=== PATIENT | female | born 1950 | race Caucasian/White ===

== ENCOUNTER 2019-03-23 11:11 | Outpatient (RCR) | payer MEDICARE, SELFPAY ==
--- NOTE | 2019-02-24 18:05 | PTOPEVAL ---
Thank you for referring this patient to [facility]. Please review, sign, date and return this plan of care JAYDEN. I agree with and certify that the following plan of care is medically necessary. Referring Physician Date Admitting Provider: Attending Provider: Raf Fritz MD Referring Provider: *PT Outpatient Evaluation Start: 02/24/19 17:03 Freq: Status: Active Protocol: Document 02/24/19 17:08 ROBERTO (Rec: 02/24/19 17:39 ROBERTO [id number]) Therapy Assessment Status Assessment Status Assessment Status Evaluation Outpatient Past Medical History Neurological History Hx Cerebrovascular Accident (CVA) Yes Hx Transient Ischemic Attacks (TIA) Yes Cardiovascular History Hx Hypertension Yes Evaluation Information Problem Diagnosis lumbosacral pain Onset 02/15/19 Subjective Information Pt. reports started noting low Query Text:As Reported By Patient/ back and buttock pain on 20. She recalls just waking with the pain. She states that she cannot recall an incident that increased her pain. She reports pain in the right buttock and down the lateral right l.e. and into the inside of the right foot. She reports having numbness and tingling in the lower right leg. She reports she is currently sleeping in a recliner due to pain. She states that pain is increased most with attempting to lay flat in bed or standing long periods of time. She reports that her goal is to decrease her low back pain. Prior Level of Function Comments Additional Prior Level of Function Pt. recalls that she has had Comments back pain in the past that has went away on its own. She reports that she is still completes ADL's and IADL's without assist, just slower due to pain. Pain Assessment Pain Scale Pain Scale Used Numeric (1 - 10) Self Report Pain Assessment Right Buttock(s) Reported Pain Level 5 Current Pain Intensity 5 Lowest Pain Intensity 5 Greatest Pain Intensity 10 Pain Aggravating Factors Prolonged Position,Weight
--- NOTE | 2019-04-07 13:02 | PCPTNOTE ---
04/07/19 - patient has not been to therapy in several weeks. she has been called with no return calls to continue or finish poc. as of this date, she will be dc'd from skilled PT services and all progress towards goals will be taken from her most recent evaluation/note. NIKKI
== END 2019-03-23 11:12 | disposition home or self-care (01) ==
LOC: CHSPT 11:11
PROVIDERS: PCP Internal Medicine; Visit Provider Internal Medicine
DX: M54.9 Dorsalgia, unspecified (principal); M54.17 Radiculopathy, lumbosacral region
CPT/HCPCS: 97014; 97110; 97161; G0283

== ENCOUNTER 2019-03-23 11:17 | Outpatient (CLI) | payer MEDICARE, SELFPAY ==
--- NOTE | ~2019-03-23 | CT_ITS ---
EXAMINATION: CT abdomen pelvis wo con DATE: 03/23/2019 11:40 INDICATION: Hematuria TECHNIQUE: Computed tomography (CT) of the abdomen and pelvis was performed without intravenous contr ast. The dose-length product (DLP) was 420.31 mGy-cm. Automated exposure control and iterative recons truction technique were employed. COMPARISON: None FINDINGS: Minimal dependent atelectasis is present in the lung bases. The heart size is normal. The l iver is diffusely low in attenuation when compared with the spleen, consistent with hepatic steatosis . Punctate calcifications in an otherwise normal spleen likely represent healed granulomatous disease . The gallbladder is surgically absent. The pancreas and adrenal glands are normal. The kidneys are u nremarkable. No stones are identified in the kidneys, ureters, or bladder. There is no hydronephrosis or hydroureter. Colonic diverticulosis is present without evidence of diverticulitis. There is mild lumbar spondylosis. A small fat-containing umbilical hernia is noted. IMPRESSION: 1. No CT correlate for the patient's symptoms. Reviewed, dictated and finalized at location A. [employer]
[2019-03-23 11:51] LABS: INR 2.8; Prothrombin Time 28.1 Seconds (9.64-11.0)
== END 2019-03-23 11:18 | disposition home or self-care (01) ==
PROVIDERS: PCP Internal Medicine; Visit Provider Internal Medicine
DX: R31.9 Hematuria, unspecified (principal); E11.9 Type 2 diabetes mellitus without complications; Z79.01 Long term (current) use of anticoagulants
CPT/HCPCS: 36415; 74176; 85610

== ENCOUNTER 2019-04-13 00:33 | Day surgery (SDC) | payer MEDICARE, SELFPAY ==
[2019-04-08 14:05] VITALS: BMI 32.0
--- NOTE | 2019-04-13 13:13 | P.PNAN_ITS ---
Anes - Initial Pre Proc Eval Procedure: Operation Date: 04/13/19 13:30 Proposed Procedures p Screening Colonoscopy - Ronnie Enriquez MD Date/Time: 04/13/19 13:13 Surgeon: Ronnie Enriquez MD Pre Op Diagnosis: Neoplasm Screening Patient Data Age: 68 Gender: F Height: 5 ft 6 in Weight: 90 kg Allergies Allergy/AdvReac Type Severity Reaction Status Date / Time No Known Allergies Allergy Unverified 04/13/19 12:55 Home Medications Medication Instructions Recorded Confirmed Type glimepiride 4 mg tablet 4 mg PO BID tablet 12/15/18 04/08/19 History indomethacin 50 mg capsule 50 mg PO TID cap 12/15/18 04/08/19 History warfarin 5 mg tablet See Rx Instructions .ROUTE .COMPLEX 12/15/18 04/08/19 History hydrochlorothiazide 12.5 mg tablet 12.5 mg PO DAILY #90 tablet 02/11/19 04/08/19 Rx lisinopril 40 mg tablet 40 mg PO DAILY #90 tablet 02/11/19 04/08/19 Rx prednisone 5 mg tablet 5 mg PO DAILY #30 tablet 02/16/19 04/08/19 Rx magnesium oxide 400 mg PO DAILY 04/08/19 04/08/19 History ropinirole 0.5 mg PO BID 04/08/19 04/08/19 History rosuvastatin 5 mg PO DAILY 04/08/19 04/08/19 History tramadol 50 mg PO Q6H PRN 04/08/19 04/08/19 History Patient hx anesthesia problems: none Family hx anesthesia problems: none PMFSH Past Medical History Medical History (Updated 04/13/19 @ 13:13 by Darrin Roldan MD) Cerebrovascular disease, unspecified Hypertension Mixed hyperlipidemia Neuropathy Otalgia TIA (transient ischemic attack) Type 2 diabetes mellitus without complications Surgical History Surgical History History of Hx of cholecystectomy Family History Family History (Updated 02/07/19 @ 21:45 by Lance Adam MD) Father Family history of cardiovascular disease Family history of congestive heart failure Grandparent Cerebrovascular accident Sibling Cirrhosis of liver Social History Social History Smoking status: Never smoker Alcohol intake: never Anes - Eval Final PreProcedure Day of Procedure 04/13/19 13:13 Patient weight: overweight Heart: regular rate and rhythm Lungs: clear to auscultation Airway: Mallampati scale class II Neurological: alert and oriented Last oral intake: >/= 8 hours ASA classification: III Emergent: no Anesthetic plan: proceed Anesthesia type and monitoring: general GIVS and standard monitoring Informed Consent: The patient's anesthetic plan and its attendant risks and benefits were discussed with the patient/family/POA. Questions were solicited and answers provided to the satisfaction of the patient/family/POA.
[2019-04-13 13:38] LABS: INR 1.3
[2019-04-13 13:39] LABS: Partial Thromboplastin Time 30.3 SECONDS (22.3-36.8)
[2019-04-13 13:46] VITALS: BP 134/63; PULSE 78; RESP 16; TEMP 36.6; O2SAT 99; BMI 31.6
[2019-04-13 13:46] LABS: Glucose Point of Care 110 (65-105)
[2019-04-13] MEDS: LACTATED RINGERS 1,000 ML 150 ML IV CONT (13:52)
[2019-04-13] MEDS: LIDOCAINE HCL 2% LOCAL INJ 20 ML VIAL INTRADERM (13:54)
--- NOTE | 2019-04-13 14:29 | PM.HPGS ---
History of Present Illness History of Present Illness Consent: Risks, benefits, and alternatives have been discussed and questions answered. Patient agrees to proceed with procedure. Chief complaint: Neoplasm Screening Narrative: Milagro Godoy is a 68 year old female here for screening colonoscopy, never had one. She also has diarrhea Review of Systems Constitutional: Constitutional: Denies headache(s) and Denies weakness Eyes: Eyes: Denies blurry vision ENT: Reports Normal hearing present, Denies headache(s) and Denies neck pain Cardiovascular: Cardiovascular: Denies chest pain and Denies dyspnea Respiratory: Respiratory: Denies dyspnea Gastrointestinal: Gastrointestinal: Reports no additional gastrointestinal complaints Genitourinary: Genitourinary: Denies dysuria Musculoskeletal: Musculoskeletal: Denies neck pain Integumentary/Breasts: Skin/Breast: Denies dry skin Neurologic: Reports Normal hearing present, Denies headache(s) and Denies weakness Psychiatric: Psychiatric: Denies anxiety Endocrine: Endocrine: Denies change in body appearance Hematologic/Lymphatic: Hematologic/Lymphatic: Denies easy bleeding Allergic/Immunologic: Allergic/Immunologic: Denies urticaria PMFSH Past Medical History Medical History (Updated 04/13/19 @ 14:30 by Ronnie Enriquez MD) Cerebrovascular disease, unspecified Chronic diarrhea Hypertension Mixed hyperlipidemia Neuropathy Otalgia TIA (transient ischemic attack) Type 2 diabetes mellitus without complications Surgical History Surgical History History of Hx of cholecystectomy Family History Family History (Updated 02/07/19 @ 21:45 by Lance Adam MD) Father Family history of cardiovascular disease Family history of congestive heart failure Grandparent Cerebrovascular accident Sibling Cirrhosis of liver Social History Social History Smoking status: Never smoker Alcohol intake: never Meds Home Medications and Allergies Home Medications Medication Instructions Recorded Confirmed Type glimepiride 4 mg tablet 4 mg PO BID tablet 12/15/18 04/08/19 History warfarin 5 mg tablet See Rx Instructions .ROUTE .COMPLEX 12/15/18 04/13/19 History hydrochlorothiazide 12.5 mg tablet 12.5 mg PO DAILY #90 tablet 02/11/19 04/08/19 Rx lisinopril 40 mg tablet 40 mg PO DAILY #90 tablet 02/11/19 04/08/19 Rx prednisone 5 mg tablet 5 mg PO DAILY #30 tablet 02/16/19 04/08/19 Rx magnesium oxide 400 mg PO DAILY 04/08/19 04/08/19 History ropinirole 0.5 - 1 mg PO HS 04/08/19 04/13/19 History rosuvastatin 5 mg PO DAILY 04/08/19 04/13/19 History tramadol 50 mg PO Q6H PRN 04/08/19 04/08/19 History Allergies Allergy/AdvReac Type Severity Reaction Status Date / Time No Known Allergies Allergy Unverified 04/13/19 12:55 Vital Signs Vital Signs - 24 hr 04/13/19 13:46 Temperature 97.8 F Pulse Rate 78 Respiratory Rate 16 Blood Pressure 134/63 Pulse Oximetry 99 Exam Const: General: comfortable and no acute distress HENMT: General nose exam: Normal nares present Eyes: General: appearance normal, both eyes and all related structures Neck: Neck: no JVD Resp: Auscultation: clear to auscultation bilaterally Cardio: Rate: regular rate Rhythm: regular rhythm GI: Inspection: non-distended GI Palp: Yes Soft to palpation Skin: General skin exam: normal color Neuro: General: gait normal Speech: normal speech Extrem: General: normal to inspection Psych: Mental Status: mental status grossly normal Assessment and Plan Assessment and plan (1) Chronic diarrhea: Code(s): K52.9 - Noninfective gastroenteritis and colitis, unspecified Status: Acute Assessment and Plan: will poceed with colonoscopy and consider random bx (2) Chronic atrial fibrillation: Code(s): I48.20 - Chronic atrial fibril
[2019-04-13 14:54] VITALS: BP 120/90; PULSE 75; RESP 20; O2SAT 97
[2019-04-13 15:04] VITALS: BP 127/71; PULSE 75; RESP 18; O2SAT 98
[2019-04-13 15:14] VITALS: BP 110/58; PULSE 69; RESP 20; O2SAT 99
== END 2019-04-13 15:23 | disposition home or self-care (01) ==
PROVIDERS: PCP Internal Medicine; Visit Provider Internal Medicine Gastroenterology
PROC: 0DJD8ZZ Inspection of Lower Intestinal Tract, Via Natural or Artificial Opening Endoscopic (ICD-10-PCS; CPT 45378; principal; 2019-04-13 13:30)
DX: Z12.11 Encounter for screening for malignant neoplasm of colon (principal); D12.3 Benign neoplasm of transverse colon; K63.89 Other specified diseases of intestine; K57.30 Diverticulosis of large intestine without perforation or abscess without bleeding; K64.8 Other hemorrhoids; I10 Essential (primary) hypertension; I67.9 Cerebrovascular disease, unspecified; E78.2 Mixed hyperlipidemia; E11.40 Type 2 diabetes mellitus with diabetic neuropathy, unspecified; Z86.73 Personal history of transient ischemic attack (TIA), and cerebral infarction without residual deficits; Z79.01 Long term (current) use of anticoagulants; Z79.84 Long term (current) use of oral hypoglycemic drugs
CPT/HCPCS: 45380; 45385; 36415; 85610; 85730; 88305; J2704; J7120

== ENCOUNTER 2019-09-22 20:02 | Emergency (ER) | payer MEDICARE, SELFPAY ==
--- NOTE | ~2019-09-22 | XR_ITS ---
EXAMINATION: XR ankle RT min 3V EXAM DATE: 09/22/2019 20:49 INDICATION: Initial encounter following injury, with pain of the right ankle. TECHNIQUE: Right ankle frontal, lateral and oblique projections obtained and reviewed. There is no p rior study for comparison. FINDINGS: The right ankle mortise appears intact. There are no acute fractures or dislocations iden tified. There is no subcutaneous gas. There is soft tissue swelling over the ankle. There are no r adiopaque foreign bodies. There is posterior and inferior calcaneal enthesopathy. IMPRESSION: 1. XR ankle RT min 3V exam without acute osseous findings. 2. Soft tissue swelling. 3. Calcaneal enthesopathy. Reviewed, dictated and finalized at location A.
[2019-09-22 20:10] VITALS: BP 171/94; PULSE 89; RESP 14; TEMP 36.9; O2SAT 98
--- NOTE | 2019-09-22 20:18 | ED.LOWEXIN ---
HPI - Extremity Injury (Lower) General Chief Complaint: Extremity Injury, Lower Stated Complaint: R leg pain Time Seen by Provider: 09/22/19 20:18 Source: patient Mode of arrival: ambulatory Limitations: no limitations History of Present Illness HPI Narrative: 69-year-old woman comes in today complaining of pain in her right lower leg for 2 days. Patient states that she has peripheral neuropathy and diabetes. She recently took in a blind rescue [place] who collided with her medial right leg causing some bruising and who scratched up her leg over the last few days. She denies fever, nausea, vomiting, calf pain. she states that she had some chills yesterday. complaint: ankle injury Onset (ago): day(s) (2) Injury: Right: ankle Type of Injury: blunt ( And abrasion) and puncture wound Place: home Severity: moderate Relieving factors: rest Exacerbating factors: movement and palpation Context: other Associated symptoms: swelling and ambulatory Related Data Home Medications Medication Instructions Recorded Confirmed glimepiride 4 mg tablet 4 mg PO BID tablet 12/15/18 09/22/19 warfarin 5 mg tablet See Rx Instructions .ROUTE .COMPLEX 12/15/18 09/22/19 magnesium oxide 400 mg PO DAILY 04/08/19 09/22/19 ropinirole 0.5 - 1 mg PO HS 04/08/19 09/22/19 rosuvastatin 5 mg PO DAILY 04/08/19 09/22/19 tramadol 50 mg PO Q6H PRN 04/08/19 09/22/19 Allergies Allergy/AdvReac Type Severity Reaction Status Date / Time No Known Allergies Allergy Unverified 04/13/19 12:55 Review of Systems Constitutional: Constitutional: Reports chills, Denies fever(s) and Denies weakness Eyes: Eyes: Denies change in vision and Denies photophobia ENT: Denies dysphagia, Denies nasal congestion and Denies sore throat Cardiovascular: Cardiovascular: Denies chest pain and Denies radiating jaw, neck or arm pain Respiratory: Respiratory: Denies cough and Denies dyspnea Gastrointestinal: Gastrointestinal: Denies abdominal pain, Denies nausea and Denies vomiting Genitourinary: Genitourinary: Denies nocturia and Denies dysuria Musculoskeletal: Musculoskeletal: Reports as per HPI, Reports arthralgias and Reports joint swelling Integumentary/Breasts: Skin/Breast: Denies pruritus, Reports rash and Denies skin ulcer Neurologic: Denies vertigo, Denies dizziness and Denies syncope Hematologic/Lymphatic: Hematologic/Lymphatic: Denies easy bleeding and Denies easy bruising Allergic/Immunologic: Allergic/Immunologic: Denies lip swelling, Denies throat swelling and Denies tongue swelling PMFSH Past Medical History Medical History Cerebrovascular disease, unspecified Chronic diarrhea Hypertension Mixed hyperlipidemia Neuropathy Otalgia TIA (transient ischemic attack) Type 2 diabetes mellitus without complications Surgical History Surgical History History of Hx of cholecystectomy Family History Family History (Updated 02/07/19 @ 21:45 by Lance Adam MD) Father Family history of cardiovascular disease Family history of congestive heart failure Grandparent Cerebrovascular accident Sibling Cirrhosis of liver Social History Social History Smoking status: Never smoker Alcohol intake: never Exam Const: General: alert Nutritional Appearance: well nourished Orientation/consciousness: patient oriented x3 Limitations: no limitations Other: mild acute distress HENMT: Head: normal to inspection Ears: external ears normal, TM's normal bilaterally and EAC's normal Mouth: Yes moist mucous membranes Throat: posterior oropharynx normal Eyes: Conjunctivae: conjunctivae normal Pupils: Equal, round and reactive pupils present EOM: EOMs intact bilaterally Resp: Effort & Inspection: normal respiratory effort and not labored Auscultation: clear to auscultation
[2019-09-22 21:01] LABS: Basophils Absolute Auto 0.03 K/mm3 (0.00-0.10); Basophils Percent Auto 0.3 % (0.0-1.0); Eosinophils Absolute Auto 0.17 K/mm3 (0.02-0.50); Eosinophils Percent Auto 1.6 % (1.0-6.0); Hematocrit 35.5 % (35.0-42.0); Immature Granulocyte Absolute 0.05 K/mm3 (0.00-0.00); Immature Granulocyte Percent A 0.5 % (0.0-0.0); Lymphocytes Absolute Auto 2.59 K/mm3 (1.10-4.50); Lymphocytes Percent Auto 24.2 % (18.0-42.0); Mean Corpuscular Hemoglobin 30.6 pg (27.0-31.0); Mean Corpuscular Volume 98.9 fL (78.0-102.0); Mean Platelet Volume 10.8 fl (9.2-11.8); Monocytes Absolute Auto 1.06 K/mm3 (0.10-0.90); Monocytes Percent Auto 9.9 % (2.0-11.0); Neutrophils Absolute Auto 6.8 K/mm3 (1.7-7.2); Neutrophils Percent Auto 63.5 % (50.0-70.0); Platelet Count Result 273 K/mm3 (150-420); Red Blood Count 3.59 M/mm3 (4.20-5.40); Red Cell Distribution Width 13.3 % (11.6-14.4); White Blood Count 10.7 K/mm3 (4.8-10.8)
[2019-09-22 21:13] LABS: INR 1.9; Partial Thromboplastin Time 35.2 SEC (22.3-31.6); Prothrombin Time 18.8 Seconds (9.64-11.0)
[2019-09-22 21:16] LABS: Alanine Aminotransferase 25 U/L (14-59); Albumin Level 3.4 g/dL (3.4-5.0); Alkaline Phosphatase 69 U/L (46-116); Anion Gap 9 mmol/L (8-16); Aspartate Amino Transferase 19 U/L (15-37); Bilirubin,Total 0.5 mg/dL (0.00-1.00); Blood Urea Nitrogen 22 mg/dL (7-18); CRP 2.3 mg/dL (0.0-0.9); Calcium 8.6 mg/dL (8.5-10.1); Carbon Dioxide 25 mmol/L (21-32); Chloride 106 mmol/L (98-108); Estimated CRCL calculation 48 ml/min; Estimated Glomerular Filt Rate 46; Glucose 121 mg/dL (70-99); Osmolality Calculated 294 mOsm/kg (285-295); Sodium 140 mmol/L (136-145); Total Protein 7.6 g/dL (6.4-8.2)
[2019-09-22 21:28] LABS: Add Urine Microscopic? YES; Appearance Urine Clear (Clear); Bilirubin Urine Negative (Negative); Blood Urine 2+ (Negative); Color Urine Yellow (Yellow); Glucose Urine UA Negative (Negative); Ketones Urine Negative (Negative); Leukocyte Esterase Ur Negative LEU/UL (Negative); Nitrate Urine Negative (Negative); Protein Urine Negative (Negative); Specific Grav Ur 1.025 (1.010-1.020); Urobilinogen Urine 0.2 mg/dL (0.2-1.0); pH Urine 5.5 (5.0-8.0)
[2019-09-22 21:34] LABS: Lactic Acid Reflex 1.3 mmol/L (0.4-2.0)
[2019-09-22 21:36] LABS: Squamous Epithelial Cell Urine Moderate /hpf (Few); WBC Urine 0-3 /hpf (0-3)
[2019-09-22 21:37] LABS: Bacteria Urine 1+ /hpf
[2019-09-22 22:29] VITALS: RESP 14; O2SAT 100
[2019-09-22] MEDS: AMOXICILLIN/CLAVULANATE K 875-125 MG TAB 1 TABLET PO (22:40)
[2019-09-22 22:43] LABS: Erythrocyte Sedimentation Rate 30 mm/hr (0-20)
== END 2019-09-22 22:45 | disposition home or self-care (01) ==
PROVIDERS: Emergency Provider Emergency Medicine; PCP Internal Medicine
DX: L08.9 Local infection of the skin and subcutaneous tissue, unspecified (principal); S90.01XA Contusion of right ankle, initial encounter; W54.1XXA Struck by dog, initial encounter
CPT/HCPCS: 36415; 73610; 80053; 81001; 83605; 85025; 85610; 85652; 85730; 86140; 87040; 99283; 99284; A9270

== ENCOUNTER 2019-10-09 09:47 | Outpatient (CLI) | payer MEDICARE, SELFPAY ==
[2019-10-11 13:06] LABS: SARS-CoV-2 RNA PCR Negative
== END 2019-10-09 09:48 | disposition home or self-care (01) ==
LOC: CHSLAB 09:48
PROVIDERS: PCP Internal Medicine; Visit Provider Internal Medicine
DX: Z20.828 Contact with and (suspected) exposure to other viral communicable diseases (principal)
CPT/HCPCS: 87635; C9803; U0003

== ENCOUNTER 2019-11-18 11:48 | Outpatient (CLI) | payer MEDICARE, SELFPAY ==
[2019-11-19 13:59] LABS: SARS-CoV-2 RNA PCR Positive
== END 2019-11-18 11:49 | disposition home or self-care (01) ==
LOC: CHSLAB 11:50
PROVIDERS: PCP Internal Medicine; Visit Provider Internal Medicine
DX: U07.1 COVID-19 (principal)
CPT/HCPCS: 87635; C9803; U0003

== ENCOUNTER 2021-05-02 07:56 | Outpatient (RCR) | payer MEDICARE, SELFPAY ==
--- NOTE | 2021-05-02 08:04 | PTOPEVAL ---
Thank you for referring Milagro Godoy to [facility].? The patient is scheduled to be seen for therapy? ____x/week for ___ weeks. Please review, sign, date and return this plan of care JAYDEN. I agree with and certify that the following plan of care is medically necessary. Referring Physician Date Admitting Provider: Attending Provider: Raf Fritz MD Referring Provider: *PT Outpatient Evaluation Start: 05/02/21 07:16 Freq: Status: Active Protocol: Document 05/02/21 07:20 [facility] (Rec: 05/02/21 08:00 [facility] [id number]) Therapy Assessment Status Assessment Status Assessment Status Evaluation Outpatient Past Medical History Neurological History Hx Cerebrovascular Accident (CVA) Yes: X3 Hx Transient Ischemic Attacks (TIA) Yes: X11 Hx Other Neurological Disorders Yes: NEUOPATHY Cardiovascular History Hx Hypercholesterolemia Yes Hx Hypertension Yes Respiratory History Hx Respiratory Disorders No Significant History Gastrointestinal History Hx Cholecystectomy Yes Hx Gastroesophageal Reflux Disease Yes Genitourinary History Hx Genitourinary Disorders No Significant History Musculoskeletal History Hx Gout Yes Hematological History Hx Blood Transfusions Yes Endocrine History Hx Diabetes Yes HEENT History Hx HEENT Disorders No Significant History Integumentary History Hx Shingles Yes Reproductive History Hx Section Yes Psychosocial History Hx Psychiatric Disorders No Significant History Pain History Has Past Pain Affected Your Daily Life Yes: CANT SLEEP Anesthesia History Hx Anesthesia Reactions No Significant History Evaluation Information Problem Diagnosis back pain, DJD Onset 04/27/21 Additional Evaluation Detail LEFS = 53% functionally declined oswestry = 48% functionally declined Subjective Information patient reports she is having Query Text:As Reported By Patient/ pain in the back and L hip. Family she reports she has been having pain in the back for about 10 years or more. she reports the back pain has lately been getting progressively worse. she reports the L hip will hurt to where she can hardly drive. she reports she constantly feels like she has to move it. she reports she has neuropathy in her bilater
--- NOTE | 2021-05-22 11:04 | PTOPEVAL ---
Thank you for referring Milagro Godoy to [facility].? The patient is scheduled to be seen for therapy? ____x/week for ___ weeks. Please review, sign, date and return this plan of care JAYDEN. I agree with and certify that the following plan of care is medically necessary. Referring Physician Date Admitting Provider: Attending Provider: Raf Fritz MD Referring Provider: *PT Outpatient Evaluation Start: 05/02/21 07:16 Freq: Status: Active Protocol: Document 05/22/21 10:00 [facility] (Rec: 05/22/21 11:04 [facility] [id number]) Therapy Assessment Status Assessment Status Assessment Status Progress Outpatient Past Medical History Neurological History Hx Cerebrovascular Accident (CVA) Yes: X3 Hx Transient Ischemic Attacks (TIA) Yes: X11 Hx Other Neurological Disorders Yes: NEUOPATHY Cardiovascular History Hx Hypercholesterolemia Yes Hx Hypertension Yes Respiratory History Hx Respiratory Disorders No Significant History Gastrointestinal History Hx Cholecystectomy Yes Hx Gastroesophageal Reflux Disease Yes Genitourinary History Hx Genitourinary Disorders No Significant History Musculoskeletal History Hx Gout Yes Hematological History Hx Blood Transfusions Yes Endocrine History Hx Diabetes Yes HEENT History Hx HEENT Disorders No Significant History Integumentary History Hx Shingles Yes Reproductive History Hx Section Yes Psychosocial History Hx Psychiatric Disorders No Significant History Pain History Has Past Pain Affected Your Daily Life Yes: CANT SLEEP Anesthesia History Hx Anesthesia Reactions No Significant History Evaluation Information Problem Diagnosis back pain, DJD Onset 04/27/21 Subjective Information patient reports she is sore Query Text:As Reported By Patient/ today. she reports she has Family been cleaning the barn and helping a friend pack and move and reports her pain is bad because of this. Pain Assessment Timing of Pain Assessment Timing of Pain Assessment Assessment Pain Scale Pain Scale Used Numeric (1 - 10) Self Report Pain Assessment Lower Back Reported Pain Level 8 Pain Score Pain Score 8: Self Report Interventions Used Interventions Used By Clinicians Activity or ADL's,Education, Electrical Stimulation, Exercise,Heat Cervical and Lumbar Muscle Testing Lumbar Strength Lower Abdominal Strength 3 Fair Lower Extremity Muscle Strength Testing General Lower Extremity Strength Gross Lower Extremity Strength 4-/5 bilatera
--- NOTE | 2021-06-07 18:02 | PTOPEVAL ---
Thank you for referring Milagro Godoy to [facility].? The patient is scheduled to be seen for therapy? ____x/week for ___ weeks. Please review, sign, date and return this plan of care JAYDEN. I agree with and certify that the following plan of care is medically necessary. Referring Physician Date Admitting Provider: Attending Provider: Raf Fritz MD Referring Provider: *PT Outpatient Evaluation Start: 05/02/21 07:16 Freq: Status: Active Protocol: Document 06/07/21 17:20 ROBERTO (Rec: 06/07/21 18:02 ROBERTO [id number]) Outpatient Past Medical History Neurological History Hx Cerebrovascular Accident (CVA) Yes: X3 Hx Transient Ischemic Attacks (TIA) Yes: X11 Hx Other Neurological Disorders Yes: NEUOPATHY Cardiovascular History Hx Hypercholesterolemia Yes Hx Hypertension Yes Respiratory History Hx Respiratory Disorders No Significant History Gastrointestinal History Hx Cholecystectomy Yes Hx Gastroesophageal Reflux Disease Yes Genitourinary History Hx Genitourinary Disorders No Significant History Musculoskeletal History Hx Gout Yes Hematological History Hx Blood Transfusions Yes Endocrine History Hx Diabetes Yes HEENT History Hx HEENT Disorders No Significant History Integumentary History Hx Shingles Yes Reproductive History Hx Section Yes Psychosocial History Hx Psychiatric Disorders No Significant History Pain History Has Past Pain Affected Your Daily Life Yes: CANT SLEEP Anesthesia History Hx Anesthesia Reactions No Significant History Evaluation Information Problem Diagnosis back pain, DJD Subjective Information Pt. enters the clinic today Query Text:As Reported By Patient/ with a new onset of mid back Family pain. She describes the pain on the right side and radiating through her ribs. She reports that her pain is very sevre. she has a hx of shingles 30+ years ago. She reports that her low back is no longer in pain, but her current bout of pain began several days ago. She states that she cannot sleep or lay flat. She report she will return to her doctor tomorrow and refused to go to the ER. Pain Assessment Timing of Pain Assessment Timing of Pain Assessment Pre-Treatment Pain Scale Pain Scale Used Numeric (1 - 10) Self Report Pain Assessment Right Ribs
== END 2021-06-07 14:07 | disposition home or self-care (01) ==
LOC: CHSPT 07:56
PROVIDERS: PCP Internal Medicine; Visit Provider Internal Medicine
DX: M54.9 Dorsalgia, unspecified (principal); M19.90 Unspecified osteoarthritis, unspecified site
CPT/HCPCS: 97012; 97014; 97110; 97140; 97161; 97164; G0283

== ENCOUNTER 2021-05-03 13:00 | Outpatient (CLI) | payer MEDICARE, SELFPAY ==
--- NOTE | 2021-05-03 13:13 | ECHO_ITS ---
Patient Info Name: Milagro Godoy Age: 71 years : 1950 Gender: Female Ht: 67 in Wt: 189 lbs BSA: 2.04 m2 HR: 70 bpm BP: 115 / 60 mmHg Technical Quality: Good Exam Date: 05/03/2021 12:53 PM Exam Location: [facility] Patient Status: Outpatient Admit Date: 05/03/2021 Staff Ordering Physician: Raf Fritz MD Esthetic Dermatologist: Darling Lynne Attending Provider: Raf Fritz MD Exam Type: CA echo doppler color flow Study Info Indications I48.0 - Paroxysmal atrial fibrillation Complete two-dimensional, color flow and Doppler transthoracic echocardiogram is performed. Summary 1. Complete two-dimensional, color flow and Doppler transthoracic echocardiogram is performed. 2. Left ventricular chamber dimension is normal. 3. Left ventricular systolic function is normal, estimated at 60-65%. 4. The left ventricular diastolic function is grade I diastolic dysfunction. 5. E/e' 8 is minimally elevated. 6. Left atrial chamber dimension is mildly enlarged. 7. There is moderate aortic valve sclerosis. 8. There is mild aortic valve stenosis with a peak velocity of 275 cm/s, mean gradient of 22 mmHg, and aortic valve area of 1.6 cm2. 9. No pulmonary hypertension, estimated pulmonary arterial systolic pressure is 16 mmHg. 10. There is trace pulmonic regurgitation. 11. There is small circumferential pericardial effusion. No cardiac tamponade. Left Ventricle E/e' 8 is minimally elevated. Left ventricular chamber dimension is normal. Left ventricular systolic function is normal, estimated at 60-65%. The left ventricular diastolic function is grade I diastolic dysfunction. Right Ventricle Right ventricular systolic function is normal and with normal TAPSE 2.0 cm. Right ventricular chamber dimension is normal. Left Atria Left atrial chamber dimension is mildly enlarged. Right Atria Right atrial chamber dimension is normal. Aortic Valve The aortic valve is trileaflet. There is moderate aortic valve sclerosis. There is mild aortic valve stenosis with a peak velocity of 275 cm/s, mean gradient of 22 mmHg, and aortic valve area of 1.6 cm2. There is no aortic valve regurgitation. Pulmonic Valve There is trace pulmonic regurgitation. Mitral Valve There is no mitral valve stenosis. There is no mitral valve regurgitation. Tricuspid Valve There is no tricuspid valve regurgitation. No pulmonary hypertension, estimated pulmonary arterial systolic pressure is 16 mmHg. Pericardium/Pleural There is small circumferential pericardial effusion. No cardiac tamponade. Inferior Vena Cava Normal inferior vena cava with >50% collapse upon inspiration consistent with normal right atrial pressure, 5 mmHg. Aorta The aortic root size at the sinus of Valsalva is normal. Left Ventricular Outflow Tract Name Value Normal LVOT 2D LVOT Diameter 1.8 cm LVOT Doppler LVOT Peak Velocity 164 cm/s LVOT Peak Gradient 11 mmHg LVOT Mean Gradient 7 mmHg LVOT VTI 40 cm LVOT VTI/AV VTI Ratio 0.7
--- NOTE | 2021-05-03 13:15 | ECG_ITS ---
Measurements Intervals [place] Rate: 68 P: 57 CO: 168 QRS: 54 QRSD: 81 T: 52 QT: 415 QTc: 443 Interpretive Statements SINUS RHYTHM NORMAL ECG NO PREVIOUS ECG AVAILABLE FOR COMPARISON Electronically Signed On 05-03-2021 15:36:25 CDT by Jefferson Kirk M.D.
== END 2021-05-03 13:01 | disposition home or self-care (01) ==
LOC: CHSIMG 13:01
PROVIDERS: PCP Internal Medicine; Visit Provider Internal Medicine
DX: I48.0 Paroxysmal atrial fibrillation (principal)
CPT/HCPCS: 93005; 93306

== ENCOUNTER 2021-06-10 19:01 | Emergency (ER) | payer MEDICARE, SELFPAY ==
--- NOTE | ~2021-06-10 | CT_ITS ---
EXAMINATION: CT cervical spine wo con DATE: 06/10/2021 20:37 INDICATION: neck pain TECHNIQUE: Computed tomography (CT) of the cervical spine was performed without intravenous contrast. Automated exposure control and iterative reconstruction technique were employed. The dose-length pro duct was 404.22 mGy-cm. COMPARISON: 08/21/2014. FINDINGS: Counting reference: Craniocervical junction. There are seven cervical type vertebral bodies. Anatomic Variants: None.. Vertebral Body Alignment: Intact. Craniocervical junction: Moderate degenerative change. Alignment intact. Osseous structures/fracture: No evidence of a lytic or blastic process in the visualized spine. N o evidence of acute fracture. Cervical soft tissues: The paraspinal soft tissues planes are maintained. Degenerative changes: Degenerative changes, without severe neural foraminal or central canal narrowin g. IMPRESSION: No acute fracture or traumatic malalignment in the cervical spine. Reviewed, dictated and finalized at location K.
--- NOTE | ~2021-06-10 | XR_ITS ---
EXAM: XR shoulder RT min 2V, XR shoulder LT min 2V HISTORY: pain COMPARISON: None available FINDINGS: Decreased mineralization. No fracture or dislocation. No lytic or blastic lesion. Moderate AC joint hypertrophy on the left. No erosion or periosteal change. Bilateral chondral calcifications . IMPRESSION: No acute osseous finding in the left or right shoulder. Reviewed, dictated and finalized at location K. IMPRESSION: No acute osseous finding in the left or right shoulder.
[2021-06-10 19:38] VITALS: BP 159/88; PULSE 85; RESP 20; TEMP 36.4; O2SAT 97
--- NOTE | 2021-06-10 19:56 | PC.NURSE ---
MD Valdes requested that this staff member document that [facility] is changing the Toradol order to Toradol 30mg IM.
[2021-06-10] MEDS: KETOROLAC 30 MG/ML VIAL (*BKC) IM (20:06)
--- NOTE | 2021-06-10 21:43 | ED.EXTPRO ---
HPI - Extremity Problem General Chief complaint: Extremity Problem,Nontraumatic Stated complaint: Pain back/hip/ribs 3 weeks Time Seen by Provider: 06/10/21 19:03 Source: patient and RN notes reviewed Mode of arrival: ambulatory Limitations: no limitations History of Present Illness Complaint: extremity pain and other (neck pain and stiffness) Onset (ago): day(s) (2) Pain Consistency: constant Location: left, right, upper extremity and other (and neck) Severity scale (1-10): 7 Quality: aching and dull Radiation: distal Relieving factors: nothing Exacerbating factors: range of motion Associated symptoms: arthralgias Related Data Home Medications Medication Instructions Recorded Confirmed glimepiride 4 mg tablet 4 mg PO BID tablet 12/15/18 06/10/21 warfarin 5 mg tablet See Rx Instructions .ROUTE .COMPLEX 12/15/18 06/10/21 ropinirole 0.5 - 1 mg PO HS 04/08/19 06/10/21 rosuvastatin 5 mg PO DAILY 04/08/19 06/10/21 allopurinol 300 mg PO DAILY 06/10/21 06/10/21 amitriptyline 25 mg PO HS 06/10/21 06/10/21 duloxetine 20 mg PO DAILY 06/10/21 06/10/21 Allergies Allergy/AdvReac Type Severity Reaction Status Date / Time acetaminophen [From Vicodin] Allergy Numbness Verified 06/10/21 19:34 hydrocodone [From Vicodin] Allergy Numbness Verified 06/10/21 19:34 Review of Systems Review of Systems: All systems reviewed & are unremarkable except as noted in HPI and below PMFSH Past Medical History Medical History Cerebrovascular disease, unspecified Chronic diarrhea Hypertension Mixed hyperlipidemia Neuropathy Otalgia TIA (transient ischemic attack) Type 2 diabetes mellitus without complications Surgical History Surgical History History of Hx of cholecystectomy Family History Family History Father Family history of cardiovascular disease Family history of congestive heart failure Grandparent Cerebrovascular accident Sibling Cirrhosis of liver Social History Social History Smoking status: Never smoker Alcohol intake: never Exam Const: General: no acute distress and alert Nutritional Appearance: well nourished Orientation/consciousness: patient oriented x3 HENMT: Head: normal to inspection Ears: external ears normal, TM's normal bilaterally and EAC's normal General nose exam: Normal external nose present and Normal nares present Face and sinus: normal facial exam and sinuses nontender Mouth: Yes moist mucous membranes Eyes: Conjunctivae: conjunctivae normal Pupils: Equal, round and reactive pupils present EOM: EOMs intact bilaterally Neck: Neck: normal visual inspection Other: minimal posterior paraspinal neck tenderness, no acute redness, swelling or deformity. Chest: Chest palpation & inspection: normal inspection of the chest Resp: Effort & Inspection: normal respiratory effort Auscultation: clear to auscultation bilaterally Cardio: Rate: regular rate Rhythm: regular rhythm GI: GI Palp: Yes Soft to palpation and No Tenderness to palpation present (GI) Auscultation: normal bowel sounds : General: Yes bladder normal to palpation and Yes no CVA tenderness Back/Spine/Pelvis: Back: no CVA tenderness Other: minimally tender bilateral upper shoulders with no acute redness, swelling or deformity. Skin: General skin exam: normal color Rashes: no rashes Neuro: General: patient oriented x3, moves all extremities, no meningeal signs, no focal motor deficits and CN's II-XI intact bilaterally Extrem: General: normal to inspection and no pedal edema Psych: Appearance: well kempt Mental Status: mental status grossly normal Affect: normal affect Attitude: cooperative Thought content: Yes Normal thought content present Course Course Emergency Course: Pt was s
[2021-06-10 22:32] VITALS: BP 171/80; PULSE 81; RESP 17; TEMP 36.2; O2SAT 98
== END 2021-06-10 22:34 | disposition home or self-care (01) ==
PROVIDERS: Emergency Provider Emergency Medicine; PCP Internal Medicine
DX: M79.0 Rheumatism, unspecified (principal); M54.2 Cervicalgia; M25.512 Pain in left shoulder; M25.511 Pain in right shoulder; I10 Essential (primary) hypertension; E78.2 Mixed hyperlipidemia; E11.9 Type 2 diabetes mellitus without complications
CPT/HCPCS: 72125; 73030; 96372; 99284; J1885

== ENCOUNTER 2021-06-19 08:52 | Outpatient (CLI) | payer MEDICARE, SELFPAY ==
--- NOTE | ~2021-06-19 | MR_ITS ---
EXAMINATION: MR lumbar spine wo con DATE: 06/19/2021 09:45 INDICATION: Worsening chronic back pain radiating to the left hip and leg. TECHNIQUE: Magnetic resonance imaging (MRI) of the lumbar spine was performed without intravenous con trast. Sequences included sagittal T2-weighted FSE, sagittal T2-weighted FS FSE, sagittal T1-weighted FSE, and axial T2-weighted FSE. COMPARISON: Lumbar spine MRI 07/30/2009 FINDINGS: Bone alignment is normal. Vertebral body heights are normal. Intervertebral disc heights ar e normal. The distal spinal cord signal intensity is normal. The conus medullaris is at L1. The follo wing disc levels are specifically discussed: L1-L2: The disc does not extend beyond the endplate margin. There is mild bilateral facet joint osteo arthritis. There is no neural foraminal stenosis. There is no central canal stenosis. L2-L3: The disc is bulging. There is mild bilateral facet joint osteoarthritis. There is mild bilater al neural foraminal stenosis. There is no central canal stenosis. L3-L4: The disc is bulging and has an annular fissure. There is moderate bilateral facet joint osteoa rthritis. There is mild bilateral neural foraminal stenosis. There is no central canal stenosis. L4-L5: The disc is bulging and has an annular fissure. There is moderate bilateral facet joint osteoa rthritis. There is mild bilateral neural foraminal stenosis. There is mild central canal stenosis. L5-S1: There is a left subarticular and foraminal zone protrusion with annular fissure. There is tuan re bilateral facet joint osteoarthritis. There is mild bilateral neural foraminal stenosis. There is no central canal stenosis. IMPRESSION: 1. Mild lumbar spondylosis, stable from 07/30/2009. Reviewed, dictated and finalized at location E.
== END 2021-06-19 08:53 | disposition home or self-care (01) ==
LOC: CHSIMG 08:54
PROVIDERS: PCP Internal Medicine; Visit Provider Internal Medicine
DX: M54.9 Dorsalgia, unspecified (principal)
CPT/HCPCS: 72148

== ENCOUNTER 2021-08-09 10:56 | Outpatient (CLI) | payer MEDICARE, SELFPAY ==
--- NOTE | ~2021-08-09 | XR_ITS ---
XR hip LT min 2V DATE: 08/09/2021 11:15 INDICATION: Posterior left hip pain for 6 days. No known injury. TECHNIQUE: AP and lateral views COMPARISON: March 23, 2019 CT abdomen pelvis FINDINGS: There is left hip joint space narrowing and degenerative spurring consistent with moderatel y severe left hip osteoarthritis. Degenerative change at the pubic symphysis. There is osteopenia. No fracture, dislocation, avascular necrosis or bone destruction of the left hip is detected. IMPRESSION: Moderately severe left hip osteoid arthritis Osteopenia Reviewed, dictated and finalized at location B.
== END 2021-08-09 10:57 | disposition home or self-care (01) ==
LOC: CHSIMG 10:57
PROVIDERS: PCP Internal Medicine; Visit Provider Internal Medicine
DX: M25.552 Pain in left hip (principal)
CPT/HCPCS: 73502

== ENCOUNTER 2021-08-20 16:07 | Outpatient (RCR) | payer MEDICARE, SELFPAY ==
--- NOTE | 2021-08-20 16:51 | PTOPEVAL ---
Thank you for referring Milagro Godoy to [facility].? The patient is scheduled to be seen for therapy? ____x/week for ___ weeks. Please review, sign, date and return this plan of care JAYDEN. I agree with and certify that the following plan of care is medically necessary. Referring Physician Date Admitting Provider: Attending Provider: Raf Fritz MD Referring Provider: *PT Outpatient Evaluation Start: 08/20/21 16:09 Freq: Status: Active Protocol: Document 08/20/21 16:10 Virgie (Rec: 08/20/21 16:51 [facility] [id number]) Therapy Assessment Status Assessment Status Assessment Status Evaluation Outpatient Past Medical History Neurological History Hx Cerebrovascular Accident (CVA) Yes: X3 Hx Transient Ischemic Attacks (TIA) Yes: X11 Hx Other Neurological Disorders Yes: NEUOPATHY Cardiovascular History Hx Hypercholesterolemia Yes Hx Hypertension Yes Respiratory History Hx Respiratory Disorders No Significant History Gastrointestinal History Hx Cholecystectomy Yes Hx Gastroesophageal Reflux Disease Yes Genitourinary History Hx Genitourinary Disorders No Significant History Musculoskeletal History Hx Gout Yes Hematological History Hx Blood Transfusions Yes Endocrine History Hx Diabetes Yes HEENT History Hx HEENT Disorders No Significant History Integumentary History Hx Shingles Yes Reproductive History Hx Section Yes Hx Post Menopausal Yes Psychosocial History Hx Psychiatric Disorders No Significant History Pain History Has Past Pain Affected Your Daily Life Yes: CANT SLEEP Anesthesia History Hx Anesthesia Reactions No Significant History Evaluation Information Problem Diagnosis L hip pain Onset 08/10/21 Additional Evaluation Detail LEFS = Subjective Information patient reports she was having Query Text:As Reported By Patient/ pain all over a few months Family ago. she reports everything was checked out and she was found to have arthritis in the lumbar spine and L hip. she reports she has increased pain in the L hip with standing, walking. she reports she has been tolerating activities better since her Md put her on pain meds. she reports the recliner was the only thing that was claming down her pain . Prior Level of Function Comments Additional Prior Level of Func
--- NOTE | 2021-11-27 07:21 | PCPTNOTE ---
mrs. jimenez has not been to therapy in over 2 months. she will be dc'd from skilled pt as of this date. all progress towards goals will be taken from her most recent evaluation/note. NIKKI
== END 2021-09-18 23:59 | disposition home or self-care (01) ==
LOC: CHSPT 16:07
PROVIDERS: PCP Internal Medicine; Visit Provider Internal Medicine
DX: M25.552 Pain in left hip (principal)
CPT/HCPCS: 97014; 97110; 97112; 97140; 97161; G0283

== ENCOUNTER 2021-10-21 10:27 | Emergency (ER) | payer MEDICARE, SELFPAY ==
--- NOTE | ~2021-10-21 | XR_ITS ---
XR forearm LT 2V DATE: 10/21/2021 12:43 INDICATION: Fall. Left forearm injury, pain TECHNIQUE: AP and lateral views COMPARISON: None FINDINGS: There is a small dorsal olecranon process spur. No fracture or dislocation, periosteal reaction or bone destruction. Osteoarthritis at first carpometacarpal joint IMPRESSION: Small dorsal olecranon process spur No fracture or dislocation Reviewed, dictated and finalized at location A.
--- NOTE | ~2021-10-21 | XR_ITS ---
XR hand RT min 3V DATE: 10/21/2021 12:44 INDICATION: Fall. First and second digit pain TECHNIQUE: 3 views COMPARISON: None FINDINGS: There is chondrocalcinosis of the triangular cartilage and wrist joint in addition to secon d and fifth metacarpophalangeal joints and. Moderate osteoarthritis at the first carpometacarpal joint. There is osteoarthritic change at the dis lexie interphalangeal joints. 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
--- NOTE | ~2021-10-21 | XR_ITS ---
XR hand LT min 3V DATE: 10/21/2021 12:44 INDICATION: Fall. Left hand pain TECHNIQUE: 3 views COMPARISON: None FINDINGS: There is chondrocalcinosis at the triangular cartilage and wrist joint. There is moderate osteoarthritis at the first carpometacarpal joint. No fracture or dislocation, periosteal reaction or bone destruction is detected. 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
[2021-10-21 10:30] VITALS: BP 131/78; PULSE 99; RESP 20; TEMP 36.3; O2SAT 100
[2021-10-21] MEDS: ACETAMINOPHEN 325 MG TABLET 650 MG PO (12:10)
--- NOTE | 2021-10-21 13:02 | ED.UPPEXIN ---
HPI - Extremity Injury (Upper) General Chief Complaint: Extremity Injury, Upper Stated Complaint: pain in both hands after fall Time Seen by Provider: 10/21/21 10:28 Source: patient Mode of arrival: ambulatory Limitations: no limitations History of Present Illness HPI narrative: Both wrists Pain full after a fall. MD complaint: injury to: left, right and wrist Onset (ago): hour(s) (1) Other injuries: none Place: outdoors Severity: mild Severity scale (1-10): 3 Relieving factors: none Exacerbating factors: none Context: fall Associated symptoms: denies other symptoms Treatments prior to arrival: other (none) Related Data Home Medications Medication Instructions Recorded Confirmed glimepiride 4 mg tablet 4 mg PO BID 12/15/18 10/21/21 warfarin 5 mg tablet (Coumadin) See Rx Instructions .Route .COMPLEX 12/15/18 10/21/21 ropinirole 0.5 mg tablet 0.5 - 1 mg PO HS 04/08/19 10/21/21 rosuvastatin 5 mg tablet 5 mg PO DAILY 04/08/19 10/21/21 allopurinol 300 mg tablet 300 mg PO DAILY 06/10/21 10/21/21 amitriptyline 25 mg tablet 25 mg PO HS 06/10/21 10/21/21 duloxetine 20 mg capsule,delayed 20 mg PO DAILY 06/10/21 10/21/21 release Allergies Allergy/AdvReac Type Severity Reaction Status Date / Time hydrocodone [From Vicodin] Allergy Numbness Verified 06/10/21 19:34 Review of Systems Review of Systems: All systems reviewed & are unremarkable except as noted in HPI and below Constitutional: Constitutional: Reports no additional constitutional complaints Eyes: Eyes: Reports no additional eye complaints ENT: Reports system reviewed and no additional complaints, except as documented Cardiovascular: Cardiovascular: Reports no additional cardiovascular complaints Respiratory: Respiratory: Reports no additional respiratory complaints Gastrointestinal: Gastrointestinal: Reports no additional gastrointestinal complaints Genitourinary: Genitourinary: Reports no additional female genitourinary complaints Musculoskeletal: Musculoskeletal: Reports no additional musculoskeletal complaints and Reports arthralgias Integumentary/Breasts: Skin/Breast: Reports system reviewed and no additional complaints, except as docu Neurologic: Reports system reviewed and no additional complaints, except as documented Psychiatric: Psychiatric: Reports no additional psychiatric complaints Endocrine: Endocrine: Reports no additional endocrine complaints Hematologic/Lymphatic: Hematologic/Lymphatic: Reports no additional hematologic/lymphatic complaints Allergic/Immunologic: Allergic/Immunologic: Reports no additional allergic/immunologic complaints [facility] Past Medical History Medical History Cerebrovascular disease, unspecified Chronic diarrhea Hypertension Mixed hyperlipidemia Neuropathy Otalgia TIA (transient ischemic attack) Type 2 diabetes mellitus without complications Surgical History Surgical History History of Hx of cholecystectomy Family History Family History Father Family history of cardiovascular disease Family history of congestive heart failure Grandparent Cerebrovascular accident Sibling Cirrhosis of liver Social History Social History Smoking status: Never smoker Alcohol intake: never Exam Const: General: healthy appearing and no acute distress Nutritional Appearance: well nourished Orientation/consciousness: patient oriented x3 Limitations: no limitations HENMT: Head: normal to inspection Ears: external ears normal, TM's normal bilaterally and EAC's normal General nose exam: Normal external nose present and Normal nares present Face and sinus: normal facial exam and sinuses nontender Mouth: Yes Normal oral and palatal mucosa present and Yes moist mucous membra
[2021-10-21 13:12] VITALS: BP 131/87; PULSE 87; RESP 20; TEMP 36.3; O2SAT 97
[2021-10-21] MEDS: MORPHINE SULFATE (*CRX) 4 MG/ML INJ IM (13:35)
== END 2021-10-21 13:45 | disposition home or self-care (01) ==
PROVIDERS: Emergency Provider Emergency Medicine; PCP Internal Medicine
DX: S63.502A Unspecified sprain of left wrist, initial encounter (principal); S63.619A Unspecified sprain of unspecified finger, initial encounter; W19.XXXA Unspecified fall, initial encounter
CPT/HCPCS: 73090; 73130; 96372; 99284; A4565; A9270; J2270

== ENCOUNTER 2021-12-05 16:05 | Emergency (ER) | payer MEDICARE, SELFPAY ==
--- NOTE | ~2021-12-05 | XR_ITS ---
EXAMINATION: XR hand RT min 3V DATE: 12/05/2021 17:10 INDICATION: Right hand pain. Fall. TECHNIQUE: 3 views of right hand were obtained. COMPARISON: Right hand radiographs 10/21/2021 FINDINGS: Bone alignment is normal. No fracture. There is mild osteoarthritis of first carpometacarpa l joint and some of the interphalangeal joints. There are periarticular calcifications in the wrist a nd at second and fifth metacarpophalangeal joints. IMPRESSION: 1. Polyarticular osteoarthritis. Reviewed, dictated and finalized at location A.
--- NOTE | ~2021-12-05 | XR_ITS ---
EXAMINATION: XR_RIBSBI_CR DATE: 12/05/2021 17:10 INDICATION: Bilateral chest pain. Fall. TECHNIQUE: 2 views of the right ribs on 3 radiographs and 2 views of the left ribs on 3 radiographs w ere obtained. COMPARISON: Chest single view 12/27/2015 FINDINGS: The chest demonstrates clear lungs without pneumonia, pleural effusion, or pneumothorax. Th e heart size is normal. Surgical clips overlie the abdomen. IMPRESSION: 1. No rib fracture. Reviewed, dictated and finalized at location A. IMPRESSION: 1. No rib fracture.
--- NOTE | ~2021-12-05 | XR_ITS ---
EXAMINATION: XR hand LT min 3V DATE: 12/05/2021 17:10 INDICATION: Left hand pain. Fall. TECHNIQUE: 3 views of left hand were obtained. COMPARISON: None. FINDINGS: Bone alignment is normal. No fracture. There is severe osteoarthritis of first carpometacar pal joint and mild osteoarthritis of first metacarpophalangeal joint and many of the interphalangeal joints. IMPRESSION: 1. Polyarticular osteoarthritis. Reviewed, dictated and finalized at location A.
--- NOTE | ~2021-12-05 | XR_ITS ---
EXAMINATION: XR elbow RT min 3V DATE: 12/05/2021 17:09 INDICATION: Right elbow pain. Fall. TECHNIQUE: 4 views of right elbow were obtained. COMPARISON: Right elbow radiographs 04/03/2018 FINDINGS: Bone alignment is normal. There is an old fracture deformity of radial head with 1 mm step- off at the articular surface. No acute fracture. There is mild elbow joint osteoarthritis. There are enthesophytes at medial and lateral humeral epicondyles. No elbow joint effusion. IMPRESSION: 1. Mild elbow joint osteoarthritis. Reviewed, dictated and finalized at location A.
[2021-12-05 16:14] VITALS: BP 122/82; PULSE 97; RESP 18; TEMP 36.2; O2SAT 100
[2021-12-05] MEDS: ACETAMINOPHEN 500 MG TABLET 1000 MG PO (16:30)
--- NOTE | 2021-12-05 16:42 | ED.GENADULT ---
HPI - General Adult General Chief complaint: Fall Stated complaint: right arm injury, rib injury Time Seen by Provider: 12/05/21 16:20 History of Present Illness HPI narrative: Terese is a 71F with a PMH of DMII, chronic diarrhea, afib, HTN, gout, OA and rheumatism that presented to the ER after a fall. She tripped on the sidewalk and fell forward 5 hours before coming to the ED. After the fall she went shopping. She fell forward onto her chest and wrists then scraped her face. She did not lose consciousness and has no pain in her head or neck. The worst of her pain is in her ribs bilaterally, as well as some pain in her right elbow and both hands. She did not take any pain meds before coming in. Related Data Home Medications Medication Instructions Recorded Confirmed glimepiride 4 mg tablet 4 mg PO BID 12/15/18 12/05/21 warfarin 5 mg tablet (Coumadin) See Rx Instructions .Route .COMPLEX 12/15/18 12/05/21 ropinirole 0.5 mg tablet 0.5 - 1 mg PO HS 04/08/19 12/05/21 rosuvastatin 5 mg tablet 5 mg PO DAILY 04/08/19 12/05/21 allopurinol 300 mg tablet 300 mg PO DAILY 06/10/21 12/05/21 amitriptyline 25 mg tablet 25 mg PO HS 06/10/21 12/05/21 duloxetine 20 mg capsule,delayed 20 mg PO DAILY 06/10/21 12/05/21 release diclofenac sodium 1 % topical gel 1 ea topical DAILY 12/05/21 12/05/21 ergocalciferol (vitamin D2) 1,250 1,250 mcg PO WEEKLY 12/05/21 12/05/21 mcg (50,000 unit) capsule prednisone 5 mg tablet 5 mg PO DAILY 12/05/21 12/05/21 Allergies Allergy/AdvReac Type Severity Reaction Status Date / Time hydrocodone [From Vicodin] Allergy Numbness Verified 12/05/21 16:15 Review of Systems Review of Systems: All systems reviewed & are unremarkable except as noted in HPI and below PMFSH Past Medical History Medical History Cerebrovascular disease, unspecified Chronic diarrhea Hypertension Mixed hyperlipidemia Neuropathy Otalgia TIA (transient ischemic attack) Type 2 diabetes mellitus without complications Surgical History Surgical History History of Hx of cholecystectomy Family History Family History Father Family history of cardiovascular disease Family history of congestive heart failure Grandparent Cerebrovascular accident Sibling Cirrhosis of liver Social History Social History Smoking status: Never smoker Alcohol intake: never Exam Const: General: healthy appearing and no acute distress Nutritional Appearance: well nourished Orientation/consciousness: patient oriented x3 HENMT: Head: normal to inspection Ears: external ears normal Face/Nose/Sinus: Normal external nose present Face and sinus: normal facial exam Other: multiple small abrasions to the nose and face Neck had no midline tenderness and she had no pain with a full active ROM Eyes: Conjunctivae: conjunctivae normal Pupils: Equal, round and reactive pupils present Neck: Neck: normal visual inspection Chest: Chest palpation & inspection: normal inspection of the chest Other: TTP throughout the rib cage bilaterally Resp: Effort & Inspection: normal respiratory effort Auscultation: clear to auscultation bilaterally Cardio: Rate: regular rate Rhythm: regular rhythm GI: GI Palp: Yes Soft to palpation, No Tenderness to palpation present (GI) and No Guarding due to palpation present (GI) Back/Spine/Pelvis: Back: no CVA tenderness Skin: General skin exam: normal color Rashes: no rashes Neuro: General: patient oriented x3 and moves all extremities Cranial nerves: Yes Nystagmus not present Extrem: General: normal to inspection Psych: Mental Status: mental status grossly normal Affect: normal affect Course Course Emergency Course: Given Tylenol for the pain and ordered radiographs Ra
[2021-12-05 17:32] VITALS: BP 132/86; PULSE 91; RESP 16; O2SAT 98
--- NOTE | 2021-12-05 17:45 | PC.NURSE ---
pt sitting on stretcher with sister at bedside. nad noted. pt is awaiting erp to return for dc. emergency on the floor. will continue to monitor.
== END 2021-12-05 17:50 | disposition home or self-care (01) ==
PROVIDERS: Emergency Provider Family Medicine; PCP Internal Medicine
DX: S29.9XXA Unspecified injury of thorax, initial encounter (principal); W19.XXXA Unspecified fall, initial encounter; I10 Essential (primary) hypertension; E78.2 Mixed hyperlipidemia; E11.9 Type 2 diabetes mellitus without complications; Z86.73 Personal history of transient ischemic attack (TIA), and cerebral infarction without residual deficits
CPT/HCPCS: 71110; 73080; 73130; 99284

== ENCOUNTER 2021-12-09 11:44 | Emergency (ER) | payer MEDICARE, SELFPAY ==
--- NOTE | ~2021-12-09 | CT_ITS ---
EXAMINATION: CT lumbar spine wo con DATE: 12/09/2021 13:08 INDICATION: Low back pain after fall TECHNIQUE: Computed tomography (CT) of the lumbar spine was performed without intravenous contrast. T he dose-length product was 1046.06 mGy-cm. Automated exposure control and iterative reconstruction te julyque were employed. COMPARISON: None FINDINGS: Vertebral body and disc heights are preserved. No fracture or traumatic malalignment. No ev idence for spondylolisthesis. There is facet hypertrophy at L3-4 through L5-S1. No significant parasp inal soft tissue abnormality. IMPRESSION: 1. No acute abnormality of the cervical spine. 2: Mild lumbar spondylosis. Reviewed, dictated and finalized at location A.
--- NOTE | ~2021-12-09 | XR_ITS ---
[[id number] ] INDICATION: Status post fall. Rib pain. TECHNIQUE: Frontal projection of the upper left ribs, frontal projection of the lower left ribs, obli que projection of all the left ribs, frontal inspiratory chest x-ray for interpretation. FINDINGS: There are no acute displaced rib fractures identified. There are no soft tissue abnormali ty seen. There is bibasilar atelectasis. IMPRESSION: 1:No acute displaced rib fractures. 2: Bibasilar atelectasis. Reviewed, dictated and finalized at location A.
--- NOTE | ~2021-12-09 | XR_ITS ---
XR shoulder LT min 2V 12/09/2021 13:41 Indication: Status post fall. Left shoulder pain. Procedure: 4 views left shoulder Comparison: No prior studies for comparison. Findings: No fracture, subluxation or dislocation. There are degenerative change at the acromioclavic ular joint with hypertrophic changes. Surrounding osseous structures and soft tissues are unremarkabl e. There is demineralization. Impression: 1: No acute bone or joint abnormality. Reviewed, dictated and finalized at location A. Impression: 1: No acute bone or joint abnormality.
--- NOTE | ~2021-12-09 | XR_ITS ---
XR knee RT 3V 12/09/2021 13:40 Indication: Right knee pain Procedure: 3 views right knee Comparison: No prior studies for comparison. Findings: There is moderate osteoarthritis of the knee. There is chondrocalcinosis. No significant asher int effusion. There is atherosclerosis. No acute fracture, subluxation or dislocation. Impression: 1: No acute fracture. Reviewed, dictated and finalized at location A. Impression: 1: No acute fracture.
--- NOTE | ~2021-12-09 | CT_ITS ---
EXAMINATION: CT pelvis wo con DATE: 12/09/2021 13:08 INDICATION: Sciatic pain. TECHNIQUE: Computed tomography (CT) of the pelvis was performed without intravenous contrast. The dos e-length product was 577.49 mGy-cm. Automated exposure control and iterative reconstruction technique were employed. COMPARISON: CT dated 03/23/2019 FINDINGS: There is osteoarthritis of the hips. No acute fracture or traumatic malalignment. No sacral or coccygeal fractures. The pelvic structures are intact. The bladder is moderately distended. No fr ee air or free fluid. IMPRESSION: 1. No acute fracture. Reviewed, dictated and finalized at location A. IMPRESSION: 1. No acute fracture.
--- NOTE | ~2021-12-09 | XR_ITS ---
XR wrist RT w scaphoid 12/09/2021 13:41 Indication: Right wrist pain after fall Procedure: 5 views of the right wrist including scaphoid views Comparison: Comparison to multiple prior studies sequentially, with oldest reviewed study dated 04/07. Findings: There is polyarticular osteoarthritis of the wrist including the triscaphe and first carpal metacarpal joints. There is chondrocalcinosis. There is demineralization. No focal soft tissue abnor mality. No acute fracture or traumatic malalignment. Impression: 1: No acute fracture. 2: Polyarticular osteoarthritis. 3: Chondrocalcinosis. Reviewed, dictated and finalized at location A. Impression: 1: No acute fracture. 2: Polyarticular osteoarthritis. 3: Chondrocalcinosis.
--- NOTE | ~2021-12-09 | CT_ITS ---
EXAMINATION: CT brain wo con DATE: 12/09/2021 13:06 INDICATION: Status post fall. Headache. TECHNIQUE: Computed tomography (CT) of the head was performed without intravenous contrast. The dose- length product was 605.33 mGy-cm. Automated exposure control and iterative reconstruction technique w ere employed. COMPARISON: CT dated 12/27/2015 FINDINGS: Mild generalized atrophy. There are scattered mild periventricular and subcortical white ma tter changes, most likely related to small vessel ischemic disease (microangiopathy). No ventriculome minh or midline shift. Basilar cisterns are patent. No acute intracranial hemorrhage, infarction, mas s or mass effect. Paranasal sinuses and mastoids are pneumatized. No depressed skull fractures. IMPRESSION: 1. No acute intracranial abnormality. Reviewed, dictated and finalized at location A.
--- NOTE | ~2021-12-09 | CT_ITS ---
EXAMINATION: CT facial & cervical spine wo DATE: 12/09/2021 13:06 INDICATION: Status post fall. Facial and neck pain. TECHNIQUE: Computed tomography (CT) of the maxillofacial region and cervical spine was performed with out intravenous contrast. The dose-length product was 405.70 mGy-cm. Automated exposure control and i terative reconstruction technique were employed. COMPARISON: CT cervical spine dated 06/10/2020 FINDINGS: MAXILLOFACIAL CT: No acute maxillofacial fracture. There is degenerative change of the right temporomandibular joint. M andible intact. Paranasal sinuses are pneumatized. There is intracranial atherosclerosis. No evidence for orbital fracture. Zygomatic arches and pterygoid plates are intact. CERVICAL SPINE CT: There is normal cervical lordosis. Vertebral body heights are maintained. Craniovertebral junction is normal. No significant spinal stenosis. Odontoid process is normal. Lateral masses are normally alig morales. There is mild mid and lower cervical facet hypertrophy. There is apical pleural thickening/scarr ing. IMPRESSION: 1. No acute abnormality of the facial bones or cervical spine. Reviewed, dictated and finalized at location A.
[2021-12-09 11:51] VITALS: BP 134/87; PULSE 96; RESP 17; TEMP 36.3; O2SAT 98
--- NOTE | 2021-12-09 13:12 | ED.FALL ---
HPI - Fall General Chief Complaint: Extremity Injury, Lower Stated Complaint: FALL Source: patient Mode of arrival: ambulatory Limitations: no limitations History of Present Illness HPI Narrative: Patient is a 71-year-old white female with a PMH of DMII, chronic diarrhea, afib, HTN, gout, OA and rheumatism that presented to the ER after a fall on December 05 to the emergency room. Then she complained of bilateral wrist pain and left rib pain. Today she complains of loose further swelling on her right wrist and more pain pain in her right knee left shoulder pain in her neck face and has also had a headache. She has been taking Tylenol No. 3 for pain twice a day. Hurts to move around. She had no loss of consciousness with the fall. She is also complaining of right hip pain and sciatic pain with pain radiating down her right thigh. Denies any numbness or dizziness. Related Data Home Medications Medication Instructions Recorded Confirmed glimepiride 4 mg tablet 4 mg PO BID 12/15/18 12/09/21 warfarin 5 mg tablet (Coumadin) See Rx Instructions .Route .COMPLEX 12/15/18 12/09/21 ropinirole 0.5 mg tablet 0.5 - 1 mg PO HS 04/08/19 12/09/21 rosuvastatin 5 mg tablet 5 mg PO DAILY 04/08/19 12/09/21 allopurinol 300 mg tablet 300 mg PO DAILY 06/10/21 12/09/21 amitriptyline 25 mg tablet 25 mg PO HS 06/10/21 12/09/21 duloxetine 20 mg capsule,delayed 20 mg PO DAILY 06/10/21 12/09/21 release diclofenac sodium 1 % topical gel 1 ea topical DAILY 12/05/21 12/09/21 ergocalciferol (vitamin D2) 1,250 1,250 mcg PO WEEKLY 12/05/21 12/09/21 mcg (50,000 unit) capsule prednisone 5 mg tablet 5 mg PO DAILY 12/05/21 12/09/21 Allergies Allergy/AdvReac Type Severity Reaction Status Date / Time hydrocodone [From Vicodin] Allergy Numbness Verified 12/09/21 11:55 Review of Systems Review of Systems: All systems reviewed & are unremarkable except as noted in HPI and below Constitutional: Constitutional: Reports no additional constitutional complaints Eyes: Eyes: Reports no additional eye complaints ENT: Reports system reviewed and no additional complaints, except as documented Comments: Patient said she fell flat on her face as some abrasions and contusion to her face her nose is tender. But denies any epistaxis dizziness vertigo. Cardiovascular: Cardiovascular: Reports as per HPI and Reports no additional cardiovascular complaints Respiratory: Respiratory: Reports as per HPI and Reports no additional respiratory complaints Comments: Hurts to cough on her left side of her chest and move around. Gastrointestinal: Gastrointestinal: Reports no additional gastrointestinal complaints Genitourinary: Genitourinary: Reports no additional female genitourinary complaints Musculoskeletal: Musculoskeletal: Reports no additional musculoskeletal complaints and Reports as per HPI Comments: He has a few abrasions and bruises over her right knee complains of mild pain there. her left shoulder sore. She said she had a recent diagnosis of polymyalgia rheumatica. Integumentary/Breasts: Skin/Breast: Reports system reviewed and no additional complaints, except as docu Neurologic: Reports system reviewed and no additional complaints, except as documented, Denies confusion, Denies vertigo, Denies dizziness, Denies syncope, Reports headache(s), Denies focal weakness, Denies numbness and Denies weakness Psychiatric: Psychiatric: Reports no additional psychiatric complaints Endocrine: Endocrine: Reports no additional endocrine complaints Hematologic/Lymphatic: Hematologic/Lymphatic: Reports no additional hematologic/lymphatic complaints Allergic/Immunologic: Allergic/Immunologic: Reports no additional allergic/immunologic complaints [facility] Past Medical History Medical History Cerebrovascular disease, unspecified Chronic diarrhea Hypertension Mixed hyperlipidemia Neuropathy Otalgia TIA (transient is
[2021-12-09] MEDS: ACETAMINOPHEN/CODEINE (*CRX) 300/30 MG TABLET 1 TAB PO (13:40)
--- NOTE | 2021-12-09 14:38 | PC.NURSE ---
Right wrist velcro brace placed on pt.
[2021-12-09 14:39] VITALS: BP 129/59; PULSE 83; RESP 16; TEMP 36.7; O2SAT 94
[2021-12-09 14:54] VITALS: BP 129/59; PULSE 79; RESP 16; TEMP 36.3; O2SAT 94
== END 2021-12-09 14:55 | disposition home or self-care (01) ==
PROVIDERS: Emergency Provider Emergency Medicine; PCP Internal Medicine
DX: S16.1XXA Strain of muscle, fascia and tendon at neck level, initial encounter (principal); S46.912A Strain of unspecified muscle, fascia and tendon at shoulder and upper arm level, left arm, initial encounter; S80.01XA Contusion of right knee, initial encounter; S20.219A Contusion of unspecified front wall of thorax, initial encounter; S00.83XA Contusion of other part of head, initial encounter; S63.501A Unspecified sprain of right wrist, initial encounter; W19.XXXA Unspecified fall, initial encounter; I10 Essential (primary) hypertension; E78.2 Mixed hyperlipidemia; E11.9 Type 2 diabetes mellitus without complications
CPT/HCPCS: 29125; 70450; 70486; 71101; 72125; 72131; 72192; 73030; 73110; 73562; 99284; A9270

== ENCOUNTER 2022-03-10 14:17 | Emergency (ER) | payer MEDICARE, SELFPAY ==
--- NOTE | ~2022-03-10 | CT_ITS ---
EXAMINATION: CT brain wo con DATE: 03/10/2022 14:56 INDICATION: Headache. Blurred vision. TECHNIQUE: Computed tomography (CT) of the head was performed without intravenous contrast. The mA wa s adjusted according to patient size. Iterative reconstruction technique was employed. The dose-lengt h product was 681.00 mGy-cm. COMPARISON: Head CT 12/09/2021 FINDINGS: There are scattered areas of low attenuation in the cerebral white matter, which is within normal limits for the patient's age. There is no intracranial hemorrhage, acute infarction, or abnorm al intracranial mass lesion. The ventricles are normal in size. Vertebral body heights are normal. Th ere is mild mucosal thickening in the paranasal sinuses. There is a trace left mastoid effusion. IMPRESSION: 1. Normal aging brain. Reviewed, dictated and finalized at location A. 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 Normal aging brain.
[2022-03-10 14:20] VITALS: BP 138/67; PULSE 93; RESP 16; TEMP 36.4; O2SAT 97
--- NOTE | 2022-03-10 14:38 | ED.GENADULT ---
HPI - General Adult General Chief complaint: Unspecified Stated complaint: vision blurry /unstable/headache Time Seen by Provider: 03/10/22 14:32 History of Present Illness HPI narrative: Milagro is a 71F with a PMH of gout, HTN, afib, neuropathy, DMII, and rheumatism as well as chronic headaches that presented to the ED with a headache. She woke up with a pounding headache bilaterally behind her eyes, occipital region and to down to the neck. It is accompanied by blurred vision and nausea but no vomiting. No chest pain, dyspnea fevers or chills. Related Data Home Medications Medication Instructions Recorded Confirmed glimepiride 4 mg tablet 4 mg PO BID 12/15/18 12/09/21 warfarin 5 mg tablet (Coumadin) See Rx Instructions .Route .COMPLEX 12/15/18 12/09/21 ropinirole 0.5 mg tablet 0.5 - 1 mg PO HS 04/08/19 12/09/21 rosuvastatin 5 mg tablet 5 mg PO DAILY 04/08/19 12/09/21 allopurinol 300 mg tablet 300 mg PO DAILY 06/10/21 12/09/21 amitriptyline 25 mg tablet 25 mg PO HS 06/10/21 12/09/21 duloxetine 20 mg capsule,delayed 20 mg PO DAILY 06/10/21 12/09/21 release diclofenac sodium 1 % topical gel 1 ea topical DAILY 12/05/21 12/09/21 ergocalciferol (vitamin D2) 1,250 1,250 mcg PO WEEKLY 12/05/21 12/09/21 mcg (50,000 unit) capsule prednisone 5 mg tablet 5 mg PO DAILY 12/05/21 12/09/21 Allergies Allergy/AdvReac Type Severity Reaction Status Date / Time hydrocodone [From Vicodin] Allergy Numbness Verified 03/10/22 14:30 Review of Systems Review of Systems: All systems reviewed & are unremarkable except as noted in HPI and below PMFSH Past Medical History Medical History Cerebrovascular disease, unspecified Chronic diarrhea Hypertension Mixed hyperlipidemia Neuropathy Otalgia TIA (transient ischemic attack) Type 2 diabetes mellitus without complications Surgical History Surgical History History of Hx of cholecystectomy Family History Family History Father Family history of cardiovascular disease Family history of congestive heart failure Grandparent Cerebrovascular accident Sibling Cirrhosis of liver Social History Social History Smoking status: Never smoker Alcohol intake: never Exam Const: General: cooperative, healthy appearing, comfortable and no acute distress Nutritional Appearance: average body habitus and well nourished HENMT: Head: normal to inspection, normocephalic and atraumatic Ears: hearing grossly normal bilaterally Eyes: General: appearance normal, both eyes and all related structures Alignment and Position: alignment normal and position normal Periorbital: periorbital findings normal Conjunctivae: conjunctivae normal Neck: Neck: normal visual inspection Chest: Chest palpation & inspection: normal inspection of the chest Resp: Effort & Inspection: normal respiratory effort and able to speak in complete sentences Cardio: Jugular venous distension: no JVD Palpation: normal PMI Rate: regular rate Rhythm: regular rhythm GI: Inspection: normal to inspection GI Palp: No abdominal tenderness Back/Spine/Pelvis: Back: no CVA tenderness Skin: General skin exam: normal color and no rashes or lesions noted Neuro: General: oriented to person, oriented to place and oriented to time Cranial nerves: Yes CN's II-XII intact bilaterally Cognition (Neuro): normal cognition Speech: normal speech Motor exam (neuro): 5/5 motor strength present throughout and No tremor noted Other: appeared to struggle to see Course Course Emergency Course: Ordered labs, CT as it has new features, fluids, benadryl and compazine EXAMINATION: CT brain wo con DATE: 03/10/2022 14:56 INDICATION: Headache. Blurred vision. TECHNIQUE: Computed tomography (CT) of the head
[2022-03-10 14:44] LABS: Glucose Point of Care 239 mg/dl (65-105)
[2022-03-10] MEDS: SODIUM CHLORIDE 0.9% IV 1,000 ML 999 ML IV CONT (15:03)
[2022-03-10] MEDS: diphenhydrAMINE HCl INJ 50 MG/ML VIAL IV PUSH (15:03)
[2022-03-10] MEDS: PROCHLORPERAZINE EDISYLATE 10 MG/2 ML VIAL IV PUSH (15:03)
[2022-03-10 15:23] LABS: Basophils Absolute Auto 0.03 K/mm3 (0.00-0.10); Basophils Percent Auto 0.3 % (0.0-1.0); Eosinophils Absolute Auto 0.07 K/mm3 (0.02-0.50); Eosinophils Percent Auto 0.8 % (1.0-6.0); Hematocrit 41.1 % (35.0-42.0); Immature Granulocyte Absolute 0.04 K/mm3 (0.00-0.00); Immature Granulocyte Percent A 0.5 % (0.0-0.0); Lymphocytes Absolute Auto 1.53 K/mm3 (1.10-4.50); Lymphocytes Percent Auto 17.3 % (18.0-42.0); Mean Corpuscular HGB Conc 31.6 g/dL (32.0-36.0); Mean Corpuscular Hemoglobin 30.1 pg (27.0-31.0); Mean Corpuscular Volume 95.1 fL (78.0-102.0); Mean Platelet Volume 11.2 fl (9.2-11.8); Monocytes Percent Auto 4.5 % (2.0-11.0); Neutrophils Absolute Auto 6.8 K/mm3 (1.7-7.2); Neutrophils Percent Auto 76.6 % (50.0-70.0); Platelet Count Result 242 K/mm3 (150-420); Red Blood Count 4.32 M/mm3 (4.20-5.40); Red Cell Distribution Width 13.8 % (11.6-14.4); White Blood Count 8.8 K/mm3 (4.8-10.8)
[2022-03-10 15:38] LABS: INR 1.7; Prothrombin Time 17.5 Seconds (9.50-12.10)
[2022-03-10 15:40] LABS: Alanine Aminotransferase 23 U/L (14-59); Albumin Level 3.2 g/dL (3.4-5.0); Alkaline Phosphatase 78 U/L (46-116); Anion Gap 10 mmol/L (8-16); Aspartate Amino Transferase 25 U/L (15-37); Bilirubin,Total 0.6 mg/dL (0.00-1.00); Blood Urea Nitrogen 17 mg/dL (7-18); Calcium 8.2 mg/dL (8.5-10.1); Carbon Dioxide 25 mmol/L (21-32); Chloride 104 mmol/L (98-108); Estimated CRCL calculation 55 ml/min; Estimated Glomerular Filt Rate > 60; Glucose 224 mg/dL (70-99); Magnesium 1.7 mg/dL (1.8-2.4); Osmolality Calculated 296 mOsm/kg (285-295); Potassium 4.3 mmol/L (3.5-5.1); Sodium 139 mmol/L (136-145); Total Protein 6.7 g/dL (6.4-8.2)
[2022-03-10 15:51] VITALS: BP 127/64; PULSE 64; RESP 16; O2SAT 99
== END 2022-03-10 16:33 | disposition home or self-care (01) ==
PROVIDERS: Emergency Provider Family Medicine; PCP Internal Medicine
DX: R51.9 Headache, unspecified (principal); I48.91 Unspecified atrial fibrillation; E11.9 Type 2 diabetes mellitus without complications; I10 Essential (primary) hypertension; E78.2 Mixed hyperlipidemia; Z86.73 Personal history of transient ischemic attack (TIA), and cerebral infarction without residual deficits
CPT/HCPCS: 36415; 70450; 80053; 82948; 83735; 85025; 85610; 96361; 96374; 96375; 99284; J0780; J1200; J7030

== ENCOUNTER 2022-03-18 17:38 | Emergency (ER) | payer MEDICARE, SELFPAY ==
--- NOTE | ~2022-03-18 | XR_ITS ---
EXAMINATION: XR wrist RT min 3V DATE: 03/18/2022 18:26 INDICATION: Diffuse right wrist pain and swelling post fall TECHNIQUE: Posteroanterior, ulnar deviation, oblique, and lateral views of the right wrist were obtai morales. COMPARISON: 12/09/2021 FINDINGS: Nondisplaced impacted fracture at the distal right radius with new linear sclerosis along the physeal scar at the radial side of the distal radius. There is subtle discontinuity along the dorsal cortex on the lateral and oblique projections. On the oblique projection a subtle linear fracture line can b e seen extending from the volar side of the metaphysis to the distal articular surface. No other frac tures identified. Chondrocalcinosis and mild osteoarthritis at the wrist joint. There is mild cystlik e change at the ulnar side of the proximal lunate. Additional moderate osteoarthritis at the first ca rpometacarpal joint and mild osteoarthritis at the triscaphe joint. Additional subtle dystrophic calc ification at the radial sides of the second and fifth metacarpophalangeal joints. IMPRESSION: 1. Nondisplaced mildly comminuted intra-articular fracture of the distal right radius. Reviewed, dictated and finalized at location A. 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
[2022-03-18 17:38] VITALS: BP 159/88; PULSE 102; RESP 18; O2SAT 95
[2022-03-18 17:40] VITALS: BP 159/88; PULSE 104; RESP 18; TEMP 36.3; O2SAT 94
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
[2022-03-18] MEDS: IBUPROFEN 400 MG TABLET 800 MG PO (18:49)
[2022-03-18] MEDS: ACETAMINOPHEN 500 MG TABLET 1000 MG PO (18:49)
--- NOTE | 2022-03-18 19:25 | PC.NURSE ---
Short arm OCL applied to right wrist and arm sling to right wrist.
[2022-03-18 19:46] VITALS: BP 138/87; PULSE 87; RESP 20; TEMP 36.9; O2SAT 99
== END 2022-03-18 19:48 | disposition home or self-care (01) ==
PROVIDERS: Emergency Provider Emergency Medicine; PCP Internal Medicine
DX: S52.571A Other intraarticular fracture of lower end of right radius, initial encounter for closed fracture (principal); I10 Essential (primary) hypertension; E78.2 Mixed hyperlipidemia; E11.9 Type 2 diabetes mellitus without complications; Z86.73 Personal history of transient ischemic attack (TIA), and cerebral infarction without residual deficits; Z79.01 Long term (current) use of anticoagulants; W18.39XA Other fall on same level, initial encounter
CPT/HCPCS: 29125; 73110; 99284; A4565; A9270

== ENCOUNTER 2022-03-22 16:27 | Outpatient (CLI) | payer MEDICARE, SELFPAY ==
--- NOTE | ~2022-03-22 | XR_ITS ---
EXAMINATION: XR hand RT 2V DATE: 03/22/2022 16:53 INDICATION: Right hand pain post fall 5 days prior TECHNIQUE: Posteroanterior, oblique and lateral views of the right hand were obtained. COMPARISON: 03/18/2022 FINDINGS: No significant interval change in a nondisplaced comminuted intra-articular fracture of the distal ri ght radius. Alignment remains essentially anatomic. No other acute fractures identified. Chondrocalci nosis at the right wrist joint and at the second and fifth metacarpophalangeal joints. Severe osteoar thritis at the first carpometacarpal joint and mild osteoarthritis at the triscaphe and multiple inte rphalangeal joints. Cystic change at the ulnar side of the proximal lunate. IMPRESSION: 1. No significant interval change in a nondisplaced comminuted intra-articular fracture of the distal right radius. No new fractures identified. Reviewed, dictated and finalized at location A. ER
== END 2022-03-22 16:28 | disposition home or self-care (01) ==
LOC: CHSIMG 16:28
PROVIDERS: PCP Internal Medicine; Visit Provider Nurse Practitioner Family
DX: M79.641 Pain in right hand (principal); S52.571A Other intraarticular fracture of lower end of right radius, initial encounter for closed fracture
CPT/HCPCS: 73120

== ENCOUNTER 2022-03-30 13:38 | Emergency (ER) | payer MEDICARE, SELFPAY ==
--- NOTE | ~2022-03-30 | XR_ITS ---
XR chest 1V portable 03/30/2022 14:01 Indication: Cough and congestion Procedure: AP portable chest Comparison: 12/27/2015 Findings: Subtle left basilar airspace disease. Heart size normal. Right lung clear. No pleural effus ion, edema or pneumothorax. Impression: 1: Left basilar airspace disease, suspicious for pneumonia. Reviewed, dictated and finalized at location A. RN Impression: 1: Left basilar airspace disease, suspicious for pneumonia.
[2022-03-30 13:41] VITALS: BP 111/65; PULSE 88; RESP 18; TEMP 36.7; O2SAT 92
[2022-03-30 13:54] VITALS: BP 111/65; PULSE 125; RESP 18; TEMP 36.7; O2SAT 92
[2022-03-30] MEDS: IPRATROPIUM 0.5 MG/ALBUTEROL SULFATE 2.5 MG AMPUL.NEB 3 ML INHALATION (14:00)
[2022-03-30 14:01] VITALS: PULSE 115; RESP 24; O2SAT 91
[2022-03-30 14:07] VITALS: PULSE 106; RESP 22
--- NOTE | 2022-03-30 14:24 | ED.URI ---
HPI - URI/Sore Throat General Chief Complaint: Upper Respiratory Infection Stated Complaint: RSV Time Seen by Provider: 03/30/22 13:47 Source: patient Mode of arrival: ambulatory Limitations: no limitations History of Present Illness HPI Narrative: This is 71-year-old female history of cough and congestion for the last 3 days with some mild shortness of breath no audible wheezing with no fever chills has been exposed to RSV. Currently no chest pain no abdominal pain no diarrhea constipation no nausea vomiting. MD elicited complaint: cough Onset (ago): day(s) Consistency: constant Severity: mild Related Data Home Medications Medication Instructions Recorded Confirmed glimepiride 4 mg tablet 4 mg PO BID 12/15/18 03/30/22 warfarin 5 mg tablet (Coumadin) See Rx Instructions .Route .COMPLEX 12/15/18 03/30/22 ropinirole 0.5 mg tablet 0.5 - 1 mg PO HS 04/08/19 03/30/22 rosuvastatin 5 mg tablet 5 mg PO DAILY 04/08/19 03/30/22 allopurinol 300 mg tablet 300 mg PO DAILY 06/10/21 03/30/22 amitriptyline 25 mg tablet 25 mg PO HS 06/10/21 03/30/22 duloxetine 20 mg capsule,delayed 20 mg PO DAILY 06/10/21 03/30/22 release diclofenac sodium 1 % topical gel 1 ea topical DAILY 12/05/21 03/30/22 ergocalciferol (vitamin D2) 1,250 1,250 mcg PO WEEKLY 12/05/21 03/30/22 mcg (50,000 unit) capsule prednisone 5 mg tablet 5 mg PO DAILY 12/05/21 03/30/22 Allergies Allergy/AdvReac Type Severity Reaction Status Date / Time hydrocodone [From Vicodin] Allergy Numbness Verified 03/30/22 13:56 Review of Systems Review of Systems: All systems reviewed & are unremarkable except as noted in HPI and below PMFSH Past Medical History Medical History Cerebrovascular disease, unspecified Chronic diarrhea Hypertension Mixed hyperlipidemia Neuropathy Otalgia TIA (transient ischemic attack) Type 2 diabetes mellitus without complications Surgical History Surgical History History of Hx of cholecystectomy Family History Family History Father Family history of cardiovascular disease Family history of congestive heart failure Grandparent Cerebrovascular accident Sibling Cirrhosis of liver Social History Social History Smoking status: Never smoker Alcohol intake: never Exam Const: General: healthy appearing and no acute distress Nutritional Appearance: well nourished Orientation/consciousness: patient oriented x3 Limitations: no limitations HENMT: Head: normal to inspection Ears: external ears normal Face/Nose/Sinus: Normal external nose present Face and sinus: normal facial exam Mouth: Yes Normal oral and palatal mucosa present Eyes: Conjunctivae: conjunctivae normal Pupils: Equal, round and reactive pupils present EOM: EOMs intact bilaterally Neck: Neck: normal visual inspection Chest: Chest palpation & inspection: normal inspection of the chest Resp: Effort & Inspection: normal respiratory effort Auscultation: clear to auscultation bilaterally Cardio: Rate: regular rate Rhythm: regular rhythm GI: GI Palp: Yes Soft to palpation Auscultation: normal bowel sounds : General: Yes bladder normal to palpation Urinary Catheter: Urinary Catheter: patent and draining Skin: General skin exam: normal color Rashes: no rashes Wounds: no wounds Neuro: General: patient oriented x3 Cranial nerves: Yes Nystagmus not present Speech: normal speech Extrem: General: normal to inspection Psych: Mental Status: mental status grossly normal Affect: normal affect Course Course Emergency Course: Chest x-ray reviewed reviewed with patient which shows possible pneumonia O2 sats 92% did receive a breathing treatment and IM injection of ceftriaxone. Vital Signs Vital signs: Vital Signs T
[2022-03-30] MEDS: cefTRIAXone 1 GM, LIDOCAINE HCL 1% LOCAL INJ 2.1 ML IM (14:27)
[2022-03-30 14:49] VITALS: BP 100/59; PULSE 111; RESP 18; TEMP 36.8; O2SAT 93
--- NOTE | 2022-03-30 15:44 | PC.NURSE ---
verbal prescriptions called into [facility], [facility] was closed. Voicemail left at [facility] to cancel original scrips.
== END 2022-03-30 14:50 | disposition home or self-care (01) ==
PROVIDERS: Emergency Provider Emergency Medicine; PCP Internal Medicine
DX: J06.9 Acute upper respiratory infection, unspecified (principal); I10 Essential (primary) hypertension; E11.9 Type 2 diabetes mellitus without complications; E78.2 Mixed hyperlipidemia; Z79.01 Long term (current) use of anticoagulants; Z86.73 Personal history of transient ischemic attack (TIA), and cerebral infarction without residual deficits
CPT/HCPCS: 71045; 94640; 96372; 99283; J0696

== ENCOUNTER 2022-04-15 18:21 | Emergency (ER) | payer MEDICARE, SELFPAY ==
[2022-04-15 18:21] VITALS: BP 139/83; PULSE 94; RESP 20; TEMP 36.3; O2SAT 96
[2022-04-15 18:25] VITALS: BP 139/83; PULSE 94; RESP 20; TEMP 36.3; O2SAT 95
--- NOTE | 2022-04-15 18:32 | ED.GENADULT ---
HPI - General Adult General Chief complaint: Neck Pain/Injury Stated complaint: neck and shoulder pain Time Seen by Provider: 04/15/22 18:25 History of Present Illness HPI narrative: Terese is a 71F with a PMH of DMII, chronic diarrhea, neuropathy, afib, HTN, gout and rheumatism, and polymyalgia rheumatica that presented to the ED with severe pain (30/10) in her upper back, neck and shoulders bilaterally. It came on gradually without injury, fall or trauma. It feels like previous episodes of her polymyalgia rheumatica. She has no numbness, or paralysis. Related Data Home Medications Medication Instructions Recorded Confirmed glimepiride 4 mg tablet 4 mg PO BID 12/15/18 03/30/22 warfarin 5 mg tablet (Coumadin) See Rx Instructions .Route .COMPLEX 12/15/18 03/30/22 ropinirole 0.5 mg tablet 0.5 - 1 mg PO HS 04/08/19 03/30/22 rosuvastatin 5 mg tablet 5 mg PO DAILY 04/08/19 03/30/22 allopurinol 300 mg tablet 300 mg PO DAILY 06/10/21 03/30/22 amitriptyline 25 mg tablet 25 mg PO HS 06/10/21 03/30/22 duloxetine 20 mg capsule,delayed 20 mg PO DAILY 06/10/21 03/30/22 release diclofenac sodium 1 % topical gel 1 ea topical DAILY 12/05/21 03/30/22 ergocalciferol (vitamin D2) 1,250 1,250 mcg PO WEEKLY 12/05/21 03/30/22 mcg (50,000 unit) capsule prednisone 5 mg tablet 5 mg PO DAILY 12/05/21 03/30/22 Allergies Allergy/AdvReac Type Severity Reaction Status Date / Time hydrocodone [From Vicodin] Allergy Numbness Verified 04/15/22 18:27 Review of Systems Review of Systems: All systems reviewed & are unremarkable except as noted in HPI and below PMFSH Past Medical History Medical History Cerebrovascular disease, unspecified Chronic diarrhea Hypertension Mixed hyperlipidemia Neuropathy Otalgia TIA (transient ischemic attack) Type 2 diabetes mellitus without complications Surgical History Surgical History History of Hx of cholecystectomy Family History Family History Father Family history of cardiovascular disease Family history of congestive heart failure Grandparent Cerebrovascular accident Sibling Cirrhosis of liver Social History Social History Smoking status: Never smoker Alcohol intake: never Exam Const: General: no acute distress and alert Nutritional Appearance: well nourished Orientation/consciousness: patient oriented x3 HENMT: Head: normal to inspection Ears: external ears normal Face/Nose/Sinus: Normal external nose present Eyes: Conjunctivae: conjunctivae normal Pupils: Equal, round and reactive pupils present Neck: Neck: normal visual inspection Other: TTP over the lower paraspinal muscles bilaterally Chest: Chest palpation & inspection: normal inspection of the chest Resp: Effort & Inspection: normal respiratory effort Cardio: Rate: regular rate Back/Spine/Pelvis: Other: TTP over the upper and lower trapezius bilaterally Skin: General skin exam: normal color Neuro: General: patient oriented x3 Extrem: General: normal to inspection Other: Decreased strength 2/2 pain in the upper extremities bilaterally Psych: Mental Status: mental status grossly normal Course Course Emergency Course: Ordered IM morphine, she gets facial numbness with hydrocodone but has tolerated morphine in the past and prednisone as well as cyclobenzaprine Vital Signs Vital signs: Vital Signs Temperature 97.4 F L 04/15/22 18:21 Pulse Rate 94 04/15/22 18:21 Respiratory Rate 20 04/15/22 18:21 Blood Pressure 139/83 04/15/22 18:21 Pulse Oximetry 96 04/15/22 18:21 Oxygen Delivery Room Air 04/15/22 18:21 Temperature 97.4 F L 04/15/22 18:25 Pulse Rate 84 04/15/22 19:00 Respiratory Rate 20 04/15/22 19:00 Blood Pressure 140/79 06
[2022-04-15] MEDS: MORPHINE SULFATE (*CRX) 4 MG/ML INJ IM (18:38)
[2022-04-15] MEDS: predniSONE 20 MG TABLET 40 MG PO (18:38)
[2022-04-15] MEDS: CYCLOBENZAPRINE HCL 10 MG TABLET PO (18:58)
[2022-04-15 19:00] VITALS: BP 140/79; PULSE 84; RESP 20; O2SAT 97
== END 2022-04-15 19:02 | disposition home or self-care (01) ==
LOC: CHSED 18:45
PROVIDERS: Emergency Provider Family Medicine; PCP Internal Medicine
DX: M35.3 Polymyalgia rheumatica (principal); I48.91 Unspecified atrial fibrillation; E11.9 Type 2 diabetes mellitus without complications; I10 Essential (primary) hypertension; E78.2 Mixed hyperlipidemia; Z86.73 Personal history of transient ischemic attack (TIA), and cerebral infarction without residual deficits
CPT/HCPCS: 96374; 99284; A9270; J2270; J7512

== ENCOUNTER 2022-04-30 10:59 | Outpatient (RCR) | payer MEDICARE, SELFPAY ==
--- NOTE | 2022-04-30 11:59 | PTOPEVAL1 ---
Assessment and note entered by JT File, PT Evaluation Information Assessment Status Evaluation Diagnosis neck and shoulder pain, polymalgia Onset 04/16/22 Subjective Information patient reports she was doing well since the last time she was in therapy until she had several falls. she now has a broken R wrist. xray shows a distal radius fracture. however, she is coming to therapy for PMR. she reports she has had it for years, but reports she has never had a true diagnosis. she reports she has been on predisone for years which did help. she reports now since being of predisone she has had increased neck and shoulder pain. she reports she feels like her shoulder and neck get stuck. she reports the pain is currently not excrutiating, but often times is. she reports she feels she is unable to care for her child due to the pain (unable to lift her), and she feels she should have black and blue muscles all over due to the pain. patient reports sh ehas increased neck and shoulder symptoms with lifting and or getting in and out of a chair. she reports she has burning from the neck down the shoulders. Reported Pain Level Pain Score 7,7: Self Report Assessment PT Clinical Summary mrs. jimenez is a 72 yo woman who presents to skilled PT services for evaluation and treatment of pain in the neck and shoulders. she presents this date with signs and symptoms consistent with OA of the neck and shoulders and PMR. she would benefit from skilled PT to address her objective/ functional deficits and progress towards a return to her prior level functional activity performance /quality of life. Plan of Care Interventions Electrical Stimulation,Hot Pack/Cold Pack,Manual Therapy,Neuro Re-education,Patient/Caregiver Educati,Therapeutic Activities,Therapeutic Exercise PT Services Indicated Yes Treatment Frequency and 2x weekly for 8 visits Duration These treatments will address the objective and functional deficits as defined above. The patient will be advanced safely and appropriately in order for the patient to progress towards his/her prior level of function. Additional exercises will be introduced and as well as a comprehensive home exercise program upon discharge, if needed, ?to ensure carryover of functional gains achieved in the clinic. This treatment plan has been reviewed and agreement upon by the patient.
--- NOTE | 2022-04-30 13:52 | PTOPEVAL1 ---
Assessment and note entered by JT File, PT Evaluation Information Assessment Status Evaluation Diagnosis neck and shoulder pain, polymalgia Onset 04/16/22 Subjective Information patient reports she was doing well since the last time she was in therapy until she had several falls. she now has a broken R wrist. xray shows a distal radius fracture. however, she is coming to therapy for PMR. she reports she has had it for years, but reports she has never had a true diagnosis. she reports she has been on prednisone for years which did help. she reports now since being off prednisone she has had increased neck and shoulder pain. she reports she feels like her shoulder and neck get stuck. she reports the pain is currently not excrutiating, but often times is. she reports she feels she is unable to care for her child due to the pain (unable to lift her), and she feels she should have black and blue muscles all over due to the pain. patient reports she has increased neck and shoulder symptoms with lifting and or getting in and out of a chair. she reports she has burning from the neck down the shoulders. Reported Pain Level Pain Score 7,7: Self Report Assessment PT Clinical Summary mrs. jimenez is a 72 yo woman who presents to skilled PT services for evaluation and treatment of pain in the neck and shoulders. she presents this date with signs and symptoms consistent with OA of the neck and shoulders and PMR. she would benefit from skilled PT to address her objective/ functional deficits and progress towards a return to her prior level functional activity performance /quality of life. Plan of Care Interventions Electrical Stimulation,Hot Pack/Cold Pack,Manual Therapy,Neuro Re-education,Patient/Caregiver Educati,Therapeutic Activities,Therapeutic Exercise PT Services Indicated Yes Treatment Frequency and 2x weekly for 8 visits Duration These treatments will address the objective and functional deficits as defined above. The patient will be advanced safely and appropriately in order for the patient to progress towards his/her prior level of function. Additional exercises will be introduced and as well as a comprehensive home exercise program upon discharge, if needed, ?to ensure carryover of functional gains achieved in the clinic. This treatment plan has been reviewed and agreement upon by the patient.
== END 2022-04-30 23:59 | disposition home or self-care (01) ==
LOC: CHSPT 10:59
PROVIDERS: PCP Internal Medicine; Visit Provider Internal Medicine
DX: M54.2 Cervicalgia (principal); M25.511 Pain in right shoulder; M25.512 Pain in left shoulder
CPT/HCPCS: 97014; 97110; 97161; G0283

== ENCOUNTER 2022-05-23 06:58 | Outpatient (CLI) | payer MEDICARE, SELFPAY ==
--- NOTE | ~2022-05-23 | MR_ITS ---
MRI of the right shoulder Technique: Axial proton-density fat-sat images, coronal proton density fat-sat and T2 fat-sat images, and sagittal T1-weighted and T2 fat-sat images were acquired. Clinical History: Pain Findings: There is [id number] AC joint degenerative change. Coracoclavicular, coracoacromial, c oracohumeral ligaments are probably intact. Supraspinatus and infraspinatus tendons are intact, without partial or full-thickness tear. There is mild to moderate tendinosis distally. Subscapularis tendon is intact. Tendon of long head of the wilson ps is intact. No definite labral tear identified. Inferior glenohumeral ligament is intact. There is no degenerative change or effusion of the glenohum eral joint. There is minimal fluid in the subacromial/subdeltoid bursa. No muscle atrophy or edema. Impression: Mild to moderate distal rotator cuff tendinosis. No partial or full-thickness tear. [id number] AC joint degenerative change. Reviewed, dictated and finalized at [facility]. Impression: Mild to moderate distal rotator cuff tendinosis. No partial or full-thickness t ear. [id number] AC joint degenerative change.
== END 2022-05-23 06:59 | disposition home or self-care (01) ==
LOC: CHSIMG 06:59
PROVIDERS: PCP Internal Medicine
DX: M25.511 Pain in right shoulder (principal); M77.8 Other enthesopathies, not elsewhere classified
CPT/HCPCS: 73221

== ENCOUNTER 2022-07-02 15:07 | Emergency (ER) | payer MEDICARE, SELFPAY ==
[2022-07-02 15:07] VITALS: BP 128/72; PULSE 92; RESP 20; TEMP 37; O2SAT 100
--- NOTE | 2022-07-02 15:25 | ED.NECK ---
HPI - Neck Pain/Injury General Chief Complaint: Neck Pain/Injury Stated Complaint: neck pain Time Seen by Provider: 07/02/22 15:24 History of Present Illness HPI Narrative: patient states that she is having neck pain shoulder pain bilaterally. She went to her PCP on at that time she had an injection. She then thought she was getting increase in her pain medication but was actually an increase in her glimepiride as the paper that she showed us today. She says she has a history of PMR. She says this pain is similar to when she has an exacerbation of her PMR. complaint: neck pain Onset (ago): day(s) (5) Radiation: right shoulder and left shoulder Severity: moderate Quality: dull, aching and spasming Duration: constant Relieving factors: none Exacerbating factors: movement of neck Context: other ( No injury) Associated symptoms: none Treatments prior to arrival: none Related Data Home Medications Medication Instructions Recorded Confirmed glimepiride 4 mg tablet 4 mg PO BID 12/15/18 07/02/22 warfarin 5 mg tablet (Coumadin) See Rx Instructions .Route .COMPLEX 12/15/18 07/02/22 ropinirole 0.5 mg tablet 0.5 - 1 mg PO HS 04/08/19 07/02/22 rosuvastatin 5 mg tablet 5 mg PO DAILY 04/08/19 07/02/22 allopurinol 300 mg tablet 300 mg PO DAILY 06/10/21 07/02/22 amitriptyline 25 mg tablet 25 mg PO HS 06/10/21 07/02/22 duloxetine 20 mg capsule,delayed 20 mg PO DAILY 06/10/21 07/02/22 release ergocalciferol (vitamin D2) 1,250 1,250 mcg PO WEEKLY 12/05/21 07/02/22 mcg (50,000 unit) capsule prednisone 5 mg tablet 5 mg PO DAILY 12/05/21 07/02/22 Allergies Allergy/AdvReac Type Severity Reaction Status Date / Time hydrocodone [From Vicodin] Allergy Numbness Verified 07/02/22 15:22 Review of Systems Review of Systems: All systems reviewed & are unremarkable except as noted in HPI and below PMFSH Past Medical History Medical History (Updated 07/02/22 @ 15:50 by El Wilkerson MD) Body mass index [BMI] 34.0-34.9, adult (07/16/17) Cerebrovascular disease, unspecified Chronic diarrhea Gout, unspecified Hypertension Mixed hyperlipidemia Neuropathy Otalgia Paroxysmal atrial fibrillation TIA (transient ischemic attack) Type 2 diabetes mellitus without complications Surgical History Surgical History History of Hx of cholecystectomy Family History Family History Father Family history of cardiovascular disease Family history of congestive heart failure Grandparent Cerebrovascular accident Sibling Cirrhosis of liver Social History Social History Smoking status: Never smoker Alcohol intake: never Exam Const: General: healthy appearing, no acute distress and alert Nutritional Appearance: well nourished and obese Orientation/consciousness: patient oriented x3 Limitations: no limitations HENMT: Head: normal to inspection Ears: external ears normal Face/Nose/Sinus: Normal external nose present Face and sinus: normal facial exam Mouth: Yes moist mucous membranes Eyes: Conjunctivae: conjunctivae normal Pupils: Equal, round and reactive pupils present EOM: EOMs intact bilaterally Neck: Neck: normal visual inspection Resp: Effort & Inspection: normal respiratory effort Auscultation: clear to auscultation bilaterally Cardio: Rate: regular rate Rhythm: regular rhythm GI: GI Palp: Yes Soft to palpation and No Tenderness to palpation present (GI) Auscultation: normal bowel sounds Back/Spine/Pelvis: Cervical Spine: cervical ROM normal, cervical muscular tenderness, cervical spasm and No Cervical spine tenderness Thoracic/Lumbar Spine: thoraco-lumbar ROM normal Skin: General skin exam: normal color Rashes: no rashes Neuro: General: patient oriented x3, moves all extremities and CN's II-XI intact bilaterally Speech: normal sp
[2022-07-02] MEDS: KETOROLAC 30 MG/ML VIAL (*BKC) IM (16:00)
[2022-07-02 16:15] VITALS: BP 126/70; PULSE 78; RESP 18; O2SAT 97
== END 2022-07-02 16:15 | disposition home or self-care (01) ==
LOC: CHSED 16:14
PROVIDERS: Emergency Provider Emergency Medicine; PCP Internal Medicine
DX: M35.3 Polymyalgia rheumatica (principal); I67.9 Cerebrovascular disease, unspecified; I10 Essential (primary) hypertension; E78.2 Mixed hyperlipidemia; I48.0 Paroxysmal atrial fibrillation; M10.9 Gout, unspecified; E11.40 Type 2 diabetes mellitus with diabetic neuropathy, unspecified; Z86.73 Personal history of transient ischemic attack (TIA), and cerebral infarction without residual deficits; Z79.01 Long term (current) use of anticoagulants; Z79.84 Long term (current) use of oral hypoglycemic drugs; Z79.51 Long term (current) use of inhaled steroids
CPT/HCPCS: 96372; 99283; J1885

== ENCOUNTER 2022-10-11 18:48 | Emergency (ER) | payer MEDICARE, SELFPAY ==
[2022-10-11 18:49] VITALS: BP 157/99; PULSE 95; RESP 20; TEMP 37.1; O2SAT 98
--- NOTE | 2022-10-11 19:27 | ED.ANIMALBIT ---
HPI - Animal Bite General Chief Complaint: Animal Bite Stated Complaint: Rt ankle bite Time Seen by Provider: 10/11/22 18:57 Source: patient Mode of arrival: ambulatory Limitations: no limitations History of Present Illness HPI narrative: patient is a 72-year-old female with a right lower leg insect bite. complaint: animal bite Onset (ago): hour(s) Animal: other ( Wasp) Mechanism: bite Location: other ( right lower leg) Location - Extremities: Right: lower leg Pain description: sharp, burning and constant Severity scale (1-10): 5 Associated symptoms: none Related Data Home Medications Medication Instructions Recorded Confirmed glimepiride 4 mg tablet 4 mg PO BID 12/15/18 10/11/22 warfarin 5 mg tablet (Coumadin) See Rx Instructions .Route .COMPLEX 12/15/18 10/11/22 ropinirole 0.5 mg tablet 0.5 - 1 mg PO HS 04/08/19 10/11/22 rosuvastatin 5 mg tablet 5 mg PO DAILY 04/08/19 10/11/22 allopurinol 300 mg tablet 300 mg PO DAILY 06/10/21 10/11/22 amitriptyline 25 mg tablet 25 mg PO HS 06/10/21 10/11/22 duloxetine 20 mg capsule,delayed 20 mg PO DAILY 06/10/21 10/11/22 release ergocalciferol (vitamin D2) 1,250 1,250 mcg PO WEEKLY 12/05/21 10/11/22 mcg (50,000 unit) capsule prednisone 5 mg tablet 5 mg PO DAILY 12/05/21 10/11/22 Allergies Allergy/AdvReac Type Severity Reaction Status Date / Time hydrocodone [From Vicodin] Allergy Numbness Verified 07/02/22 15:22 Review of Systems Review of Systems: All systems reviewed & are unremarkable except as noted in HPI and below Constitutional: Constitutional: Reports no additional constitutional complaints Eyes: Eyes: Reports no additional eye complaints ENT: Reports system reviewed and no additional complaints, except as documented Cardiovascular: Cardiovascular: Reports no additional cardiovascular complaints Respiratory: Respiratory: Reports no additional respiratory complaints Gastrointestinal: Gastrointestinal: Reports no additional gastrointestinal complaints Genitourinary: Genitourinary: Reports no additional female genitourinary complaints Musculoskeletal: Musculoskeletal: Reports no additional musculoskeletal complaints Integumentary/Breasts: Skin/Breast: Reports system reviewed and no additional complaints, except as docu Neurologic: Reports system reviewed and no additional complaints, except as documented Psychiatric: Psychiatric: Reports no additional psychiatric complaints Endocrine: Endocrine: Reports no additional endocrine complaints Hematologic/Lymphatic: Hematologic/Lymphatic: Reports no additional hematologic/lymphatic complaints Allergic/Immunologic: Allergic/Immunologic: Reports no additional allergic/immunologic complaints [facility] Past Medical History Medical History Body mass index [BMI] 34.0-34.9, adult (07/16/17) Cerebrovascular disease, unspecified Chronic diarrhea Gout, unspecified Hypertension Mixed hyperlipidemia Neuropathy Otalgia Paroxysmal atrial fibrillation TIA (transient ischemic attack) Type 2 diabetes mellitus without complications Surgical History Surgical History History of Hx of cholecystectomy Family History Family History Father Family history of cardiovascular disease Family history of congestive heart failure Grandparent Cerebrovascular accident Sibling Cirrhosis of liver Social History Social History Smoking status: Never smoker Alcohol intake: never Exam Const: General: healthy appearing, no acute distress and alert Eyes: Conjunctivae: conjunctivae normal Pupils: Equal, round and reactive pupils present EOM: EOMs intact bilaterally Resp: Effort & Inspection: normal respiratory effort Auscultation: clear to auscultation bilaterally and no crackles Card
[2022-10-11] MEDS: CEPHALEXIN 500 MG CAPSULE PO (19:29)
== END 2022-10-11 19:36 | disposition home or self-care (01) ==
LOC: CHSED 19:29
PROVIDERS: Emergency Provider Emergency Medicine
DX: S80.861A Insect bite (nonvenomous), right lower leg, initial encounter (principal); L03.115 Cellulitis of right lower limb; I10 Essential (primary) hypertension; E78.2 Mixed hyperlipidemia; I48.0 Paroxysmal atrial fibrillation; E11.9 Type 2 diabetes mellitus without complications; Z86.73 Personal history of transient ischemic attack (TIA), and cerebral infarction without residual deficits; Z79.01 Long term (current) use of anticoagulants; Z79.899 Other long term (current) drug therapy
CPT/HCPCS: 99283; A9270

== ENCOUNTER 2022-12-02 10:45 | Outpatient (CLI) | payer MEDICARE, SELFPAY ==
--- NOTE | ~2022-12-02 | XR_ITS ---
Lumbosacral Spine: AP and lateral views Clinical History: Pain Findings: The normal lordotic curve is maintained. The vertebral bodies and posterior elements are i ntact. The intervertebral disc spaces are preserved. There are mild to moderate facet joint degenera tive changes throughout the lumbar spine. The sacroiliac joints are normally outlined. Impression: Facet arthropathy, as above. Reviewed, dictated and finalized at location M. Impression: Facet arthropathy, as above.
--- NOTE | ~2022-12-02 | XR_ITS ---
XR hip LT min 2V 12/02/2022 11:11 Indication: Left hip and low back pain Procedure: 2 views left hip Comparison: 08/09/2021 Findings: Stable moderate osteoarthritis of the left hip. There are loose bodies lateral to the joint space. There is osteitis pubis. No fracture or traumatic malalignment. No significant soft tissue ab normality. Impression: 1: Stable moderate osteoarthritis of the left hip. Reviewed, dictated and finalized at location B. Impression: 1: Stable moderate osteoarthritis of the left hip.
== END 2022-12-02 10:46 | disposition home or self-care (01) ==
LOC: CHSIMG 10:47
PROVIDERS: PCP Internal Medicine; Visit Provider Nurse Practitioner Family
DX: M54.50 Low back pain, unspecified (principal); M25.552 Pain in left hip; M12.88 Other specific arthropathies, not elsewhere classified, other specified site; M16.11 Unilateral primary osteoarthritis, right hip
CPT/HCPCS: 72100; 73502

== ENCOUNTER 2022-12-12 08:55 | Outpatient (CLI) | payer MEDICARE, SELFPAY ==
--- NOTE | ~2022-12-12 | MR_ITS ---
EXAMINATION: MR lumbar spine wo con DATE: 12/12/2022 10:07 INDICATION: Left lumbosacral radiculopathy. TECHNIQUE: Magnetic resonance imaging (MRI) of the lumbar spine was performed without intravenous con trast. Sequences included sagittal T2-weighted FSE, sagittal T2-weighted FS FSE, sagittal T1-weighted FSE, and axial T2-weighted FSE. COMPARISON: Lumbar spine MRI 06/19/2021 FINDINGS: There is 3 degrees levocurvature of lumbar spine. Vertebral body heights are normal. Interv ertebral disc heights are normal. The distal spinal cord signal intensity is normal. The conus medull moon is at L1. The following disc levels are specifically discussed: L1-L2: The disc does not extend beyond the endplate margin. There is moderate right and mild left fac et joint osteoarthritis. There is no neural foraminal stenosis. There is no central canal stenosis. L2-L3: The disc is bulging. There is mild bilateral facet joint osteoarthritis. There is mild bilater al neural foraminal stenosis. There is mild central canal stenosis. L3-L4: There is a central extrusion. There is mild bilateral facet joint osteoarthritis. There is mil d bilateral neural foraminal stenosis. There is mild central canal stenosis. L4-L5: The disc is bulging and has an annular fissure. There is severe bilateral facet joint osteoart hritis. There is mild bilateral neural foraminal stenosis. There is mild central canal stenosis. L5-S1: The disc is bulging and has an annular fissure. There is moderate right and mild left facet asher int osteoarthritis. There is mild bilateral neural foraminal stenosis. There is no central canal sten osis. IMPRESSION: 1. Mild lumbar spondylosis, stable from 06/19/2021. Reviewed, dictated and finalized at location E.
--- NOTE | ~2022-12-12 | MR_ITS ---
EXAMINATION: MR hip LT wo con DATE: 12/12/2022 10:07 INDICATION: Moderate left hip osteoarthritis presenting with left hip pain. TECHNIQUE: Magnetic resonance imaging (MRI) of the left hip was performed without intravenous contra st. Sequences included full-field axial PD-weighted FS FSE and T1-weighted FSE, coronal of the pelvis with PD-weighted FS FSE, small field of view of the left hip with axial PD-weighted FS FSE, sagitta l PD-weighted FS FSE and coronal PD weighted FS FSE. COMPARISON: Left hip radiographs dated 12/02/2022 at 11:[address] dated 12/09/2021. FINDINGS: Bones/labrum/cartilage: Alignment is normal. No fracture, avascular necrosis or pathologic marrow replacing process. Mild os teoarthritis at the left hip with mild nonuniform partial-thickness cartilage loss. Small focus of mi ld subarticular edema-like signal change along the 12:00 position of the superolateral rim of the amalia tabulum. There is thickening and amorphous increased signal from the anterior to the posterosuperior labrum consistent with labral degeneration. There is associated chondrocalcinosis of the labrum on th e subsequent radiographs. Similar mild osteoarthritis and labral degeneration is suggested at the con tralateral right hip on the larger [id number] images of the pelvis. Mild lumbar spondylosis. Fluid: Symmetric physiologic amount of fluid within both hip joints. Soft tissues: Normal and symmetric muscle bulk and signal in the pelvis and visualized proximal thighs. Mild enthes opathy at the bilateral distal gluteus medius medius and minimus tendons with corresponding enthesopa thic calcification on the CT from one year prior. Similar mild right-sided and moderate left-sided en thesopathy without tear at the proximal hamstring tendons with small amount of increased fluid signal along the left ischial tuberosity consistent with associated mild left ischial bursitis. The bilater al iliopsoas and rectus femoris tendons are normal. Several sigmoid diverticula without adjacent comp arison to suggest diverticulitis. Limited evaluation of visceral organs of the pelvis is otherwise un remarkable. Small focus of magnetic field artifact in the fat posterior to the cecum corresponding to a surgical clip on prior CT potentially related to prior appendectomy. No pathologically enlarged pe lvic/inguinal lymphadenopathy. IMPRESSION: 1. Mild left hip osteoarthritis with diffuse labral degeneration. Similar findings suggested on the l arger [id number] images. 2. Enthesopathy at the bilateral gluteus medius and minimus tendons and at the right and more promine ntly left proximal hamstring tendons, the latter with associated mild left ischial bursitis. Reviewed, dictated and finalized at location A. IMPRESSION: 1. Mild left hip osteoarthritis with diffuse labral degeneration. Similar findi ngs suggested on the larger [id number] images. 2. Enthesopathy at the bilateral gluteus medius and minimus tendons and at the right and more prominently left proximal hamstring tendons, the latter with ass ociated mild left ischial bursitis.
== END 2022-12-12 08:56 | disposition home or self-care (01) ==
LOC: CHSIMG 08:56
PROVIDERS: PCP Internal Medicine; Visit Provider Internal Medicine
DX: M25.552 Pain in left hip (principal); M16.12 Unilateral primary osteoarthritis, left hip; M76.892 Other specified enthesopathies of left lower limb, excluding foot; M76.891 Other specified enthesopathies of right lower limb, excluding foot; M43.06 Spondylolysis, lumbar region
CPT/HCPCS: 72148; 73721

== ENCOUNTER 2023-02-05 07:08 | Outpatient (CLI) | payer MEDICARE, SELFPAY ==
--- NOTE | ~2023-02-05 | US_ITS ---
EXAMINATION:US venous doppler LE BI INDICATION:DVT. Left leg pain and swelling TECHNIQUE: Multiple grayscale, color flow and Doppler images of the right and left lower extremity de ep venous systems were obtained and reviewed. COMPARISON:No prior studies for comparison. FINDINGS: The common femoral, superficial femoral and popliteal veins demonstrate normal respiratory variation, augmentation and compressibility. Color flow is also seen within the posterior tibial, pe roneal, greater saphenous and profunda veins. IMPRESSION: 1: No lower extremity deep venous thrombosis. Reviewed, dictated and finalized at location B. 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
== END 2023-02-05 07:09 | disposition home or self-care (01) ==
LOC: CHSIMG 07:10
PROVIDERS: PCP Internal Medicine; Visit Provider Internal Medicine
DX: M79.89 Other specified soft tissue disorders (principal); Z86.718 Personal history of other venous thrombosis and embolism
CPT/HCPCS: 93970

== ENCOUNTER 2023-06-13 12:21 | Outpatient (CLI) | payer MEDICARE, SELFPAY ==
--- NOTE | ~2023-06-13 | XR_ITS ---
EXAMINATION: XR chest 2V 06/13/2023 12:37 INDICATION: Right-sided chest pain and shortness of breath PROCEDURE: 2 view chest COMPARISON: No prior studies for comparison. FINDINGS: The lungs are clear. The cardiomediastinal silhouette is within normal limits. There are no pleural effusions. There is no pneumothorax suspected. IMPRESSION: 1: NO ACUTE CARDIOPULMONARY DISEASE. Reviewed, dictated and finalized at location B.
== END 2023-06-13 12:22 | disposition home or self-care (01) ==
LOC: CHSIMG 12:24
PROVIDERS: PCP Internal Medicine; Visit Provider Nurse Practitioner Family
DX: R07.81 Pleurodynia (principal); R06.02 Shortness of breath
CPT/HCPCS: 71046

== ENCOUNTER 2023-09-03 09:01 | Outpatient (CLI) | payer MEDICARE, SELFPAY ==
--- NOTE | ~2023-09-03 | CT_ITS ---
EXAMINATION: CT abdomen pelvis wo/w con DATE: 09/03/2023 10:55 INDICATION: Hematuria, dysuria, frequent urinary tract infections TECHNIQUE: Computed tomography (CT) of the abdomen and pelvis was performed without and subsequently with 130 CC Omnipaque 350 intravenous contrast. Automated exposure control and iterative reconstructi on technique were employed. Exam dose: 1574.65 mGy-cm total exam DLP. COMPARISON: December 22, 2019 CT abdomen pelvis FINDINGS: Mild discoid atelectasis, left lower lobe. Normal heart size. Aortic valve calcification. No pericardial or pleural effusion. Very small sliding hiatal hernia. Multiple calcified splenic granulomas. Normal splenic size. No hepatic space-occupying mass lesion. Status post cholecystectomy. No bile duct or pancreatic duct dilatation. There is pancreatic atrophy with prominent pancreatic fatty change. No pancreatic mass lesion or calcification. Normal morphology of the adrenal glands. No urinary tract calculus or hydroureteronephrosis. The urinary bladder, uterus and adnexal areas are unremarkable. Diverticulosis of the colon; no CT evidence of diverticulitis. No bowel obstruction or intraperitoneal free air is detected. There is atherosclerotic calcification of the abdominal aorta; no aortic aneurysm. No intraperitonea l or retroperitoneal or pelvic mass lesion or lymphadenopathy. No suspicious osteolytic or osteoblastic lesions. IMPRESSION: Small sliding hiatal hernia Lateral right lung is Diverticulosis of the colon Status post cholecystectomy Reviewed, dictated and finalized at [facility].
[2023-09-03 09:35] LABS: Estimated Glomerular Filt Rate > 60
== END 2023-09-03 09:02 | disposition home or self-care (01) ==
LOC: CHSIMG 09:03
PROVIDERS: PCP Internal Medicine; Visit Provider Nurse Practitioner Family
DX: R31.9 Hematuria, unspecified (principal); R30.0 Dysuria; K44.9 Diaphragmatic hernia without obstruction or gangrene; K57.90 Diverticulosis of intestine, part unspecified, without perforation or abscess without bleeding; Z90.49 Acquired absence of other specified parts of digestive tract
CPT/HCPCS: 74178; Q9967

== ENCOUNTER 2023-09-30 12:14 | Outpatient (CLI) | payer MEDICARE, SELFPAY ==
[2023-09-30 12:28] LABS: Basophils Absolute Auto 0.03 K/mm3 (0.00-0.10); Basophils Percent Auto 0.3 % (0.0-1.0); Eosinophils Percent Auto 0.9 % (1.0-6.0); Hematocrit 41.1 % (35.0-42.0); Hemoglobin 13.2 g/dL (11.7-13.8); Immature Granulocyte Absolute 0.18 K/mm3 (0.00-0.00); Immature Granulocyte Percent A 1.5 % (0.0-0.0); Lymphocytes Absolute Auto 1.52 K/mm3 (1.10-4.50); Lymphocytes Percent Auto 12.9 % (18.0-42.0); Mean Corpuscular HGB Conc 32.1 g/dL (32-36); Mean Corpuscular Hemoglobin 32.8 pg (27.0-31.0); Mean Corpuscular Volume 102.2 fL (78.0-102.0); Mean Platelet Volume 9.7 fl (9.2-11.8); Monocytes Absolute Auto 0.92 K/mm3 (0.10-0.90); Monocytes Percent Auto 7.8 % (2.0-11.0); Neutrophils Percent Auto 76.6 % (50.0-70.0); Platelet Count Result 284 K/mm3 (150-420); Red Blood Count 4.02 M/mm3 (4.20-5.40); Red Cell Distribution Width 15.6 % (11.6-14.4); White Blood Count 11.8 K/mm3 (4.8-10.8)
[2023-09-30 12:41] LABS: INR 2.1; Prothrombin Time 21.9 Seconds (9.50-12.1)
[2023-09-30 12:53] LABS: Anion Gap 8 mmol/L (4-12); Blood Urea Nitrogen 16 mg/dL (7-18); Calcium 8.9 mg/dL (8.5-10.1); Carbon Dioxide 29 mmol/L (21-32); Chloride 100 mmol/L (98-108); Estimated Glomerular Filt Rate > 60; Glucose 164 mg/dL (70-99); Osmolality Calculated 289 mOsm/kg (285-295); Sodium 137 mmol/L (136-145)
== END 2023-09-30 12:15 | disposition home or self-care (01) ==
LOC: CHSLAB 12:16
PROVIDERS: PCP Internal Medicine; Visit Provider Internal Medicine
DX: R31.9 Hematuria, unspecified (principal); Z79.01 Long term (current) use of anticoagulants
CPT/HCPCS: 36415; 80048; 85025; 85610

== ENCOUNTER 2023-10-15 12:59 | Outpatient (CLI) | payer MEDICARE, SELFPAY ==
--- NOTE | ~2023-10-15 | US_ITS ---
EXAMINATION: US pelvic complete w TV DATE: 10/15/2023 14:19 INDICATION: Postmenopausal bleeding. TECHNIQUE: Multiple transabdominal and transvaginal sonographic images of the pelvis were obtained. COMPARISON: CT abdomen and pelvis 09/03/2023 FINDINGS: TRANSABDOMINAL ULTRASOUND: The uterus measures 7.4 x 2.9 x 2.0 cm. There is no free fluid in the pelvis. TRANSVAGINAL ULTRASOUND: The endometrial complex measures 4 mm in thickness. The ovaries are not visualized. IMPRESSION: 1. Normal uterus. Reviewed, dictated and finalized at location A. IMPRESSION: 1. Normal uterus.
== END 2023-10-15 13:00 | disposition home or self-care (01) ==
PROVIDERS: PCP Family Medicine; Visit Provider Family Medicine
DX: N95.0 Postmenopausal bleeding (principal)
CPT/HCPCS: 76830; 76856

== ENCOUNTER 2023-12-02 12:09 | Outpatient (CLI) | payer MEDICARE, SELFPAY ==
--- NOTE | ~2023-12-02 | XR_ITS ---
CHEST RADIOGRAPH, PA AND LATERAL CLINICAL HISTORY: Cough, Wheezing . COMPARISON: 06/13/2023 TECHNIQUE: PA and lateral views of the chest. FINDINGS The cardiomediastinal silhouette is unremarkable. The lungs are clear. Visualized osseous structures and soft tissues are unremarkable. IMPRESSION: No focal infiltrate or effusion. Reviewed, dictated and finalized at location A.
== END 2023-12-02 12:10 | disposition home or self-care (01) ==
LOC: CHSIMG 12:11
PROVIDERS: PCP Internal Medicine; Visit Provider Internal Medicine
DX: R05.9 Cough, unspecified (principal)
CPT/HCPCS: 71046

== ENCOUNTER 2023-12-17 14:34 | Outpatient (CLI) | payer MEDICARE, SELFPAY ==
--- NOTE | ~2023-12-17 | XR_ITS ---
CHEST RADIOGRAPH, PA AND LATERAL CLINICAL HISTORY: Productive Cough . COMPARISON: 12/02/2023 and dating back to 12/27/2015 TECHNIQUE: PA and lateral views of the chest. FINDINGS The cardiomediastinal silhouette is unremarkable. Indeterminate nodule within the left mid to upper lung field which has increased in size when compare d with multiple prior studies. Cross-sectional imaging (noncontrast enhanced CT examination of the chest) is recommended for further evaluation The remainder of the lungs are otherwise clear. Intramedullary elisha and screws within the right humerus. Remaining visualized osseous structures and soft tissues are unremarkable. IMPRESSION: Indeterminate nodule within the left mid to upper lung field which has increased in size when compare d with multiple prior studies. Cross-sectional imaging (noncontrast enhanced CT examination of the chest) is recommended for further evaluation. No focal infiltrate or effusion. Reviewed, dictated and finalized at location A. 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 Cross-sectional imaging (noncontrast enhanced CT examination of the chest) is r ecommended for further evaluation. No focal infiltrate or effusion.
[2023-12-17 15:30] LABS: Basophils Absolute Auto 0.03 K/mm3 (0.00-0.10); Basophils Percent Auto 0.3 % (0.0-1.0); Eosinophils Absolute Auto 0.02 K/mm3 (0.02-0.50); Eosinophils Percent Auto 0.2 % (1.0-6.0); Hematocrit 39.4 % (35.0-42.0); Hemoglobin 12.7 g/dL (11.7-13.8); Immature Granulocyte Absolute 0.12 K/mm3 (0.00-0.00); Immature Granulocyte Percent A 1.1 % (0.0-0.0); Lymphocytes Absolute Auto 0.82 K/mm3 (1.10-4.50); Lymphocytes Percent Auto 7.2 % (18.0-42.0); Mean Corpuscular HGB Conc 32.2 g/dL (32-36); Mean Corpuscular Hemoglobin 32.2 pg (27.0-31.0); Mean Corpuscular Volume 99.7 fL (78.0-102.0); Monocytes Absolute Auto 0.45 K/mm3 (0.10-0.90); Neutrophils Absolute Auto 9.94 K/mm3 (1.70-7.20); Neutrophils Percent Auto 87.2 % (50.0-70.0); Platelet Count Result 353 K/mm3 (150-420); Red Blood Count 3.95 M/mm3 (4.20-5.40); Red Cell Distribution Width 14.5 % (11.6-14.4); White Blood Count 11.4 K/mm3 (4.8-10.8)
[2023-12-17 15:56] LABS: Alanine Aminotransferase 32 U/L (14-59); Albumin Level 3.3 g/dL (3.4-5.0); Alkaline Phosphatase 80 U/L (46-116); Anion Gap 10 mmol/L (4-12); Aspartate Amino Transferase 22 U/L (15-37); Bilirubin,Total 0.6 mg/dL (0.00-1.00); Blood Urea Nitrogen 25 mg/dL (7-18); Calcium 9.5 mg/dL (8.5-10.1); Carbon Dioxide 26 mmol/L (21-32); Chloride 104 mmol/L (98-108); Estimated Glomerular Filt Rate 53; Glucose 248 mg/dL (70-99); Osmolality Calculated 302 mOsm/kg (285-295); Potassium 4.8 mmol/L (3.5-5.1); Sodium 140 mmol/L (136-145); Total Protein 6.8 g/dL (6.4-8.2)
== END 2023-12-17 14:35 | disposition home or self-care (01) ==
PROVIDERS: PCP Internal Medicine; Visit Provider Nurse Practitioner Family
DX: R05.9 Cough, unspecified (principal); R06.02 Shortness of breath; R91.8 Other nonspecific abnormal finding of lung field
CPT/HCPCS: 36415; 71046; 80053; 85025

== ENCOUNTER 2023-12-31 12:26 | Outpatient (CLI) | payer MEDICARE, SELFPAY ==
--- NOTE | ~2023-12-31 | CT_ITS ---
EXAMINATION:CT diagnostic chest wo con DATE: 12/31/2023 12:44 INDICATION: Lung nodule. TECHNIQUE: Computed tomography (CT) of the chest was performed without intravenous contrast. Automate d exposure control and iterative reconstruction technique were employed. The dose-length product (DLP ) was 263.42 mGy-cm. COMPARISON: CT abdomen and pelvis 09/03/2023, chest 2 views 12/17/2023 FINDINGS: The lungs demonstrate mild atelectasis. Calcified bilateral lung nodules and calcified left hilar lymph nodes are consistent with old granulomatous disease. No pleural effusion. The heart size is normal. There are coronary artery calcifications. No pericardial effusion. Calcifications in the spleen are consistent with old granulomatous disease. There is diffuse hepatic steatosis. There is in strumentation of right femur. There is moderate thoracic spondylosis. IMPRESSION: 1. Calcified left lung nodule correlating with the chest radiograph abnormality, consistent with old granulomatous disease. Reviewed, dictated and finalized at location A. 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 Calcified left lung nodule correlating with the chest radiograph abnormality , consistent with old granulomatous disease.
== END 2023-12-31 12:27 | disposition home or self-care (01) ==
LOC: CHSIMG 12:29
PROVIDERS: PCP Internal Medicine; Visit Provider Nurse Practitioner Family
DX: R91.1 Solitary pulmonary nodule (principal); R91.8 Other nonspecific abnormal finding of lung field
CPT/HCPCS: 71250

== ENCOUNTER 2024-08-09 14:56 | Outpatient (CLI) | payer MEDICARE, SELFPAY ==
--- OUTSIDE RECORDS SUMMARY | 2024-08-09 15:03 | XMS_ITS | Clinical Summary ---
Author Organization [facility] Address [facility] [place] [address] Care Team Providers Care [employer] Plate Name Role Phone Raf Fritz MD Primary Care Provider [phone] Raf Fritz MD Unavailable [phone] Armond Rosales MD Unavailable [phone] Ishmael Bertrand MD Unavailable Allergies Active Allergy Reactions Criticality Noted Date Comments Hydrocodone Other (see comment) Medium 03/25/2022 Face numbness Hydrocodone Other (see comment) Medium 12/27/2022 Facial numbness Medications allopurinol 300 MG tablet 04/13/19 22 Active gabapentin 300 MG capsule 03/08/19 22 Active ONETOUCH VERIO test strip 03/26/19 22 Active Lancets (ONETOUCH DELICA PLUS [id number]) [facility] 03/26/19 22 Active rOPINIRole 2 MG tablet 03/13/19 22 Active rosuvastatin 5 MG tablet 03/13/19 22 Active warfarin 1 MG tablet 03/21/19 22 Active warfarin 4 MG tablet 03/27/19 22 Active acetaminophen 500 MG tablet Take 1 tablet (500 mg total) by mouth every 6 (six) hours as needed for Pain. Active Albuterol Sulfate 108 (90 Base) MCG/ACT AEROSOL POWDER, BREATH ACTIVATED Active aspirin EC (ECOTRIN) 81 MG tablet Take 1 tablet (81 mg total) by mouth daily. Active amitriptyline 25 MG tabletIndications :Diabetic peripheral neuropathy (CMS/HCC HHS/HCC) Take 1 tablet (25 mg total) by mouth nightly at bedtime. 90 tablet 3 05/17/19 Active colchicine 0.6 MG tablet Take 1 tablet (0.6 mg total) by mouth as needed. 02/12/19 Active glimepiride (AMARYL) 2 MG tablet Take 1 tablet (2 mg total) by mouth daily. 03/27/19 Active predniSONE (DELTASONE) 5 mg tablet 05/01/19 Active traMADol (ULTRAM) 50 MG tablet Take 1 tablet (50 mg total) by mouth every 6 (six) hours as needed for Pain. Active albuterol sulfate HFA 108 (90 Base) MCG/ACT inhalerIndication s:shortness of breath Inhale 1 puff into the lungs 4 (four) times daily as needed for Shortness of breath. Indications: shortness of breath 03/30/19 Active amitriptyline (ELAVIL) 25 MG tabletIndications :nerve pain Take 1 tablet by mouth nightly at bedtime. Indications: nerve pain Active colchicine 0.6 MG tabletIndications :gout Indications: gout Only takes when she needs it 05/29/19 Active DULoxetine (CYMBALTA) 20 MG capsuleIndication s:nerve pain Take 1 capsule by mouth daily. Indications: nerve pain Active folic acid (FOLVITE) 1 MG tabletIndications :supplement Take 1 tablet by mouth daily. Indications: supplement Active glimepiride (AMARYL) 2 MG tabletIndications :diabetes Take 1 tablet by mouth every morning before breakfast. Indications: diabetes Active ONETOUCH VERIO test strip 1 strip by Other route. 06/01/19 Active predniSONE (DELTASONE) 1 MG tabletIndications :inflammation Take 2 tablets by mouth daily. Indications: inflammation 11/26/19 Active predniSONE (DELTASONE) 5 mg tabletIndications :inflammation Take 1 tablet by mouth daily. Indications: inflammation 10/29/19 Active methotrexate (TREXALL) 2.5 MG tabletIndications :PMR Take 1 tablet by mouth. Indications: PMR Active rosuvastatin (CRESTOR) 5 MG tabletIndications :cholesterol Take 1 tablet by mouth daily. Indications: cholesterol 12/21/19 23 Active OZEMPIC, 0.25 OR 0.5 MG/DOSE, 2 MG/3ML injection (PEN)Indications: Diabetes Mellitus 12/21/19 Active traMADol (ULTRAM) 50 MG tabletIndications :Chronic Pain Take 1 tablet by mouth. Indications: Chronic Pain Active aspirin EC (ECOTRIN) 81 MG tabletIndications :anticoagulation Take 1 tablet (81 mg total) by mouth 2 (two) times daily with meals. 01/14/20 Active atorvastatin (LIPITOR) 40 MG tabletIndications :cholesterol Take 1 tablet (40 mg total) by mouth nightly at bedtime. 30 tablet 01/14/20 23 Active ferrous sulfate, 65 mg elemental, 325 (65 FE) MG tabletIndications :supplement Take 1 tablet (325 mg total) by mouth 2 (two) times daily with meals. 30 tablet 01/14/20 Active polyethylene glycol (GLYCOLAX) 17 GM/SCOOP powderIndications :constipation Take 17 g by mouth daily as needed (constipation). Indications: constipation 01/18/20 Active warfarin (COUMADIN) 4 MG tabletIndications :anticoagulant Take 4 mg by mouth daily. Indications: anticoagulant 01/30/20 Active COMPRESSION STOCKINGS, DME,Indications:V aricose veins of bilateral lower extremities with other complications Knee high compression stockings. 20-30 mmHg. To be worn during waking hours. 1 Package 1 03/13/19 Active Active Problems Problem Noted Date Diagnosed Date History of DVT (deep vein thrombosis) 06/24/2023 Acute deep vein thrombosis ( DVT) of left lower extremity, unspecified vein ([facility]) 03/11/2023 Varicose veins of bilateral lower extremities with other complications 03/11/2023 Chronic venous insufficiency 03/11/2023 DVT, bilateral lower limbs ([facility]) 03/2022 Hyperglycemia 01/03/2023 Fall 12/26/2022 Chronic anticoagulation 12/26/2022 Closed right humeral fracture 12/26/2022 Pain and swelling of left knee 12/26/2022 H/O: CVA (cerebrovascular accident) 12/26/2022 PMR (polymyalgia rheumatica) ([facility]) Current chronic use of systemic steroids 023 Type 2 diabetes mellitus, wi thout long-term current use of insulin ([facility]) 12/26/2022 Splenic artery aneurysm 12/26/2022 Other closed fracture of dis lexie end of right radius with routine healing, subsequent encounter 03/25/2022 Cerebrovascular accident (CV A), unspecified mechanism ([facility]) 05/22/2021 Atrial fibrillation, unspecified type ([facility] H HS/[facility]) 05/22/2021 Diabetic peripheral neuropathy ([facility]) 05/22/2021 Fracture of forearm 05/16/2021 Localized, primary osteoarthritis of hand 2021 Resolved Problems Problem Noted Date Diagnosed Date Resolved Date Dizziness 01/08/2023 01/08/2023 Anemia 01/01/2023 01/08/2023 Cystitis 12/28/2022 01/01/2023 Right humeral fracture 12/26/202212/27 HOLDEN (acute kidney injury) 12/26/2022 Gout 12/26/2022 01/01/2023 Peripheral neuropathy 12/26/20222022 Encounters Date Type Department Care Team Description 06/21/2024 12:47 PM CDT - 06/21/2024 11:59 PM CDT Hospital Encounter [facility] [address] [place] [address] José Manuel Goodwin, RN INTERNSHIP Discharge Disposition: Home or Self Care (Routine Discharge) 06/21/2024 Travel 05/27/2024 12:30 PM CDT - 05/27/2024 11:59 PM CDT Hospital Encounter [facility] [address] [place] [address] José Manuel Goodwin, GRETCHEN Discharge Disposition: Home or Self Care (Routine Discharge) 05/27/2024 Travel 05/13/2024 12:48 PM CDT - 05/13/2024 11:59 PM CDT Hospital Encounter [facility] [address] [place] [address] José Manuel Goodwin, RN INTERNSHIP Discharge Disposition: Home or Self Care (Routine Discharge) 05/13/2024 12:45 PM CDT - 05/13/2024 12:47 PM CDT Hospital Encounter [facility] [address] [place] [address] José Manuel Goodwin NP Discharge Disposition: Home or Self Care (Routine Discharge) 05/13/2024 Orders Only [facility] [address] [facility] [place] [address] José Manuel Goodwin NP 05/13/2024 Travel 05/13/2024 Transcribe Orders [facility] [address] [place] [address] José Manuel Goodwin NP from Last 3 Months Immunizations Immunization Administration Dates Next Due Influenza (Generic) 01/09/2015 Influenza Adult (Generic) 11/27/2020,11/26/2017, 10/30/2016 Tdap (Generic) 12/15/2018 Family History Medical History Relation Comments Cirrhosis Brother 3 Cancer Mother Diabetes Mother Relation Status Comments Brother 1 Alive Brother 2 Alive Brother 3 Father Mother Sister 1 Alive Sister 2 Alive Social History Tobacco Use Types Packs/Day Years Used Date Smoking Tobacco: Never Smokeless Tobacco: Never Tobacco Cessation:Counseling Given: No Alcohol Use Standard Drinks/Week Comments Never 0 (1 standard drink = 0.6 oz pur e alcohol) OASIS D0700: Social Isolation Answer Da te Recorded Frequency of experiencing loneliness or isolatio n Never 02/14/2023 OASIS A1250: Transportation Answer Date Recorded Lack of Transportation (Medical) No 02/14/2023 Lack of Transportation (Non-Medical) No 02/14/2023 Patient Unable or Declines to Respond No 02/14/2023 OASIS B1300: Health Literacy Answer Trent e Recorded Frequency of needing help to read materials from doctor or pharmacy Never 02/14/2023 [facility] Utilities Answer Date Recorded In the past 12 months has th e [employer], oil, or water [facility] threatened to shut off services in your home? No 12/27/2022 Humiliation, Afraid, Rape, and Kick questionnair e Answer Date Recorded Within the last year, have y ou been afraid of your partner or ex-partner? No 12/27/2022 Within the last year, have y ou been humiliated or emotionally abused in other ways by your partner or ex-partner? No Within the last year, have y ou been kicked, hit, slapped, or otherwise physically hurt by your partner or ex-partner? No 12/27/2022 Within the last year, have y ou been raped or forced to have any kind of sexual activity by your partner or ex-partner? No 12/27/2022 AUDIT-C Answer Date Recorded Q1: How often do you have a drink containing alcohol? Never 12/27/2022 Q2: How many drinks containi ng alcohol do you have on a typical day when you are drinking? Patient does not drink Q3: How often do you have si x or more drinks on one occasion? Never 12/27/2022 Overall Financial Resource Strain (CARDIA) Answe r Date Recorded How hard is it for you to pa y for the very basics like food, housing, medical care, and heating? Not hard at all 12/27/2022 Hunger Vital Sign Answer Date Recorded Within the past 12 months, y ou worried that your food would run out before you got the money to buy more. Never true 12/28/19 23 Within the past 12 months, t he food you bought just didn't last and you didn't have money to get more. Never true 12/27/2022 PRAPARE - Transportation Answer Date Re corded In the past 12 months, has l ack of transportation kept you from medical appointments or from getting medications? No 12/11 In the past 12 months, has l ack of transportation kept you from meetings, work, or from getting things needed for daily living? No 12/27/2022 Housing Stability Vital Sign Answer Trent e Recorded In the last 12 months, was t here a time when you were not able to pay the mortgage or rent on time? No 12/27/2022 In the last 12 months, how many places have you lived? 1 12/27/2022 In the last 12 months, was t here a time when you did not have a steady place to sleep or slept in a residential (including now)? No 12/27/2022 Comments Unknown Sex and Gender Information Value Date Recorded Sex Assigned at Female 05/13/2024 12:43 PM CDT Legal Sex Female 11:27 AM CDT Gender Identity Female 03/25/2022 8:16 AM MOTORS AND GENERATORS INSPECTOR Sexual Orientation Not on file Last Filed Vital Signs Vital Sign Reading Time Taken Comments Blood Pressure 136/81 06/24/2023 12:23 PM CDT Pulse 93 06/24/2023 12:23 PM CDT Temperature 36.3 C (97.3 F) 02/14/2023 10:00 AM MOTORS AND GENERATORS INSPECTOR Respiratory Rate 18 06/24/2023 12:23 PM CDT Oxygen Saturation 99% 03/11/2023 1:29 PM MOTORS AND GENERATORS INSPECTOR Inhaled Oxygen Concentration - - Weight 89.6 kg (197 lb 8 oz) 06/24/2023 12:23 PM CDT Height 167.6 cm (5' 6) 06/24/2023 12:23 PM CDT Body Mass Index 31.88 06/24/2023 12:23 PM CDT Plan of Treatment Health Maintenance Due Date Last Done Comments Colorectal Cancer Screening Colonoscopy (10 Years) 1950 Kidney Health Evaluation 1950 Lipid Panel 1950 Diabetes: Retinopathy Eye Exam 04/16/1969 Hepatitis C 04/16/1969 Mammogram Screening 1991 Zoster Vaccines (1 of 2) 04/16/2001 RSV Immunization or 60+ Years (1 - Risk 60-74 years 1-dose series) 2011 Annual Medicare Wellness Visit 04/16/2016 Dexa Scan (General) 04/16/2016 Hemoglobin A1C 06/27/2023 12/27/2022 COVID-19 Vaccine (1 - 2023-2 5 season) 2023 DTaP, Tdap and Td Vaccines ( 2 - Td or Tdap) 12/15/2028 12/15/2018 Pneumococcal Vaccine: 50+ Years Completed Meningococcal B Vaccine Aged Out No l onger eligible based on patient's age to complete this topic Meningococcal Vaccine Aged Out No carmen adri eligible based on patient's age to complete this topic RSV Immunizations Under 20 Months Aged Out No longer eligible based on patient's age to complete this topic Medical Devices Implanted Type Area Service Operations Manager Device Identifier Shelf Expiration Date Model / Serial / Lot Trang, Cortical Bone Screw, 4 X 24mm Implanted:Qty: 1 on 01/01/2023 by Lance Riddle MD at [facility] Right: [employer] 02/09/2025 [id number] 4-40 / / [id number] Marc Moreno, 5cc Implanted:Qty: 1 on 01/01/2023 by Lance Riddle MD at [facility] Right: [employer] 04/18/2027 [id number] / [id number] / Affixus Natural Nail, Proximal Humerus, Right, Long, 7 X 260mm Implanted:Qty: 1 on 01/01/2023 by Lance Riddle MD at [facility] Right: [employer] 03/11/2028 [id number] 0-07 / / [id number] Trang, Blunt Tip Screw, 4 X 46mm Implanted:Qty: 1 on 01/01/2023 by Lance Riddle MD at [facility] Right: [employer] 02/09/2025 [id number] 6-40 / / [id number] Trang, Blunt Tip Screw, 4 X 36mm Implanted:Qty: 1 on 01/01/2023 by Lance Riddle MD at [facility] Right: [employer] 03/11/2023 [id number] 6-40 / / [id number] Trang, Blunt Tip Screw, 4 X 44mm Implanted:Qty: 1 on 01/01/2023 by Lance Riddle MD at [facility] Right: [employer] 10/09/2024 [id number] 4-40 / / [id number] Explanted Type Area Service Operations Manager Device Identifier Shelf Expiration Date Model / Serial / Lot Drill Bit Surinder 3.3mm - [id number] Explanted:Qty: 1 on 01/01/2023 by Lance Riddle MD at [facility] Drill Right: [employer] [id number] / / Humerus Ball Nose Guidewire Explanted:Qty: 1 on 01/01/2023 by Lance Riddle MD at [facility] Right: [employer] 06/13/2027 [id number] / / [id number] Guidewire Explanted:Qty: 1 on 01/01/2023 by Lance Riddle MD at [facility] Right: [employer] [id number] / / 3.3mm Drill Tong Explanted:Qty: 1 on 01/01/2023 by Lance Riddle MD at [facility] Right: [employer] [id number] / / Humerus Ball Nose Guidewire Explanted:Qty: 1 on 01/01/2023 by Lance Riddle MD at [facility] Right: [employer] 04/23/2027 [id number] / / [id number] Trang, Blunt Tip Screw, 4 X 50mm Explanted:Qty: 1 on 01/01/2023 by Lance Riddle MD at [facility] Right: [employer] 07/09/2024 [id number] / / [id number] Description:CHANGE SIZE Procedures Procedure Name Priority Date/Time Associated Diagnosis Comments PULMONARY FUNCTION TEST Routine 06/22/19 25 12:47 PM CDT SOB (shortness of breath) Heart murmur Asthma (HHS/HCC) USE ECHOCARDIOGRAM W CON Routine 05/27/2024 1:50 PM CDT SOB (shortness of breath) Heart murmur Asthma (HHS/HCC) PRO-BRAIN NATRIURETIC PEPTIDE Routine 05/13/2024 1:15 PM CDT SOB (shortness of breath) Anticoagulant long-term use Asthma (HHS/HCC) Heart murmur CBC W/DIFF AUTOMATED Routine 05/13/2024 1:15 PM CDT SOB (shortness of breath) Anticoagulant long-term use Asthma (HHS/HCC) Heart murmur COMPREHENSIVE METABOLIC PANEL Routine 05/13/2024 1:15 PM CDT SOB (shortness of breath) Anticoagulant long-term use Asthma (HHS/HCC) Heart murmur XR CHEST PA+LAT Routine 05/13/2024 1:05 PM CDT SOB (shortness of breath) 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 of dedicated 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 Heart murmur Asthma (HHS/HCC) HEMOGLOBIN, GLYCOSYLATED STAT 12/27/2022 12:09 AM MOTORS AND GENERATORS INSPECTOR from Last 3 Months or Most Recently Relevant to Health Maintenance Results * Complete PFT (pre/post [place], Lung Vol, Diff Capacity) (60125, 90449, 18947, 13752) (06/21/2024 12:47 PM CDT) 06/21/2024 12:4 7 PM CDT Narrative ESCRIPTION - 06/23/2024 6:56 PM CDT Patient Name: MILAGRO GODOY Date of : 1950 Account: [id number] Facility: [facility] Location: [facility] Date of Service: 06/21/2024 Pulmonary Function Test ORDERED BY: José Manuel Goodwin NP INDICATION: Shortness of breath. Baseline spirometry is normal. FEV1 92%, FVC 95%, normal ratio FEV1/FVC of 0.75. Small response to bronchodilators. FEV1 improved by 2%. Normal lung volumes. TLC is 79% and RV 90%. Normal diffusion lung capacity, 83%. IMPRESSION: Pulmonary function test is within normal limits including spirometry, lung volumes, and diffusion lung capacity. Clinical correlation is required. Signature/Date: Becka LICEA MD #[id number] /PUS Procedure Note Yobani Licea MD - 06/23/2024 Patient Name: MILAGRO GODOY Date of : 1950 Account: [id number] Facility: [facility] Location: [facility] Date of Service: 06/21/2024 Pulmonary Function Test ORDERED BY: José Manuel Goodwin NP INDICATION: Shortness of breath. Baseline spirometry is normal. FEV1 92%, FVC 95%, normal ratio FEV1/FVC of 0.75. Small response to bronchodilators. FEV1 improved by 2%. Normal lung volumes. TLC is 79% and RV 90%. Normal diffusion lung capacity, 83%. IMPRESSION: Pulmonary function test is within normal limits including spirometry, lung volumes, and diffusion lung capacity. Clinical correlation is required. Signature/Date: Becka LICEA MD #[id number] /PUS us José Manuel Goodwin NP PFT ORDERABLES Final Result ESCRIPTION * USE ECHOCARDIOGRAM W CON (05/27/2024 1:50 PM CDT) Anatomical Region Laterality Modality NA Ultrasound 05/27/2024 12:5 0 PM CDT Narrative 05/29/2024 7:08 AM CDT Echocardiography Report Pat.Name: Milagro Godoy Pat.ID: [id number] .Date: 05/27/2024 Refer.MD: [place], [facility] Exam Time: 12:50:00 PM Study Type:OUTREACH Height: 67 in Weight: 192 lb BSA: 1.99 m2 Age: 3 1950,74Y Sex: F Sonogrphr: Pat. Stat.:Outpatient Reason for Study:Shortness of breath, Heart murmur, Asthma Procedures: Study performed at [facility], [place], [place] and interpreted by [facility]. 2D, M-mode, Doppler, Color Flow ++++++++++++++++++++++++++++++++++++ SUMMARY: ++++++++++++++++++++++++++++++++++++ The left ventricular systolic function is normal. The right ventricular function is normal. Moderate to severe aortic valve stenosis. There is trace mitral regurgitation. ++++++++++++++++++++++++++++++++++++ FINDINGS: ++++++++++++++++++++++++++++++++++++ LV: The left ventricular size is normal. The left ventricular systolic function is normal. Estimated left ventricular ejection fraction is 55-60%. Left ventricular diastolic function is abnormal (grade 1 - impaired relaxation). WM: Wall motion appears normal in all segments. RV: The right ventricle size is normal. The right ventricular function is normal. LA: Left atrial size is normal. RA: The right atrial size is normal. CANDIDO: No evidence of pericardial effusion. AO: Aorta is normal. SVn: Inferior vena cava is not assessable. AV: The aortic valve is likely trileaflet. Moderate to severe aortic valve stenosis. The peak velocity across the aortic valve measures 3.8m/sec with a peak gradient of 58mmHg and a mean gradient of 29mmHg. The calculated aortic valve area is 1.0cm2. Mild calcification of aortic valve leaflets. MV: The mitral valve is structurally normal. There is trace mitral regurgitation. PV: The pulmonic valve is normal There is trace pulmonic regurgitation TV: The tricuspid valve appears structurally normal. There is trace tricuspid regurgitation. <Electronic Signature> 05/29/2024 07:08 AM Lowell Castillo M.D. Procedure Note Lowell Castillo MD - 05/29/2024 Echocardiography Report Pat.Name: Milagro Godoy Aliya.ID: [id number] .Date: 05/27/2024 Refer.MD: [place], [facility] Exam Time: 12:50:00 PM Study Type:[facility] Height: 67 in Weight: 192 lb BSA: 1.99 m2 Age: 3 1950,74Y Sex: F Sonogrphr: Sf Pat. Stat.:Outpatient Reason for Study:Shortness of breath, Heart murmur, Asthma Procedures: Study performed at [facility], [place], [place] and interpreted by [facility]. 2D, M-mode, Doppler, Color Flow ++++++++++++++++++++++++++++++++++++ SUMMARY: ++++++++++++++++++++++++++++++++++++ The left ventricular systolic function is normal. The right ventricular function is normal. Moderate to severe aortic valve stenosis. There is trace mitral regurgitation. ++++++++++++++++++++++++++++++++++++ FINDINGS: ++++++++++++++++++++++++++++++++++++ LV: The left ventricular size is normal. The left ventricular systolic function is normal. Estimated left ventricular ejection fraction is 55-60%. Left ventricular diastolic function is abnormal (grade 1 - impaired relaxation). WM: Wall motion appears normal in all segments. RV: The right ventricle size is normal. The right ventricular function is normal. LA: Left atrial size is normal. RA: The right atrial size is normal. CANDIDO: No evidence of pericardial effusion. AO: Aorta is normal. SVn: Inferior vena cava is not assessable. AV: The aortic valve is likely trileaflet. Moderate to severe aortic valve stenosis. The peak velocity across the aortic valve measures 3.8m/sec with a peak gradient of 58mmHg and a mean gradient of 29mmHg. The calculated aortic valve area is 1.0cm2. Mild calcification of aortic valve leaflets. MV: The mitral valve is structurally normal. There is trace mitral regurgitation. PV: The pulmonic valve is normal There is trace pulmonic regurgitation TV: The tricuspid valve appears structurally normal. There is trace tricuspid regurgitation. <Electronic Signature> 05/29/2024 07:08 AM Lowell Castillo M.D. José Manuel Goodwin NP ECHO Final Result * (ABNORMAL) PRO-BRAIN NATRIURETIC PEPTIDE (05/13/2024 1:15 PM CDT) PRO-B TYPE NATRIURETIC PEPTIDE 296(H) <125 PG/ML 05/13/2024 1:53 PM CDT [facility] Comment: CUT POINTS ESTABLISHED BY [employer] ON NT PROBNP (ICON) STUDY (2006). AGE INDEPENDENT: <300 PG/ML HAS A 99% NEGATIVE PREDICTIVE VALUE FOR EXCLUDING ACUTE CHF <50 YEARS: >450 PG/ML IS CONSISTENT WITH ACUTE CHF 50-75 YEARS: >900 PG/ML IS CONSISTENT WITH ACUTE CHF >75 YEARS: >1800 PG/ML IS CONSISTENT WITH ACUTE CHF IN PATIENTS WITH RENAL INSUFFICIENCY (GFR <60), >1200 PG/ML YIELDS A DIAGNOSTIC SENSITIVITY AND SPECIFICITY OF 89% AND 72% FOR ACUTE CHF. 05/13/2024 1:15 PM CDT José Manuel Goodwin RN INTERNSHIP LABORATORY Final Result [facility] [address] [email or web address] [address], * (ABNORMAL) COMPREHENSIVE METABOLIC PANEL (05/13/2024 1:15 PM CDT) SODIUM S/P/B 137 136 - 145 MMOL/L 05/13/2024 1:53 PM CDT [facility] POTASSIUM S/P/B 4.1 3.5 - 5.1 MMOL/L 05/13/2024 1:53 PM CDT [facility] Comment:SLIGHT HEMOLYSIS, RE SULT MAY BE AFFECTED. CHLORIDE S/P/B 101 98 - 107 MMOL/L 05/13/2024 1:53 PM CDT [facility] CO2 29.3 21.0 - 32.0 MMOL/L 05/13/2024 1:53 PM CDT [facility] GLUCOSE 110(H) 70 - 99 MG/DL 05/13/2024 1:53 PM CDT [facility] Comment: FASTING GLUCOSE 100 TO 125 MG/DL IS CONSISTENT WITH IMPAIRED FASTING GLUCOSE. FASTING GLUCOSE >125 MG/DL IS CONSISTENT WITH DIABETES. RANDOM GLUCOSE >200 MG/DL WITH HYPERGLYCEMIC SYMPTOMS IS CONSISTENT WITH DIABETES. PER ADA GUIDELINES BUN 16 6 - 24 MG/DL 05/13/2024 1:53 PM CDT [facility] CREATININE S/P/B 1.14(H) 0.55 - 1.02 MG/DL 05/13/2024 1:53 PM CDT [facility] CALCIUM S/P/B 9.1 8.4 - 10.5 MG/DL 05/13/2024 1:53 PM CDT [facility] BILIRUBIN TOTAL S/P/B 0.8 0.2 - 1.0 MG/DL 05/13/2024 1:53 PM CDT [facility] Comment: THIS ASSAY IS NOT RECOMMENDED FOR PATIENTS UNDERGOING TREATMENT WITH ELTROMBOPAG DUE TO THE POTENTIAL FOR FALSELY ELEVATED RESULTS. ALKALINE PHOSPHATASE S/P/B 91 55 - 142 U/L 05/13/2024 1:53 PM CDT [facility] AST 31 15 - 37 U/L 05/13/2024 1:53 PM CDT [facility] ALT 24 14 - 59 U/L 05/13/2024 1:53 PM CDT [facility] TOTAL PROTEIN S/P/B 7.7 6.4 - 8.2 G/DL 05/13/2024 1:53 PM CDT [facility] ALBUMIN S/P/B 3.6 3.4 - 5.0 G/DL 05/13/2024 1:53 PM CDT [facility] ANION GAP 6.7 5.0 - 15.0 MMOL/L 05/13/2024 1:53 PM CDT [facility] OSMOLALITY (CALC) 286 MOSM/KG 025 1:53 PM CDT [facility] Comment:REFERENCE RANGE NOT ESTABLISHED GFR ESTIMATE 51(L) >89 ML/MIN/1. 73 M2 05/13/2024 1:53 PM T [facility] GFR NOTES GFR REFERENCE S: 05/13/2024 1:53 PM T [facility] Comment: THE ESTIMATED GFR IS CALCULATED USING THE 2020 CKD-EPI EQUATION. THE FOLLOWING CATEGORIES FOR GRADING RENAL FUNCTION ARE RECOMMENDED BY THE INTERNATIONAL SOCIETY OF NEPHROLOGY (KDIGO 2012 CLINICAL PRACTICE GUIDELINE). G1,NORMAL OR HIGH: >89 ml/min/1.73 m2 G2,MILDLY DECREASED: 60-89 ml/min/1.73 m2 G3A,MILDLY TO MODERATELY DECREASED: 45-59 ml/min/1.73 m2 G3B,MODERATELY TO SEVERELY DECREASED: 30-44 ml/min/1.73 m2 G4,SEVERELY DECREASED: 15-29 ml/min/1.73 m2 G5,KIDNEY FAILURE: <15 ml/min/1.73 m2 05/13/2024 1:15 PM CDT José Manuel Yadira Goodwin RN [facility] Final Result [facility] [address] [email or web address] [address], * (ABNORMAL) CBC W/DIFF AUTOMATED (05/13/2024 1:15 PM CDT) WBC 5.25 4.00 - 10.80 x10'3/uL 05/13/2024 1:21 PM CDT [facility] RBC 4.21 4.10 - 5.40 x10'6/uL 05/13/2024 1:21 PM CDT [facility] HGB 13.2 12.0 - 16.0 G/DL 05/13/2024 1:21 PM CDT [facility] HCT 40.4 36.0 - 47.0 % 05/13/2024 1:21 PM CDT [facility] MCV 96.0 78.0 - 100.0 FL 05/13/2024 1:21 PM CDT [facility] MCH 31.4(H) 27.0 - 31.0 PG 05/13/2024 1:21 PM CDT [facility] MCHC 32.7(L) 33.0 - 36.0 G/DL 05/13/2024 1:21 PM CDT [facility] RDW 14.9(H) 11.5 - 14.5 % 05/13/2024 1:21 PM CDT [facility] PLT 288 150 - 350 x10'3/uL 05/13/2024 1:21 PM CDT [facility] MPV 10.1 7.4 - 10.4 FL 05/13/2024 1:21 PM CDT [facility] CBC COMMENT NORMAL REFERENCE RANGE NOT ESTABLISHED FOR THE PROPORTIONAL LEUKOCYTE DIFFERENTIAL. 05/13/2024 1:21 PM CDT [facility] NEUTROPHILS % 68.6 % 05/13/2024 1:21 PM CDT [facility] LYMPHOCYTES % 15.0 % 05/13/2024 1:21 PM CDT [facility] MONOCYTES % 13.1 % 05/13/2024 1:21 PM CDT [facility] EOSINOPHILS % 2.5 % 05/13/2024 1:21 PM CDT [facility] BASOPHILS % 0.4 % 05/13/2024 1:21 PM CDT [facility] IMMATURE GRANS % 0.4 % 05/14/19 1:21 PM CDT [facility] NRBC % 0.0 % 05/13/2024 1:21 PM CDT [facility] ABS. NEUTROPHILS 3.60 1.60 - 8.30 x10'3/uL 05/13/2024 1:21 PM CDT [facility] ABS. LYMPHOCYTES 0.79(L) 0.80 - 4.70 x10'3/uL 05/13/2024 1:21 PM CDT [facility] ABS. MONOCYTES 0.69 0.00 - 1.50 x10'3/uL 05/13/2024 1:21 PM CDT [facility] ABS. EOSINOPHILS 0.13 0.00 - 0.40 x10'3/uL 05/13/2024 1:21 PM CDT [facility] ABS. BASOPHILS 0.02 0.00 - 0.20 x10'3/uL 05/13/2024 1:21 PM CDT [facility] ABS. IMMATURE GRANULOCYTES 0.02 0.00 - 0.03 x10'3/uL 05/13/2024 1:21 PM CDT [facility] ABS. NUCLEATED RBC'S 0.00 0.00 - 0.01 x10'3/uL 05/13/2024 1:21 PM CDT [facility] 05/13/2024 1:15 PM CDT José Manuel Goodwin NP LABORATORY Final Result [facility] [address] [place] [address], * XR CHEST PA+LAT (05/13/2024 1:05 PM CDT) Anatomical Region Laterality Modality Chest Radiographic Mona ging 05/13/2024 1:09 PM CDT Impressions 05/13/2024 2:12 PM CDT IMPRESSION: No acute disease. Ordered By: JOSÉ MANUEL GOODWIN Interpreted By: Devon Jessica MD, 05/13/2024 1:09 PM Narrative 05/13/2024 2:12 PM CDT [address] [place] [address] Examination: Two-view chest Exam time: 1237 hours. Clinical history: Dyspnea, worsening over time. Comparison: 12/26/2022 ([facility]). Technique: PA and lateral views Findings: The heart is within normal limits for size. Pulmonary vascularity is within normal limits. The lungs and pleural spaces appear free of any active process. Partially imaged ORIF of the right humerus now evident. The bony thorax is otherwise unremarkable for age and stature. Procedure Note Devon Jessica MD - 05/13/[address] [place] [address] Examination: Two-view chest Exam time: 1237 hours. Clinical history: Dyspnea, worsening over time. Comparison: 12/26/2022 ([facility]). Technique: PA and lateral views Findings: The heart is within normal limits for size. Pulmonaryvascularity is within normal limits. The lungs and pleural spaces appearfree of any active process. Partially imaged ORIF of the right humerus nowevident. The bony thorax is otherwise unremarkable for age and stature. IMPRESSION: No acute disease. Ordered By: JOSÉ MANUEL GOODWIN Interpreted By: Devon Jessica MD, 05/13/2024 1:09 PM José Manuel Goodwin RN [facility] Final Result * (ABNORMAL) HEMOGLOBIN, GLYCOSYLATED (12/27/2022 12:09 AM [employer] INSPECTOR) HGB A1C 7.5(H) <5.7 % 12/27/2022 1:49 AM [employer] [facility] ESTIMATED AVG GLUCOSE 169(H) 74 - 114 MG/DL 12/27/2022 1:49 AM [employer] [facility] 12/27/2022 12:0 9 AM [employer] INSPECTOR Naseem Velasco ADMISSION NURSE COORDINATOR LABORATORY Final Resul t [facility] [address] [place] [address], [id number] from Last 3 Months or Most Recently Relevant to Health Maintenance Insurance [employer] Advance Directives * Full Code (Latest Code Status on File) Date Activated Date Inactivated Comments 01/17/2023 4:23 PM * Full Code Date Activated Date Inactivated Comments 12/26/2022 8:11 PM 01/13/2023 6:39 PM Care Teams [employer]can[employer] Plate Relationship Specialty Start Date End Date Raf Fritz MD [address] [place] [phone] PCP - General INTERNAL MEDICINE 12/30/22 Raf Fritz MD [address] [place] [phone] INTERNAL MEDICINE 12/26/22 Armond Rosales MD [address] [place] [phone] TRAUMA 01/14/23 Ishmael Bertrand MD [address] [place] [phone] Consulting Physician INTERNAL MEDICINE 06/19/23
--- OUTSIDE RECORDS SUMMARY | 2024-08-09 15:03 | XMS_ITS | Patient Health Record ---
Author Organization [facility] Address [address] [place], [place] [id number] Care Team Providers Care [employer] Operations Agent Name Role Phone Raf Fritz Unavailable Unavailable Allergies No Known Allergies Reason For Referral No Information Medications Medication SIG (Take, Route, Frequency, Duration) Notes Start Date End Date Status Allopurinol 300 MG Oral; Duration: 100 Days Active Warfarin Sodium 4 MG Oral; Duration: 100 Days Active DULoxetine HCl 20 MG Oral; Duration: 90 Days Active Doxycycline Monohydrate 100 MG Oral; Duration: 15 Days Acti ve Folic Acid 1 MG Oral; Duration: 30 Days Active Glimepiride 2 MG Oral; Duration: 30 Days Active traMADol HCl 50 MG Oral; Duration: 7 Days Active Amitriptyline HCl 25 MG Oral; Duration: 90 Days Active predniSONE 5 MG Oral; Duration: 30 Days Active Methotrexate Sodium 2.5 MG Oral; Duration: 30 Days Active Plan Of Treatment No Information Insurance Providers Payer Name Payer Address Payer Phone Subscriber Number Group Number Insured Name Patient Relationship to Insured Coverage Start Date Coverage End Date [facility] [address] [address] [place], [place] [phone] [id number] Milagro Godoy Self - patient is the insured Medicare Part [place] [address] [place] [address] [id number] Milagro Godoy Self - patient is the insured Medical (General) History Medical History History ICD Code acid reflux neuropathy stroke Leg/Feet cramps Steroid Treatment Gout Diabetic varicose veins restless leg syndrome hypertension Surgical History Surgery Date(Month/Year) Gall Bladder
--- OUTSIDE RECORDS SUMMARY | 2024-08-09 15:04 | XMS_ITS | Data Portability ---
Author Organization [facility], [address] [facility] ([place] Address [address] [address] Care Team Providers Care Technical Fellow Name Role Phone HAFSA LUCAS Primary Care Provider Assessment Encounter Date Assessment Date Assessment LastModified by Organization Details LastModified Time 06/04/2023 06/04/2023 IGNACIO Humphrey presents today to followup after her right ORIF of a humeral shaft fracture. The patient feels like they are on par with the recovery process and doing well. Activity: The patient has been using their surgical shoulder for normal light tasks without difficulty. Incision: The patient reports their incision is healing well without complication. Therapy: The patient is actively participating in physical therapy in addition to their home exercise program. PHYSICAL EXAM Objective/exam Right shoulder: Sensory motor nerve function SILT across median, ulnar, radial distributions. AXILLARY NERVE Able to fire all three heads of the deltoid strongly. PASSIVE RANGE OF MOTION Tolerated passive ROM without crepitance. Active Forward elevation: >150 degrees. External Rotation: 70-50 degrees Internal Rotation: to the level of the gluteus ASSESSMENT Status post right proximal humerus open reduction and internal fixation. PLAN We discussed the overall clinical findings as well as reviewed the patients course in the digital record and to an extent with the patient. We discussed the expected prognosis and the plan moving forward. We reviewed anything we could have changed along the way with the patient and offered a time for feedback. Both the patient and myself are informed in my estimation based on the encounter today. We discussed some of the complicating factors that could affect this patient's course terminal manager. At the end of the conversation I, again, gave the patient a chance to ask any questions and answered them to the best of my ability. We will continue to follow the patient along per our protocol. They were encouraged to call our office with any questions or concerns in the meantime. We will plan for the patient to followup again in 4 months to obtain repeat images and discuss her plan of care at that time. The patient understands and agrees with this plan of care moving forward and would like to proceed at this time. The patient was given follow up information and the ability to contact our clinic with any additional questions. [email or web address] Not available 06/05/2023 14:49:32 10/08/2023 10/08/2023 IGNACIO Humphrey presents to the office today to followup on her right shoulder. If you will recall, the patient had a humerus ORIF on 01/01/2023. She reports improvements in her pain and range of motion today. She is overall happy with her outcome and has no further questions or concerns at this time. We discussed the course and patient symptoms as they have been so far. reviewed the electronic data and confirmed it with the patient. Reviewed the med list and any prior treatment with the patient and confirmed that course. Compared that to our record. The patient has been seeing some real improvements at this visit. They feel that the problem has improved substantially, while still occasionally noticeable, the improvement has met the patients expectation. The patient today wants to discuss any terminal manager residual issues and would like to discuss any future plans for at home care or interventions they can make fpc. OBJECTIVE/EXAM Right shoulder: No neurovascular compromise of the extremity. Sensation Intact To Light Touch median ulnar radial and axial distributions with the ability to prove motor function of the extremity as well. SILT med uln rad distributions of the hand. Able to fire all three heads of the deltoid strongly. Tolerated passive ROM. Active Forward elevation: >120 degrees. External Rotation: 70-50 degrees. Internal Rotation: Lumbar Spine There was no profound pain with capsular stretch. On multiple exam maneuvers today, the subacromial region not provokable. Most recent images reviewed in the computer, I agree with the radiologists interpretation. We had those images available in the room today. We reviewed any available outside documents since the last episode of care. ASSESSMENT Status post right humerus open reduction and internal fixation, improving. PLAN We discussed the overall clinical findings as well as reviewed the patients course in the digital record and to an extent with the patient. We discussed the expected prognosis and the plan moving forward. We reviewed anything we could have changed along the way with the patient and offered a time for feedback. Both the patient and myself are thoroughly pleased that the patient has improved. We discussed some of the complicating factors that could affect this patient's course fpc. At the end of the conversation I, again, gave the patient a chance to ask any questions and answered them to the best of my ability. We placed any orders together in the room and confirmed our plan for moving forward. The patient is going to continue shoulder home care and stretching whenever possible and will call us if they worsen. We provided the patient with contact info and offered the patient information to be able to reach back out if they had issues. The patient was comfortable with that plan moving forward. The patient understands and agrees with this plan of care moving forward and would like to proceed at this time. At the end of this visit, we were diligent to make sure the patient is equipped with our contact information and understands we are here to help them through this process. [email or web address] Not available 10/10/2023 15:54:32 Plan of Treatment Reminders Order Date Submit Date Provider Last Modified By Organization Details Last Modified Time Details Appointments None record ed. Lab None record ed. Referral None record ed. Procedures None record ed. Surgeries None record ed. Imaging None record ed. Medication Orders None record ed. Patient TargetsNo targets recorded. Patient InstructionsNo instructions recorded. Reason for Referral None Reported. Results Created Date Observation Date Name Description Value Unit Range Abnormal Flag Note LastModifiedBy Organization Detail LastModifiedTime 06/04/19 24 06/04/2023 XR, humer [address] [address] Teleph one [phone] Name: Homa Godoy [id number] am Date: 2023 Age: 73Phys ician: Alverto arriaza MD, Lance : 1950Ex aminat ion: XR HUMERU S RIGHT EXAM: 2 view right humeru s HISTOR Y: Six month follow up for right humeru s surger y. She fell in Novemb er of 2022. COMPAR MUKUND: 04/16/19 24 FINDIN GS: The patien t is status post internet architect al fixati on of a mid right kim l diaphy seal fractu re with medull emil elisha and proxim al/dis lexie screws . Compon ents are intact withou t eviden ce for hardwa re loosen ing. There is mild progre ssive callus format ion at the fractu re site eviden ce for contin ued healin g. No change in alignm ent. IMPRES CESARIO: Historic Preservationist al fixati on right kim l fractu re with eviden ce for contin ued healin g. No change in alignm ent. Electr onical ly signed in Shea cribe by: PRINCE DOSHI MD on:05/12 12:56 PM cc: Page PAGE 1 of [facility] 1 [email or web address] Sd Only - Sd Radiology [address] [place] [address], [id number], 06/05/2023 22:48:48 09/24/19 24 04/18/2022 imagi ng/di agnos tic resul t No observ ation record ed. Not Available 09/24/2023 20:03:30 09/24/19 24 04/18/2022 imagi ng/di agnos tic resul t No observ ation record ed. Not Available 09/24/2023 20:03:31 09/24/19 24 05/26/2022 imagi ng/di agnos tic resul t No observ ation record ed. Not Available 09/24/2023 20:03:38 10/08/19 24 10/08/2023 XR, humer [facility] [address] [place] [address] Teleph one Name: Homa Godoy [id number] am Date: 2023 Age: 73Phys ician: Alverto arriaza MD, Lance : 1950Ex aminat ion: XR HUMERU S RIGHT EXAMIN ATION: Right humeru s INDICA TION: Follow up right Humeru s repair Novemb er 2022. TECHNI QUE: 2 views of the right humeru s obtain ed. COMPAR MUKUND: 024 FINDIN GS: July emil nail seen dolores sing the left mid shaft humeru s fractu re with relati vely stable alignm ent. Osseou s bridgi ng is relati vely stable . No hardwa re fractu re or failur e noted. Mild osteop enia. IMPRES CESARIO: Stable intram edulla ry elisha dolores sing the mid shaft right humeru s fractu re with stable alignm ent and stable osseou s bridgi ng. Electr onical ly signed in [employer] by: SARAH Villeda MD on:09/11 3:00 PM cc: Page PAGE 1 of [email or web address] 1 [email or web address] Sd Only - Sc Radiology [address] [place] [address], [id number], 10/16/2023 23:13:45 Result Notes Documentation Provider Name and Address Organization Details Recorded Time Xr, Humerus : [address] [address] Name: Milagro Godoy Date: 06/04/2023 Age: 73Physician: MD Janessa, Lance : 1950Examination: XR HUMERUS RIGHT EXAM: 2 view right humerus HISTORY: Six month follow up for right humerus surgery. She fell in December of 2022. COMPARISON: 04/16/2023 FINDINGS: The patient is status post internal fixation of a mid right humeral diaphyseal fracture with medullary elisha and proximal/distal screws. Components are intact without evidence for hardware loosening. There is mild progressive callus formation at the fracture site evidence for continued healing. No change in alignment. IMPRESSION: Internal fixation right humeral fracture with evidence for continued healing. No change in alignment. Electronically signed in [employer] by: PRINCE DOSHI MD on:06/04/2023 12:56 PM cc: Page PAGE 1 of [facility] 1 Lance Riddle MD [address] [place] [address], [phone], [facility] 06/05/2023 22:48:48 Xr, Humerus : [address], [place] [address] Name: Milagro Godoy Date: 10/08/2023 Age: 73Physician: MD Janessa, Lance : 1950Examination: XR HUMERUS RIGHT EXAMINATION: Right humerus INDICATION: Follow up right Humerus repair December 2022. TECHNIQUE: 2 views of the right humerus obtained. COMPARISON: 06/04/2023 FINDINGS: Kiki medullary nail seen traversing the left mid shaft humerus fracture with relatively stable alignment. Osseous bridging is relatively stable. No hardware fracture or failure noted. Mild osteopenia. IMPRESSION: Stable intramedullary elisha traversing the mid shaft right humerus fracture with stable alignment and stable osseous bridging. Electronically signed in Frankly[employer]InfraSearch by: SARAH OPSADAS MD on:10/08/2023 3:00 PM cc: Page PAGE 1 of [facility] 1 Lance Riddle MD [address] [place] [address], [phone], [facility] 10/16/2023 23:13:45 Problems Name Problem SNOMED Code Status Onset Date Resolution Date Notes Provider Name and Address Organization Details Recorded Time Fracture of shaft of humerus 13858156 Active 2023 Adelaida Santizo [facility] 4 18:33:48 Pain of right shoulder joint 298863164064397 00 Active 2023 Anjelica Gillespie [facility] 4 21:20:11 Closed fracture of shaft of humerus 50617668 Active 2023 Adelaida Santizo [facility] 4 19:49:56 Problem Notes None recorded. Procedures Surgical History Date Name Laterality Status Provider Name and Address Organization Details Recorded Time 01/10/20 open reduction of fracture of humerus completed Yael Gonzalez [facility] 06/02/2023 20:36:39 Appendectomy completed Not Available Health Note 06/03/2023 14:39:53 delivery completed Not Available Health Note 06/03/2023 14:39:53 Removal of gallbladder completed Not Available Health Note 06/03/2023 14:39:53 Imaging Results None recorded. Procedure Notes None recorded. Medical Equipment None Reported. Allergies No known drug allergies Medications Name Sig Start Date Stop Date Status Note LastModified by Organization Details LastModified Time clotrimazole 10 mg kar active Not Available Not Available No t Available doxycycline hyclate 100 mg capsule active Not Available Not Available Not Available azithromycin 250 mg tablet active Not Available Not Availabl e Not Available prednisone 5 mg tablet active Not Available Not Available Not Available tramadol 50 mg tablet active Not Available Not Available Not Available glimepiride 2 mg tablet active Not Available Not Available No t Available warfarin 4 mg tablet active Not Available Not Available Not Available amitriptyline 25 mg tablet TAKE ONE TABLET BY MOUTH DAILY AT BEDTIME 2024 active Not Available Not Available Not Avai lable methotrexate sodium 2.5 mg tablet active Not Available Not Available Not Available prednisone 1 mg tablet active Not Available Not Available Not Available allopurinol 300 mg tablet active Not Available Not Available No t Available hydroxychloroqu ine 200 mg tablet active Not Available Not Available Not Available cyclobenzaprine 5 mg tablet active Not Available Not Available Not Available rosuvastatin 5 mg tablet active Not Available Not Available No t Available nitrofurantoin monohydrate/mac rocrystals 100 mg capsule active Not Available Not Available N ot Available duloxetine 20 mg capsule,delayed release active Not Available Not Available Not Available Ozempic 0.25 mg or 0.5 mg (2 mg/3 mL) subcutaneous pen injector active Not Available Not Available Not Available Vitals None Recorded Social History Question Answer Notes LastModified by Organizat ion Details LastModified Time Do You Have An Advance Directive? No [email or web address] Information not available 06/03/2023 What Is Your Level Of Caffeine Consumption? None [email or web address] Information not available 06/03/2023 How Many Times Per Week Do You Exercise? 1-2 Times Per Week [email or web address] Information not available 06/03/2023 Do You Have A Medical Power Of Unloading Checker? Yes [email or web address] Information not available 06/03/2023 What Was The Date Of Your Most Recent Tobacco Screening? 06/04/2023 [email or web address] Information not available 06/03/2023 What Is Your Relationship Status? [email or web address] Information not available 06/03/2023 Sex: Unknown Functional Status Question Answer Note LastModified by Organizat ion Details LastModified Time Do you use any illicit or recreational drugs? No [email or web address] Information not available 06/03/2023 What is your level of alcohol consumption? None [email or web address] Information not available 06/03/2023 Are you currently employed? 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 None [email or web address] Information not available 06/03/2023 Mental Status None recorded. Family History Relationship Description Onset Age of this Age Resolved Age Notes LastModified by Organization Details LastModified Time Unspecified Relation Attention deficit hyperactivit y disorder [email or web address] Not available 06/02 14:39:52 Maternal Grandmother Alzheimer's disease [email or web address] Not available 2023 14:39:52 Maternal Grandmother Arthritis [email or web address] Not available 05/12 14:39:52 Maternal Grandmother Family history of malignant neoplasm [email or web address] Not available 2023 14:39:52 Maternal Grandmother Diabetes mellitus [email or web address] Not available 2023 14:39:52 Maternal Grandmother Heart disease [email or web address] Not available 2023 14:39:52 Maternal Grandmother Hypertensive disorder [email or web address] Not available 2023 14:39:52 Maternal Grandmother Hypercholest erolemia [email or web address] Not available 2023 14:39:52 Maternal Grandmother Cerebrovascu lar accident [email or web address] Not available 14:39:52 Paternal Grandmother Arthritis [email or web address] Not available 05/12 14:39:52 Paternal Grandmother Diabetes mellitus [email or web address] Not available 2023 14:39:52 Paternal Grandmother Hypertensive disorder [email or web address] Not available 2023 14:39:52 Paternal Grandmother Hypercholest erolemia [email or web address] Not available 2023 14:39:52 Paternal Grandfather Cerebrovascu lar accident [email or web address] Not available 14:39:52 Medical History No medical history recorded. Gynecological HistoryNo gynecological history recorded. Obstetrics History GPAL:G 0 P 0 0 0 0 Past Encounters Encounter ID Performer Location Encounter Start Date Encounter Closed Date Diagnosis/Indication Diagnosis SNOMED-CT Code Diagnosis ICD10 Code Diagnosis Note [id number] Lance Riddle MD [address] [facility] [address] [address] 06/04/2023 13:29:09 06/04/2023 18:39:34 Closed fracture of shaft of humerus 89825375 S42.301D Postoperative state 1956 5002 Z98.825 [id number] Lance Riddle MD [address] [facility] [address] [address] 10/08/2023 15:15:55 10/08/2023 16:40:52 Fracture of shaft of humerus 28841219 S42.301D Additional diagnosis detail: Unspecifie d fracture of shaft of humerus, right arm, subsequent encounter for fracture with routine healing Health Concerns Section Related Observation LastModified by Organization Detai ls LastModified Time None Recorded Concern Status LastModified by Organization Details LastModified Time None Recorded Advance Directives Directive N: Payers Insurance Date Sequence Insurance Name Policy Number Policy Rodriges Covered Member ID Rodriges Member ID Guarantor Name 06/02/2023 1 *SELF PAY* Mercedes 06/04/2023 2 [place] Milagro Godoy [id number] Milagro Godoy 10/09/2023 1 [employer] (MEDICARE REPLACEMENT/ ADVANTAGE - PPO) [id number] Milagro Godoy [id number] Milagro Godoy OBGyn Episode No OBEpisode recorded.
[2024-08-09 15:29] LABS: Hematocrit 42.5 % (35.0-42.0); Hemoglobin 13.1 g/dL (11.7-13.8); Mean Corpuscular HGB Conc 30.8 g/dL (32-36); Mean Corpuscular Hemoglobin 30.3 pg (27.0-31.0); Mean Corpuscular Volume 98.2 fL (78.0-102.0); Mean Platelet Volume 10.2 fl (9.2-11.8); Platelet Count Result 282 K/mm3 (150-420); Red Blood Count 4.33 M/mm3 (4.20-5.40); Red Cell Distribution Width 14.7 % (11.6-14.4); White Blood Count 8.2 K/mm3 (4.8-10.8)
[2024-08-09 15:30] LABS: Add Urine Microscopic? YES; Appearance Urine Clear (Clear); Bilirubin Urine Negative (Negative); Blood Urine Trace-intact (Negative); Color Urine Yellow (Yellow); Glucose Urine UA 3+ (Negative); Ketones Urine Negative (Negative); Leukocyte Esterase Ur Trace (Negative); Nitrate Urine Negative (Negative); Protein Urine Negative (Negative); Specific Grav Ur 1.015 (1.010-1.020); Urobilinogen Urine 0.2 mg/dL (0.2-1.0)
[2024-08-09 16:06] LABS: INR 1.1; Partial Thromboplastin Time 25.8 Sec (23.9-30.70); Prothrombin Time 11.6 Seconds (9.50-12.1)
[2024-08-09 16:07] LABS: Bacteria Urine Trace /hpf; RBC Urine 0-2 /hpf (0-2); Squamous Epithelial Cell Urine Few /hpf (Few)
[2024-08-09 16:19] LABS: Alanine Aminotransferase 31 U/L (6-35); Albumin Level 4.3 g/dL (3.5-5.1); Alkaline Phosphatase 71 U/L (38-126); Anion Gap 5 mmol/L (4-12); Aspartate Amino Transferase 35 U/L (14-36); Bilirubin,Total 1.3 mg/dL (0.2-1.3); Blood Urea Nitrogen 16 mg/dL (7-17); Calcium 9.4 mg/dL (8.4-10.2); Carbon Dioxide 26 mmol/L (22-30); Chloride 106 mmol/L (98-107); Estimated Glomerular Filt Rate > 60; Glucose 207 mg/dL (65-110); Osmolality Calculated 291 mOsm/kg (285-295); Potassium 4.7 mmol/L (3.4-5.0); Sodium 137 mmol/L (137-145); Total Protein 6.8 g/dL (6.3-8.2)
== END 2024-08-09 14:57 | disposition home or self-care (01) ==
LOC: CHSLAB 15:00
PROVIDERS: PCP Internal Medicine; Visit Provider Nurse Practitioner Family
DX: R51.9 Headache, unspecified (principal); R42 Dizziness and giddiness; D50.0 Iron deficiency anemia secondary to blood loss (chronic); M79.676 Pain in unspecified toe(s)
CPT/HCPCS: 36415; 80053; 81001; 85027; 85610; 85730

== ENCOUNTER 2024-08-30 13:15 | Emergency (ER) | payer MEDICARE, SELFPAY ==
--- NOTE | ~2024-08-30 | XR_ITS ---
XR knee LT min 4V 08/30/2024 13:57 Indication: Left knee pain Procedure: 4 views left knee Comparison: No prior studies for comparison. Findings: There is moderate tricompartment osteoarthritis. There is chondrocalcinosis. No acute fract ure, subluxation or dislocation. There is atherosclerosis. There is heterotopic ossification of the s oft tissues posterior to the joint space. Small joint effusion. Impression: 1: Moderate tricompartment osteoarthritis with chondrocalcinosis. Reviewed, dictated and finalized at location A. Impression: 1: Moderate tricompartment osteoarthritis with chondrocalcinosis.
--- NOTE | ~2024-08-30 | XR_ITS ---
XR femur LT min 2V, XR hip LT min 3V w AP pelvis 08/30/2024 13:57 Indication: Left leg pain Procedure: 2 views left femur and 3 views left hip including AP pelvis Comparison: 08/30/2024 Findings: Moderate osteoarthritis of the left hip. There are ossific densities adjacent to the hip asher int unchanged, possibly heterotopic ossification or calcific tendinopathy. Osteopenia. No acute fract ure or traumatic malalignment. There is osteitis pubis. There is atherosclerosis. There is severe ost eoarthritis of the left knee with chondrocalcinosis. 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 Reviewed, dictated and finalized at location A. 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
[2024-08-30 13:15] VITALS: BP 155/65; PULSE 94; RESP 20; TEMP 36.2; O2SAT 99
--- OUTSIDE RECORDS SUMMARY | 2024-08-30 13:19 | XMS_ITS | Patient Health Record ---
Author Organization [facility] Address [address] [place], [place] [id number] Care Team Providers Care Production Mechanic Tin Cans Name Role Phone Raf Fritz Unavailable Unavailable [...] Insured Coverage Start Date Coverage End Date [facility] [address] [address] [place], [place] [id number] Milagro Godoy Self - patient is the insured Medicare Part B [place] [address] [place] [address] [id number] Milagro Godoy Self - patient is the insured Medical (General) History Medical History History ICD Code acid reflux neuropathy stroke Leg/Feet cramps Steroid Treatment Gout Diabetic varicose veins restless leg syndrome hypertension Surgical History Surgery Date(Month/Year) Gall Bladder
--- OUTSIDE RECORDS SUMMARY | 2024-08-30 13:20 | XMS_ITS | Data Portability ---
Author Organization [facility], [address] [facility] Address [address] [address] Care Team Providers Care Broom Stitcher Name Role Phone HAFSA LUCAS Primary Care [...] factors that could affect this patient's course buttermaker continuous churn. At the end of the conversation I, [...] contact our clinic with any additional questions. [email or web address] Not available 06/05/2023 14:49:32 10/08/2023 10/08/2023 IGNACIO [...] The patient today wants to discuss any buttermaker continuous churn residual issues and would like to discuss any future plans for at home care or interventions they can make shelter. OBJECTIVE/EXAM Right shoulder: No neurovascular compromise of [...] factors that could affect this patient's course shelter. At the end of the conversation I, [...] here to help them through this process. [email or web address] Not available 10/10/2023 15:54:32 Plan of Treatment [...] Detail LastModifiedTime 06/04/19 24 06/04/2023 XR, humer [address] [address] Teleph one Name: Homa Godoy [id number] am Date: 2023 Age: 73Phys ician: Alverto arriaza MD, Lance : 1950Ex aminat ion: XR HUMERU S RIGHT EXAM: 2 view right humeru s HISTOR Y: Six month follow up for right humeru s surger y. She fell in Novemb er of 2022. 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 Compon ents are intact withou t eviden ce for hardwa re loosen ing. There is mild progre ssive callus format ion at the fractu re site eviden ce for contin ued healin g. No change in alignm ent. IMPRES CESARIO: Public Health Epidemiologist al fixati on right kim l fractu re with eviden ce for contin ued healin g. No change in alignm ent. Electr onical ly signed in Shea cribe by: PRINCE DOSHI MD on:05/12 12:56 PM cc: Page PAGE 1 of [facility] 1 [email or web address] Ok Only - [place] Radiology [address] [place] [address], [id number], 06/05/2023 22:48:48 09/24/19 24 04/18/2022 imagi ng/di [...] 24 10/08/2023 XR, humer [facility] [place] [facility] [address] [place] [address] Teleph one [phone] Name: Homa Godoy 0220Ex am Date: 2023 [...] bridgi ng. Electr onical ly signed in [employer]pir[employer]Company by: SARAH Villeda MD on:09/11 3:00 PM cc: Page PAGE 1 of [facility] 1 [email or web address] Ok Only - Sc Radiology [address] [place] [address], [id number], 10/16/2023 23:13:45 Result Notes Documentation Provider Name and Address Organization Details Recorded Time Xr, Humerus : [address] [address] Name: Milagro Godoy Date: 06/04/2023 Age: 73Physician: [...] No change in alignment. Electronically signed in [employer] by: PRINCE DOSHI MD on:06/04/2023 12:56 PM cc: Page PAGE 1 of [facility] 1 Lance Riddle MD [address] [place] [address], [phone], [facility] 06/05/2023 22:48:48 Xr, Humerus : [address], [place] [address] Name: Milagro Godoy Date: 10/08/2023 Age: 73Physician: [...] and stable osseous bridging. Electronically signed in [employer] by: SARAH POSADAS MD on:10/08/2023 3:00 PM cc: Page PAGE 1 of [facility] 1 Lance Riddle MD [address] [place] [address], [phone], [facility] 10/16/2023 23:13:45 Problems Name Problem SNOMED Code Status Onset Date Resolution Date Notes Provider Name and Address Organization Details Recorded Time Pain of right shoulder joint 427693086996550 00 Active 2023 Anjelica Gillespie [facility] 4 21:20:11 Closed fracture of shaft of humerus 74454411 Active 2023 Adelaida Santizo [facility] 4 19:49:56 Fracture of shaft of humerus 65179479 Active 2023 Adelaida Santizo [facility] 4 18:33:48 Problem Notes None recorded. Procedures Surgical History Date Name Laterality Status Provider Name and Address Organization Details Recorded Time 01/10/20 open reduction of fracture of humerus completed Yael Gonzalez [facility] 06/02/2023 20:36:39 Appendectomy completed Not Available [...] Do You Have A Medical Power Of Interior Block Wirer? Yes [email or web address] Information not available 06/03/2023 What [...] SNOMED-CT Code Diagnosis ICD10 Code Diagnosis Note [id number] Lance Riddle MD [address] [facility] [place] [address] [address] 06/04/2023 13:29:09 06/04/2023 18:39:34 Closed fracture of shaft of humerus 69201789 S42.301D Postoperative state 1956 5002 Z98.657 [id number] Lance Riddle MD [address] [facility] [place] [address] [address] 10/08/2023 15:15:55 10/08/2023 16:40:52 Fracture of shaft of humerus 55990481 S42.301D Additional diagnosis detail: Unspecifie d fracture of shaft of humerus, right arm, subsequent encounter for fracture with routine healing Health Concerns Section Related Observation LastModified by Organization Detai ls LastModified Time None Recorded Concern Status LastModified by Organization Details LastModified Time None Recorded Advance Directives Directive N: Payers Insurance Date Sequence Insurance Name Policy Number Policy Rodriges Covered Member ID Rordiges Member ID Guarantor Name 06/02/2023 1 *SELF PAY* Mercedes 06/04/2023 2 [place] Milagro Godoy [id number] Milagro Godoy 10/09/2023 1 [employer] (MEDICARE REPLACEMENT/ ADVANTAGE - PPO) [id number] Milagro Godoy [id number] Milagro Godoy OBGyn Episode No OBEpisode recorded.
--- OUTSIDE RECORDS SUMMARY | 2024-08-30 13:20 | XMS_ITS | Clinical Summary ---
Author Organization [facility] Address [facility] [place] [address] Care Team Providers Care Bioinformatics Programmer Name Role Phone Raf Fritz MD Primary Care Provider [phone] Raf Fritz MD Unavailable [phone] Armond Rosales MD Unavailable [phone] Ishmael Bertrand MD Unavailable Allergies Active Allergy Reactions Criticality Noted Date Comments Hydrocodone Other (see comment) Medium 03/25/2022 Face numbness Hydrocodone Other (see comment) Medium 12/27/2022 Facial numbness Medications allopurinol 300 MG tablet 04/13/19 22 Active gabapentin 300 MG capsule 03/08/19 22 Active ONETOUCH VERIO test strip 03/26/19 22 Active Lancets (ONETOUCH DELICA PLUS [id number]) [facility] 03/26/19 22 Active rOPINIRole 2 MG tablet [...] DVT) of left lower extremity, unspecified vein ([facility]) 03/11/2023 Varicose veins of bilateral lower extremities with other complications 03/11/2023 Chronic venous insufficiency 03/11/2023 DVT, bilateral lower limbs ([facility]) 03/2022 Hyperglycemia 01/03/2023 Fall 12/26/2022 Chronic anticoagulation 12/26/2022 Closed right humeral fracture 12/26/2022 Pain and swelling of left knee 12/26/2022 H/O: CVA (cerebrovascular accident) 12/26/2022 PMR (polymyalgia rheumatica) ([facility]) Current chronic use of systemic steroids 023 Type 2 diabetes mellitus, wi thout long-term current use of insulin ([facility]) 12/26/2022 Splenic artery aneurysm 12/26/2022 Other closed fracture of dis lexie end of right radius with routine healing, subsequent encounter 03/25/2022 Cerebrovascular accident (CV A), unspecified mechanism ([facility]) 05/22/2021 Atrial fibrillation, unspecified type ([facility]) 05/22/2021 Diabetic peripheral neuropathy ([facility]) 05/22/2021 Fracture of forearm 05/16/2021 Localized, primary osteoarthritis of hand 2021 Resolved Problems Problem Noted Date Diagnosed Date Resolved Date Dizziness 01/08/2023 01/08/2023 Anemia 01/01/2023 01/08/2023 Cystitis 12/28/2022 01/01/2023 Right humeral fracture 12/26/202212/27 HOLDEN (acute kidney injury) 12/26/2022 Gout 12/26/2022 01/01/2023 Peripheral neuropathy 12/26/20222022 Encounters Date Type Department Care Team Description 06/21/2024 12:47 PM CDT - 06/21/2024 11:59 PM CDT Hospital Encounter [facility] [address] [facility] [place] [address] Beena Tripp, GRETCHEN Discharge Disposition: Home or Self Care (Routine Discharge) 06/21/2024 Travel from Last 3 Months Immunizations Immunization Administration [...] materials from doctor or pharmacy Never 02/14/2023 [facility] Utilities Answer Date Recorded In the past 12 months has th e [employer], gas, oil, or water company threatened to shut off services in your [...] money to buy more. Never true 12/28/19 Within the past 12 months, t he [...] place to sleep or slept in a long term (including now)? No 12/27/2022 Comments Unknown Sex and Gender Information Value Date Recorded Sex Assigned at Female 05/13/2024 12:43 PM CDT Legal Sex Female 11:27 AM CDT Gender Identity Female 03/25/2022 8:16 AM [employer]AD [employer] Sexual Orientation Not on file Last Filed Vital Signs Vital Sign Reading Time Taken Comments Blood Pressure 136/81 06/24/2023 12:23 PM CDT Pulse 93 06/24/2023 12:23 PM CDT Temperature 36.3 C (97.3 F) 02/14/2023 10:00 AM [employer] Respiratory Rate 18 06/24/2023 12:23 PM CDT Oxygen Saturation 99% 03/11/2023 1:29 PM [employer] Inhaled Oxygen Concentration - - Weight 89.6 [...] 04/16/2016 Hemoglobin A1C 06/27/2023 12/27/2022 COVID-19 Vaccine (2023-2 5 season) 2023 DTaP, Tdap and Td Vaccines ( 2 - Td or Tdap) 12/15/2028 12/15/2018 Pneumococcal Vaccine: 50+ Years Completed 3 Meningococcal B Vaccine Aged Out No l onger eligible based on patient's age to complete this topic Meningococcal Vaccine Aged Out No carmen adri eligible based on patient's age to complete this topic RSV Immunizations Under 20 Months Aged Out No longer eligible based on patient's age to complete this topic Medical Devices Implanted Type Area Associate Java Developer Device Identifier Shelf Expiration Date Model / Serial / Lot Trang, Cortical Bone Screw, 4 X 24mm Implanted:Qty: 1 on 01/01/2023 by Lance Riddle MD at [facility] Right: [employer] 02/09/2025 [id number] 4-40 / / [id number] Bonus Triad, 5cc Implanted:Qty: 1 on 01/01/2023 by Lance Riddle MD at [facility] Right: [employer] 04/18/2027 [id number] / [id number] / Affixus Natural Nail, Proximal Humerus, Right, Long, 7 X 260mm Implanted:Qty: 1 on 01/01/2023 by Lance Riddle MD at [facility] Right: [employer] 03/11/2028 [id number] 0-07 / / [id number] Trang, Blunt Tip Screw, 4 X 46mm Implanted:Qty: 1 on 01/01/2023 by Lance Riddle MD at [facility] Right: [employer] 02/09/2025 [id number] 6-40 / / [id number] Trang, Blunt Tip Screw, 4 X 36mm Implanted:Qty: 1 on 01/01/2023 by Lance Riddle MD at [facility] Right: [employer] 03/11/2023 [id number] 6-40 / / [id number] Trang, Blunt Tip Screw, 4 X 44mm Implanted:Qty: 1 on 01/01/2023 by Lance Riddle MD at [facility] Right: [employer] 10/09/2024 47-2486-04 4-40 / / [id number] Explanted Type Area Associate Java Developer Device Identifier Shelf Expiration Date Model / Serial / Lot Drill Bit Surinder 3.3mm - [id number] Explanted:Qty: 1 on 01/01/2023 by Lance Riddle MD at [facility] Drill Right: [employer] [id number] / / Humerus Ball Nose Guidewire Explanted:Qty: 1 on 01/01/2023 by Lance Riddle MD at [facility] Right: [employer] 06/13/2027 [id number] / / [id number] Guidewire Explanted:Qty: 1 on 01/01/2023 by Lance Riddle MD at [facility] Right: [employer] [id number] / / 3.3mm Drill Tong Explanted:Qty: 1 on 01/01/2023 by Lance Riddle MD at [facility] Right: [employer] [id number] / / Humerus Ball Nose Guidewire Explanted:Qty: 1 on 01/01/2023 by Lance Riddle MD at [facility] Right: [employer] 04/23/2027 [id number] / / [id number] Trang, Blunt Tip Screw, 4 X 50mm Explanted:Qty: 1 on 01/01/2023 by Lance Riddle MD at [facility] Right: [employer] 07/09/2024 [id number] / / [id number] Description:CHANGE SIZE Procedures Procedure Name Priority Date/Time Associated Diagnosis Comments PULMONARY FUNCTION TEST Routine 06/21/2024 12:47 PM CDT SOB (shortness of breath) Heart murmur Asthma (HHS/HCC) HEMOGLOBIN, GLYCOSYLATED STAT 12/27/2022 12:09 AM LEAD [employer]ON TENDER from Last 3 Months or Most Recently Relevant to Health Maintenance Results * Complete PFT (pre/post [place], Lung Vol, Diff Capacity) (97224, 94664, 65449, 25962) (06/21/2024 12:47 PM CDT) 06/21/2024 12:4 7 PM CDT Narrative ESCRIPTION - 06/23/2024 6:56 PM CDT Patient Name: MILAGRO GODOY Date of : 1950 Account: [id number] Facility: [facility] Location: [facility] Date of Service: 06/21/2024 Pulmonary Function Test ORDERED BY: Beena Tripp NP INDICATION: Shortness of breath. Baseline spirometry is normal. FEV1 92%, FVC 95%, normal ratio FEV1/FVC of 0.75. Small response to bronchodilators. FEV1 improved by 2%. Normal lung volumes. TLC is 79% and RV 90%. Normal diffusion lung capacity, 83%. IMPRESSION: Pulmonary function test is within normal limits including spirometry, lung volumes, and diffusion lung capacity. Clinical correlation is required. Signature/Date: Becka FANG MD #[id number] /PUS Procedure Note Yobani Fang MD - 06/23/2024 Patient Name: MILAGRO GODOY Date of : 1950 Account: [id number] Facility: [facility] Location: [facility] Date of Service: 06/21/2024 Pulmonary Function Test ORDERED BY: Beena Tripp NP INDICATION: Shortness of breath. Baseline spirometry is normal. FEV1 92%, FVC 95%, normal ratio FEV1/FVC of 0.75. Small response to bronchodilators. FEV1 improved by 2%. Normal lung volumes. TLC is 79% and RV 90%. Normal diffusion lung capacity, 83%. IMPRESSION: Pulmonary function test is within normal limits including spirometry, lung volumes, and diffusion lung capacity. Clinical correlation is required. Signature/Date: Becka FANG MD #[id number] /PUS Beena Tripp HOT DIP PLATER PFT ORDERABLES Final Result ESCRIPTION * (ABNORMAL) HEMOGLOBIN, GLYCOSYLATED (12/27/2022 12:09 AM LEAD [employer]ON TENDER) HGB A1C 7.5(H) <5.7 % 12/27/2022 1:49 AM LEAD [employer]ON TENDER [facility] ESTIMATED AVG GLUCOSE 169(H) 74 - 114 MG/DL 12/27/2022 1:49 AM LEAD MASON TENDER [facility] 12/27/2022 12:0 9 AM LEAD [employer]ON TENDER Naseem Velasco OFFICE TECHNOLOGY PROFESSOR LABORATORY Final Resul t Performing Organization Address City/[facility]/ZIP Co de Phone Number [facility] [address] [place] [address], [phone] from Last 3 Months or Most Recently Relevant to Health Maintenance Insurance Advance Directives * Full Code (Latest Code Status on File) Date Activated Date Inactivated Comments 01/17/2023 4:23 PM * Full Code Date Activated Date Inactivated Comments 12/26/2022 8:11 PM 01/13/2023 6:39 PM Care Teams Bioinformatics Programmer Relationship Specialty Start Date End Date Raf Fritz MD [address] [place] [phone] PCP - General INTERNAL MEDICINE 12/30/22 Raf Fritz MD [address] [place] [phone] INTERNAL MEDICINE 12/26/22 Armond Rosales MD [facility] [address] [place] [address] [phone] TRAUMA 01/14/23 Ishmael Bertrand MD [address] [place] [address] [phone] Consulting Physician INTERNAL MEDICINE 06/19/23
--- NOTE | 2024-08-30 13:33 | ED.LOWEXIN ---
HPI - Extremity Injury (Lower) General Chief Complaint: Extremity Injury, Lower Stated Complaint: left leg injury Time Seen by Provider: 08/30/24 13:20 Source: patient Mode of arrival: ambulatory Limitations: no limitations History of Present Illness HPI Narrative: patient is a 74-year-old female with a [place] that fell onto her left side and caused pain and swelling to the left thigh. No other injuries. Her pain is the left hip and specifically the left mid thigh laterally down to the knee. On the left. patient is on Coumadin. MD complaint: hip injury ( Left), thigh injury ( left) and knee injury ( left) Onset (ago): hour(s) (2) Type of Injury: blunt Place: home Severity: moderate Severity scale (1-10): 4 Relieving factors: immobilization Exacerbating factors: weight bearing, movement and palpation Context: direct blow Associated symptoms: swelling and able to partially bear weight Other symptoms: none Treatments prior to arrival: other ( None) Related Data Home Medications ?Medication ?Instructions ?Recorded ?Confirmed ?Last Taken ?Type glimepiride 4 mg tablet 4 mg PO BID 12/15/18 10/11/22 Unknown History warfarin 5 mg tablet (Coumadin) See Rx Instructions .Route .COMPLEX 12/15/18 10/11/22 04/10/19 04:00 History ropinirole 0.5 mg tablet 0.5 - 1 mg PO HS 04/08/19 10/11/22 04/11/19 21:00 History rosuvastatin 5 mg tablet 5 mg PO DAILY 04/08/19 10/11/22 04/12/19 07:00 History allopurinol 300 mg tablet 300 mg PO DAILY 06/10/21 10/11/22 Unknown History amitriptyline 25 mg tablet 25 mg PO HS 06/10/21 10/11/22 Unknown History duloxetine 20 mg capsule,delayed 20 mg PO DAILY 06/10/21 10/11/22 Unknown History release ergocalciferol (vitamin D2) 1,250 1,250 mcg PO WEEKLY 12/05/21 10/11/22 Unknown History mcg (50,000 unit) capsule prednisone 5 mg tablet 5 mg PO DAILY 12/05/21 10/11/22 Unknown History Allergies Allergy/AdvReac Type Severity Reaction Status Date / Time hydrocodone (From Vicodin) Allergy Numbness Verified 08/30/24 13:28 Review of Systems Review of Systems: All systems reviewed & are unremarkable except as noted in HPI and below Constitutional: Constitutional: Reports no additional constitutional complaints Eyes: Eyes: Reports no additional eye complaints ENT: Reports system reviewed and no additional complaints, except as documented Cardiovascular: Cardiovascular: Reports no additional cardiovascular complaints Respiratory: Respiratory: Reports no additional respiratory complaints Gastrointestinal: Gastrointestinal: Reports no additional gastrointestinal complaints Genitourinary: Genitourinary: Reports no additional female genitourinary complaints Musculoskeletal: Musculoskeletal: Reports no additional musculoskeletal complaints Integumentary/Breasts: Skin/Breast: Reports system reviewed and no additional complaints, except as docu Neurologic: Reports system reviewed and no additional complaints, except as documented Psychiatric: Psychiatric: Reports no additional psychiatric complaints Endocrine: Endocrine: Reports no additional endocrine complaints Hematologic/Lymphatic: Hematologic/Lymphatic: Reports no additional hematologic/lymphatic complaints Allergic/Immunologic: Allergic/Immunologic: Reports no additional allergic/immunologic complaints PMFSH Past Medical History Medical History Paroxysmal atrial fibrillation Body mass index [BMI] 34.0-34.9, adult (07/16/17) Chronic diarrhea Hypertension TIA (transient ischemic attack) Otalgia Neuropathy Cerebrovascular disease, unspecified Gout, unspecified Mixed hyperlipidemia Type 2 diabetes mellitus without complications Surgical History Surgical History History of Hx of cholecystectomy Family History Family History Father Family history of cardiovascular disease Family history of congestive heart failure Grandparent Cerebrovascular accident Sibling Cirrhosis of liver Social History Social History Smoking status: Never smoker Alcohol intake: never Exam Const: General: healthy appearing Nutritional Appearance: well nourished Orientation/consciousness: patient oriented x3 HENMT: Head: normal to inspection Ears: external ears normal Face/Nose/Sinus: Normal external nose present Eyes: Conjunctivae: conjunctivae normal Pupils: Equal, round and reactive pupils present EOM: EOMs intact bilaterally Neck: Neck: normal visual inspection Chest: Chest palpation & inspection: normal inspection of the chest Resp: Effort & Inspection: normal respiratory effort and not labored Auscultation: clear to auscultation bilaterally and no crackles Cardio: Rate: regular rate Rhythm: regular rhythm Heart sounds: no murmurs GI: Inspection: non-distended GI Palp: Yes Soft to palpation and No Tenderness to palpation present (GI) : General: Yes bladder normal to palpation Back/Spine/Pelvis: Back: no CVA tenderness Skin: General skin exam: normal color Rashes: no rashes Wounds: wound noted Other: left thigh has a moderate hematoma formation lateral aspect Neuro: General: patient oriented x3 and moves all extremities Cranial nerves: Yes Nystagmus not present Speech: normal speech Extrem: General: normal to inspection Other: tender left lateral thigh which extends to the left hip and left knee lateral aspect Psych: Mental Status: mental status grossly normal Affect: normal affect Attitude: cooperative Course Vital Signs Vital signs: Vital Signs Temperature 36.2 C L 08/30/24 13:15 Pulse Rate 94 08/30/24 13:15 Respiratory Rate 20 08/30/24 13:15 Blood Pressure 155/65 H 08/30/24 13:15 Pulse Oximetry 99 08/30/24 13:15 Oxygen Delivery Room Air 08/30/24 13:15 Temperature 36.4 C L 08/30/24 15:18 Pulse Rate 87 08/30/24 15:18 Respiratory Rate 16 08/30/24 15:18 Blood Pressure 151/85 H 08/30/24 15:18 Pulse Oximetry 99 08/30/24 15:18 Oxygen Delivery Room Air 08/30/24 15:18 MDM - Extremity Injury (Lower) MDM Narrative Medical decision making narrative: patient is a 74-year-old female with left lower extremity proximal extremity pain after her dog fell onto that side and knocked her over. We will get x-rays at this time. Imaging Data Attestation: I personally reviewed and interpreted this imaging study as follows: Radiologist's impression: X-ray left knee is negative for acute process x-ray left hip and pelvis is negative for acute process x-ray left femur is negative for acute process Discharge Plan Discharge Clinical Impression: Contusion Qualifiers: Encounter type: initial encounter Contusion area: hip Laterality: left Qualified Code(s): S70.02XA - Contusion of left hip, initial encounter Patient Disposition: Home Condition: Stable Instructions: Contusion in Adults (ED) Patient Language: Stateless Prescriptions: New orphenadrine citrate 100 mg tablet extended release 100 mg PO BID PRN (Reason: pain) Qty: 20 0RF No Action amitriptyline 25 mg tablet 25 mg PO HS allopurinol 300 mg tablet 300 mg PO DAILY duloxetine 20 mg capsule,delayed release(DR/EC) 20 mg PO DAILY ibuprofen 800 mg tablet 800 mg PO TID Qty: 20 0RF omeprazole magnesium [Prilosec OTC] 20 mg tablet,delayed release (DR/EC) 20 mg PO BID Qty: 20 0RF tramadol 50 mg tablet 50 mg PO Q8H PRN (Reason: moderate pain) Qty: 10 0RF acetaminophen-codeine 300-30 mg tablet 1 tablet PO Q8H PRN (Reason: pain) Qty: 10 0RF cephalexin 500 mg capsule 500 mg PO Q8H 7 Days Qty: 21 0RF prednisone 5 mg tablet 5 mg PO DAILY ergocalciferol (vitamin D2) 1,250 mcg (50,000 unit) capsule 1,250 mcg PO WEEKLY ProAir RespiClick 90 mcg/actuation aerosol powdr breath activated 2 inh inhalation QID PRN (Reason: shortness of breath) Qty: 1 0RF warfarin [Coumadin] 5 mg tablet See Rx Instructions .ROUTE .COMPLEX Rx Instructions: warfarin 4mg daily glimepiride 4 mg tablet 4 mg PO BID ropinirole 0.5 mg Tablet 0.5 - 1 mg PO HS rosuvastatin 5 mg Tablet 5 mg PO DAILY lisinopril 40 mg tablet 40 mg PO DAILY Qty: 90 3RF hydrochlorothiazide 12.5 mg tablet 12.5 mg PO DAILY Qty: 90 3RF Follow-up/Referrals: Raf Fritz MD [Primary Care Provider] - Time of Disposition: 15:08
--- OUTSIDE RECORDS SUMMARY | 2024-08-30 14:01 | XMS_ITS | Clinical Summary ---
Author Organization [facility] Address [facility] [place] [address] Care Team Providers Care Tape Deck Installer Name Role Phone Raf Fritz MD Primary Care Provider [phone] Raf Fritz MD Unavailable [phone] Armond Rosales MD Unavailable [phone] Ishmael Bertrand MD Unavailable Allergies Active Allergy Reactions Criticality Noted Date Comments Hydrocodone Other (see comment) Medium 03/25/2022 Face numbness Hydrocodone Other (see comment) Medium 12/27/2022 Facial numbness Medications allopurinol 300 MG tablet 04/13/19 22 Active gabapentin 300 MG capsule 03/08/19 22 Active ONETOUCH VERIO test strip 03/26/19 22 Active Lancets (ONETOUCH DELICA PLUS [id number]) [facility] 03/26/19 22 Active rOPINIRole 2 MG tablet [...] DVT) of left lower extremity, unspecified vein ([facility]) 03/11/2023 Varicose veins of bilateral lower extremities with other complications 03/11/2023 Chronic venous insufficiency 03/11/2023 DVT, bilateral lower limbs ([facility]) 03/2022 Hyperglycemia 01/03/2023 Fall 12/26/2022 Chronic anticoagulation 12/26/2022 Closed right humeral fracture 12/26/2022 Pain and swelling of left knee 12/26/2022 H/O: CVA (cerebrovascular accident) 12/26/2022 PMR (polymyalgia rheumatica) ([facility]) Current chronic use of systemic steroids 023 Type 2 diabetes mellitus, wi thout long-term current use of insulin ([facility]) 12/26/2022 Splenic artery aneurysm 12/26/2022 Other closed fracture of dis lexie end of right radius with routine healing, subsequent encounter 03/25/2022 Cerebrovascular accident (CV A), unspecified mechanism ([facility]) 05/22/2021 Atrial fibrillation, unspecified type ([facility]) 05/22/2021 Diabetic peripheral neuropathy ([facility]) 05/22/2021 Fracture of forearm 05/16/2021 Localized, primary osteoarthritis of hand 2021 Resolved Problems Problem Noted Date Diagnosed Date Resolved Date Dizziness 01/08/2023 01/08/2023 Anemia 01/01/2023 01/08/2023 Cystitis 12/28/2022 01/01/2023 Right humeral fracture 12/26/202212/27 HOLDEN (acute kidney injury) 12/26/2022 Gout 12/26/2022 01/01/2023 Peripheral neuropathy 12/26/20222022 Encounters Date Type Department Care Team Description 06/21/2024 12:47 PM CDT - 06/21/2024 11:59 PM CDT Hospital Encounter [place] [facility] [address] [place] [address] Beena Tripp, GRETCHEN Discharge Disposition: Home or [...] materials from doctor or pharmacy Never 02/14/2023 [facility] Utilities Answer Date Recorded In the past 12 months has th e [employer], gas, oil, or water company threatened to [...] place to sleep or slept in a [place] health care facility (including now)? No 12/27/2022 Comments Unknown Sex and Gender Information Value Date Recorded Sex Assigned at Female 05/13/2024 12:43 PM CDT Legal Sex Female 11:27 AM CDT Gender Identity Female 03/25/2022 8:16 AM SENIOR DATA WAREHOUSE ARCHITECT Sexual Orientation Not on file Last Filed Vital Signs Vital Sign Reading Time Taken Comments Blood Pressure 136/81 06/24/2023 12:23 PM CDT Pulse 93 06/24/2023 12:23 PM CDT Temperature 36.3 C (97.3 F) 02/14/2023 10:00 AM SENIOR DATA WAREHOUSE ARCHITECT Respiratory Rate 18 06/24/2023 12:23 PM CDT Oxygen Saturation 99% 03/11/2023 1:29 PM SENIOR DATA WAREHOUSE ARCHITECT Inhaled Oxygen Concentration - - Weight 89.6 [...] this topic Medical Devices Implanted Type Area Botany Teacher Device Identifier Shelf Expiration Date Model / Serial / Lot Trang, Cortical Bone Screw, 4 X 24mm Implanted:Qty: 1 on 01/01/2023 by Lance Riddle MD at [facility] Right: [employer] 02/09/2025 47-2486-12 4-40 / / [id number] Bonus Triad, 5cc Implanted:Qty: 1 on 01/01/2023 by Lanec Riddle MD at [facility] Right: [employer] 04/18/2027 [id number] / [id number] / Affixus Natural Nail, Proximal Humerus, Right, Long, 7 X 260mm Implanted:Qty: 1 on 01/01/2023 by Lance Riddle MD at [facility] Right: [employer] 03/11/2028 [id number] 0-07 / / [id number] Trang, Blunt Tip Screw, 4 X 46mm Implanted:Qty: 1 on 01/01/2023 by Lance Riddle MD at [facility] Right: [employer] 02/09/2025 47-2486-04 6-40 / / [id number] Trang, Blunt Tip Screw, 4 X 36mm Implanted:Qty: 1 on 01/01/2023 by Lance Riddle MD at [facility] Right: [employer] 03/11/2023 47-2486-03 6-40 / / [id number] Trang, Blunt Tip Screw, 4 X 44mm Implanted:Qty: 1 on 01/01/2023 by Lance Riddle MD at [facility] Right: [employer] 10/09/2024 47-2486-04 4-40 / / [id number] Explanted Type Area Botany Teacher Device Identifier Shelf Expiration Date Model / Serial / Lot Drill Bit Surinder 3.3mm - [id number] Explanted:Qty: 1 on 01/01/2023 by Lance Riddle MD at [facility] Drill Right: [employer] [id number] / / Humerus Ball Nose Guidewire Explanted:Qty: 1 on 01/01/2023 by Lance Riddle MD at [facility] Right: [employer] 06/13/2027 [id number] / / [id number] Guidewire Explanted:Qty: 1 on 01/01/2023 by Lance Riddle MD at [facility] Right: [employer] [id number] / / 3.3mm Drill Tong Explanted:Qty: 1 on 01/01/2023 by Lance Riddle MD at [facility] Right: [employer] [id number] / / Humerus Ball Nose Guidewire Explanted:Qty: 1 on 01/01/2023 by Lance Riddle MD at [facility] Right: [employer] 04/23/2027 [id number] / / [id number] Trang, Blunt Tip Screw, 4 X 50mm Explanted:Qty: 1 on 01/01/2023 by Lance Riddle MD at [facility] Right: [employer] 07/09/2024 [id number] / / [id number] Description:CHANGE SIZE Procedures Procedure Name Priority Date/Time Associated Diagnosis Comments PULMONARY FUNCTION TEST Routine 06/21/2024 12:47 PM CDT SOB (shortness of breath) Heart murmur Asthma (HHS/HCC) HEMOGLOBIN, GLYCOSYLATED STAT 12/27/2022 12:09 AM SENIOR DATA WAREHOUSE ARCHITECT from Last 3 Months or Most Recently Relevant to Health Maintenance Results * Complete PFT (pre/post [place], Lung Vol, Diff Capacity) (24917, 17829, 83069, 04508) (06/21/2024 12:47 PM CDT) 06/21/2024 12:4 7 PM CDT Narrative ESCRIPTION - 06/23/2024 6:56 PM CDT Patient Name: MILAGRO GODOY Date of : 1950 Account: [id number] Facility: [facility] Location: [facility] Date of Service: 06/21/2024 Pulmonary Function [...] correlation is required. Signature/Date: Becka FANG MD #[id number] /PUS Procedure Note Yobani Fang MD - 06/23/2024 Patient Name: MILAGRO GODOY Date of : 1950 Account: [id number] Facility: [facility] Location: [facility] Date of Service: 06/21/2024 Pulmonary Function [...] correlation is required. Signature/Date: Becka FANG MD #[id number] /PUS Beena Tripp LABOR ECONOMICS TEACHER PFT ORDERABLES Final Result ESCRIPTION * (ABNORMAL) HEMOGLOBIN, GLYCOSYLATED (12/27/2022 12:09 AM SENIOR DATA WAREHOUSE ARCHITECT) HGB A1C 7.5(H) <5.7 % 12/27/2022 1:49 AM SENIOR DATA WAREHOUSE ARCHITECT [facility] ESTIMATED AVG GLUCOSE 169(H) 74 - 114 MG/DL 12/27/2022 1:49 AM SENIOR DATA WAREHOUSE ARCHITECT [facility] 12/27/2022 12:0 9 AM SENIOR DATA WAREHOUSE ARCHITECT Naseem Velasco INTERNATIONAL MARKETING MANAGER LABORATORY Final Resul t Performing Organization Address City/[facility]/ZIP Co de Phone Number [facility] [address] [place] [address], [phone] from Last 3 Months or Most Recently Relevant to Health Maintenance Insurance Advance Directives * Full Code (Latest Code Status on File) Date Activated Date Inactivated Comments 01/17/2023 4:23 PM * Full Code Date Activated Date Inactivated Comments 12/26/2022 8:11 PM 01/13/2023 6:39 PM Care Teams Tape Deck Installer Relationship Specialty Start Date End Date Raf Fritz MD [address] [place] [address] PCP - General INTERNAL MEDICINE 12/30/22 Raf Fritz MD [address] [place] [phone] INTERNAL MEDICINE 12/26/22 Armond Rosales MD [facility] [address] [place] [address] [phone] TRAUMA 01/14/23 Ishmael Bertrand MD [address] [place] [phone] Consulting Physician INTERNAL MEDICINE 06/19/23
[2024-08-30] MEDS: ORPHENADRINE CITRATE 30 MG/ML 2 ML VIAL 60 MG IM (15:07)
[2024-08-30 15:18] VITALS: BP 151/85; PULSE 87; RESP 16; TEMP 36.4; O2SAT 99
== END 2024-08-30 15:18 | disposition home or self-care (01) ==
PROVIDERS: Emergency Provider Emergency Medicine; PCP Internal Medicine
DX: S70.02XA Contusion of left hip, initial encounter (principal); I48.0 Paroxysmal atrial fibrillation; I10 Essential (primary) hypertension; E78.2 Mixed hyperlipidemia; E11.9 Type 2 diabetes mellitus without complications; Z86.73 Personal history of transient ischemic attack (TIA), and cerebral infarction without residual deficits; W54.1XXA Struck by dog, initial encounter
CPT/HCPCS: 73502; 73552; 73564; 96372; 99284; J2360

== ENCOUNTER 2024-09-17 09:42 | Outpatient (NON) | payer MEDICARE, SELFPAY ==
--- OUTSIDE RECORDS SUMMARY | 2024-09-17 09:50 | XMS_ITS | Patient Health Record ---
Author Organization [facility] Address [address] [place], [place] [id number] Care Team Providers Care Car Starter Name Role Phone Raf Fritz Unavailable Unavailable [...] Insured Coverage Start Date Coverage End Date [facility] [address] [address] [place], [place] [id number] Milagro Godoy Self - patient is the insured Medicare Part B [place] [address] [place] [address] [id number] Milagro Godoy Self - patient is the insured Medical (General) History Medical History History ICD Code acid reflux neuropathy stroke Leg/Feet cramps Steroid Treatment Gout Diabetic varicose veins restless leg syndrome hypertension Surgical History Surgery Date(Month/Year) Gall Bladder
--- OUTSIDE RECORDS SUMMARY | 2024-09-17 09:51 | XMS_ITS | Clinical Summary ---
Author Organization [facility] Address [facility] [place] [address] Care Team Providers Care Balloon Seller Name Role Phone Raf Fritz MD Primary Care Provider Raf Fritz MD Unavailable [phone] Armond Rosales MD Unavailable Ishmael Bertrand MD Unavailable Allergies Active Allergy Reactions Criticality Noted Date Comments Hydrocodone Other (see comment) Medium 03/25/2022 Face numbness Hydrocodone Other (see comment) Medium 12/27/2022 Facial numbness Medications allopurinol 300 MG tablet 04/13/19 22 Active gabapentin 300 MG capsule 03/08/19 22 Active ONETOUCH VERIO test strip 03/26/19 22 Active Lancets (ONETOUCH DELICA PLUS [id number]) [facility] 03/26/19 22 Active rOPINIRole 2 MG tablet [...] DVT) of left lower extremity, unspecified vein ([facility]) 03/11/2023 Varicose veins of bilateral lower extremities with other complications 03/11/2023 Chronic venous insufficiency 03/11/2023 DVT, bilateral lower limbs ([facility]) 03/2022 Hyperglycemia 01/03/2023 Fall 12/26/2022 Chronic anticoagulation 12/26/2022 Closed right humeral fracture 12/26/2022 Pain and swelling of left knee 12/26/2022 H/O: CVA (cerebrovascular accident) 12/26/2022 PMR (polymyalgia rheumatica) ([facility]) Current chronic use of systemic steroids 023 Type 2 diabetes mellitus, wi thout long-term current use of insulin ([facility]) 12/26/2022 Splenic artery aneurysm 12/26/2022 Other closed fracture of dis lexie end of right radius with routine healing, subsequent encounter 03/25/2022 Cerebrovascular accident (CV A), unspecified mechanism ([facility]) 05/22/2021 Atrial fibrillation, unspecified type ([facility]) 05/22/2021 Diabetic peripheral neuropathy ([facility]) 05/22/2021 Fracture of forearm 05/16/2021 Localized, primary osteoarthritis of hand 2021 Resolved Problems Problem Noted Date Diagnosed Date Resolved Date Dizziness 01/08/2023 01/08/2023 Anemia 01/01/2023 01/08/2023 Cystitis 12/28/2022 01/01/2023 Right humeral fracture 12/26/202212/27 HOLDEN (acute kidney injury) 12/26/2022 Gout 12/26/2022 01/01/2023 Peripheral neuropathy 12/26/20222022 Encounters Date Type Department Care Team Description 06/21/2024 12:47 PM CDT - 06/21/2024 11:59 PM CDT Hospital Encounter [place] [facility] [address] [place] [address] Beena Tripp, GRETCHEN Discharge Disposition: Home or [...] materials from doctor or pharmacy Never 02/14/2023 [facility] Utilities Answer Date Recorded In the past 12 months has th e [employer], gas, oil, or water company threatened to [...] CDT Gender Identity Female 03/25/2022 8:16 AM HUMAN RESOURCES OPERATIONS COORDINATOR Sexual Orientation Not on file Last Filed Vital Signs Vital Sign Reading Time Taken Comments Blood Pressure 136/81 06/24/2023 12:23 PM CDT Pulse 93 06/24/2023 12:23 PM CDT Temperature 36.3 C (97.3 F) 02/14/2023 10:00 AM HUMAN RESOURCES OPERATIONS COORDINATOR Respiratory Rate 18 06/24/2023 12:23 PM CDT Oxygen Saturation 99% 03/11/2023 1:29 PM HUMAN RESOURCES OPERATIONS COORDINATOR Inhaled Oxygen Concentration - - Weight 89.6 kg (197 lb 8 oz) 06/24/2023 12:23 PM CDT Height 167.6 cm (5' 6) 06/24/2023 12:23 PM CDT Body Mass Index 31.88 06/24/2023 12:23 PM CDT Plan of Treatment Upcoming Encounters Date Type Department Care Team (Late st Contact Info) Description 09/24/2024 1:45 PM CDT Appointment [facility] [address] [place] [address] Beena Tripp, ADOBE LAYER HELPER [address] [place] [address] 09/24/2024 2:00 PM CDT Appointment [facility] [address] [place] [address] Beena Tripp, ADOBE LAYER HELPER [address] [place] [address] Health Maintenance Due Date Last Done Comments [...] this topic Medical Devices Implanted Type Area Coordinator Of Online Programs Device Identifier Shelf Expiration Date Model / Serial / Lot Trang, Cortical Bone Screw, 4 X 24mm Implanted:Qty: 1 on 01/01/2023 by Lance Riddle MD at [facility] Right: [employer] 02/09/2025 47-2486-12 4-40 / / [id number] Bonus Triad, 5cc Implanted:Qty: 1 on 01/01/2023 by Lance Riddle MD at [facility] Right: [employer] 04/18/2027 [id number] / [id number] / Affixus Natural Nail, Proximal Humerus, Right, Long, 7 X 260mm Implanted:Qty: 1 on 01/01/2023 by Lance Riddle MD at [facility] Right: [employer] 03/11/2028 47-2496-26 0-07 / / [id number] Trang, Blunt Tip Screw, 4 X 46mm Implanted:Qty: 1 on 01/01/2023 by Lance Riddle MD at [facility] Right: [employer] 02/09/2025 47-2486-04 6-40 / / [id number] Trang, Blunt Tip Screw, 4 X 36mm Implanted:Qty: 1 on 01/01/2023 by Lance Riddle MD at [facility] Right: [employer] 03/11/2023 47-2486-03 6-40 / / [id number] Trang, Blunt Tip Screw, 4 X 44mm Implanted:Qty: 1 on 01/01/2023 by Lance Riddle MD at [facility] Right: [employer] 10/09/2024-2486-04 4-40 / / [id number] Explanted Type Area Coordinator Of Online Programs Device Identifier Shelf Expiration Date Model / Serial / Lot Drill Bit Surinder 3.3mm - [id number] Explanted:Qty: 1 on 01/01/2023 by Lance Riddle MD at [facility] Drill Right: [employer] [id number] / / Humerus Ball Nose Guidewire Explanted:Qty: 1 on 01/01/2023 by Lance Riddle MD at [facility] Right: [employer] 06/13/2027 [id number] / / [id number] Guidewire Explanted:Qty: 1 on 01/01/2023 by Lance Riddle MD at [facility] Right: [employer] 290.25.280 / / 3.3mm Drill Tong Explanted:Qty: 1 on 01/01/2023 by Lance Riddle MD at [facility] Right: [employer] [id number] / / Humerus Ball Nose Guidewire Explanted:Qty: 1 on 01/01/2023 by Lance Riddle MD at [facility] Right: [employer] 04/23/2027 [id number] / / [id number] Trang, Blunt Tip Screw, 4 X 50mm Explanted:Qty: 1 on 01/01/2023 by Lance Riddle MD at [facility] Right: [employer] 07/09/2024 [id number] / / [id number] Description:CHANGE SIZE Procedures Procedure Name Priority Date/Time Associated Diagnosis Comments PULMONARY FUNCTION TEST Routine 06/21/2024 12:47 PM CDT SOB (shortness of breath) Heart murmur Asthma (HHS/HCC) HEMOGLOBIN, GLYCOSYLATED STAT 12/27/2022 12:09 AM HUMAN RESOURCES OPERATIONS COORDINATOR from Last 3 Months or Most Recently Relevant to Health Maintenance Results * Complete PFT (pre/post [place], Lung Vol, Diff Capacity) (93659, 62550, 26496, 47695) (06/21/2024 12:47 PM CDT) 06/21/2024 12:4 7 PM CDT Narrative ESCRIPTION - 06/23/2024 6:56 PM CDT Patient Name: MILAGRO GODOY Date of : 1950 Account: [id number] Facility: [facility] Location: [facility] Date of Service: 06/21/2024 Pulmonary Function Test [...] correlation is required. Signature/Date: Becka FANG MD #[id number] /PUS Procedure Note Yobani Fang MD - 06/23/2024 Patient Name: MILAGRO GODOY Date of : 1950 Account: [id number] Facility: [facility] Location: [facility] Date of Service: 06/21/2024 Pulmonary Function Test [...] correlation is required. Signature/Date: Becka FANG MD #[id number] /PUS Beena Tripp ADOBE LAYER HELPER PFT ORDERABLES Final Result Performing Organization Address City/[facility]/ZIP Co de Phone Number ESCRIPTION * (ABNORMAL) HEMOGLOBIN, GLYCOSYLATED (12/27/2022 12:09 AM HUMAN RESOURCES OPERATIONS COORDINATOR) HGB A1C 7.5(H) <5.7 % 12/27/2022 1:49 AM HUMAN RESOURCES OPERATIONS COORDINATOR [facility] ESTIMATED AVG GLUCOSE 169(H) 74 - 114 MG/DL 12/27/2022 1:49 AM HUMAN RESOURCES OPERATIONS COORDINATOR [facility] 12/27/2022 12:0 9 AM HUMAN RESOURCES OPERATIONS COORDINATOR Naseem Velasco SPINNING ROOM WORKER LABORATORY Final Resul t [facility] [address] [place] [address], [id number] from Last 3 Months or Most Recently Relevant to Health Maintenance Insurance [employer] Advance Directives * Full Code (Latest Code Status on File) Date Activated Date Inactivated Comments 01/17/2023 4:23 PM * Full Code Date Activated Date Inactivated Comments 12/26/2022 8:11 PM 01/13/2023 6:39 PM Care Teams Balloon Seller Relationship Specialty Start Date End Date Raf Fritz MD [address] [place] [address] PCP - General INTERNAL MEDICINE 12/30/22 Raf Fritz MD [address] [place] [address] INTERNAL MEDICINE 12/26/22 Armond Rosales MD [address] [place] [phone] TRAUMA 01/14/23 Ishmael Bertrand MD [address] [place] [phone] Consulting Physician INTERNAL MEDICINE 06/19/23
[2024-09-17 09:55] LABS: Hematocrit 38.3 % (35.0-42.0); Hemoglobin 11.8 g/dL (11.7-13.8); Mean Corpuscular HGB Conc 30.8 g/dL (32-36); Mean Corpuscular Hemoglobin 30.6 pg (27.0-31.0); Mean Corpuscular Volume 99.5 fL (78.0-102.0); Platelet Count Result 326 K/mm3 (150-420); Red Blood Count 3.85 M/mm3 (4.20-5.40); White Blood Count 10.5 K/mm3 (4.8-10.8)
[2024-09-17 10:03] LABS: INR 1.6; Prothrombin Time 17.2 Seconds (9.50-12.1)
[2024-09-17 10:18] LABS: Alanine Aminotransferase 20 U/L (6-35); Albumin Level 4.3 g/dL (3.5-5.1); Alkaline Phosphatase 80 U/L (38-126); Anion Gap 10 mmol/L (4-12); Aspartate Amino Transferase 28 U/L (14-36); Bilirubin,Total 1.8 mg/dL (0.2-1.3); Blood Urea Nitrogen 14 mg/dL (7-17); CRP 5.2 mg/dL (<1.0); Calcium 9.6 mg/dL (8.4-10.2); Carbon Dioxide 22 mmol/L (22-30); Chloride 105 mmol/L (98-107); Estimated Glomerular Filt Rate 59; Glucose 212 mg/dL (65-110); Osmolality Calculated 290 mOsm/kg (285-295); Potassium 4.7 mmol/L (3.4-5.0); Sodium 137 mmol/L (137-145); Total Protein 6.8 g/dL (6.3-8.2)
== END 2024-09-17 09:43 | disposition home or self-care (01) ==
PROVIDERS: PCP Internal Medicine; Visit Provider Internal Medicine
DX: R07.9 Chest pain, unspecified (principal)
CPT/HCPCS: 36415; 80053; 85027; 85380; 85610; 86140

== ENCOUNTER 2024-11-06 18:59 | Emergency (ER) | payer MEDICARE, SELFPAY ==
[2024-11-06] VITALS (30 sets, daily range): BP systolic 138–190; BP diastolic 56–88; PULSE 69–88; RESP 17–24; TEMP 36.7; O2SAT 96–100
--- NOTE | ~2024-11-06 | CT_ITS ---
EXAMINATION: CT brain shira rolle, 11/06/2024 19:30 CDT HISTORY: LEFT FRONTAL HEADACHE, CONFUSION. COMPARISON: No comparisons available. Technique: Axial images obtained of the brain without contrast. One or more of the following dose reduction techniques were used: automated exposure control, adjustment of the mA and/or kV according to patient size, use of iterative reconstruction technique. Findings: No acute infarct or parenchymal hemorrhage. No abnormal mass or mass effect. No midline shift. No extra-axial fluid collections. No hydrocephalus. Mastoid air cells unremarkable. Sinuses and orbits unremarkable. No acute fracture. No significant facial or scalp soft tissue swelling evident. No radiopaque foreign body is seen. Impression: 1.No acute intracranial abnormality. Reviewed, dictated and finalized at location P. Impression: 1.No acute intracranial abnormality.
--- NOTE | ~2024-11-06 | CT_ITS ---
CT CERVICAL SPINE WITHOUT CONTRAST CLINICAL HISTORY: RIGHT SIDE NECK PAIN. NKI. Technique: Axial images thoracic inlet to skull base Sagittal and coronal reformats. No contrast CT images acquired with automatic exposure control for dose reduction DLP: 398 mGy-cm Comparison: None Findings: No acute fracture or listhesis. Vertebral bodies normal height and alignment. Mild degenerative changes. Disc spaces maintained. Prevertebral soft tissues within normal limits. Visualized lung apices: Clear. Visualized thyroid: Unremarkable. No enlarged cervical nodes. IMPRESSION: 1. No acute findings. Reviewed, dictated and finalized at location R. IMPRESSION: 1. No acute findings.
--- OUTSIDE RECORDS SUMMARY | 2024-11-06 19:01 | XMS_ITS | Clinical Summary ---
Author Organization [place] Address [facility] [place] [address] Care Team Providers Care Ferry Terminal Agent Name Role Phone Raf Fritz MD Primary Care Provider [phone] Raf Fritz MD Unavailable [phone] Armond Rosales MD Unavailable [phone] Ishmael Bertrand MD Unavailable Allergies Active Allergy Reactions Criticality Noted Date Comments Hydrocodone Other (see comment) Medium 03/25/2022 Face numbness Hydrocodone Other (see comment) Medium 12/27/2022 Facial numbness Medications allopurinol 300 MG tablet 04/13/19 22 Active gabapentin 300 MG capsule 03/08/19 22 Active ONETOUCH VERIO test strip 03/26/19 22 Active Lancets (ONETOUCH DELICA PLUS [id number]) [facility] 03/26/19 22 Active rOPINIRole 2 MG tablet [...] DVT) of left lower extremity, unspecified vein ([facility]) 03/11/2023 Varicose veins of bilateral lower extremities with other complications 03/11/2023 Chronic venous insufficiency 03/11/2023 DVT, bilateral lower limbs ([facility]) 03/2022 Hyperglycemia 01/03/2023 Fall 12/26/2022 Chronic anticoagulation 12/26/2022 Closed right humeral fracture 12/26/2022 Pain and swelling of left knee 12/26/2022 H/O: CVA (cerebrovascular accident) 12/26/2022 PMR (polymyalgia rheumatica) ([facility]) Current chronic use of systemic steroids 023 Type 2 diabetes mellitus, wi thout long-term current use of insulin ([facility]) 12/26/2022 Splenic artery aneurysm 12/26/2022 Other closed fracture of dis lexie end of right radius with routine healing, subsequent encounter 03/25/2022 Cerebrovascular accident (CV A), unspecified mechanism ([facility]) 05/22/2021 Atrial fibrillation, unspecified type ([facility]) 05/22/2021 Diabetic peripheral neuropathy ([facility]) 05/22/2021 Fracture of forearm 05/16/2021 Localized, primary osteoarthritis of hand 2021 Resolved Problems Problem Noted Date Diagnosed Date Resolved Date Dizziness 01/08/2023 01/08/2023 Anemia 01/01/2023 01/08/2023 Cystitis 12/28/2022 01/01/2023 Right humeral fracture 12/26/202212/27 HOLDEN (acute kidney injury) 12/26/2022 Gout 12/26/2022 01/01/2023 Peripheral neuropathy 12/26/20222022 Immunizations Immunization Administration Dates Next Due Influenza [...] materials from doctor or pharmacy Never 02/14/2023 C Utilities Answer Date Recorded In the past 12 months has th e [employer], oil, or water [employer] threatened to shut off services in your [...] place to sleep or slept in a fdc (including now)? No 12/27/2022 Comments Unknown Sex and Gender Information Value Date Recorded Sex Assigned at Female 05/13/2024 12:43 PM CDT Legal Sex Female 11:27 AM CDT Gender Identity Female 03/25/2022 8:16 AM BIOCHEMISTRY TECHNICIAN Sexual Orientation Not on file Last Filed Vital Signs Vital Sign Reading Time Taken Comments Blood Pressure 136/81 06/24/2023 12:23 PM CDT Pulse 93 06/24/2023 12:23 PM CDT Temperature 36.3 C (97.3 F) 02/14/2023 10:00 AM BIOCHEMISTRY TECHNICIAN Respiratory Rate 18 06/24/2023 12:23 PM CDT Oxygen Saturation 99% 03/11/2023 1:29 PM BIOCHEMISTRY TECHNICIAN Inhaled Oxygen Concentration - - Weight 89.6 [...] COVID-19 Vaccine (1 - 2023-2 5 season) 2024 DTaP, Tdap and Td Vaccines ( 2 [...] this topic Medical Devices Implanted Type Area Community Engagement Manager Device Identifier Shelf Expiration Date Model / Serial / Lot Trang, Cortical Bone Screw, 4 X 24mm Implanted:Qty: 1 on 01/01/2023 by Lance Riddle MD at [facility] Right: [employer] 02/09/2025 47-2486-12 4-40 / / [id number] Bonus Triad, 5cc Implanted:Qty: 1 on 01/01/2023 by Lance Riddle MD at [facility] Right: [employer] 04/18/2027 [id number] / [id number] / Affixus Natural Nail, Proximal Humerus, Right, Long, 7 X 260mm Implanted:Qty: 1 on 01/01/2023 by Lance Riddle MD at [facility] Right: [employer] 03/11/2028 [id number] 0-07 / / [id number] Trang, Blunt Tip Screw, 4 X 46mm Implanted:Qty: 1 on 01/01/2023 by Lance Riddle MD at [facility] Right: [employer] 02/09/2025-2486-04 6-40 / / [id number] Trang, Blunt Tip Screw, 4 X 36mm Implanted:Qty: 1 on 01/01/2023 by Lance Riddle MD at [facility] Right: [employer] 03/11/2023 47-2486-03 6-40 / / [id number] Trang, Blunt Tip Screw, 4 X 44mm Implanted:Qty: 1 on 01/01/2023 by Lance Riddle MD at [facility] Right: [employer] 10/09/2024 47-2486-04 4-40 / / [id number] Explanted Type Area Community Engagement Manager Device Identifier Shelf Expiration Date Model / Serial / Lot Drill Bit Surinder 3.3mm - [id number] Explanted:Qty: 1 on 01/01/2023 by Lance Riddle MD at [facility] Drill Right: [employer] [id number] / / Humerus Ball Nose Guidewire Explanted:Qty: 1 on 01/01/2023 by Lance Riddle MD at [facility] Right: [employer] 06/13/2027 [id number] / / [id number] Guidewire Explanted:Qty: 1 on 01/01/2023 by Lance Riddle MD at [facility] Right: [employer] [id number] / / 3.3mm Drill Tong Explanted:Qty: 1 on 01/01/2023 by Lance Riddle MD at [facility] Right: [employer] [id number] / / Humerus Ball Nose Guidewire Explanted:Qty: 1 on 01/01/2023 by Lance Riddle MD at [facility] Right: [employer] 04/23/2027 [id number] / / [id number] Trang, Blunt Tip Screw, 4 X 50mm Explanted:Qty: 1 on 01/01/2023 by Lance Riddle MD at [facility] Right: [employer] 07/09/2024 [id number] / / [id number] Description:CHANGE SIZE Procedures Procedure Name Priority Date/Time Associated Diagnosis Comments HEMOGLOBIN, GLYCOSYLATED STAT 12/27/2022 12:09 AM BIOCHEMISTRY TECHNICIAN from Last 3 Months or Most Recently Relevant to Health Maintenance Results * (ABNORMAL) HEMOGLOBIN, GLYCOSYLATED (12/27/2022 12:09 AM BIOCHEMISTRY TECHNICIAN) HGB A1C 7.5(H) <5.7 % 12/27/2022 1:49 AM BIOCHEMISTRY TECHNICIAN [facility] ESTIMATED AVG GLUCOSE 169(H) 74 - 114 MG/DL 12/27/2022 1:49 AM BIOCHEMISTRY TECHNICIAN [facility] 12/27/2022 12:0 9 AM BIOCHEMISTRY TECHNICIAN [facility]aseem Velasco [facility] Final Resul t [facility] [address] [place] [address], [phone] from Last 3 Months or Most Recently Relevant to Health Maintenance Insurance [facility] HUMAN Advance Directives * Full Code (Latest Code Status on File) Date Activated Date Inactivated Comments 01/17/2023 4:23 PM * Full Code Date Activated Date Inactivated Comments 12/26/2022 8:11 PM 01/13/2023 6:39 PM Care Teams Ferry Terminal Agent Relationship Specialty Start Date End Date Raf Fritz MD [address] [place] [address] PCP - General INTERNAL MEDICINE 12/30/22 Raf Fritz MD [address] [place] [phone] INTERNAL MEDICINE 12/26/22 Armond Rosales MD [address] [place] [phone] TRAUMA 01/14/23 Ishmael Bertrand MD [address] [place] [phone] Consulting Physician INTERNAL MEDICINE 06/19/23
--- OUTSIDE RECORDS SUMMARY | 2024-11-06 19:37 | XMS_ITS | Patient Health Record ---
Author Organization [facility] Address [address] [place], [place] [id number] Care Team Providers Care Comb Machine Operator Name Role Phone Raf Fritz Unavailable Unavailable [...] Insured Coverage Start Date Coverage End Date [facility] [address] [address] [place], [place] [id number] Milagro Godoy Self - patient is the insured Medicare Part B [place] [address] [place] [address] [id number] Milagro Godoy Self - patient is the insured Medical (General) History Medical History History ICD Code acid reflux neuropathy stroke Leg/Feet cramps Steroid Treatment Gout Diabetic varicose veins restless leg syndrome hypertension Surgical History Surgery Date(Month/Year) Gall Bladder
--- OUTSIDE RECORDS SUMMARY | 2024-11-06 19:37 | XMS_ITS | Clinical Summary ---
Author Organization [facility] Address [facility] [place] [address] Care Team Providers Care Slip Filler Name Role Phone Raf Fritz MD Primary Care Provider [phone] Raf Fritz MD Unavailable [phone] Armond Rosales MD Unavailable [phone] Ishmael Bertrand MD Unavailable Allergies Active Allergy Reactions Criticality Noted Date Comments Hydrocodone Other (see comment) Medium 03/25/2022 Face numbness Hydrocodone Other (see comment) Medium 12/27/2022 Facial numbness Medications allopurinol 300 MG tablet 04/13/19 22 Active gabapentin 300 MG capsule 03/08/19 22 Active ONETOUCH VERIO test strip 03/26/19 22 Active Lancets (ONETOUCH DELICA PLUS [id number]) [facility] 03/26/19 22 Active rOPINIRole 2 MG tablet [...] DVT) of left lower extremity, unspecified vein ([facility]) 03/11/2023 Varicose veins of bilateral lower extremities with other complications 03/11/2023 Chronic venous insufficiency 03/11/2023 DVT, bilateral lower limbs ([facility]) 03/2022 Hyperglycemia 01/03/2023 Fall 12/26/2022 Chronic anticoagulation 12/26/2022 Closed right humeral fracture 12/26/2022 Pain and swelling of left knee 12/26/2022 H/O: CVA (cerebrovascular accident) 12/26/2022 PMR (polymyalgia rheumatica) ([facility]) Current chronic use of systemic steroids 023 Type 2 diabetes mellitus, wi thout long-term current use of insulin ([facility]) 12/26/2022 Splenic artery aneurysm 12/26/2022 Other closed fracture of dis lexie end of right radius with routine healing, subsequent encounter 03/25/2022 Cerebrovascular accident (CV A), unspecified mechanism ([facility]) 05/22/2021 Atrial fibrillation, unspecified type ([facility]) 05/22/2021 Diabetic peripheral neuropathy ([facility]) 05/22/2021 Fracture of forearm 05/16/2021 [...] the past 12 months has th e [employer], oil, or water [employer] threatened to shut off services in your [...] place to sleep or slept in a senior care (including now)? No 12/27/2022 Comments Unknown Sex and Gender Information Value Date Recorded Sex Assigned at Female 05/13/2024 12:43 PM CDT Legal Sex Female 11:27 AM CDT Gender Identity Female 03/25/2022 8:16 AM WASHER AND CAPPER MACHINE OPERATOR Sexual Orientation Not on file Last Filed Vital Signs Vital Sign Reading Time Taken Comments Blood Pressure 136/81 06/24/2023 12:23 PM CDT Pulse 93 06/24/2023 12:23 PM CDT Temperature 36.3 C (97.3 F) 02/14/2023 10:00 AM WASHER AND CAPPER MACHINE OPERATOR Respiratory Rate 18 06/24/2023 12:23 PM CDT Oxygen Saturation 99% 03/11/2023 1:29 PM WASHER AND CAPPER MACHINE OPERATOR Inhaled Oxygen Concentration - - Weight 89.6 [...] this topic Medical Devices Implanted Type Area Basketball Referee Device Identifier Shelf Expiration Date Model / Serial / Lot Trang, Cortical Bone Screw, 4 X 24mm Implanted:Qty: 1 on 01/01/2023 by Lance Riddle MD at [facility] Right: [employer] 02/09/2025 47-2486-12 4-40 / / [id number] Bonus Triad, 5cc Implanted:Qty: 1 on 01/01/2023 by Lance Riddle MD at [facility] Right: [employer] 04/18/2027 [id number] / [id number] / Affix[employer] Natural Nail, Proximal Humerus, Right, Long, 7 X 260mm Implanted:Qty: 1 on 01/01/2023 by Lance Riddle MD at [facility] Right: [employer] 03/11/2028 47-2496-26 0-07 / / [id number] Trang, Blunt Tip Screw, 4 X 46mm Implanted:Qty: 1 on 01/01/2023 by Lance Riddle MD at [facility] Right: [employer] 02/09/2025-2486-04 6-40 / / [id number] Trang, Blunt Tip Screw, 4 X 36mm Implanted:Qty: 1 on 01/01/2023 by Lance Riddle MD at [facility] Right: [employer] 03/11/2023 47-2486-03 6-40 / / [id number] Trang, Blunt Tip Screw, 4 X 44mm Implanted:Qty: 1 on 01/01/2023 by Lance Riddle MD at [facility] Right: [employer] 10/09/2024 47-2486-04 4-40 / / [id number] Explanted Type Area Basketball Referee Device Identifier Shelf Expiration Date Model / Serial / Lot Drill Bit Surinder 3.3mm - [id number] Explanted:Qty: 1 on 01/01/2023 by Lance Riddle MD at [facility] Drill Right: [employer] [id number] / / Humerus Ball Nose Guidewire Explanted:Qty: 1 on 01/01/2023 by Lance Riddel MD at [facility] Right: [employer] 06/13/2027 [id number] / / [id number] Guidewire Explanted:Qty: 1 on 01/01/2023 by Lance Riddle MD at [facility] Right: [employer] [id number] / / 3.3mm Drill Tong Explanted:Qty: 1 on 01/01/2023 by Lance Riddle MD at [facility] Right: [employer] [id number] / / Humerus Ball Nose Guidewire Explanted:Qty: 1 on 01/01/2023 by Lance Riddle MD at [facility] Right: [employer] 04/23/2027 [id number] / / [id number] Trang, Blunt Tip Screw, 4 X 50mm Explanted:Qty: 1 on 01/01/2023 by Lance Riddle MD at [facility] Right: [employer] 07/09/2024 [id number] / / [id number] Description:CHANGE SIZE Procedures Procedure Name Priority Date/Time Associated Diagnosis Comments HEMOGLOBIN, GLYCOSYLATED STAT 12/27/2022 12:09 AM WASHER AND CAPPER MACHINE OPERATOR from Last 3 Months or Most Recently Relevant to Health Maintenance Results * (ABNORMAL) HEMOGLOBIN, GLYCOSYLATED (12/27/2022 12:09 AM WASHER AND CAPPER MACHINE OPERATOR) HGB A1C 7.5(H) <5.7 % 12/27/2022 1:49 AM WASHER AND CAPPER MACHINE OPERATOR [facility] ESTIMATED AVG GLUCOSE 169(H) 74 - 114 MG/DL 12/27/2022 1:49 AM WASHER AND CAPPER MACHINE OPERATOR [facility] 12/27/2022 12:0 9 AM WASHER AND CAPPER MACHINE OPERATOR Naseem Velasco [facility] Final Resul t [facility] [address] [place] [address], [phone] from Last 3 Months or Most Recently Relevant to Health Maintenance Insurance [facility] Member Subscriber Plan / Payer (Ef fective 2022-Present) Name:Milagro Godoy Relation to Subscriber:Self Name:Milagro Godoy Payer ID:Not on file Group ID:Not on file Type:Not on file Address: [address] [address] HUMAN Advance Directives * Full Code (Latest Code Status on File) Date Activated Date Inactivated Comments 01/17/2023 4:23 PM * Full Code Date Activated Date Inactivated Comments 12/26/2022 8:11 PM 01/13/2023 6:39 PM Care Teams Slip Filler Relationship Specialty Start Date End Date Raf Fritz MD [address] [place] [address] PCP - General INTERNAL MEDICINE 12/30/22 Raf Fritz MD [address] [place] [phone] INTERNAL MEDICINE 12/26/22 Armond Rosales MD [address] [place] [phone] TRAUMA 01/14/23 Ishmael Bertrand MD [address] [place] [phone] Consulting Physician INTERNAL MEDICINE 06/19/23
[2024-11-06 19:50] LABS: Hematocrit 40.1 % (35.0-42.0); Hemoglobin 12.5 g/dL (11.7-13.8); Immature Granulocyte Percent A 0.4 % (0.0-0.0); Lymphocytes Absolute Auto 1.58 K/mm3 (1.10-4.50); Mean Corpuscular HGB Conc 31.2 g/dL (32-36); Mean Corpuscular Hemoglobin 30.6 pg (27.0-31.0); Mean Corpuscular Volume 98.3 fL (78.0-102.0); Nucleated Red Blood Cells Absolute Auto 0.00 K/mm3 (0.00-0.00); Nucleated Red Blood Cells Perc 0.0 % (0-0.0); Platelet Count Result 230 K/mm3 (150-420); Red Blood Count 4.08 M/mm3 (4.20-5.40); White Blood Count 6.8 K/mm3 (4.8-10.8)
[2024-11-06 20:02] LABS: Alanine Aminotransferase 22 U/L (6-35); Albumin Level 4.3 g/dL (3.5-5.1); Alkaline Phosphatase 76 U/L (38-126); Anion Gap 10 mmol/L (4-12); Aspartate Amino Transferase 30 U/L (14-36); Bilirubin,Total 0.8 mg/dL (0.2-1.3); Blood Urea Nitrogen 15 mg/dL (7-17); Calcium 9.7 mg/dL (8.4-10.2); Carbon Dioxide 27 mmol/L (22-30); Chloride 104 mmol/L (98-107); Estimated CRCL calculation 63 ml/min; Estimated Glomerular Filt Rate > 60; Glucose 276 mg/dL (65-110); Osmolality Calculated 302 mOsm/kg (285-295); Potassium 3.8 mmol/L (3.4-5.0); Sodium 141 mmol/L (137-145); Total Protein 8.0 g/dL (6.3-8.2)
[2024-11-06 20:27] LABS: Add Urine Microscopic? YES; Appearance Urine Clear (Clear); Glucose Urine UA 3+ (Negative); Leukocyte Esterase Ur 1+ LEU/UL (Negative); Nitrate Urine Positive (Negative); Specific Grav Ur 1.020 (1.010-1.020)
--- NOTE | 2024-11-06 20:54 | ED.HA ---
HPI - Headache General Chief Complaint: Headache Stated Complaint: migraine with confusion Time Seen by Provider: 11/06/24 19:24 Source: patient and family Mode of arrival: ambulatory Limitations: no limitations History of Present Illness HPI Narrative: this is a year old female with history of TIAs/ migraines presents with a headache which during examination has resolved but does have some urinary frequency with no flank pain no hematuria no fever chills no nausea vomiting no blurry vision no neurological deficits. MD elicited complaint: headache and migraine Onset (ago): hour(s) Location: left Severity: mild Related Data Home Medications ?Medication ?Instructions ?Recorded ?Confirmed ?Last Taken ?Type glimepiride 4 mg tablet 4 mg PO BID 12/15/18 10/11/22 Unknown History warfarin 5 mg tablet (Coumadin) See Rx Instructions .Route .COMPLEX 12/15/18 10/11/22 04/10/19 04:00 History ropinirole 0.5 mg tablet 0.5 - 1 mg PO HS 04/08/19 10/11/22 04/11/19 21:00 History rosuvastatin 5 mg tablet 5 mg PO DAILY 04/08/19 10/11/22 04/12/19 07:00 History allopurinol 300 mg tablet 300 mg PO DAILY 06/10/21 10/11/22 Unknown History amitriptyline 25 mg tablet 25 mg PO HS 06/10/21 10/11/22 Unknown History duloxetine 20 mg capsule,delayed 20 mg PO DAILY 06/10/21 10/11/22 Unknown History release ergocalciferol (vitamin D2) 1,250 1,250 mcg PO WEEKLY 12/05/21 10/11/22 Unknown History mcg (50,000 unit) capsule prednisone 5 mg tablet 5 mg PO DAILY 12/05/21 10/11/22 Unknown History Allergies Allergy/AdvReac Type Severity Reaction Status Date / Time hydrocodone (From Vicodin) Allergy Numbness Verified 08/30/24 13:28 Review of Systems Review of Systems: All systems reviewed & are unremarkable except as noted in HPI and below PMFSH Past Medical History Medical History Paroxysmal atrial fibrillation Body mass index [BMI] 34.0-34.9, adult (07/16/17) Chronic diarrhea Hypertension TIA (transient ischemic attack) Otalgia Neuropathy Cerebrovascular disease, unspecified Gout, unspecified Mixed hyperlipidemia Type 2 diabetes mellitus without complications Surgical History Surgical History History of Hx of cholecystectomy Family History Family History Father Family history of cardiovascular disease Family history of congestive heart failure Grandparent Cerebrovascular accident Sibling Cirrhosis of liver Social History Social History Smoking status: Never smoker Alcohol intake: never Exam Const: General: healthy appearing Nutritional Appearance: well nourished Orientation/consciousness: patient oriented x3 Limitations: no limitations Neck: Neck: normal visual inspection, no lymphadenopathy and no meningeal signs Chest: Chest palpation & inspection: normal inspection of the chest Resp: Effort & Inspection: normal respiratory effort Auscultation: clear to auscultation bilaterally Cardio: Rate: regular rate GI: GI Palp: Yes Soft to palpation Auscultation: normal bowel sounds : Other: Suprapubic tenderness with palpation Back/Spine/Pelvis: Back: no CVA tenderness Skin: General skin exam: normal color Rashes: no rashes Neuro: General: patient oriented x3, moves all extremities, no meningeal signs, no focal motor deficits and CN's II-XI intact bilaterally Cranial nerves: Yes Nystagmus not present Speech: normal speech Gait exam (Neuro): Normal gait present Extrem: General: normal to inspection, no clubbing, cyanosis or edema and no pedal edema Course Course Emergency Course: patient had CT scan of the brain which showed no acute abnormalities CT scan of cervical spine with no acute abnormalities blood work was within normal limits, urinalysis showed positive for UTI and a dose of Macrobid was given. Vital Signs Vital signs: Vital Signs Temperature 36.7 C 11/06/24 19:00 Pulse Rate 88 11/06/24 19:00 Respiratory Rate 18 11/06/24 19:00 Blood Pressure 190/85 H 11/06/24 19:00 Pulse Oximetry 100 11/06/24 19:00 Oxygen Delivery Room Air 11/06/24 19:00 Temperature 36.7 C 11/06/24 19:00 Pulse Rate 81 11/06/24 20:17 Respiratory Rate 24 H 11/06/24 20:17 Blood Pressure 154/64 H 11/06/24 20:17 Pulse Oximetry 100 11/06/24 20:17 Oxygen Delivery Room Air 11/06/24 20:13 MDM - Headache Lab Data 11/06/24 19:40 11/06/24 19:40 Labs: Lab Results 11/06/24 11/06/24 Range/Units 19:24 19:40 WBC 6.8 (4.8-10.8) K/mm3 RBC 4.08 L (4.20-5.40) M/mm3 Hgb 12.5 (11.7-13.8) g/dL Hct 40.1 (35.0-42.0) % MCV 98.3 (78.0-102.0) fL MCH 30.6 (27.0-31.0) pg MCHC 31.2 L (32-36) g/dL RDW 14.1 (11.6-14.4) % Plt Count 230 (150-420) K/mm3 MPV 11.1 (9.2-11.8) fl Immature Gran % (Auto) 0.4 H (0.0-0.0) % Neut % (Auto) 64.4 (50.0-70.0) % Lymph % (Auto) 23.4 (18.0-42.0) % Clarke % (Auto) 9.9 (2.0-11.0) % Eos % (Auto) 1.5 (1.0-6.0) % Baso % (Auto) 0.4 (0.0-1.0) % Lymph # (Auto) 1.58 (1.10-4.50) K/mm3 Clarke # (Auto) 0.67 (0.10-0.90) K/mm3 Eos # (Auto) 0.10 (0.02-0.50) K/mm3 Baso # (Auto) 0.03 (0.00-0.10) K/mm3 Abs Immat Gran (auto) 0.03 H (0.00-0.00) K/mm3 Absolute Neuts (auto) 4.35 (1.70-7.20) K/mm3 Absolute Nucleated RBC 0.00 (0.00-0.00) K/mm3 Nucleated RBC % 0.0 (0-0.0) % Sodium 141 (137-145) mmol/L Potassium 3.8 (3.4-5.0) mmol/L Chloride 104 (98-107) mmol/L Carbon Dioxide 27 (22-30) mmol/L Anion Gap 10 (4-12) mmol/L BUN 15 (7-17) mg/dL Creatinine 0.78 (0.7-1.0) mg/dL Estim Creat Clear Calc 63 ml/min Estimated GFR > 60 (59 - ) Glucose 276 H (65-110) mg/dL Calculated Osmolality 302 H (285-295) mOsm/kg Calcium 9.7 (8.4-10.2) mg/dL Total Bilirubin 0.8 (0.2-1.3) mg/dL AST 30 (14-36) U/L ALT 22 (6-35) U/L Alkaline Phosphatase 76 (38-126) U/L Total Protein 8.0 (6.3-8.2) g/dL Albumin 4.3 (3.5-5.1) g/dL Urine Color Light yellow (Yellow) Urine Appearance Clear (Clear) Urine pH 6.0 (5.0-8.0) Ur Specific [place] 1.020 (1.010-1.020) Urine Protein Negative (Negative) Urine Glucose (UA) 3+ H (Negative) Urine Ketones Negative (Negative) Ur Blood (Man) Trace-intact H (Negative) Urine Nitrate Positive H (Negative) Urine Bilirubin Negative (Negative) Urine Urobilinogen 0.2 (0.2-1.0) mg/dL Leukocyte Esterase Rfl 1+ H (Negative) GERARDO/UL Urine RBC 0-2 (0-2) /hpf Urine WBC >75 H (0-3) /hpf Urine WBC Clumps Present H (None) /hpf Ur Squamous Epith Cells Moderate H (Few) /hpf Urine Bacteria 4+ H (None) /hpf Critical Care Time Critical Care Time Critical Care Time: No Discharge Plan Discharge Clinical Impression: Acute UTI Headache Qualifiers: Headache type: unspecified Headache chronicity pattern: unspecified pattern Intractability: not intractable Qualified Code(s): R51.9 - Headache, unspecified Patient Disposition: Home Condition: Stable Instructions: Antibiotic Form, Urinary Tract Infection in Women (ED), Migraine Headache (ED) Additional Instructions: advised patient to take medication as prescribed and to follow with primary care physician within the next 3 to 5 days for further evaluation and treatment. Patient Language: Kyrgyz Prescriptions: New nitrofurantoin monohyd/m-cryst [Macrobid] 100 mg capsule 100 mg PO Q12H 7 Days Qty: 14 0RF Rx Instructions: must administer with a meal/food No Action amitriptyline 25 mg tablet 25 mg PO HS allopurinol 300 mg tablet 300 mg PO DAILY duloxetine 20 mg capsule,delayed release(DR/EC) 20 mg PO DAILY ibuprofen 800 mg tablet 800 mg PO TID Qty: 20 0RF omeprazole magnesium [Prilosec OTC] 20 mg tablet,delayed release (DR/EC) 20 mg PO BID Qty: 20 0RF tramadol 50 mg tablet 50 mg PO Q8H PRN (Reason: moderate pain) Qty: 10 0RF acetaminophen-codeine 300-30 mg tablet 1 tablet PO Q8H PRN (Reason: pain) Qty: 10 0RF cephalexin 500 mg capsule 500 mg PO Q8H 7 Days Qty: 21 0RF prednisone 5 mg tablet 5 mg PO DAILY ergocalciferol (vitamin D2) 1,250 mcg (50,000 unit) capsule 1,250 mcg PO WEEKLY ProAir RespiClick 90 mcg/actuation aerosol powdr breath activated 2 inh inhalation QID PRN (Reason: shortness of breath) Qty: 1 0RF orphenadrine citrate 100 mg tablet extended release 100 mg PO BID PRN (Reason: pain) Qty: 20 0RF warfarin [Coumadin] 5 mg tablet See Rx Instructions .ROUTE .COMPLEX Rx Instructions: warfarin 4mg daily glimepiride 4 mg tablet 4 mg PO BID ropinirole 0.5 mg Tablet 0.5 - 1 mg PO HS rosuvastatin 5 mg Tablet 5 mg PO DAILY lisinopril 40 mg tablet 40 mg PO DAILY Qty: 90 3RF hydrochlorothiazide 12.5 mg tablet 12.5 mg PO DAILY Qty: 90 3RF Follow-up/Referrals: Raf Fritz MD [Primary Care Provider, Internal Medicine]
[2024-11-06] MEDS: NITROFURANTOIN MONOHYD MACROCR 100 MG CAP PO (21:46)
--- NOTE | 2024-11-10 13:32 | PC.NURSE ---
PRELIMINARY URINE RESULTS: GREATER THAN 100,000 GRAM [address]I. PER DR. DUCKWORTH TO AWAIT C&S.
--- NOTE | 2024-11-11 13:18 | PC.NURSE ---
PRELIMINARY URINE CULTURE REPORT; ESCHERICHIA COLI- PATIENT D/C ON MACROBID. WILL WAIT FOR FINAL CULTURE AND SENSITIVITY PER ERP DR. LOZANO.
--- NOTE | 2024-11-14 01:37 | PC.NURSE ---
final culture report for C&S received: Pt is on Macrobid and report reflects pt is on appropriate antibx.
== END 2024-11-06 23:21 | disposition home or self-care (01) ==
PROVIDERS: Emergency Provider Emergency Medicine; PCP Internal Medicine
DX: N39.0 Urinary tract infection, site not specified (principal); R51.9 Headache, unspecified; I48.0 Paroxysmal atrial fibrillation; E11.9 Type 2 diabetes mellitus without complications; I10 Essential (primary) hypertension; E78.2 Mixed hyperlipidemia; Z86.73 Personal history of transient ischemic attack (TIA), and cerebral infarction without residual deficits
CPT/HCPCS: 36415; 70450; 72125; 80053; 81001; 85025; 87086; 87186; 99284; A9270

== ENCOUNTER 2024-11-10 15:07 | Emergency (ER) | payer MEDICARE, SELFPAY ==
--- NOTE | ~2024-11-10 | XR_ITS ---
EXAMINATION: XR chest 2V DATE: 11/10/2024 16:36 INDICATION: Altered mental status TECHNIQUE: PA and lateral views of the chest were obtained. COMPARISON: Chest radiograph dated chest CT dated 12/31/2023 FINDINGS: Small calcified nodule left midlung zone consistent with old granulomatous disease. No other airspace opacities, pulmonary edema, pleural effusion or pneumothorax. Cardiomediastinal silhouette is normal. Mild thoracic kyphosis with mild to moderate spondylosis and chronic mild anterior wedging at T9. A ntegrade intramedullary elisha fixation at the visualized proximal right humerus with 3 interlocking screws at the humeral head. Several surgical clips along the right upper quadrant anterior abdominal wall. IMPRESSION: 1. No acute cardiopulmonary disease. Reviewed, dictated and finalized at location A.
--- NOTE | ~2024-11-10 | CT_ITS ---
EXAMINATION: CT brain wo con DATE: 11/10/2024 16:35 INDICATION: Altered mental status TECHNIQUE: Computed tomography (CT) of the head was performed without intravenous contrast. Sagittal and coronal reconstructions were performed. The mA was adjusted according to patient size. Iterative reconstruction technique was employed. The dose-length product was 605.33 mGy-cm. COMPARISON: head CT dated 11/06/2024 FINDINGS: No acute intracranial hemorrhage, acute infarction or abnormal extra axial fluid collection. There is mild scattered white matter hypoattenuation consistent with chronic small vessel ischemic disease. Symmetric prominence of the sulci consistent with mild to moderate age-appropriate diffuse cerebral volume loss. Ventricles are normal and symmetric. No mass/mass effect. Intracranial calcified cerebral atherosclerosis is noted. The orbits and mastoid air cells are normal. Mild mucosal thickening the left ethmoid sinus. IMPRESSION: 1. No acute intracranial process. 2. Age-related changes including mild to moderate diffuse volume loss and mild scattered white matter hypoattenuation consistent with chronic small vessel ischemic disease. Reviewed, dictated and finalized at location A. IMPRESSION: 1. No acute intracranial process. 2. Age-related changes including mild to moderate diffuse volume loss and mild scattered white matter hypoattenuation consistent with chronic small vessel isc hemic disease.
--- NOTE | ~2024-11-10 | CT_ITS ---
EXAMINATION: CTA brain carotid DATE: 11/10/2024 18:01 INDICATION: Altered mental status. TECHNIQUE: Computed tomographic angiography (CTA) of the head was performed with 100 mL Omnipaque-350 intravenous contrast. CTA of the neck was performed with intravenous contrast. Automated exposure control and iterative reconstruction technique were employed. The dose-length product was 1050.78 mGy-cm. Maximum intensity projection and volume rendered 3D-reconstructions were created by the technologist on a separate workstation. COMPARISON: Head CT 11/10/2024 FINDINGS: HEAD CTA: There are scattered areas of low attenuation in the cerebral white matter. There is no intracranial hemorrhage, acute infarction, or abnormal intracranial mass lesion. The ventricles are normal in size. There is mild mucosal thickening in the paranasal sinuses. The mastoid air cells are normal. The orbits are normal. The vertebral arteries are codominant. There is no central stenosis of basilar artery or the posterior cerebral arteries. There is no significant stenosis of the intracranial internal carotid arteries or anterior or middle cerebral arteries. Anterior communicating artery is normal. The posterior communicating arteries are normal. There is no aneurysm. NECK CTA: There are no pathologically enlarged lymph nodes. There is no significant stenosis of the vertebral arteries. There is plaque in the proximal internal carotid arteries. There is 58% stenosis of the proximal right internal carotid artery relative to normal distal artery lumen diameter (NASCET criteria). There is 62% stenosis of the proximal left internal carotid artery relative to normal distal artery lumen diameter. There is mild cervical spondylosis. IMPRESSION: 1. Moderate nonspecific cerebral white matter disease, which likely represents chronic small vessel ischemic disease. 2. No aneurysm or significant intracranial arterial stenosis. 3. 58% stenosis of the proximal right internal carotid artery relative to normal distal artery lumen diameter (NASCET criteria). 4. 62% stenosis of the proximal left internal carotid artery relative to normal distal artery lumen diameter. Reviewed, dictated and finalized at location E. IMPRESSION: 1. Moderate nonspecific cerebral white matter disease, which likely represents chronic small vessel ischemic disease. 2. No aneurysm or significant intracranial arterial stenosis. 3. 58% stenosis of the proximal right internal carotid artery relative to santino l distal artery lumen diameter (NASCET criteria). 4. 62% stenosis of the proximal left internal carotid artery relative to normal distal artery lumen diameter.
--- OUTSIDE RECORDS SUMMARY | 2024-11-10 15:11 | XMS_ITS | Clinical Summary ---
Author Organization [facility] Address [facility] [place] [address] Care Team Providers Care Security Installer Name Role Phone Raf Fritz MD Primary Care Provider [phone] Raf Fritz MD Unavailable [phone] Armond Rosales MD Unavailable Ishmael Bertrand MD Unavailable Allergies Active Allergy Reactions Criticality Noted Date Comments Hydrocodone Other (see comment) Medium 03/25/2022 Face numbness Hydrocodone Other (see comment) Medium 12/27/2022 Facial numbness Medications allopurinol 300 MG tablet 04/13/19 22 Active gabapentin 300 MG capsule 03/08/19 22 Active ONETOUCH VERIO test strip 03/26/19 22 Active Lancets (ONETOUCH DELICA PLUS [id number][place] [facility] [place]26[place]19 22 Active rOPINIRole 2 [...] DVT) of left lower extremity, unspecified vein ([facility]) 03/11/2023 Varicose veins of bilateral lower extremities with other complications 03/11/2023 Chronic venous insufficiency 03/11/2023 DVT, bilateral lower limbs ([facility]) 03/2022 Hyperglycemia 01/03/2023 Fall 12/26/2022 Chronic anticoagulation 12/26/2022 Closed right humeral fracture 12/26/2022 Pain and swelling of left knee 12/26/2022 H/O: CVA (cerebrovascular accident) 12/26/2022 PMR (polymyalgia rheumatica) ([facility]) Current chronic use of systemic steroids 023 Type 2 diabetes mellitus, wi thout long-term current use of insulin ([facility]) 12/26/2022 Splenic artery aneurysm 12/26/2022 Other closed fracture of dis lexie end of right radius with routine healing, subsequent encounter 03/25/2022 Cerebrovascular accident (CV A), unspecified mechanism ([facility]) 05/22/2021 Atrial fibrillation, unspecified type ([facility]) 05/22/2021 Diabetic peripheral neuropathy ([facility]) 05/22/2021 Fracture of forearm 05/16/2021 [...] the past 12 months has th e [employer], oil, or water [employer] threatened to shut off services in your [...] place to sleep or slept in a penitentiary (including now)? No 12/27/2022 Comments Unknown Sex and Gender Information Value Date Recorded Sex Assigned at Female 05/13/2024 12:43 PM CDT Legal Sex Female 11:27 AM CDT Gender Identity Female 03/25/2022 8:16 AM SCREEN WRITER Sexual Orientation Not on file Last Filed Vital Signs Vital Sign Reading Time Taken Comments Blood Pressure 136/81 06/24/2023 12:23 PM CDT Pulse 93 06/24/2023 12:23 PM CDT Temperature 36.3 C (97.3 F) 02/14/2023 10:00 AM SCREEN WRITER Respiratory Rate 18 06/24/2023 12:23 PM CDT Oxygen Saturation 99% 03/11/2023 1:29 PM SCREEN WRITER Inhaled Oxygen Concentration - - Weight 89.6 [...] 04/16/2016 Hemoglobin A1C 06/27/2023 12/27/2022 COVID-19 Vaccine ( - season) 2024 Influenza Adult (#1) 2024 11/20/2022, 11/27/2020, 11/26/2017, Additional history exists DTaP, Tdap and Td Vaccines (2 - Td or Tdap) 12/15/2028 12/15/2018 Pneumococcal Vaccine: 50+ Years Completed 11/20/2022 Meningococcal B Vaccine Aged Out No l onger eligible based on patient's age to complete this topic Meningococcal Vaccine Aged Out No carmen adri eligible based on patient's age to complete this topic RSV Immunizations Under 20 Months Aged Out No longer eligible based on patient's age to complete this topic Medical Devices Implanted Type Area Housekeeping Aid Device Identifier Shelf Expiration Date Model / Serial / Lot Trang, Cortical Bone Screw, 4 X 24mm Implanted:Qty: 1 on 01/01/2023 by Lance Riddle MD at [facility] Right: [employer] 02/09/2025 [id number] 4-40 / / [id number] Bonus Triad, 5cc Implanted:Qty: 1 on 01/01/2023 by Lance Riddle MD at [facility] Right: [employer] 04/18/2027 [id number] / [id number] / Affixus Natural Nail, Proximal Humerus, Right, Long, 7 X 260mm Implanted:Qty: 1 on 01/01/2023 by Lance Riddle MD at [facility] Right: [employer] 03/11/2028 [id number] 0-07 / / [id number] Trang, Blunt Tip Screw, 4 X 46mm Implanted:Qty: 1 on 01/01/2023 by Lance Riddle MD at [facility] Right: [employer] 02/09/2025 [id number] 6-40 / / [id number] Trang, Blunt Tip Screw, 4 X 36mm Implanted:Qty: 1 on 01/01/2023 by Lance Riddle MD at [facility] Right: [employer] 03/11/2023 [id number] 6-40 / / [id number] Trang, Blunt Tip Screw, 4 X 44mm Implanted:Qty: 1 on 01/01/2023 by Lance Riddle MD at [facility] Right: [employer] 10/09/2024 [id number] 4-40 / / [id number] Explanted Type Area Housekeeping Aid Device Identifier Shelf Expiration Date Model / Serial / Lot Drill Bit Surinder 3.3mm - [id number] Explanted:Qty: 1 on 01/01/2023 by Lance Riddle MD at [facility] Drill Right: [employer] [id number] / / Humerus Ball Nose Guidewire Explanted:Qty: 1 on 01/01/2023 by Lance Riddle MD at [facility] Right: [employer] 06/13/2027 [id number] / / [id number] Guidewire Explanted:Qty: 1 on 01/01/2023 by Lance Riddle MD at [facility] Right: [employer] [id number] / / 3.3mm Drill Tong Explanted:Qty: 1 on 01/01/2023 by Lance Riddle MD at [facility] Right: [employer] [id number] / / Humerus Ball Nose Guidewire Explanted:Qty: 1 on 01/01/2023 by Lance Riddle MD at [facility] Right: [employer] 04/23/2027 [id number] / / [id number] Trang, Blunt Tip Screw, 4 X 50mm Explanted:Qty: 1 on 01/01/2023 by Lance Riddle MD at [facility] Right: [employer] 07/09/2024 [id number] / / [id number] Description:CHANGE SIZE Procedures Procedure Name Priority Date/Time Associated Diagnosis Comments HEMOGLOBIN, GLYCOSYLATED STAT 12/27/2022 12:09 AM SCREEN WRITER from Last 3 Months or Most Recently Relevant to Health Maintenance Results * (ABNORMAL) HEMOGLOBIN, GLYCOSYLATED (12/27/2022 12:09 AM SCREEN WRITER) HGB A1C 7.5(H) <5.7 % 12/27/2022 1:49 AM SCREEN WRITER [facility] ESTIMATED AVG GLUCOSE 169(H) 74 - 114 MG/DL 12/27/2022 1:49 AM SCREEN WRITER [facility] 12/27/2022 12:0 9 AM SCREEN WRITER Naseem Velasco PHYSICIAN PRACTICE COORDINATOR LABORATORY Final Resul t [facility] [address] [place] [address], [id number] from Last 3 Months or Most Recently Relevant to Health Maintenance Insurance [facility] [employer] MEDICARE Advance Directives * Full Code (Latest Code Status on File) Date Activated Date Inactivated Comments 01/17/2023 4:23 PM * Full Code Date Activated Date Inactivated Comments 12/26/2022 8:11 PM 01/13/2023 6:39 PM Care Teams Security Installer Relationship Specialty Start Date End Date Raf Fritz MD [address] [place] [address] PCP - General INTERNAL MEDICINE 12/30/22 Raf Fritz MD [address] [place] [address] INTERNAL MEDICINE 12/26/22 Armond Rosales MD [address] [place] [address] [phone] TRAUMA 01/14/23 Ishmael Bertrand MD [facility] [address] [place] [address] [phone] Consulting Physician INTERNAL MEDICINE 06/19/23
--- NOTE | 2024-11-10 15:27 | ED.AMS ---
HPI - Altered Mental Status General Chief Complaint: Altered Mental Status Stated Complaint: Increased Confusion Time Seen by Provider: 11/10/24 15:27 Source: patient and family Mode of arrival: ambulatory Limitations: no limitations History of Present Illness HPI narrative: Patient is a 74-year-old female with on and off memory issues over the past 3-4 weeks. Specifically in the past 1-2 weeks. She has been to the ER now on a 2nd occasion today for further workup. She has had multiple strokes in the past. She has a baseline mild dementia. MD complaint: altered mental status Onset (ago): week(s) (1-2) Timing confirmed by: family member Severity: mild Consistency of symptoms: waxing and waning Context: other (Patient is noted to have a UTI on her last visit a few days ago and treated at this time and she is having altered mental status/confusion and memory issues over the past 1-2 weeks which probably are connected issue) Associated symptoms: denies other symptoms Treatments prior to arrival: other (Patient on antibiotics for UTI for 1 day) Related Data Home Medications ?Medication ?Instructions ?Recorded ?Confirmed ?Last Taken ?Type glimepiride 4 mg tablet 4 mg PO BID 12/15/18 10/11/22 Unknown History warfarin 5 mg tablet (Coumadin) See Rx Instructions .Route .COMPLEX 12/15/18 10/11/22 04/10/19 04:00 History ropinirole 0.5 mg tablet 0.5 - 1 mg PO HS 04/08/19 10/11/22 04/11/19 21:00 History rosuvastatin 5 mg tablet 5 mg PO DAILY 04/08/19 10/11/22 04/12/19 07:00 History allopurinol 300 mg tablet 300 mg PO DAILY 06/10/21 10/11/22 Unknown History amitriptyline 25 mg tablet 25 mg PO HS 06/10/21 10/11/22 Unknown History duloxetine 20 mg capsule,delayed 20 mg PO DAILY 06/10/21 10/11/22 Unknown History release ergocalciferol (vitamin D2) 1,250 1,250 mcg PO WEEKLY 12/05/21 10/11/22 Unknown History mcg (50,000 unit) capsule prednisone 5 mg tablet 5 mg PO DAILY 12/05/21 10/11/22 Unknown History Allergies Allergy/AdvReac Type Severity Reaction Status Date / Time hydrocodone (From Vicodin) Allergy Numbness Verified 11/10/24 15:16 Review of Systems Review of Systems: All systems reviewed & are unremarkable except as noted in HPI and below Constitutional: Constitutional: Reports no additional constitutional complaints Eyes: Eyes: Reports no additional eye complaints ENT: Reports system reviewed and no additional complaints, except as documented Cardiovascular: Cardiovascular: Reports no additional cardiovascular complaints Respiratory: Respiratory: Reports no additional respiratory complaints Gastrointestinal: Gastrointestinal: Reports no additional gastrointestinal complaints Genitourinary: Genitourinary: Reports no additional female genitourinary complaints Musculoskeletal: Musculoskeletal: Reports no additional musculoskeletal complaints Integumentary/Breasts: Skin/Breast: Reports system reviewed and no additional complaints, except as docu Neurologic: Reports system reviewed and no additional complaints, except as documented Psychiatric: Psychiatric: Reports no additional psychiatric complaints Endocrine: Endocrine: Reports no additional endocrine complaints Hematologic/Lymphatic: Hematologic/Lymphatic: Reports no additional hematologic/lymphatic complaints Allergic/Immunologic: Allergic/Immunologic: Reports no additional allergic/immunologic complaints PMFSH Past Medical History Medical History Paroxysmal atrial fibrillation Body mass index [BMI] 34.0-34.9, adult (07/16/17) Chronic diarrhea Hypertension TIA (transient ischemic attack) Otalgia Neuropathy Cerebrovascular disease, unspecified Gout, unspecified Mixed hyperlipidemia Type 2 diabetes mellitus without complications Surgical History Surgical History History of Hx of cholecystectomy Family History Family History Father Family history of cardiovascular disease Family history of congestive heart failure Grandparent Cerebrovascular accident Sibling Cirrhosis of liver Social History Social History Smoking status: Never smoker Alcohol intake: never Exam Const: General: healthy appearing Nutritional Appearance: well nourished Limitations: altered mental status HENMT: Head: normal to inspection Ears: external ears normal Face/Nose/Sinus: Normal external nose present Eyes: Conjunctivae: conjunctivae normal Pupils: Equal, round and reactive pupils present EOM: EOMs intact bilaterally Neck: Neck: normal visual inspection Chest: Chest palpation & inspection: normal inspection of the chest Resp: Effort & Inspection: normal respiratory effort and not labored Auscultation: clear to auscultation bilaterally and no crackles Cardio: Rate: regular rate Rhythm: regular rhythm Heart sounds: no murmurs GI: Inspection: non-distended GI Palp: Yes Soft to palpation and No Tenderness to palpation present (GI) Auscultation: normal bowel sounds : General: Yes bladder normal to palpation Back/Spine/Pelvis: Back: no CVA tenderness Skin: General skin exam: normal color Rashes: no rashes Wounds: no wounds Neuro: General: patient oriented x3, moves all extremities and no meningeal signs Extrem: General: normal to inspection, no clubbing, cyanosis or edema and no pedal edema Psych: Mental Status: mental status grossly normal Affect: normal affect Attitude: cooperative Course Vital Signs Vital signs: Vital Signs Temperature 36.6 C 11/10/24 15:38 Pulse Rate 103 H 11/10/24 15:38 Respiratory Rate 20 11/10/24 15:38 Blood Pressure 153/82 H 11/10/24 15:38 Pulse Oximetry 97 11/10/24 15:38 Oxygen Delivery Room Air 11/10/24 15:38 Temperature 36.1 C L 11/10/24 19:44 Pulse Rate 66 11/10/24 19:44 Respiratory Rate 18 11/10/24 19:44 Blood Pressure 135/75 11/10/24 19:44 Pulse Oximetry 97 11/10/24 19:44 Oxygen Delivery Room Air 11/10/24 19:44 MDM - Altered Mental Status MDM Narrative Medical decision making narrative: Patient is a 74-year-old female with 1-2 weeks of worsening confusion and memory issues compared to her baseline mild dementia. Family is concerned and brought her to the ER on a 2nd occasion now for further evaluation and repeat workup. Reassurance. Workup was essentially negative. Mild UTI and currently on antibiotics. Further outpatient workup with a neurologist suggested to include an MRI of the brain. Lab Data Attestation: I reviewed the patient's lab results. 11/10/24 16:03 11/10/24 16:03 Labs: Lab Results 11/10/24 11/10/24 11/10/24 Range/Units 15:11 16:03 18:42 WBC 8.8 (4.8-10.8) K/mm3 RBC 4.26 (4.20-5.40) M/mm3 Hgb 13.1 (11.7-13.8) g/dL Hct 41.5 (35.0-42.0) % MCV 97.4 (78.0-102.0) fL MCH 30.8 (27.0-31.0) pg MCHC 31.6 L (32-36) g/dL RDW 13.9 (11.6-14.4) % Plt Count 272 (150-420) K/mm3 MPV 10.7 (9.2-11.8) fl Immature Gran % (Auto) 0.6 H (0.0-0.0) % Neut % (Auto) 84.8 H (50.0-70.0) % Lymph % (Auto) 10.3 L (18.0-42.0) % Hale % (Auto) 4.2 (2.0-11.0) % Eos % (Auto) 0.0 L (1.0-6.0) % Baso % (Auto) 0.1 (0.0-1.0) % Lymph # (Auto) 0.91 L (1.10-4.50) K/mm3 Hale # (Auto) 0.37 (0.10-0.90) K/mm3 Eos # (Auto) 0.00 L (0.02-0.50) K/mm3 Baso # (Auto) 0.01 (0.00-0.10) K/mm3 Abs Immat Gran (auto) 0.05 H (0.00-0.00) K/mm3 Absolute Neuts (auto) 7.46 H (1.70-7.20) K/mm3 Absolute Nucleated RBC 0.00 (0.00-0.00) K/mm3 Nucleated RBC % 0.0 (0-0.0) % Sodium 140 (137-145) mmol/L Potassium 4.8 (3.4-5.0) mmol/L Chloride 106 (98-107) mmol/L Carbon Dioxide 20 L (22-30) mmol/L Anion Gap 14 H (4-12) mmol/L BUN 16 (7-17) mg/dL Creatinine 1.28 H (0.7-1.0) mg/dL Estim Creat Clear Calc 41 ml/min Estimated GFR 41 L (59 - ) Glucose 219 H (65-110) mg/dL POC Capillary Glucose 210 H (65-105) mg/dl Calculated Osmolality 298 H (285-295) mOsm/kg Calcium 9.7 (8.4-10.2) mg/dL Total Bilirubin 1.3 (0.2-1.3) mg/dL AST 41 H (14-36) U/L ALT 27 (6-35) U/L Alkaline Phosphatase 64 (38-126) U/L Troponin I < 0.012 (0.000-0.034) ng/mL Total Protein 9.1 H (6.3-8.2) g/dL Albumin 4.7 (3.5-5.1) g/dL TSH 1.260 (0.465-4.680) uIU/mL Urine Color Yellow (Yellow) Urine Appearance Sl cloudy A (Clear) Urine pH 6.0 (5.0-8.0) Ur Specific [place] 1.025 H (1.010-1.020) Urine Protein Trace H (Negative) Urine Glucose (UA) 3+ H (Negative) Urine Ketones Trace H (Negative) Ur Blood (Man) Negative (Negative) Urine Nitrate Negative (Negative) Urine Bilirubin Negative (Negative) Urine Urobilinogen 0.2 (0.2-1.0) mg/dL Leukocyte Esterase Rfl 1+ H (Negative) GERARDO/UL Urine RBC None seen (0-2) /hpf Urine WBC 0-5 (0-3) /hpf Ur Squamous Epith Cells Many H (Few) /hpf Urine Bacteria 1+ H (None) /hpf RPR Pending Imaging Data Attestation: I personally reviewed and interpreted this imaging study as follows: Radiologist's impression: CT scan of the head is negative for acute process and chronic changes seen Chest x-ray is negative for acute process CTA of the head and neck is negative for acute process and chronic changes seen ECG Data EKG #1: Attestation: I personally reviewed and interpreted this ECG as follows: ECG completion date: 11/11/24 ECG completion time: 01:03 EKG Interpretation: normal rate, sinus rhythm, no ectopy, non-specific ST changes, normal QRS, normal QT and NL axis Discharge Plan Discharge Clinical Impression: Memory deficit Patient Disposition: Home Condition: Stable Instructions: Dementia (ED), Transient Global Amnesia (ED) Additional Instructions: Please finish all antibiotics for urinary tract infection. Follow-up with the primary doctor in the next week as planned and suggested MRI of the brain to look for recent stroke. Patient Language: Cymraes Prescriptions: No Action amitriptyline 25 mg tablet 25 mg PO HS allopurinol 300 mg tablet 300 mg PO DAILY duloxetine 20 mg capsule,delayed release(DR/EC) 20 mg PO DAILY ibuprofen 800 mg tablet 800 mg PO TID Qty: 20 0RF omeprazole magnesium [Prilosec OTC] 20 mg tablet,delayed release (DR/EC) 20 mg PO BID Qty: 20 0RF tramadol 50 mg tablet 50 mg PO Q8H PRN (Reason: moderate pain) Qty: 10 0RF acetaminophen-codeine 300-30 mg tablet 1 tablet PO Q8H PRN (Reason: pain) Qty: 10 0RF cephalexin 500 mg capsule 500 mg PO Q8H 7 Days Qty: 21 0RF prednisone 5 mg tablet 5 mg PO DAILY ergocalciferol (vitamin D2) 1,250 mcg (50,000 unit) capsule 1,250 mcg PO WEEKLY ProAir RespiClick 90 mcg/actuation aerosol powdr breath activated 2 inh inhalation QID PRN (Reason: shortness of breath) Qty: 1 0RF orphenadrine citrate 100 mg tablet extended release 100 mg PO BID PRN (Reason: pain) Qty: 20 0RF nitrofurantoin monohyd/m-cryst [Macrobid] 100 mg capsule 100 mg PO Q12H 7 Days Qty: 14 0RF Rx Instructions: must administer with a meal/food warfarin [Coumadin] 5 mg tablet See Rx Instructions .ROUTE .COMPLEX Rx Instructions: warfarin 4mg daily glimepiride 4 mg tablet 4 mg PO BID ropinirole 0.5 mg Tablet 0.5 - 1 mg PO HS rosuvastatin 5 mg Tablet 5 mg PO DAILY lisinopril 40 mg tablet 40 mg PO DAILY Qty: 90 3RF hydrochlorothiazide 12.5 mg tablet 12.5 mg PO DAILY Qty: 90 3RF Follow-up/Referrals: Raf Fritz MD [Primary Care Provider, Internal Medicine] Time of Disposition: 19:30
[2024-11-10 15:38] VITALS: BP 153/82; PULSE 103; RESP 20; TEMP 36.6; O2SAT 97
--- NOTE | 2024-11-10 15:46 | ECG_ITS ---
Test Date: 2024-11-10 16:04:14 Measurements Intervals [place] Rate: 99 P: 28 NM: 108 QRS: 48 QRSD: 80 T: 35 QT: 372 QTc: 477 Interpretive Statements SINUS RHYTHM WITH SHORT NM INTERVAL WITH OCCASIONAL SUPRAVENTRICULAR PREMATURE COMPLEXES NONSPECIFIC T-WAVE ABNORMALITY- INFERIOR LEADS BASELINE WANDER- I, II, III, V6 BORDERLINE ECG No previous ECG available for comparison Electronically Signed On 11-10-2024 16:08:03 CDT by Venkatesh Ivey D.O.
--- NOTE | 2024-11-10 16:17 | PC.NURSE ---
Pt leaves with radiology for scans
[2024-11-10 16:23] LABS: Alanine Aminotransferase 27 U/L (6-35); Albumin Level 4.7 g/dL (3.5-5.1); Alkaline Phosphatase 64 U/L (38-126); Anion Gap 14 mmol/L (4-12); Aspartate Amino Transferase 41 U/L (14-36); Bilirubin,Total 1.3 mg/dL (0.2-1.3); Blood Urea Nitrogen 16 mg/dL (7-17); Calcium 9.7 mg/dL (8.4-10.2); Carbon Dioxide 20 mmol/L (22-30); Chloride 106 mmol/L (98-107); Estimated CRCL calculation 41 ml/min; Estimated Glomerular Filt Rate 41; Glucose 219 mg/dL (65-110); Osmolality Calculated 298 mOsm/kg (285-295); Potassium 4.8 mmol/L (3.4-5.0); Sodium 140 mmol/L (137-145); Total Protein 9.1 g/dL (6.3-8.2)
[2024-11-10 16:35] LABS: Troponin I < 0.012 ng/mL (0.000-0.034)
[2024-11-10 16:37] LABS: Hematocrit 41.5 % (35.0-42.0); Hemoglobin 13.1 g/dL (11.7-13.8); Immature Granulocyte Percent A 0.6 % (0.0-0.0); Lymphocytes Absolute Auto 0.91 K/mm3 (1.10-4.50); Mean Corpuscular HGB Conc 31.6 g/dL (32-36); Mean Corpuscular Hemoglobin 30.8 pg (27.0-31.0); Mean Corpuscular Volume 97.4 fL (78.0-102.0); Nucleated Red Blood Cells Absolute Auto 0.00 K/mm3 (0.00-0.00); Nucleated Red Blood Cells Perc 0.0 % (0-0.0); Platelet Count Result 272 K/mm3 (150-420); Red Blood Count 4.26 M/mm3 (4.20-5.40); White Blood Count 8.8 K/mm3 (4.8-10.8)
[2024-11-10 16:53] LABS: Thyroid Stimulating Hormone 1.260 uIU/mL (0.465-4.680)
[2024-11-10 18:48] LABS: Add Urine Microscopic? YES; Glucose Urine UA 3+ (Negative); Leukocyte Esterase Ur 1+ LEU/UL (Negative); Nitrate Urine Negative (Negative); Specific Grav Ur 1.025 (1.010-1.020)
[2024-11-10 18:54] LABS: Appearance Urine Sl Cloudy (Clear)
--- NOTE | 2024-11-10 19:24 | PC.NURSE ---
Report given to GUALBERTO Puri
--- NOTE | 2024-11-10 19:25 | PC.NURSE ---
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 Pt awake and alert sitting upright on stretcher without obvious distress. ERP at bedside for patient update on results and plan of care.
[2024-11-10 19:44] VITALS: BP 135/75; PULSE 66; RESP 18; TEMP 36.1; O2SAT 97
[2024-11-12 07:09] LABS: RPR Non Reactive (Non Reactive)
== END 2024-11-10 19:45 | disposition home or self-care (01) ==
PROVIDERS: Emergency Provider Emergency Medicine; PCP Internal Medicine
DX: R41.3 Other amnesia (principal); F03.90 Unspecified dementia, unspecified severity, without behavioral disturbance, psychotic disturbance, mood disturbance, and anxiety; I48.0 Paroxysmal atrial fibrillation; E78.2 Mixed hyperlipidemia; E11.9 Type 2 diabetes mellitus without complications; I10 Essential (primary) hypertension; Z86.73 Personal history of transient ischemic attack (TIA), and cerebral infarction without residual deficits
CPT/HCPCS: 36415; 70450; 70496; 70498; 71046; 80053; 81001; 82948; 84443; 84484; 85025; 86592; 93005; 99284; Q9967

== ENCOUNTER 2024-11-20 07:47 | Outpatient (CLI) | payer MEDICARE, SELFPAY ==
--- NOTE | ~2024-11-20 | MR_ITS ---
EXAMINATION: MR brain/brain stem wo con DATE: 11/20/2024 08:50 INDICATION: Headache. TECHNIQUE: Magnetic resonance imaging (MRI) of the brain and brainstem was performed without intravenous contrast. COMPARISON: Brain MRI 01/08/2017 FINDINGS: There is an infarct in the left frontoparietal region characterized by increased T2-weighted signal intensity. There are scattered areas of nonspecific increased T2-weighted signal intensity in the cerebral white matter. There is no intracranial hemorrhage or abnormal mass lesion. The ventricles are normal in size. There is mucosal thickening in the paranasal sinuses. The orbits are normal. The mastoid air cells are normal. IMPRESSION: 1. Infarct in the left frontoparietal region, which may be subacute or chronic. 2. Mild nonspecific cerebral white matter disease, which likely represents chronic small vessel ischemic disease. Reviewed, dictated and finalized at location E. IMPRESSION: 1. Infarct in the left frontoparietal region, which may be subacute or chronic. 2. 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
--- OUTSIDE RECORDS SUMMARY | 2024-11-20 07:51 | XMS_ITS | Patient Health Record ---
Author Organization [facility] Address [address] [place], [place] [id number] Care Team Providers Care University Relations Director Name Role Phone Raf Fritz Unavailable Unavailable [...] Insured Coverage Start Date Coverage End Date [facility] [address] [address] [place], [place] [id number] Milagro Godoy Self - patient is the insured Medicare Part B [place] [address] [place] [address] [id number] Milagro Godoy Self - patient is the insured Medical (General) History Medical History History ICD Code acid reflux neuropathy stroke Leg/Feet cramps Steroid Treatment Gout Diabetic varicose veins restless leg syndrome hypertension Surgical History Surgery Date(Month/Year) Gall Bladder
[2024-11-20 08:38] LABS: CRP 0.9 mg/dL (<1.0)
[2024-11-20 09:03] LABS: INR 1.0; Prothrombin Time 11.5 Seconds (9.50-12.1)
== END 2024-11-20 07:48 | disposition home or self-care (01) ==
LOC: CHSIMG 07:49
PROVIDERS: PCP Internal Medicine; Visit Provider Internal Medicine
DX: Z79.01 Long term (current) use of anticoagulants (principal); I63.89 Other cerebral infarction; R90.82 White matter disease, unspecified
CPT/HCPCS: 36415; 70551; 85610; 86140

== ENCOUNTER 2024-11-22 14:57 | Outpatient (CLI) | payer MEDICARE, SELFPAY ==
[2024-11-22 15:16] LABS: Hematocrit 41.2 % (35.0-42.0); Hemoglobin 13.1 g/dL (11.7-13.8); Mean Corpuscular HGB Conc 31.8 g/dL (32-36); Mean Corpuscular Hemoglobin 30.5 pg (27.0-31.0); Mean Corpuscular Volume 95.8 fL (78.0-102.0); Platelet Count Result 272 K/mm3 (150-420); Red Blood Count 4.30 M/mm3 (4.20-5.40); White Blood Count 8.3 K/mm3 (4.8-10.8)
[2024-11-22 15:31] LABS: INR 1.0; Partial Thromboplastin Time 25.7 Sec (23.9-30.70); Prothrombin Time 11.5 Seconds (9.50-12.1)
[2024-11-22 15:34] LABS: Alanine Aminotransferase 21 U/L (6-35); Albumin Level 4.6 g/dL (3.5-5.1); Alkaline Phosphatase 75 U/L (38-126); Anion Gap 8 mmol/L (4-12); Aspartate Amino Transferase 32 U/L (14-36); Bilirubin,Total 1.1 mg/dL (0.2-1.3); Blood Urea Nitrogen 18 mg/dL (7-17); Calcium 10.5 mg/dL (8.4-10.2); Carbon Dioxide 26 mmol/L (22-30); Chloride 106 mmol/L (98-107); Estimated Glomerular Filt Rate 58; Glucose 155 mg/dL (65-110); Osmolality Calculated 294 mOsm/kg (285-295); Potassium 4.3 mmol/L (3.4-5.0); Sodium 140 mmol/L (137-145); Total Protein 8.3 g/dL (6.3-8.2)
--- OUTSIDE RECORDS SUMMARY | 2024-11-22 15:53 | XMS_ITS | Clinical Summary ---
Author Organization [facility] Address [facility] [place] [address] Care Team Providers Care Sat Instructor Name Role Phone Raf Fritz MD Primary Care Provider [phone] Raf Fritz MD Unavailable [phone] Armond Rosales MD Unavailable [phone] Ishmael Bertrand MD Unavailable Allergies Active Allergy Reactions Criticality Noted Date Comments Hydrocodone Other (see comment) Medium 03/25/2022 Face numbness Hydrocodone Other (see comment) Medium 12/27/2022 Facial numbness Medications allopurinol 300 MG tablet 04/13/19 22 Active gabapentin 300 MG capsule 03/08/19 22 Active ONETOUCH VERIO test strip 03/26/19 22 Active Lancets (ONETOUCH DELICA PLUS [id number]) [facility] 03/26/19 22 Active rOPINIRole 2 MG tablet [...] DVT) of left lower extremity, unspecified vein 03/11/2023 Varicose veins of bilateral lower extremities with other complications 03/11/2023 Chronic venous insufficiency 03/11/2023 DVT, bilateral lower limbs 01/11/2023 Hyperglycemia 01/03/2023 Fall 12/26/2022 Chronic anticoagulation 12/26/2022 Closed right humeral fracture 12/26/2022 Pain and swelling of left knee 12/26/2022 H/O: CVA (cerebrovascular accident) 12/26/2022 PMR (polymyalgia rheumatica) 12/26/2022 Current chronic use of systemic steroids 023 Type 2 diabetes mellitus, wi thout long-term current use of insulin 12/26/2022 Splenic artery aneurysm 12/26/2022 Other closed fracture of dis lexie end of right radius with routine healing, subsequent encounter 03/25/2022 Cerebrovascular accident (CVA), unspecified mech anism 05/22/2021 Atrial fibrillation, unspecified type 05/22/2021 Diabetic peripheral neuropathy 05/22/2021 Fracture of forearm 05/16/2021 Localized, primary [...] materials from doctor or pharmacy Never 02/14/2023 [facility] Utilities Answer Date Recorded In the past 12 months has th e electric, gas, oil, or water company threatened to [...] place to sleep or slept in a alf (including now)? No 12/27/2022 Comments Unknown Sex and Gender Information Value Date Recorded Sex Assigned at Female 05/13/2024 12:43 PM CDT Legal Sex Female 11:27 AM CDT Gender Identity Female 03/25/2022 8:16 AM KITCHEN WORKER Sexual Orientation Not on file Last Filed Vital Signs Vital Sign Reading Time Taken Comments Blood Pressure 136/81 06/24/2023 12:23 PM CDT Pulse 93 06/24/2023 12:23 PM CDT Temperature 36.3 C (97.3 F) 02/14/2023 10:00 AM KITCHEN WORKER Respiratory Rate 18 06/24/2023 12:23 PM CDT Oxygen Saturation 99% 03/11/2023 1:29 PM KITCHEN WORKER Inhaled Oxygen Concentration - - Weight 89.6 [...] A1C 06/27/2023 12/27/2022 COVID-19 Vaccine (1 - season) 2024 Influenza Adult (#1) 2024 [...] this topic Medical Devices Implanted Type Area Assistant Account Manager Device Identifier Shelf Expiration Date Model / Serial / Lot Trang, Cortical Bone Screw, 4 X 24mm Implanted:Qty: 1 on 01/01/2023 by Lance Riddle MD at [facility] Right: [employer] 02/09/2025 [id number] 4-40 / / [id number] Bonus Triad, 5cc Implanted:Qty: 1 on 01/01/2023 by Lance Riddle MD at [facility] Right: [employer] 04/18/2027 [id number] / [id number] / Affixus Natural Nail, Proximal Humerus, Right, Long, 7 X 260mm Implanted:Qty: 1 on 01/01/2023 by Lance Riddle MD at [facility] Right: [employer] 03/11/2028 [id number] 0-07 / / [id number] Trang, Blunt Tip Screw, 4 X 46mm Implanted:Qty: 1 on 01/01/2023 by Lance Riddle MD at [facility] Right: [employer] 02/09/2025 [id number] 6-40 / / [id number] Trang, Blunt Tip Screw, 4 X 36mm Implanted:Qty: 1 on 01/01/2023 by Lance Riddle MD at [facility] Right: [employer] 03/11/2023 [id number] 6-40 / / [id number] Trang, Blunt Tip Screw, 4 X 44mm Implanted:Qty: 1 on 01/01/2023 by Lance Riddle MD at [facility] Right: [employer] 10/09/2024 47-2486-04 4-40 / / [id number] Explanted Type Area Assistant Account Manager Device Identifier Shelf Expiration Date Model / Serial / Lot Drill Bit Surinder 3.3mm - [id number] Explanted:Qty: 1 on 01/01/2023 by Lance Riddle MD at [facility] Drill Right: [employer] [id number] / / Humerus Ball Nose Guidewire Explanted:Qty: 1 on 01/01/2023 by Lance Riddle MD at [facility] Right: [employer] 06/13/2027 [id number] / / [id number] Guidewire Explanted:Qty: 1 on 01/01/2023 by Lance Riddle MD at [facility] Right: [employer] [id number] / / 3.3mm Drill Tong Explanted:Qty: 1 on 01/01/2023 by Lance Riddle MD at [facility] Right: [employer] [id number] / / Humerus Ball Nose Guidewire Explanted:Qty: 1 on 01/01/2023 by Lance Riddle MD at [facility] Right: [employer] 04/23/2027 [id number] / / [id number] Trang, Blunt Tip Screw, 4 X 50mm Explanted:Qty: 1 on 01/01/2023 by Lance Riddle MD at [facility] Right: [employer] 07/09/2024 [id number] / / [id number] Description:CHANGE SIZE Procedures Procedure Name Priority Date/Time Associated Diagnosis Comments HEMOGLOBIN, GLYCOSYLATED STAT 12/27/2022 12:09 AM KITCHEN WORKER from Last 3 Months or Most Recently Relevant to Health Maintenance Results * (ABNORMAL) HEMOGLOBIN, GLYCOSYLATED (12/27/2022 12:09 AM KITCHEN WORKER) HGB A1C 7.5(H) <5.7 % 12/27/2022 1:49 AM KITCHEN WORKER [facility] ESTIMATED AVG GLUCOSE 169(H) 74 - 114 MG/DL 12/27/2022 1:49 AM KITCHEN WORKER [facility] 12/27/2022 12:0 9 AM KITCHEN WORKER us Naseem Velasco [facility] Final Resul t [facility] [address] [place] [id number], [id number] from Last 3 Months or Most Recently Relevant to Health Maintenance Insurance [facility] [employer] MEDICARE Advance Directives * Full Code (Latest Code Status on File) Date Activated Date Inactivated Comments 01/17/2023 4:23 PM * Full Code Date Activated Date Inactivated Comments 12/26/2022 8:11 PM 01/13/2023 6:39 PM Care Teams Sat Instructor Relationship Specialty Start Date End Date Raf Fritz MD [address] [place] [address] PCP - General INTERNAL MEDICINE 12/30/22 Raf Fritz MD [address] [place] [phone] INTERNAL MEDICINE 12/26/22 Armond Rosales MD [address] [place] [address] [phone] TRAUMA 01/14/23 Ishmael Bertrand MD [address] [place] [address] [phone] Consulting Physician INTERNAL MEDICINE 06/19/23
--- OUTSIDE RECORDS SUMMARY | 2024-11-22 15:53 | XMS_ITS | Patient Health Record ---
Author Organization [facility] Address [address] [place], [place] [id number] Care Team Providers Care Allergist/Pediatric Pulmonologist Name Role Phone Raf Fritz Unavailable Unavailable [...] Insured Coverage Start Date Coverage End Date [facility] [address] [address] [place], [place] [id number] Milagro Godoy Self - patient is the insured Medicare Part B [place] [address] [place] [address] [id number] Milagro Godoy Self - patient is the insured Medical (General) History Medical History History ICD Code acid reflux neuropathy stroke Leg/Feet cramps Steroid Treatment Gout Diabetic varicose veins restless leg syndrome hypertension Surgical History Surgery Date(Month/Year) Gall Bladder
[2024-11-23 17:08] LABS: CRP 0.9 mg/dL (<1.0)
[2024-11-25 01:07] LABS: PTT-LA 41.0 sec (0.0-43.5); dRVVT Mix YES YES
== END 2024-11-22 14:58 | disposition home or self-care (01) ==
LOC: CHSLAB 14:59
PROVIDERS: PCP Internal Medicine; Visit Provider Internal Medicine
DX: I63.9 Cerebral infarction, unspecified (principal); D68.59 Other primary thrombophilia; M35.3 Polymyalgia rheumatica
CPT/HCPCS: 36415; 80053; 81240; 81241; 81291; 83090; 85027; 85240; 85300; 85303; 85305; 85306; 85307; 85610; 85613; 85730; 85732; 86140; 86146; 86147; 86148

== ENCOUNTER 2024-12-11 10:54 | Emergency (ER) | payer MEDICARE, SELFPAY ==
[2024-12-11 10:54] VITALS: BP 132/77; PULSE 95; RESP 18; TEMP 36.7; O2SAT 100
--- NOTE | 2024-12-11 11:26 | ED.SKABFB ---
HPI - Skin/Abscess/Foreign Bdy General Chief complaint: Skin/Abscess/Foreign Body Stated complaint: redness and itching bilateral legs Time Seen by Provider: 12/11/24 11:03 Source: patient Mode of arrival: ambulatory Limitations: no limitations History of Present Illness HPI narrative: This is a 74-year-old female who presents with generalized itching but has a area of warmth tenderness and erythema in the left lower extremity with no fever chills no chest pain no shortness of breath no nausea vomiting. complaint: rash Onset (ago): day(s) Location: LLE Severity: mild Related Data Home Medications ?Medication ?Instructions ?Recorded ?Confirmed ?Last Taken ?Type glimepiride 4 mg tablet 4 mg PO BID 12/15/18 10/11/22 Unknown History warfarin 5 mg tablet (Coumadin) See Rx Instructions .Route .COMPLEX 12/15/18 10/11/22 04/10/19 04:00 History ropinirole 0.5 mg tablet 0.5 - 1 mg PO HS 04/08/19 10/11/22 04/11/19 21:00 History rosuvastatin 5 mg tablet 5 mg PO DAILY 04/08/19 10/11/22 04/12/19 07:00 History allopurinol 300 mg tablet 300 mg PO DAILY 06/10/21 10/11/22 Unknown History amitriptyline 25 mg tablet 25 mg PO HS 06/10/21 10/11/22 Unknown History duloxetine 20 mg capsule,delayed 20 mg PO DAILY 06/10/21 10/11/22 Unknown History release ergocalciferol (vitamin D2) 1,250 1,250 mcg PO WEEKLY 12/05/21 10/11/22 Unknown History mcg (50,000 unit) capsule prednisone 5 mg tablet 5 mg PO DAILY 12/05/21 10/11/22 Unknown History Allergies Allergy/AdvReac Type Severity Reaction Status Date / Time hydrocodone (From Vicodin) Allergy Numbness Verified 12/11/24 11:20 Review of Systems Review of Systems: All systems reviewed & are unremarkable except as noted in HPI and below PMFSH Past Medical History Medical History Paroxysmal atrial fibrillation Body mass index [BMI] 34.0-34.9, adult (07/16/17) Chronic diarrhea Hypertension TIA (transient ischemic attack) Otalgia Neuropathy Cerebrovascular disease, unspecified Gout, unspecified Mixed hyperlipidemia Type 2 diabetes mellitus without complications Surgical History Surgical History History of Hx of cholecystectomy Family History Family History Father Family history of cardiovascular disease Family history of congestive heart failure Grandparent Cerebrovascular accident Sibling Cirrhosis of liver Social History Social History Smoking status: Never smoker Alcohol intake: never Exam Const: General: healthy appearing and no acute distress Nutritional Appearance: well nourished and obese Limitations: no limitations Resp: Effort & Inspection: normal respiratory effort Auscultation: clear to auscultation bilaterally Cardio: Rate: regular rate Rhythm: regular rhythm GI: Auscultation: normal bowel sounds Skin: Wounds: wounds noted Other: Patch of erythema warmth and tenderness left lower extremity proximally 4cm in diameter. Has generalized itching in her arms and upper back with no rash or redness. Course Course Emergency Course: Medical decision making narrative: The patient was evaluated by his self in the emergency department. History obtained from the patient who is an independent historian and physical exam performed witnessed by tech. Patient received a dose of 1mg IM ceftriaxone. Repeat assessment: Patient doing well on repeat exam with no acute distress. Symptoms are stable since arrival to the emergency department. Repeat vitals are stable. Patient agrees with discussion and after shared medical decision making and agrees with discharge. All questions answered to the patient's satisfaction. Advised patient to take medication as prescribed and follow up with primary within next 3 to 5 days. Vital Signs Vital signs: Vital Signs Temperature 36.7 C 12/11/24 10:54 Pulse Rate 95 12/11/24 10:54 Respiratory Rate 18 12/11/24 10:54 Blood Pressure 132/77 12/11/24 10:54 Pulse Oximetry 100 12/11/24 10:54 Oxygen Delivery Room Air 12/11/24 10:54 Temperature 36.7 C 12/11/24 10:54 Pulse Rate 95 12/11/24 10:54 Respiratory Rate 18 12/11/24 10:54 Blood Pressure 132/77 12/11/24 10:54 Pulse Oximetry 100 12/11/24 10:54 Oxygen Delivery Room Air 12/11/24 10:54 Critical Care Time Critical Care Time Critical Care Time: No Discharge Plan Discharge Clinical Impression: Dry skin dermatitis Cellulitis Qualifiers: Site of cellulitis: extremity Site of cellulitis of extremity: lower extremity Laterality: left Qualified Code(s): L03.116 - Cellulitis of left lower limb Patient Disposition: Home Condition: Stable Instructions: Antibiotic Form, Cellulitis (ED), Dermatitis (ED) Additional Instructions: Advise Eucerin lotion p.r.n., take medication as prescribed follow with primary within next 3 to 5 days. Patient Language: Djiboutian Prescriptions: New amoxicillin-pot clavulanate [Augmentin] 500-125 mg tablet 1 tablet PO TID Qty: 30 0RF No Action amitriptyline 25 mg tablet 25 mg PO HS allopurinol 300 mg tablet 300 mg PO DAILY duloxetine 20 mg capsule,delayed release(DR/EC) 20 mg PO DAILY ibuprofen 800 mg tablet 800 mg PO TID Qty: 20 0RF omeprazole magnesium [Prilosec OTC] 20 mg tablet,delayed release (DR/EC) 20 mg PO BID Qty: 20 0RF tramadol 50 mg tablet 50 mg PO Q8H PRN (Reason: moderate pain) Qty: 10 0RF acetaminophen-codeine 300-30 mg tablet 1 tablet PO Q8H PRN (Reason: pain) Qty: 10 0RF cephalexin 500 mg capsule 500 mg PO Q8H 7 Days Qty: 21 0RF prednisone 5 mg tablet 5 mg PO DAILY ergocalciferol (vitamin D2) 1,250 mcg (50,000 unit) capsule 1,250 mcg PO WEEKLY ProAir RespiClick 90 mcg/actuation aerosol powdr breath activated 2 inh inhalation QID PRN (Reason: shortness of breath) Qty: 1 0RF orphenadrine citrate 100 mg tablet extended release 100 mg PO BID PRN (Reason: pain) Qty: 20 0RF nitrofurantoin monohyd/m-cryst [Macrobid] 100 mg capsule 100 mg PO Q12H 7 Days Qty: 14 0RF Rx Instructions: must administer with a meal/food warfarin [Coumadin] 5 mg tablet See Rx Instructions .ROUTE .COMPLEX Rx Instructions: warfarin 4mg daily glimepiride 4 mg tablet 4 mg PO BID ropinirole 0.5 mg Tablet 0.5 - 1 mg PO HS rosuvastatin 5 mg Tablet 5 mg PO DAILY lisinopril 40 mg tablet 40 mg PO DAILY Qty: 90 3RF hydrochlorothiazide 12.5 mg tablet 12.5 mg PO DAILY Qty: 90 3RF Follow-up/Referrals: Raf Fritz MD [Primary Care Provider, Internal Medicine] Time of Disposition: 11:31
--- OUTSIDE RECORDS SUMMARY | 2024-12-11 11:32 | XMS_ITS | Patient Health Record ---
Author Organization [facility] Address [address] [place], [place] [id number] Care Team Providers Care Weeder Thinner Name Role Phone Raf Fritz Unavailable Unavailable Allergies No Known Allergies Reason For Referral No Information Medications Medication SIG (Take, Route, Frequency, Duration) Notes Start Date End Date Status Allopurinol 300 MG Tablet Oral; Duration: 100 Days Active Warfarin Sodium 4 MG Tablet Oral; Duration: 100 Days Active DULoxetine HCl 20 MG Capsule Delayed Release Particles Oral; Duration: 90 Days Active Doxycycline Monohydrate 100 MG Capsule Oral; Duration: 15 Days Acti ve Folic Acid 1 MG Tablet Oral; Duration: 30 Days Active Glimepiride 2 MG Tablet Oral; Duration: 30 Days Active traMADol HCl 50 MG Tablet Oral; Duration: 7 Days Active Amitriptyline HCl 25 MG Tablet Oral; Duration: 90 Days Acti ve predniSONE 5 MG Tablet Oral; Duration: 30 Days Active Methotrexate Sodium 2.5 MG Tablet Oral; Duration: 30 Days Acti ve Plan Of Treatment No Information Insurance Providers Payer Name Payer Address Payer Phone Subscriber Number Group Number Insured Name Patient Relationship to Insured Coverage Start Date Coverage End Date [facility] [address] [address] [place], [place] [id number] Milagro Godoy Self - patient is the insured Medicare Part B [place] [address] [facility] [address] [id number] Milagro Godoy Self - patient is the insured Medical (General) History Medical History History ICD Code acid reflux neuropathy stroke Leg/Feet cramps Steroid Treatment Gout Diabetic varicose veins restless leg syndrome hypertension Surgical History Surgery Date(Month/Year) Gall Bladder
--- OUTSIDE RECORDS SUMMARY | 2024-12-11 11:32 | XMS_ITS | Clinical Summary ---
Author Organization [facility] Address [facility] [place] [address] Care Team Providers Care Food And Beverage Lead Name Role Phone Raf Fritz MD Primary Care Provider [phone] Raf Fritz MD Unavailable [phone] Armond Rosales MD Unavailable [phone] Ishmael Bertrand MD Unavailable Allergies Active Allergy Reactions Criticality Noted Date Comments Hydrocodone Other (see comment) Medium 03/25/2022 Face numbness Hydrocodone Other (see comment) Medium 12/27/2022 Facial numbness Medications allopurinol 300 MG tablet 04/13/19 22 Active gabapentin 300 MG capsule 03/08/19 22 Active ONETOUCH VERIO test strip 03/26/19 22 Active Lancets (ONETOUCH DELICA PLUS [id number]) [facility] [place] 03/26/19 22 Active [...] from doctor or pharmacy Never 02/14/2023 [facility] Utilities Answer Date Recorded In the [...] CDT Gender Identity Female 03/25/2022 8:16 AM MEDICAID BILLING CLERK Sexual Orientation Not on file Last Filed Vital Signs Vital Sign Reading Time Taken Comments Blood Pressure 136/81 06/24/2023 12:23 PM CDT Pulse 93 06/24/2023 12:23 PM CDT Temperature 36.3 C (97.3 F) 02/14/2023 10:00 AM MEDICAID BILLING CLERK Respiratory Rate 18 06/24/2023 12:23 PM CDT Oxygen Saturation 99% 03/11/2023 1:29 PM MEDICAID BILLING CLERK Inhaled Oxygen Concentration - - Weight 89.6 kg (197 lb 8 oz) 06/24/2023 12:23 PM CDT Height 167.6 cm (5' 6) 06/24/2023 12:23 PM CDT Body Mass Index 31.88 06/24/2023 12:23 PM CDT Plan of Treatment Health Maintenance Due Date Last Done Comments Colorectal Cancer Screening Colonoscopy (10 Years) 1950 Kidney Health Evaluation 1950 Lipid Panel 1950 COVID-19 Vaccine (#1) 04/16/1956 Diabetes: Retinopathy Eye Exam 04/16/1969 Hepatitis C 04/16/1969 Mammogram Screening 1991 Zoster Vaccines (1 of 2) 04/16/2001 RSV Immunization or 60+ Years (1 - Risk 60-74 years 1-dose series) 2011 Annual Medicare Wellness Visit 04/16/2016 Dexa Scan (General) 04/16/2016 Hemoglobin A1C 06/27/2023 12/27/2022 Influenza Adult (#1) 2024 11/20/2022, 11/27/2020, 11/26/2017, Additional history exists DTaP, Tdap and Td Vaccines (2 - Td or Tdap) 12/15/2028 12/15/2018 Pneumococcal Vaccine: 50+ Years Completed 11/20/2022 Hepatitis A Vaccines Aged Out No long er eligible based on patient's age to complete this topic Meningococcal B Vaccine Aged Out No l onger eligible based on patient's age to complete this topic Meningococcal Vaccine Aged Out No carmen adri eligible based on patient's age to complete this topic RSV Immunizations Under 20 Months Aged Out No longer eligible based on patient's age to complete this topic Medical Devices Implanted Type Area It Infrastructure Manager Device Identifier Shelf Expiration Date Model / Serial / Lot Trang, Cortical Bone Screw, 4 X 24mm Implanted:Qty: 1 on 01/01/2023 by Lance Riddle MD at [facility] Right: [employer] 02/09/2025 47-2486-12 4-40 / / [id number] Bonus Triad, 5cc Implanted:Qty: 1 on 01/01/2023 by Lance Riddle MD at [facility] Right: [employer] 04/18/2027 [id number] / [id number] / Affixus Natural Nail, Proximal Humerus, Right, Long, 7 X 260mm Implanted:Qty: 1 on 01/01/2023 by Lance Riddle MD at [facility] Right: [employer] 03/11/2028 47-2496-26 0-07 / / [id number] Trang, Blunt Tip Screw, 4 X 46mm Implanted:Qty: 1 on 01/01/2023 by Lance Riddle MD at [facility] Right: [employer] 02/09/2025-2486-04 6-40 / / [id number] Trang, Blunt Tip Screw, 4 X 36mm Implanted:Qty: 1 on 01/01/2023 by Lance Riddle MD at [facility] Right: [employer] 03/11/2023 47-2486-03 6-40 / / [id number] Trang, Blunt Tip Screw, 4 X 44mm Implanted:Qty: 1 on 01/01/2023 by Lance Riddle MD at [facility] Right: [employer] 10/09/2024-2486-04 4-40 / / [id number] Explanted Type Area It Infrastructure Manager Device Identifier Shelf Expiration Date Model / Serial / Lot Drill Bit Surinder 3.3mm - [id number] Explanted:Qty: 1 on 01/01/2023 by Lance Riddle MD at [facility] Drill Right: [employer] [id number] / / Humerus Ball Nose Guidewire Explanted:Qty: 1 on 01/01/2023 by Lance Riddle MD at [facility] Right: [employer] 06/13/2027 [id number] / / [id number] Guidewire Explanted:Qty: 1 on 01/01/2023 by Lance Riddle MD at [facility] Right: [employer] [id number] / / 3.3mm Drill Tong Explanted:Qty: 1 on 01/01/2023 by Lance Riddle MD at [facility] Right: [employer] [id number] / / Humerus Ball Nose Guidewire Explanted:Qty: 1 on 01/01/2023 by Lance Riddle MD at [facility] Right: [employer] 04/23/2027 [id number] / / [id number] Trang, Blunt Tip Screw, 4 X 50mm Explanted:Qty: 1 on 01/01/2023 by Lance Riddle MD at [facility] Right: [employer] 07/09/2024 [id number] / / [id number] Description:CHANGE SIZE Procedures Procedure Name Priority Date/Time Associated Diagnosis Comments HEMOGLOBIN, GLYCOSYLATED STAT 12/27/2022 12:09 AM MEDICAID BILLING CLERK from Last 3 Months or Most Recently Relevant to Health Maintenance Results * (ABNORMAL) HEMOGLOBIN, GLYCOSYLATED (12/27/2022 12:09 AM MEDICAID BILLING CLERK) HGB A1C 7.5(H) <5.7 % 12/27/2022 1:49 AM MEDICAID BILLING CLERK [facility] ESTIMATED AVG GLUCOSE 169(H) 74 - 114 MG/DL 12/27/2022 1:49 AM MEDICAID BILLING CLERK [facility] 12/27/2022 12:0 9 AM MEDICAID BILLING CLERK us Naseem Velasco SLOT FLOORPERSON LABORATORY Final Resul t [facility] [address] [place] [address], [id number] from Last 3 Months or Most Recently Relevant to Health Maintenance Insurance [facility] HUMANA MEDICARE Advance Directives * Full Code (Latest Code Status on File) Date Activated Date Inactivated Comments 01/17/2023 4:23 PM * Full Code Date Activated Date Inactivated Comments 12/26/2022 8:11 PM 01/13/2023 6:39 PM Care Teams Food And Beverage Lead Relationship Specialty Start Date End Date Raf Fritz MD [address] [place] [address] PCP - General INTERNAL MEDICINE 12/30/22 Raf Fritz MD [address] [place] [phone] INTERNAL MEDICINE 12/26/22 Armond Rosales MD [address] [place] [phone] TRAUMA 01/14/23 Ishmael Bertrand MD [address] [place] [phone] Consulting Physician INTERNAL MEDICINE 06/19/23
[2024-12-11] MEDS: cefTRIAXone 1 GM, LIDOCAINE 1% LOCAL INJ 2.1 ML IM (11:33)
== END 2024-12-11 11:50 | disposition home or self-care (01) ==
PROVIDERS: Emergency Provider Emergency Medicine; PCP Internal Medicine
DX: L30.9 Dermatitis, unspecified (principal); L03.116 Cellulitis of left lower limb; I10 Essential (primary) hypertension; E78.2 Mixed hyperlipidemia; E11.9 Type 2 diabetes mellitus without complications; Z86.73 Personal history of transient ischemic attack (TIA), and cerebral infarction without residual deficits
CPT/HCPCS: 96372; 99283; J0696; J2003

== ENCOUNTER 2025-01-12 10:31 | Outpatient (CLI) | payer MEDICARE, SELFPAY ==
[2025-01-12 10:53] LABS: Add Urine Microscopic? YES; Appearance Urine Clear (Clear); Glucose Urine UA Trace (Negative); Leukocyte Esterase Ur 2+ (Negative); Nitrate Urine Negative (Negative); Specific Grav Ur 1.025 (1.010-1.020)
--- OUTSIDE RECORDS SUMMARY | 2025-01-12 11:59 | XMS_ITS | Clinical Summary ---
Author Organization [facility] Address [facility] [place] [address] Care Team Providers Care Director Data Analytics Name Role Phone Raf Fritz MD Primary Care Provider [phone] Raf Fritz MD Unavailable [phone] Armond Rosales MD Unavailable [phone] Ishmael Bertrand MD Unavailable Allergies Active Allergy Reactions Criticality Noted Date Comments Hydrocodone Other (see comment) Medium 03/25/2022 Face numbness Hydrocodone Other (see comment) Medium 12/27/2022 Facial numbness Medications allopurinol 300 MG tablet 04/13/19 22 Active gabapentin 300 MG capsule 03/08/19 22 Active ONETOUCH VERIO test strip 03/26/19 22 Active Lancets (ONETOUCH DELICA PLUS [id number]) [facility] 03/26/19 22 Active rOPINIRole 2 MG tablet [...] materials from doctor or pharmacy Never 02/14/2023 [facility] Utilities Answer Date Recorded In [...] CDT Gender Identity Female 03/25/2022 8:16 AM MORTGAGE LOAN OFFICER ORIGINATOR Sexual Orientation Not on file Last Filed Vital Signs Vital Sign Reading Time Taken Comments Blood Pressure 136/81 06/24/2023 12:23 PM CDT Pulse 93 06/24/2023 12:23 PM CDT Temperature 36.3 C (97.3 F) 02/14/2023 10:00 AM MORTGAGE LOAN OFFICER ORIGINATOR Respiratory Rate 18 06/24/2023 12:23 PM CDT Oxygen Saturation 99% 03/11/2023 1:29 PM MORTGAGE LOAN OFFICER ORIGINATOR Inhaled Oxygen Concentration - - Weight 89.6 [...] this topic Medical Devices Implanted Type Area Newspaper Clipper Device Identifier Shelf Expiration Date Model / Serial / Lot Trang, Cortical Bone Screw, 4 X 24mm Implanted:Qty: 1 on 01/01/2023 by Lance Riddle MD at [facility] Right: [employer] 02/09/2025 47-2486-12 4-40 / / [id number] Bonus Triad, 5cc Implanted:Qty: 1 on 01/01/2023 by Lance Riddle MD at [facility] Right: [employer] 04/18/2027 [id number] / [id number] / Affixus Natural Nail, Proximal Humerus, Right, Long, 7 X 260mm Implanted:Qty: 1 on 01/01/2023 by Lance Riddle MD at [facility] Right: [employer] 03/11/2028 47-2496-26 0-07 / / [id number] Trang, Blunt Tip Screw, 4 X 46mm Implanted:Qty: 1 on 01/01/2023 by Lance Riddle MD at [facility] Right: [employer] 02/09/2025-2486-04 6-40 / / [id number] Trang, Blunt Tip Screw, 4 X 36mm Implanted:Qty: 1 on 01/01/2023 by Lance Riddle MD at [facility] Right: [employer] 03/11/2023 47-2486-03 6-40 / / [id number] Trang, Blunt Tip Screw, 4 X 44mm Implanted:Qty: 1 on 01/01/2023 by Lance Riddle MD at [facility] Right: [employer] 10/09/2024-2486-04 4-40 / / [id number] Explanted Type Area Newspaper Clipper Device Identifier Shelf Expiration Date Model / Serial / Lot Drill Bit Surinder 3.3mm - [id number] Explanted:Qty: 1 on 01/01/2023 by Lance Riddle MD at [facility] Drill Right: [employer] [id number] / / Humerus Ball Nose Guidewire Explanted:Qty: 1 on 01/01/2023 by Lance Riddle MD at [facility] Right: [employer] 06/13/2027 [id number] / / [id number] Guidewire Explanted:Qty: 1 on 01/01/2023 by Lance Riddle MD at [facility] Right: [employer] 290.25.280 / / 3.3mm Drill Tong Explanted:Qty: 1 on 01/01/2023 by Lance Riddle MD at [facility] Right: [employer] [id number] / / Humerus Ball Nose Guidewire Explanted:Qty: 1 on 01/01/2023 by Lance Riddle MD at [facility] Right: [employer] 04/23/2027 [id number] / / [id number] Trang, Blunt Tip Screw, 4 X 50mm Explanted:Qty: 1 on 01/01/2023 by Lance Riddle MD at [facility] Right: [employer] 07/09/2024 [id number] / / [id number] Description:CHANGE SIZE Procedures Procedure Name Priority Date/Time Associated Diagnosis Comments HEMOGLOBIN, GLYCOSYLATED STAT 12/27/2022 12:09 AM MORTGAGE LOAN OFFICER ORIGINATOR from Last 3 Months or Most Recently Relevant to Health Maintenance Results * (ABNORMAL) HEMOGLOBIN, GLYCOSYLATED (12/27/2022 12:09 AM MORTGAGE LOAN OFFICER ORIGINATOR) HGB A1C 7.5(H) <5.7 % 12/27/2022 1:49 AM MORTGAGE LOAN OFFICER ORIGINATOR [facility] ESTIMATED AVG GLUCOSE 169(H) 74 - 114 MG/DL 12/27/2022 1:49 AM MORTGAGE LOAN OFFICER ORIGINATOR [facility] 12/27/2022 12:0 9 AM MORTGAGE LOAN OFFICER ORIGINATOR us Naseem Velasco SURGICAL GARMENT INSPECTOR LABORATORY Final Resul t [facility] [address] [place] [address], [id number] from Last 3 Months or Most Recently Relevant to Health Maintenance Insurance [facility] HUMANA MEDICARE Advance Directives * Full Code (Latest Code Status on File) Date Activated Date Inactivated Comments 01/17/2023 4:23 PM * Full Code Date Activated Date Inactivated Comments 12/26/2022 8:11 PM 01/13/2023 6:39 PM Care Teams Director Data Analytics Relationship Specialty Start Date End Date Raf Fritz MD [address] [place] [address] PCP - General INTERNAL MEDICINE 12/30/22 Raf Fritz MD [address] [place] [phone] INTERNAL MEDICINE 12/26/22 Armond Rosales MD [address] [place] [phone] TRAUMA 01/14/23 Ishmael Bertrand MD [address] [place] [phone] Consulting Physician INTERNAL MEDICINE 06/19/23
--- OUTSIDE RECORDS SUMMARY | 2025-01-12 11:59 | XMS_ITS | Patient Health Record ---
Author Organization [facility] Address [address] [place], [place] [id number] Care Team Providers Care Audio Visual Tech Name Role Phone Raf Fritz Unavailable Unavailable [...] Insured Coverage Start Date Coverage End Date [facility] [address] [address] [place], [place] [id number] Milagro Godoy Self - patient is the insured Medicare Part B [place] [address] [place] [address] [id number] Milagro Godoy Self - patient is the insured Medical (General) History Medical History History ICD Code acid reflux neuropathy stroke Leg/Feet cramps Steroid Treatment Gout Diabetic varicose veins restless leg syndrome hypertension Surgical History Surgery Date(Month/Year) Gall Bladder
== END 2025-01-12 10:32 | disposition home or self-care (01) ==
LOC: CHSLAB 10:33
PROVIDERS: PCP Internal Medicine; Visit Provider Internal Medicine
DX: R30.0 Dysuria (principal)
CPT/HCPCS: 81001; 87086

== ENCOUNTER 2025-01-24 14:19 | Outpatient (CLI) | payer MEDICARE, SELFPAY ==
--- NOTE | ~2025-01-24 | XR_ITS ---
EXAMINATION: XR femur RT min 2V DATE: 01/24/2025 14:55 INDICATION: Pain TECHNIQUE: Right femur x-rays were obtained. . 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 Amorphous calcification in the soft tissues probably representing myositis ossificans or heterotopic ossification unchanged. Degenerative changes also present in the right knee. Vascular calcification seen in the soft tissues as well. No acute or aggressive bony or soft tissue process seen. IMPRESSION: No gross interval change from August 2024. Correlation with MRI for persisting pain refractory to conservative therapy may provide additional beneficial information. Reviewed, dictated and finalized at location A. L MIXER IMPRESSION: No gross interval change from August 2024. Correlation with MRI for p ersisting pain refractory to conservative therapy may provide additional benefi cial information.
--- NOTE | ~2025-01-24 | XR_ITS ---
EXAMINATION: XR hip RT min 2V DATE: 01/24/2025 14:55 INDICATION: Right hip pain TECHNIQUE: Right hip x-ray were obtained. 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 Amorphous calcification in the soft tissues probably representing myositis ossificans or heterotopic ossification unchanged. No acute or aggressive bony or soft tissue process seen. IMPRESSION: No gross interval change from August 2024. Correlation with right hip MRI suggested for optimal sensitivity. Reviewed, dictated and finalized at location A. DDING MACHINE KNIFE CHANGER
--- NOTE | ~2025-01-24 | XR_ITS ---
EXAM/PROCEDURE: XR lumbar spine 2-3V HISTORY: Right hip pain COMPARISON: December 02, 2022 TECHNIQUE: 3 view lumbar spine x-rays FINDINGS: Degenerative disc and facet changes are present throughout the lumbar spine most advanced at L4-5 and L5-S1. No acute or aggressive bony or soft tissue process seen. Extensive vascular calcification in the aorta noted. IMPRESSION: Multilevel degenerative changes most advanced in the lower lumbar spine. Reviewed, dictated and finalized at location A. MILL OPERATOR
[2025-01-24 15:25] LABS: Hematocrit 41.5 % (35.0-42.0); Hemoglobin 12.9 g/dL (11.7-13.8); Mean Corpuscular HGB Conc 31.1 g/dL (32-36); Mean Corpuscular Hemoglobin 29.2 pg (27.0-31.0); Mean Corpuscular Volume 93.9 fL (78.0-102.0); Platelet Count Result 273 K/mm3 (150-420); Red Blood Count 4.42 M/mm3 (4.20-5.40); White Blood Count 14.4 K/mm3 (4.8-10.8)
[2025-01-24 15:33] LABS: Hemoglobin A1C 7.8 % (<5.7)
[2025-01-24 15:40] LABS: INR 1.2; Prothrombin Time 13.5 Seconds (9.50-12.1)
[2025-01-24 15:44] LABS: MALB Creatinine Ratio 11.5 mg/g (0-30)
[2025-01-24 16:00] LABS: Alanine Aminotransferase 28 U/L (6-35); Albumin Level 4.7 g/dL (3.5-5.1); Alkaline Phosphatase 86 U/L (38-126); Anion Gap 11 mmol/L (4-12); Aspartate Amino Transferase 27 U/L (14-36); Bilirubin,Total 1.4 mg/dL (0.2-1.3); Blood Urea Nitrogen 23 mg/dL (7-17); Calcium 9.4 mg/dL (8.4-10.2); Carbon Dioxide 23 mmol/L (22-30); Chloride 104 mmol/L (98-107); Cholesterol 198 mg/dL (0-200); Estimated Glomerular Filt Rate > 60; Glucose 294 mg/dL (65-110); HDL Direct 108 mg/dL; Osmolality Calculated 300 mOsm/kg (285-295); Potassium 4.2 mmol/L (3.4-5.0); Sodium 138 mmol/L (137-145); Total Protein 7.4 g/dL (6.3-8.2); Triglycerides 233 mg/dL (<150)
[2025-01-24 16:30] LABS: Thyroid Stimulating Hormone 1.120 uIU/mL (0.465-4.680)
[2025-01-25 08:52] LABS: CRP 0.8 mg/dL (<1.0)
== END 2025-01-24 14:20 | disposition home or self-care (01) ==
PROVIDERS: PCP Internal Medicine; Visit Provider Nurse Practitioner Family
DX: M25.551 Pain in right hip (principal); E11.65 Type 2 diabetes mellitus with hyperglycemia; E78.5 Hyperlipidemia, unspecified; Z79.01 Long term (current) use of anticoagulants
CPT/HCPCS: 36415; 72100; 73502; 73552; 80053; 80061; 82043; 83036; 83721; 84443; 85027; 85610; 86140

== ENCOUNTER 2025-01-26 12:08 | Outpatient (CLI) | payer MEDICARE, SELFPAY ==
--- NOTE | ~2025-01-26 | US_ITS ---
EXAM/PROCEDURE: US arterial ankle brachial ind HISTORY: PAD COMPARISON: None available. TECHNIQUE: KILO FINDINGS: Right left brachial systolic pressure readings are both 160 Right and left dorsalis pedis pressure readings are 187 and 172 Right and left posterior tibial pressure readings are 187 and 189 Right and left great toe pressure readings are 145 and 133 Right and left ABIs are 1.17 and 1.18 Right and left TBI's are 0.91 and 0.83 Plethysmography appears within normal limits. IMPRESSION: Both ABIs within normal limits. Reviewed, dictated and finalized at location [facility]. N [facility]
--- OUTSIDE RECORDS SUMMARY | 2025-01-26 14:03 | XMS_ITS | Patient Health Record ---
Author Organization [facility] Address [address] [place], [place] [phone] Care Team Providers Care Petroleum Inspector Supervisor Name Role Phone Raf Fritz Unavailable Unavailable [...] Insured Coverage Start Date Coverage End Date [facility] [address] [address] [place], [place] [id number] Milagro Godoy Self - patient is the insured Medicare Part B [place] [address] [place] [address] [id number] Milagro Godoy Self - patient is the insured Medical (General) History Medical History History ICD Code acid reflux neuropathy stroke Leg/Feet cramps Steroid Treatment Gout Diabetic varicose veins restless leg syndrome hypertension Surgical History Surgery Date(Month/Year) Gall Bladder
--- OUTSIDE RECORDS SUMMARY | 2025-01-26 14:03 | XMS_ITS | Clinical Summary ---
Author Organization [facility] Address [facility] [place] [address] Care Team Providers Care Risk Control Consultant Name Role Phone Raf Fritz MD Primary Care Provider [phone] Raf Fritz MD Unavailable [phone] Armond Rosales MD Unavailable [phone] Ishmael Bertrand MD Unavailable Allergies Active Allergy Reactions Criticality Noted Date Comments Hydrocodone Other (see comment) Medium 03/25/2022 Face numbness Hydrocodone Other (see comment) Medium 12/27/2022 Facial numbness Medications allopurinol 300 MG tablet 04/13/19 22 Active gabapentin 300 MG capsule 03/08/19 22 Active ONETOUCH VERIO test strip 03/26/19 22 Active Lancets (ONETOUCH DELICA PLUS [id number]) [facility] [place]/26/[place] 22 Active rOPINIRole 2 MG tablet [...] materials from doctor or pharmacy Never 02/14/2023 [facility] Utilities Answer Date Recorded In the [...] place to sleep or slept in a group home (including now)? No 12/27/2022 Comments Unknown Sex and Gender Information Value Date Recorded Sex Assigned at Female 05/13/2024 12:43 PM CDT Legal Sex Female 11:27 AM CDT Gender Identity Female 03/25/2022 8:16 AM TICKET SORTER Sexual Orientation Not on file Last Filed Vital Signs Vital Sign Reading Time Taken Comments Blood Pressure 136/81 06/24/2023 12:23 PM CDT Pulse 93 06/24/2023 12:23 PM CDT Temperature 36.3 C (97.3 F) 02/14/2023 10:00 AM TICKET SORTER Respiratory Rate 18 06/24/2023 12:23 PM CDT Oxygen Saturation 99% 03/11/2023 1:29 PM TICKET SORTER Inhaled Oxygen Concentration - - Weight 89.6 [...] this topic Medical Devices Implanted Type Area Baby Formula Worker Device Identifier Shelf Expiration Date Model / Serial / Lot Trang, Cortical Bone Screw, 4 X 24mm Implanted:Qty: 1 on 01/01/2023 by Lance Riddle MD at [facility] Right: [employer] 02/09/2025 47-2486-12 4-40 / / [id number] Bonus Triad, 5cc Implanted:Qty: 1 on 01/01/2023 by Lance Riddle MD at [facility] Right: [employer] 04/18/2027 [id number] / [id number] / Affixus Natural Nail, Proximal Humerus, Right, Long, 7 X 260mm Implanted:Qty: 1 on 01/01/2023 by Lance Riddle MD at [facility] Right: [employer] 03/11/2028 47-2496-26 0-07 / / [id number] Trang, Blunt Tip Screw, 4 X 46mm Implanted:Qty: 1 on 01/01/2023 by Lance Riddle MD at [facility] Right: [employer] 02/09/2025-2486-04 6-40 / / [id number] Trang, Blunt Tip Screw, 4 X 36mm Implanted:Qty: 1 on 01/01/2023 by Lance Riddle MD at [facility] Right: [employer] 03/11/2023 47-2486-03 6-40 / / [id number] Trang, Blunt Tip Screw, 4 X 44mm Implanted:Qty: 1 on 01/01/2023 by Lance Riddle MD at [facility] Right: [employer] 10/09/2024-2486-04 4-40 / / [id number] Explanted Type Area Baby Formula Worker Device Identifier Shelf Expiration Date Model / Serial / Lot Drill Bit Surinder 3.3mm - [id number] Explanted:Qty: 1 on 01/01/2023 by Lance Riddle MD at [facility] Drill Right: [employer] [id number] / / Humerus Ball Nose Guidewire Explanted:Qty: 1 on 01/01/2023 by Lance Riddle MD at [facility] Right: [employer] 06/13/2027 [id number] / / [id number] Guidewire Explanted:Qty: 1 on 01/01/2023 by Lance Riddle MD at [facility] Right: [employer] 290.25.280 / / 3.3mm Drill Tong Explanted:Qty: 1 on 01/01/2023 by Lance Ridlde MD at [facility] Right: [employer] [id number] / / Humerus Ball Nose Guidewire Explanted:Qty: 1 on 01/01/2023 by Lance Riddle MD at [facility] Right: [employer] 04/23/2027 [id number] / / [id number] Trang, Blunt Tip Screw, 4 X 50mm Explanted:Qty: 1 on 01/01/2023 by Lance Riddle MD at [facility] Right: [employer] 07/09/2024 [id number] / / [id number] Description:CHANGE SIZE Procedures Procedure Name Priority Date/Time Associated Diagnosis Comments HEMOGLOBIN, GLYCOSYLATED STAT 12/27/2022 12:09 AM TICKET SORTER from Last 3 Months or Most Recently Relevant to Health Maintenance Results * (ABNORMAL) HEMOGLOBIN, GLYCOSYLATED (12/27/2022 12:09 AM TICKET SORTER) HGB A1C 7.5(H) <5.7 % 12/27/2022 1:49 AM TICKET SORTER [facility] ESTIMATED AVG GLUCOSE 169(H) 74 - 114 MG/DL 12/27/2022 1:49 AM TICKET SORTER [facility] 12/27/2022 12:0 9 AM TICKET SORTER us Naseem Velasco OBSTETRICAL NURSE LABORATORY Final Resul t [facility] [address] [place] [address], [id number] from Last 3 Months or Most Recently Relevant to Health Maintenance Insurance [facility] HUMANA MEDICARE Advance Directives * Full Code (Latest Code Status on File) Date Activated Date Inactivated Comments 01/17/2023 4:23 PM * Full Code Date Activated Date Inactivated Comments 12/26/2022 8:11 PM 01/13/2023 6:39 PM Care Teams Risk Control Consultant Relationship Specialty Start Date End Date Raf Fritz MD [address] [place] [address] PCP - General INTERNAL MEDICINE 12/30/22 Raf Fritz MD [address] [place] [phone] INTERNAL MEDICINE 12/26/22 Armond Rosales MD [address] [place] [phone] TRAUMA 01/14/23 Ishmael Bertrand MD [address] [place] [phone] Consulting Physician INTERNAL MEDICINE 06/19/23
--- OUTSIDE RECORDS SUMMARY | 2025-01-26 14:03 | XMS_ITS ---
Author Organization Unknown Address [address] [place] [phone] Phone Care Team Providers Care Pacu Nurse Name Role Phone SHAYY MAYERS Attending Unavailable Immunization Immunization Date Status Additional Notes Code Code System Tdap 12/15/2018 Completed 115 CVX Influenza, high-dose, trivalent, PF 10/30/2016 Completed 135 CVX Influenza, split virus, trivalent, PF 01/09/2015 Completed 140 CVX Influenza, split virus, trivalent, PF 12/02/2023 Completed 140 CVX Influenza, split virus, quadrivalent, PF 11/26/2017 Completed 150 CVX Influenza, split virus, quadrivalent, PF 11/27/2020 Completed 150 CVX Influenza, split virus, quadrivalent, PF 11/20/2022 Completed 150 CVX Pneumococcal conjugate PCV20 , polysaccharide [id number] conjugate, adjuvant, PF 11/20/2022 Completed [address] CHEST PE ANGIO W/ CONTRAS T - Completed: 09/17/2024 17:06 LOINC: 29146-7 \TM00\\12PI\\DRAo\\BM09\ \MRHo\ [address] [address] ---------NAME--------- NUMBER SEX AGE ADMIT DISC. XRAY# F/C TYPE VIOLETA MONTENEGROStephanie Chen [id number] F 74 09/17/24 09/17/24 [id number] MB1 O/P DATE OF : 1950 M/R# [id number] PH#: [phone] RM \MRHx\ LOCATION: TRANSCRIBED: 09/17/24 17:34 CT CHEST PE ANGIO W/ CONTRAST [id number] COMPLETED:09/17/24 17:06 [facility] [id number] {REASON-CT/MRI CHEST: CHEST PAIN PHYSICIAN: SHAYY FREDERICK R A D I O L O G Y R E P O R T CTA Chest with intravenous contrast INDICATION: CHEST PAIN COMPARISON: None TECHNIQUE: Multidetector spiral CTA of the chest was performed of the chest with intravenous contrast. PULMONARY ANGIOGRAPHY PROTOCOL was utilized using a bolus-tracking technique centered on the main pulmonary artery. Axial, coronal and sagittal multiplanar and MIP reformats were performed. CONTRAST: Type of contrast: Omni 350 Contrast injected: 100 ml Radiation dose : Chest: CTDI volume is 31 mGy. Dose-length product is 1079 mGy*cm The dose indicators for CT are the volume computed Tomography (CT) dose Index (CTDIvol) and the dose Length product (DLP), and are measured in units of mGy and mGy-cm, respectively. These indicators are not patient dose, but values generated from the CT scanner acquisition factors. The report includes radiation exposure data for exposures received during this examination. Findings: Limited by motion. Pulmonary artery: No large central or large segmental pulmonary embolism. Lower neck: Normal thyroid. Lungs: Calcified granuloma in the left lung. Atelectasis and consolidation in the lung bases. Heart/Vascular Structures: Normal heart size. No pericardial effusion. Lymph Nodes: No adenopathy Pleura: No pleural effusion or significant pneumothorax. Musculoskeletal: No acute osseous abnormality. Soft tissues: Normal. Upper abdomen: Calcified granuloma in the spleen. IMPRESSION: 1. Limited by motion. No large central pulmonary embolism. 2. Calcified granuloma in the left lung. Atelectasis and consolidation in the lung bases. Clinical correlation and continued follow-up is recommended. HS:Y ER SAMPLE CASE \ITLo\ \UNDo\ \UNDx\ \ITLx\ Reviewed and Electronically Signed by: Tesfaye Valentin MD Signed Date: 09/17/24 17:34 Social History Type Status Start Date End Date Code Code Syst em Sex Female Hospital Discharge Instructions Should you have any questions prior to discharge, please contact a member of your healthcare team. If you have left the hospital and have any questions, please contact your primary care physician. Reason For Referral No Data Found Plan of Treatment No Data Found Encounters Encounter Diagnosis Start Date Code Code Sys tem Chest pain, unspecified 09/17/2024 SNOM ED-CT Personal Care Team Section Imaging Narrative Notes [facility] 09/17/2024 17:[address] [address] ---------NAME--------- NUMBER SEX AGE ADMIT DISC. XRAY# F/C TYPE VIOLETA PUENTE April [id number] F 74 09/17/24 09/17/24 [id number] MB1 O/P DATE OF : 1950 M/R# [id number] #: [id number] LOCATION: TRANSCRIBED: 09/17/24 17:34 CT CHEST PE ANGIO W/ CONTRAST [id number] COMPLETED:09/17/24 17:06 [facility] [id number] {REASON-CT/MRI CHEST: CHEST PAIN PHYSICIAN: SHAYY FREDERICK RADIOLOGY REPORT CTA Chest with intravenous contrast INDICATION: CHEST PAIN COMPARISON: None TECHNIQUE: Multidetector spiral CTA of the chest was performed of the chest with intravenous contrast. PULMONARY ANGIOGRAPHY PROTOCOL was utilized using a bolus-tracking technique centered on the main pulmonary artery. Axial, coronal and sagittal multiplanar and MIP reformats were performed. CONTRAST: Type of contrast: Omni 350 Contrast injected: 100 ml Radiation dose : Chest: CTDI volume is 31 mGy. Dose-length product is 1079 mGy*cm The dose indicators for CT are the volume computed Tomography (CT) dose Index (CTDIvol) and the dose Length product (DLP), and are measured in units of mGy and mGy-cm, respectively. These indicators are not patient dose, but values generated from the CT scanner acquisition factors. The report includes radiation exposure data for exposures received during this examination. Findings: Limited by motion. Pulmonary artery: No large central or large segmental pulmonary embolism. Lower neck: Normal thyroid. Lungs: Calcified granuloma in the left lung. Atelectasis and consolidation in the lung bases. Heart/Vascular Structures: Normal heart size. No pericardial effusion. Lymph Nodes: No adenopathy Pleura: No pleural effusion or significant pneumothorax. Musculoskeletal: No acute osseous abnormality. Soft tissues: Normal. Upper abdomen: Calcified granuloma in the spleen. IMPRESSION: 1. Limited by motion. No large central pulmonary embolism. 2. Calcified granuloma in the left lung. Atelectasis and consolidation in the lung bases. Clinical correlation and continued follow-up is recommended. HS:Y ER SAMPLE CASE Reviewed and Electronically Signed by: Tesfaye Valentin MD Signed Date: 09/17/24 17:34
== END 2025-01-26 12:09 | disposition home or self-care (01) ==
LOC: CHSIMG 12:09
PROVIDERS: PCP Internal Medicine; Visit Provider Internal Medicine
DX: I73.9 Peripheral vascular disease, unspecified (principal)
CPT/HCPCS: 93922

== ENCOUNTER 2025-01-27 09:45 | Observation (INO) | payer MEDICARE, SELFPAY ==
--- NOTE | ~2025-01-27 | XR_ITS ---
EXAMINATION: XR chest 2V, 01/27/2025 11:35 SALES LEAD HISTORY: fall COMPARISON: No comparisons available. Technique: 2 views obtained. Findings: The lungs are clear, no effusion. No pneumothorax. Heart is normal size. Mediastinal and hilar contours are within normal limits. Bony thorax no acute abnormality. Impression: No acute cardiopulmonary abnormality. Reviewed, dictated and finalized at location P. S LEAD Impression: No acute cardiopulmonary abnormality.
--- NOTE | ~2025-01-27 | CT_ITS ---
EXAM/PROCEDURE: CT pelvis wo con HISTORY: fall, negative x-ray COMPARISON: September 03, [address] exam TECHNIQUE: Pelvic CT without contrast FINDINGS: Mildly comminuted minimally displaced mid left inferior ramus fracture image 99 series 3. Ramus fractures typically involve both the superior and inferior parts of the obturator ring, though the superior ramus fracture is not clearly identified. The left hip is intact. Sacral alar regions intact. No other fracture seen. Mild soft tissue swelling and trace hematoma about the fracture site noted. Urinary bladder appears mildly distended. Degenerative changes throughout the hips and lower lumbar spine. IMPRESSION: Minimally comminuted mildly displaced left inferior ramus fracture and probable nondisplaced superior ramus fracture. No other fracture seen. Urinary bladder is mildly distended; query if patient requires catheterization. Reviewed, dictated and finalized at location A. TENDER
--- NOTE | ~2025-01-27 | XR_ITS ---
Examination: XR chest 1V portable Clinical History: Fever Comparison: 1 day prior Technique: Portable AP Findings: Heart size normal. Subtle bibasilar streaky opacity consistent with atelectasis. No acute bony abnormality. IMPRESSION: 1. No definite acute cardiopulmonary findings given portable technique. Reviewed, dictated and finalized at location R. SH MIXER
--- NOTE | ~2025-01-27 | XR_ITS ---
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 Findings: No acute fracture or malalignment. Moderate degenerative changes Soft tissues unremarkable. Impression: No acute fracture or malalignment. Reviewed, dictated and finalized at location P. E BOARDER Impression: No acute fracture or malalignment.
--- NOTE | ~2025-01-27 | CT_ITS ---
EXAM/PROCEDURE: CT lumbar spine wo con HISTORY: low back pain, fall COMPARISON: None available. TECHNIQUE: Lumbar spine CT FINDINGS: No fracture or traumatic malalignment. Degenerative changes throughout the lumbar spine involving disc spaces and posterior elements. No gross acute paravertebral or intrathecal soft tissue swelling or hematoma. No large disc herniation or severe spinal canal stenosis. IMPRESSION: No fracture lucency L1-L5. Reviewed, dictated and finalized at location A. ING MANAGER IMPRESSION: No fracture lucency L1-L5.
--- NOTE | ~2025-01-27 | CT_ITS ---
EXAM/PROCEDURE: CT abdomen w con HISTORY: Abdominal distension COMPARISON: September 03, 2023 TECHNIQUE: IV contrast enhanced CT of the abdomen only FINDINGS: The visualized bowel gas pattern is nonobstructive. No free air free, fluid or pneumatosis within the field of view. Right-sided supraumbilical ventral hernia repair. Cholecystectomy clips. At least moderate amount of stool extends to the cecum. There are several loops of fluid and gas-filled small and large bowel with no gross obstruction. Mild subsegmental atelectatic changes in the lung bases. Heart size normal. Coronary calcifications noted. No hydroureteronephrosis within the field of view. Aorta is normal size with moderate atherosclerotic calcification. No acute arterial occlusion seen. The liver adrenal glands spleen pancreas and stomach appear stable. Diffuse degenerative changes in the bones which otherwise appear intact. IMPRESSION: 1. Limited exam of the abdomen only. No acute surgical process seen. At least moderate amount of stool present. 2. Postsurgical changes as above. 3. Subsegmental atelectatic appearing changes in both lung bases new since the previous study. Correlate with follow-up chest imaging. Reviewed, dictated and finalized at location A. NG STAPLER IMPRESSION: 1. Limited exam of the abdomen only. No acute surgical process seen. At least m oderate amount of stool present. 2. Postsurgical changes as above. 3. Subsegmental atelectatic appearing changes in both lung bases new since the previous study. Correlate with follow-up chest imaging.
--- NOTE | 2025-01-27 10:31 | ED_ITS ---
HPI - Fall General Chief Complaint: Fall <Carmen Simpson PA-C - Last Filed: 01/27/25 14:36> Stated Complaint: FALL <Carmen Simpson PA-C - Last Filed: 01/27/25 14:36> Source: patient <Carmen Dez Simpson PA-C - Last Filed: 01/27/25 14:36> Mode of arrival: EMS <Carmen Simpson PA-C - Last Filed: 01/27/25 14:36> Limitations: no limitations <Carmen Simpson PA-C - Last Filed: 01/27/25 14:36> History of Present Illness HPI Narrative: This is a 74-year-old female that presents to the emergency department after a fall today. Reports she slipped and fell on to her left side. Reports left hip and low back pain. She did not hit her head or lose consciousness. Denies vomiting, weakness, numbness. <Carmen Simpson PA-C - Last Filed: 01/27/25 14:36> Related Data Home Medications: Home Medications ?Medication ?Instructions ?Recorded ?Confirmed ?Last Taken ?Type glimepiride 4 mg tablet 4 mg PO BID 12/15/18 5 01/26/25 History warfarin 5 mg tablet (Coumadin) See Rx Instructions .R oute .COMPLEX 12/15/18 01/27/25 01/26/25 History ropinirole 0.5 mg tablet 0.5 - 1 mg PO HS 04/08/1904/11/19 21:00 History rosuvastatin 5 mg tablet 5 mg PO DAILY 04/08/1901/2701/26/25 History allopurinol 300 mg tablet 300 mg PO DAILY 06/10/2101/26/25 History amitriptyline 25 mg tablet 25 mg PO HS 06/10/2101/26/25 History duloxetine 20 mg capsule,delayed 20 mg PO BID 06/10/21 01/27/25 01/26/25 History release ergocalciferol (vitamin D2) 1,250 2,500 mcg PO DAILY 1 01/27/25 01/26/25 History mcg (50,000 unit) capsule prednisone 5 mg tablet 5 mg PO DAILY 12/05/2101/2701/26/25 History aspirin 81 mg tablet 81 mg PO DAILY 01/27/2501/1001/26/25 History omeprazole magnesium 20 mg 20 mg PO PRN 01/27/2501/27 Unknown History tablet,delayed release (Prilosec OTC) verapamil 120 mg tablet,extended 120 mg PO DAILY 01/2701/27/25 01/26/25 History release <Carmen Simpson PA-C - Last Filed: 01/27/25 14:36> Allergies/Adverse Reactions: Allergies Allergy/AdvReac Type Severity Reaction Status Date / Time hydrocodone (From Vicodin) Allergy Numbness Verified 01/27/25 17:01 <Carmen Simpson PA-C - Last Filed: 01/27/25 14:36> Review of Systems 2 Review of Systems: All systems reviewed & are unremarkable except as noted in HPI and below <Carmen Simpson PA-C - Last Filed: 01/27/25 14:36> [facility] Past Medical History Medical History: Medical History Paroxysmal atrial fibrillation Body mass index [BMI] 34.0-34.9, adult (07/16/17) Chronic diarrhea Hypertension TIA (transient ischemic attack) Otalgia Neuropathy Cerebrovascular disease, unspecified Gout, unspecified Mixed hyperlipidemia Type 2 diabetes mellitus without complications <Carmen Simpson PA-C - Last Filed: 01/27/25 14:36> Surgical History Surgical History: Surgical History History of Hx of cholecystectomy <DIXIE Brito Last Filed: 01/27/25 14:36> Family History Family History: Family History Father Family history of cardiovascular disease Family history of congestive heart failure Grandparent Cerebrovascular accident Sibling Cirrhosis of liver <DIXIE Brito Last Filed: 01/27/25 14:36> Social History Social History: Social History Smoking status: Never smoker Alcohol intake: never Substance use: never Lack of Transportation: No Lack of Food: Never True Current Housing: Decline to Answer Concerned About Future Housing: Decline to Answer Difficulty Paying Gas/Electric Bills: Decline to Answer Difficulty Paying for Meds: Decline to Answer Currently Unemployed: Decline to Answer Education: Decline to Answer Difficulty w/ Childcare or Family Care: Decline to Answer Spiritual care concerns: No <Carmen Simpson PA-C - Last Filed: 01/27/25 14:36> Exam 2 Narrative: GENERAL: Well-appearing, well-nourished, and in no acute distress. HEAD: Normocephalic, atraumatic. EYES: PERRLA and EOMI. ENT: Nares clear, no rhinorrhea or epistaxis. Mucous membranes moist. Oropharynx without tonsillar hypertrophy exudate or other lesions. Bilateral TMs pearly lozano non-bulging NECK: Supple. No adenopathy or masses. CHEST: Clear to auscultation. No respiratory distress. No wheezes rales or rhonchi HEART: Regular rate and rhythm. No murmur heard. Normal peripheral pulses. EXTREMITIES: Normal range of motion, except decreased active ROM in the left hip. No edema. Normal DP pulses SKIN: Warm, dry, no rash. NEURO: No focal deficits. Alert and oriented x3. Cranial nerves 2-12 grossly intact PSYCH: Normal mood and affect <Carmen Simpson PA-C - Last Filed: 01/27/25 14:36> Course OPERATING SYSTEMS PROGRAMMER/PA Physician Supervision This visit was performed by both a physician and an APC; I performed all aspects of the medical decision making component of this evaluation as documented. <Nancy Palma MD - Last Filed: 01/27/25 18:08> Consultations Orthopedics: I have discussed the care of this patient with the following provider: Dr. Barraza <Carmen Simpson PA-C - Last Filed: 01/27/25 14:36> Vital Signs Vital signs: Vital Signs Temperature 98 F 01/27/25 10:39 Pulse Rate 83 01/27/25 10:39 Respiratory Rate 17 01/27/25 10:39 Blood Pressure 167/79 H 01/27/25 10:39 Pulse Oximetry 98 01/27/25 10:39 Oxygen Delivery Room Air 01/27/25 10:39 Temperature 98 F 01/27/25 10:39 Pulse Rate 83 01/27/25 15:03 Respiratory Rate 13 01/27/25 15:03 Blood Pressure 137/72 01/27/25 15:03 Pulse Oximetry 98 01/27/25 15:03 Oxygen Delivery Room Air 01/27/25 18:04 <Carmen Simpson PA-C - Last Filed: 01/27/25 14:36> Vital Signs Temperature 98 F 01/27/25 10:39 Pulse Rate 83 01/27/25 10:39 Respiratory Rate 17 01/27/25 10:39 Blood Pressure 167/79 H 01/27/25 10:39 Pulse Oximetry 98 01/27/25 10:39 Oxygen Delivery Room Air 01/27/25 10:39 Temperature 98 F 01/27/25 10:39 Pulse Rate 83 01/27/25 15:03 Respiratory Rate 13 01/27/25 15:03 Blood Pressure 137/72 01/27/25 15:03 Pulse Oximetry 98 01/27/25 15:03 Oxygen Delivery Room Air 01/27/25 18:04 <Nancy Palma MD - Last Filed: 01/27/25 18:08> [facility] Narrative Medical decision making narrative: Patient presents to the ER after a fall today with left hip/low back pain. She did not hit her head or lose consciousness. Her vitals are stable. She is neurologically intact. Imaging showing left inferior ramus fracture as well as possible superior ramus fracture. Patient will be admitted to the hospitalist service for PT/OT. Orthopedics was consulted <Carmen Simpson PA-C - Last Filed: 01/27/25 14:36> Differential Diagnosis Differential Diagnosis: hip fracture, pelvic fracture <DIXIE Brito Last Filed: 01/27/25 14:36> Lab Data [facility] Lab Attestation statement: I personally reviewed the patient's lab results. <Carmen Simpson PA-C - Last Filed: 01/27/25 14:36> Result diagrams: 01/27/25 13:53 01/27/25 13:53 <Carmen Simpson PA-C - Last Filed: 01/27/25 14:36> Labs: Lab Results 01/27/25 Range/Units 13:53 WBC 11.1 H (4.5-10.0) K/mm3 RBC 4.22 (4.2-5.4) M/mm3 Hgb 12.4 (12.0-15.0) g/dL Hct 39.7 (37.0-47.0) % MCV 94.1 (80-100) fl MCH 29.4 (26-34) pg MCHC 31.2 L (32-36) g/dl RDW 14.2 (11.5-14.5) % Plt Count 237 (150-375) k/mm3 MPV 10.9 H (7.4-10.4) fl Immature Gran % (Auto) 0.8 H (0-0.5) % Neut % (Auto) 76.5 H (45.5-73.1) % Lymph % (Auto) 14.3 L (18.3-44.2) % [place] % (Auto) 7.7 (2.6-8.5) % Eos % (Auto) 0.4 (0-4.4) % Baso % (Auto) 0.3 (0.2-1.2) % Lymph # (Auto) 1.59 (0.9-3.2) K/mm3 [place] # (Auto) 0.9 H (0.1-0.6) K/mm3 Eos # (Auto) 0.1 (0-0.3) K/mm3 Baso # (Auto) 0.0 (0.0-0.1) K/mm3 Abs Immat Gran (auto) 0.09 H (0.00-0.031) K/mm3 Absolute Neuts (auto) 8.5 H (1.3-6.7) K/mm3 Absolute Nucleated RBC 0.000 (0.0-0.012) K/mm3 Nucleated RBC % 0.0 (0.0-0.2) % Sodium 141 (137-145) mmol/L Potassium 3.8 (3.4-5.0) mmol/L Chloride 108 H (98-107) mmol/L Carbon Dioxide 25 (22-30) mmol/L Anion Gap 8 (4-12) mmol/L BUN 20 H (7-17) mg/dL Creatinine 0.69 L (0.7-1.0) mg/dL Estim Creat Clear Calc 71 ml/min Estimated GFR > 60 (59 - ) Glucose 152 H (65-110) mg/dL Calcium 9.2 (8.4-10.2) mg/dL <Carmen Simpson PA-C - Last Filed: 01/27/25 14:36> Lab Results 01/27/25 Range/Units 13:53 WBC 11.1 H (4.5-10.0) K/mm3 RBC 4.22 (4.2-5.4) M/mm3 Hgb 12.4 (12.0-15.0) g/dL Hct 39.7 (37.0-47.0) % MCV 94.1 (80-100) fl MCH 29.4 (26-34) pg MCHC 31.2 L (32-36) g/dl RDW 14.2 (11.5-14.5) % Plt Count 237 (150-375) k/mm3 MPV 10.9 H (7.4-10.4) fl Immature Gran % (Auto) 0.8 H (0-0.5) % Neut % (Auto) 76.5 H (45.5-73.1) % Lymph % (Auto) 14.3 L (18.3-44.2) % [place] % (Auto) 7.7 (2.6-8.5) % Eos % (Auto) 0.4 (0-4.4) % Baso % (Auto) 0.3 (0.2-1.2) % Lymph # (Auto) 1.59 (0.9-3.2) K/mm3 [place] # (Auto) 0.9 H (0.1-0.6) K/mm3 Eos # (Auto) 0.1 (0-0.3) K/mm3 Baso # (Auto) 0.0 (0.0-0.1) K/mm3 Abs Immat Gran (auto) 0.09 H (0.00-0.031) K/mm3 Absolute Neuts (auto) 8.5 H (1.3-6.7) K/mm3 Absolute Nucleated RBC 0.000 (0.0-0.012) K/mm3 Nucleated RBC % 0.0 (0.0-0.2) % Sodium 141 (137-145) mmol/L Potassium 3.8 (3.4-5.0) mmol/L Chloride 108 H (98-107) mmol/L Carbon Dioxide 25 (22-30) mmol/L Anion Gap 8 (4-12) mmol/L BUN 20 H (7-17) mg/dL Creatinine 0.69 L (0.7-1.0) mg/dL Estim Creat Clear Calc 71 ml/min Estimated GFR > 60 (59 - ) Glucose 152 H (65-110) mg/dL Calcium 9.2 (8.4-10.2) mg/dL <Nancy Palma MD - Last Filed: 01/27/25 18:08> Imaging Data Radiologist's impression: ITS Impressions Lumbar Spine CT 01/27/25 11:07 IMPRESSION: No fracture lucency L1-L5. Hip/Pelvis X-Ray 01/27/25 11:49 Impression: No acute fracture or malalignment. Chest X-Ray 01/27/25 11:53 Impression: No acute cardiopulmonary abnormality. Pelvis CT 01/27/25 12:33 IMPRESSION: Minimally comminuted mildly displaced left inferior ramus fracture and probable nondisplaced superior ramus fracture. No other fracture seen. Urinary bladder is mildly distended; query if patient requires catheterization. <Carmen Simpson PA-C - Last Filed: 01/27/25 14:36> ITS Impressions Lumbar Spine CT 01/27/25 11:07 IMPRESSION: No fracture lucency L1-L5. Hip/Pelvis X-Ray 01/27/25 11:49 Impression: No acute fracture or malalignment. Chest X-Ray 01/27/25 11:53 Impression: No acute cardiopulmonary abnormality. Pelvis CT 01/27/25 12:33 IMPRESSION: Minimally comminuted mildly displaced left inferior ramus fracture and probable nondisplaced superior ramus fracture. No other fracture seen. Urinary bladder is mildly distended; query if patient requires catheterization. <Nancy Palma MD - Last Filed: 01/27/25 18:08> Critical Care Time Critical Care Time Critical Care Time: No <Carmen Simpson PA-C - Last Filed: 01/27/25 14:36> Discharge Plan Discharge Clinical Impression: Fracture of left inferior pubic ramus Qualifiers: Encounter type: initial encounter Fracture type: closed Qualified Code(s): S 32.592A - Other specified fracture of left pubis, initial encounter for closed fracture <Carmen Simpson PA-C - Last Filed: 01/27/25 14:36> Patient Disposition: Still a Patient <Carmen Simpson PA-C - Last Filed: 01/27/25 14:36> Condition: Stable <Carmen Simpson PA-C - Last Filed: 01/27/25 14:36>
[2025-01-27 10:39] VITALS: BP 167/79; PULSE 83; RESP 17; TEMP 36.6; O2SAT 98
--- OUTSIDE RECORDS SUMMARY | 2025-01-27 11:04 | XMS_ITS ---
Author Organization Unknown Address [address] [place] [phone] Phone Care Team Providers Care Surveillance Analyst Name Role Phone SHAYY MAYERS Attending Unavailable [...] 150 CVX Pneumococcal conjugate PCV20 , polysaccharide CFC152 conjugate, adjuvant, PF 11/20/2022 Completed [address] CHEST PE ANGIO W/ CONTRAS T - Completed: 09/17/2024 17:06 LOINC: 81255-6 \TM00\\12PI\\DRAo\\BM09\ \MRHo\ [address] [address] ---------NAME--------- NUMBER SEX AGE ADMIT DISC. XRAY# F/C TYPE VIOLETA PUENTE April [id number] F 74 09/17/24 09/17/24 44571 MB1 O/P DATE OF : 1950 M/R# [id number] PH#: [phone] RM \MRHx\ LOCATION: TRANSCRIBED: 09/17/24 17:34 CT CHEST PE ANGIO W/ CONTRAST [id number] COMPLETED:09/17/24 17:06 [facility] [id number] {REASON-CT/MRI CHEST: CHEST PAIN PHYSICIAN: SHAYY RFEDERICK R A D I O L O [...] correlation and continued follow-up is recommended. HS:Y BOX WIRER \ITLo\ \UNDo\ \UNDx\ \ITLx\ Reviewed and Electronically [...] Personal Care Team Section Imaging Narrative Notes [facility] 09/17/2024 17:[address] [address] ---------NAME--------- NUMBER SEX AGE ADMIT DISC. XRAY# F/C TYPE VIOLETA PUENTE April [id number] F 74 09/17/24 09/17/24 [id number] MB1 O/P DATE OF : 1950 M/R# [id number] #: [id number] LOCATION: TRANSCRIBED: 09/17/24 17:34 CT CHEST PE ANGIO W/ CONTRAST [id number] COMPLETED:09/17/24 17:06 [facility] [id number] {REASON-CT/MRI CHEST: CHEST PAIN PHYSICIAN: SHAYY FREDERICK [...] correlation and continued follow-up is recommended. HS:Y BOX WIRER Reviewed and Electronically Signed by: Tesfaye Valentin MD Signed Date: 09/17/24 17:34
--- OUTSIDE RECORDS SUMMARY | 2025-01-27 11:04 | XMS_ITS | Patient Health Record ---
Author Organization [facility] Address [address] [place], [place] [id number] Care Team Providers Care Weight Reduction Specialist Name Role Phone Raf Fritz Unavailable Unavailable [...] Insured Coverage Start Date Coverage End Date [facility] [address] [address] [place], [place] [phone] [id number] Milagro Godoy Self - patient is the insured Medicare Part B [place] [address] [place] [address] [id number] Milagro Godoy Self - patient is the insured Medical (General) History Medical History History ICD Code acid reflux neuropathy stroke Leg/Feet cramps Steroid Treatment Gout Diabetic varicose veins restless leg syndrome hypertension Surgical History Surgery Date(Month/Year) Gall Bladder
--- OUTSIDE RECORDS SUMMARY | 2025-01-27 11:04 | XMS_ITS | Clinical Summary ---
Author Organization [facility] Address [facility] [place] [address] Care Team Providers Care Health Information Assistant Name Role Phone Raf Fritz MD Primary Care Provider [phone] Raf Fritz MD Unavailable [phone] Armond Rosales MD Unavailable [phone] Ishmael Bertrand MD Unavailable Allergies Active Allergy Reactions Criticality Noted Date Comments Hydrocodone Other (see comment) Medium 03/25/2022 Face numbness Hydrocodone Other (see comment) Medium 12/27/2022 Facial numbness Medications allopurinol 300 MG tablet 04/13/19 22 Active gabapentin 300 MG capsule 03/08/19 22 Active ONETOUCH VERIO test strip 03/26/19 22 Active Lancets (ONETOUCH DELICA PLUS [id number]) [facility]/26/19 22 Active rOPINIRole 2 MG tablet [...] materials from doctor or pharmacy Never 02/14/2023 [facility] Utilities Answer Date Recorded In the [...] to sleep or slept in a senior living (including now)? No 12/27/2022 Comments Unknown Sex and Gender Information Value Date Recorded Sex Assigned at Female 05/13/2024 12:43 PM CDT Legal Sex Female 11:27 AM CDT Gender Identity Female 03/25/2022 8:16 AM CAMP HOUSEKEEPER Sexual Orientation Not on file Last Filed Vital Signs Vital Sign Reading Time Taken Comments Blood Pressure 136/81 06/24/2023 12:23 PM CDT Pulse 93 06/24/2023 12:23 PM CDT Temperature 36.3 C (97.3 F) 02/14/2023 10:00 AM CAMP HOUSEKEEPER Respiratory Rate 18 06/24/2023 12:23 PM CDT Oxygen Saturation 99% 03/11/2023 1:29 PM CAMP HOUSEKEEPER Inhaled Oxygen Concentration - - Weight 89.6 [...] this topic Medical Devices Implanted Type Area Citrus Fruit Packer Device Identifier Shelf Expiration Date Model / Serial / Lot Trang, Cortical Bone Screw, 4 X 24mm Implanted:Qty: 1 on 01/01/2023 by Lance Riddle MD at [facility] Right: [employer] 02/09/2025 47-2486-12 4-40 / / [id number] Bonus Triad, 5cc Implanted:Qty: 1 on 01/01/2023 by Lance Riddle MD at [facility] Right: [employer] 04/18/2027 [id number] / [id number] / Affixus Natural Nail, Proximal Humerus, Right, Long, 7 X 260mm Implanted:Qty: 1 on 01/01/2023 by Lance Riddle MD at [facility] Right: [employer] 03/11/2028 [id number] 0-07 / / [id number] Trang, Blunt Tip Screw, 4 X 46mm Implanted:Qty: 1 on 01/01/2023 by Lance Riddle MD at [facility] Right: [employer] 02/09/2025-2486-04 6-40 / / [id number] Trang, Blunt Tip Screw, 4 X 36mm Implanted:Qty: 1 on 01/01/2023 by Lance Riddle MD at [facility] Right: [employer] 03/11/2023 [id number] 6-40 / / [id number] Trang, Blunt Tip Screw, 4 X 44mm Implanted:Qty: 1 on 01/01/2023 by Lance Riddle MD at [facility] Right: [employer] 10/09/2024-2486-04 4-40 / / [id number] Explanted Type Area Citrus Fruit Packer Device Identifier Shelf Expiration Date Model / Serial / Lot Drill Bit Surinder 3.3mm - [id number] Explanted:Qty: 1 on 01/01/2023 by Lance Riddle MD at [facility] Drill Right: [employer] [id number] / / Humerus Ball Nose Guidewire Explanted:Qty: 1 on 01/01/2023 by Lance Riddle MD at [facility] Right: [employer] 06/13/2027 [id number] / / [id number] Guidewire Explanted:Qty: 1 on 01/01/2023 by Lance Riddle MD at [facility] Right: [employer] [id number] / / 3.3mm Drill Tong Explanted:Qty: 1 on 01/01/2023 by Lance Riddle MD at [facility] Right: [employer] [id number] / / Humerus Ball Nose Guidewire Explanted:Qty: 1 on 01/01/2023 by Lance Riddle MD at [facility] Right: [employer] 04/23/2027 [id number] / / [id number] Trang, Blunt Tip Screw, 4 X 50mm Explanted:Qty: 1 on 01/01/2023 by Lanec Riddle MD at [facility] Right: [employer] 07/09/2024 [id number] / / [id number] Description:CHANGE SIZE Procedures Procedure Name Priority Date/Time Associated Diagnosis Comments HEMOGLOBIN, GLYCOSYLATED STAT 12/27/2022 12:09 AM CAMP HOUSEKEEPER from Last 3 Months or Most Recently Relevant to Health Maintenance Results * (ABNORMAL) HEMOGLOBIN, GLYCOSYLATED (12/27/2022 12:09 AM CAMP HOUSEKEEPER) HGB A1C 7.5(H) <5.7 % 12/27/2022 1:49 AM CAMP HOUSEKEEPER [facility] ESTIMATED AVG GLUCOSE 169(H) 74 - 114 MG/DL 12/27/2022 1:49 AM CAMP HOUSEKEEPER [facility] 12/27/2022 12:0 9 AM CAMP HOUSEKEEPER us Naseem Velasco [employer] Final Resul t [facility] [address] [place] [address], [id number] from Last 3 Months or Most Recently Relevant to Health Maintenance Insurance [employer] MEDIC[employer] Advance Directives * Full Code (Latest Code Status on File) Date Activated Date Inactivated Comments 01/17/2023 4:23 PM * Full Code Date Activated Date Inactivated Comments 12/26/2022 8:11 PM 01/13/2023 6:39 PM Care Teams Health Information Assistant Relationship Specialty Start Date End Date Raf Fritz MD [address] [place] [address] PCP - General INTERNAL MEDICINE 12/30/22 Raf Fritz MD [address] [place] [phone] INTERNAL MEDICINE 12/26/22 Armond Rosales MD [address] [place] [phone] TRAUMA 01/14/23 Ishmael Bertrand MD [address] [place] [phone] Consulting Physician INTERNAL MEDICINE 06/19/23
[2025-01-27 11:28] VITALS: BP 165/74; PULSE 82; RESP 17; O2SAT 97
[2025-01-27 12:43] VITALS: BP 179/78; PULSE 83; RESP 14; O2SAT 98
[2025-01-27] MEDS: ONDANSETRON INJ 4 MG/2 ML VIAL IV PUSH (12:58)
[2025-01-27] MEDS: MORPHINE SULFATE (*CRX) 4 MG/ML INJ IV PUSH ×2 (12:59→21:58)
--- NOTE | 2025-01-27 13:18 | PC.NURSE ---
IV blew upon flushing. Myself and another RN attempted IV access with no success. Charla with vascular access called to obtain an IV to give pain medications
[2025-01-27 14:02] LABS: Hematocrit 39.7 % (37.0-47.0); Hemoglobin 12.4 g/dL (12.0-15.0); Immature Granulocyte Percent A 0.8 % (0-0.5); Lymphocytes Absolute Auto 1.59 K/mm3 (0.9-3.2); Mean Corpuscular HGB Conc 31.2 g/dl (32-36); Mean Corpuscular Hemoglobin 29.4 pg (26-34); Mean Corpuscular Volume 94.1 fl (80-100); Nucleated Red Blood Cells Absolute Auto 0.000 K/mm3 (0.0-0.012); Nucleated Red Blood Cells Perc 0.0 % (0.0-0.2); Platelet Count Result 237 k/mm3 (150-375); Red Blood Count 4.22 M/mm3 (4.2-5.4); White Blood Count 11.1 K/mm3 (4.5-10.0)
[2025-01-27 14:13] LABS: Anion Gap 8 mmol/L (4-12); Blood Urea Nitrogen 20 mg/dL (7-17); Calcium 9.2 mg/dL (8.4-10.2); Carbon Dioxide 25 mmol/L (22-30); Chloride 108 mmol/L (98-107); Estimated CRCL calculation 71 ml/min; Estimated Glomerular Filt Rate > 60; Glucose 152 mg/dL (65-110); Potassium 3.8 mmol/L (3.4-5.0); Sodium 141 mmol/L (137-145)
--- NOTE | 2025-01-27 14:14 | PC.NURSE ---
external catheter placed on patient
--- NOTE | 2025-01-27 14:48 | PC.NURSE ---
Meal tray ordered for patient
[2025-01-27 15:03] VITALS: BP 137/72; PULSE 83; RESP 13; O2SAT 98
--- NOTE | 2025-01-27 15:04 | WPCEDHO ---
ED Hand Off Checklist All vitals saved:yes IV Site documented:yes All med administrations documented:yes Triage Note Triage Note Patient arrival to the ED during 01/27/25 10:39 down time at 0945 Patient had a GLF resulting in left hip and lower back pain. Patient denies head injury or LOC . Patient A&Ox4. No deformity or rotation to the left leg. PMS intact Allergies hydrocodone (From Vicodin) Allergy (Verified 01/27/25 10:43) Numbness Family History (Last Reviewed 12/11/24 @ 11:27 by Jc Babcock MD) Father Family history of cardiovascular disease Family history of congestive heart failure Grandparent Cerebrovascular accident Sibling Cirrhosis of liver Administered/Completed Medications Discontinued Medications Morphine Sulfate (Morphine Sulfate (*Crx) 4 Mg/Ml Inj) 4 mg IV PUSH ONCE STA Stop: 01/27/25 12:54 Last Admin: 01/27/25 12:59 Dose: 4 mg Documented By: [facility] Ondansetron HCl (Ondansetron Inj 4 Mg/2 Ml Vial) 4 mg IV PUSH ONCE STA Stop: 01/27/25 12:54 Last Admin: 01/27/25 12:58 Dose: 4 mg Documented By: [facility] Notes 01/27/25 14:48 Nurse Note by Emelia Peña. Meal tray ordered for patient Initialized on 01/27/25 14:48 - END OF NOTE 01/27/25 14:14 Nurse Note by Emelia Peña. external catheter placed on patient Initialized on 01/27/25 14:14 - END OF NOTE 01/27/25 13:18 Nurse Note by Emelia Peña. IV blew upon flushing. Myself and another RN attempted IV access with no success. Charla with vascular access called to obtain an IV to give pain medications Initialized on 01/27/25 13:18 - END OF NOTE Interventions/Assessments IV Line Assessment Start: 01/27/25 10:39 Freq: Status: Active Protocol: Document 01/27/25 13:42 [facility] (Rec: 01/27/25 13:43 [facility] [id number]) IV Assessment Peripheral Access Right Medial Forearm IV Catheter Access Initiated IV Insertion Date 01/27/25 IV Insertion Time 13:35 Catheter Gauge 22 IV Insertion 1 Attempts Ultrasound Used for Yes: 1.75 inserted Placement IV Site Assessment WNL IV Care and WNL,Dressing Applied, Dated, Timed, and Initialed Maintenance PA: Musculoskeletal Assessment Start: 01/27/25 10:39 Freq: Status: Active Protocol: Document 01/27/25 12:43 [facility] (Rec: 01/27/25 12:44 [facility] [id number]) Musculoskeletal Assessment Left Lower Back Musculoskeletal Muscle Pain,Muscle Pain With Movement Symptoms Limb Description Normal Range of Motion Full Range of Motion Able to Dorsiflex Yes Able to Plantar Flex Yes Strength Strong Last Vital Signs Temperature 98 F 01/27/25 10:39 Pulse Rate 83 01/27/25 15:03 Respiratory Rate 13 01/27/25 15:03 Pulse Oximetry 98 01/27/25 15:03 Blood Pressure 137/72 01/27/25 15:03 Blood Pressure Mean 93 01/27/25 15:03 Oxygen Delivery Room Air 01/27/25 10:39 Weight 91.6 kg 01/27/25 10:39 Last Result - Abnormals Only WBC 11.1 K/mm3 (4.5-10.0) H 01/27/25 13:53 MCHC 31.2 g/dl (32-36) L 01/27/25 13:53 MPV 10.9 fl (7.4-10.4) H 01/27/25 13:53 Immature Gran % (Auto) 0.8 % (0-0.5) H 01/27/25 13:53 Neut % (Auto) 76.5 % (45.5-73.1) H 01/27/25 13:53 Lymph % (Auto) 14.3 % (18.3-44.2) L 01/27/25 13:53 [place] # (Auto) 0.9 K/mm3 (0.1-0.6) H 01/27/25 13:53 Abs Immat Gran (auto) 0.09 K/mm3 (0.00-0.031) H 01/27/25 13:53 Absolute Neuts (auto) 8.5 K/mm3 (1.3-6.7) H 01/27/25 13:53 Chloride 108 mmol/L (98-107) H 01/27/25 13:53 BUN 20 mg/dL (7-17) H 01/27/25 13:53 Creatinine 0.69 mg/dL (0.7-1.0) L 01/27/25 13:53 Glucose 152 mg/dL (65-110) H 01/27/25 13:53 Most Recent Suicide Severity Rating Suicide Severity Rating NO RISK INDICATED 01/27/25 10:39
[2025-01-27 16:33] VITALS: BMI 32.5
--- NOTE | 2025-01-27 16:34 | ADMGEN ---
This patient, Milagro Jon, was admitted to Medical Room 344-01. Patient/family oriented to hospital policies and general routines including ID bracelet, bed and alarms, visiting hours, pain management, procedures, bathroom and other care routines, personal items, smoking policy, room service/diet, and visiting hours. Information on how to activate the Rapid Response Team has been discussed. Patient/Family are encouraged to report perceived risks to care and to ask questions if they do not understand what they are told or what they should do.
[2025-01-27 22:00] VITALS: BP 143/66; PULSE 90; RESP 18; TEMP 36.6; O2SAT 97
--- NOTE | 2025-01-28 00:34 | PM.IMHP2 ---
H&P: HPI History of Present Illness Date/Time: 01/28/25 00:34 Chief Complaint: FALL Narrative: THIS IS A 74-YEAR-OLD FEMALE PATIENT who has a history of Periactin will atrial fibrillation, hypertension, TIA, diabetes, and CVAs. The patient stated that she heard her dog vomiting on the bed. She was in her bedroom in the dark and decided to get up. The patient had slipped on the floor but was not sure what she had slipped on. Later on she had found out that she had slipped in the dogs vomit. She denied hitting her head or losing consciousness. The patient was complaining of left hip pain and left back pain. She denies any nausea vomiting or diarrhea. Her white count was noted to be 11.1. Blood sugars are 152, 141, 155. BUN is 20 creatinine 0.69 with a GFR greater than 60. Hip and pelvis x-ray was read as no acute fracture or malalignment. Moderate degenerative changes. Soft tissue unremarkable. Chest x-ray was read as no acute cardiopulmonary abnormality. Pelvis CT was read as a followingMinimally comminuted mildly displaced left inferior ramus fracture and probable nondisplaced superior ramus fracture. No other fracture seen. Urinary bladder is mildly distended; query if patient requires catheterization. A Lord catheter was placed in the emergency room. The patient was given morphine and Zofran in the emergency room. The patient is being admitted to observation status on the date of service of 01/28/2025. Review of Systems Constitutional: Constitutional: Reports as per HPI and Reports no additional constitutional complaints Eyes: Eyes: Reports as per HPI and Reports no additional eye complaints ENT: Reports system reviewed and no additional complaints, except as documented and Reports Normal hearing present Cardiovascular: Cardiovascular: Reports no additional cardiovascular complaints Respiratory: Respiratory: Reports as per HPI and Reports no additional respiratory complaints Gastrointestinal: Gastrointestinal: Reports as per HPI and Reports no additional gastrointestinal complaints Genitourinary: Genitourinary: Reports no additional female genitourinary complaints Musculoskeletal: Musculoskeletal: Reports no additional musculoskeletal complaints Integumentary/Breasts: Skin/Breast: Reports system reviewed and no additional complaints, except as docu Neurologic: Reports system reviewed and no additional complaints, except as documented and Reports Normal hearing present Psychiatric: Psychiatric: Reports no additional psychiatric complaints and Reports as per HPI Hematologic/Lymphatic: Hematologic/Lymphatic: Reports no additional hematologic/lymphatic complaints Allergic/Immunologic: Allergic/Immunologic: Reports no additional allergic/immunologic complaints FOR[facility]LY [facility] Past Medical History Medical History (Updated 01/28/25 @ 03:21 by Cathy Delatorre APRN) Closed fracture of single pubic ramus of pelvis Mixed hyperlipidemia Restless leg syndrome Paroxysmal atrial fibrillation Body mass index [BMI] 34.0-34.9, adult (07/16/17) Chronic diarrhea Hypertension TIA (transient ischemic attack) Otalgia Neuropathy Cerebrovascular disease, unspecified Gout, unspecified Type 2 diabetes mellitus without complications Surgical History Surgical History (Updated 01/28/25 @ 03:12 by Cathy Delatorre APRN) History of appendectomy History of Hx of cholecystectomy Family History Family History Father Family history of cardiovascular disease Family history of congestive heart failure Grandparent Cerebrovascular accident Sibling Cirrhosis of liver Social History Social History (Updated 01/28/25 @ 03:13 by Cathy Delatorre APRN) Social History: The patient is currently living with her daughter. She has a son and a daughter. She recently adopted it a great niece who is 4 years old. She is retired from [employer] She is . Code status: Full code Smoking status: Never smoker Alcohol intake: never Substance use: never Lack of Transportation: No Lack of Food: Never True Current Housing: Decline to Answer Concerned About Future Housing: Decline to Answer Difficulty Paying Gas/Electric Bills: Decline to Answer Difficulty Paying for Meds: Decline to Answer Currently Unemployed: Decline to Answer Education: Decline to Answer Difficulty w/ Childcare or Family Care: Decline to Answer Spiritual care concerns: No Meds Home Medications and Allergies Home Medications ?Medication ?Instructions ?Recorded ?Confirmed ?Type glimepiride 4 mg tablet 4 mg PO BID 12/15/18 01/27/25 History warfarin 5 mg tablet (Coumadin) See Rx Instructions .Route .COMPLEX 12/15/18 01/27/25 History ropinirole 0.5 mg tablet 0.5 - 1 mg PO HS 04/08/19 01/27/25 History rosuvastatin 5 mg tablet 5 mg PO DAILY 04/08/19 01/27/25 History allopurinol 300 mg tablet 300 mg PO DAILY 06/10/21 01/27/25 History amitriptyline 25 mg tablet 25 mg PO HS 06/10/21 01/27/25 History duloxetine 20 mg capsule,delayed 20 mg PO BID 06/10/21 01/27/25 History release ergocalciferol (vitamin D2) 1,250 2,500 mcg PO DAILY 12/05/21 01/27/25 History mcg (50,000 unit) capsule prednisone 5 mg tablet 5 mg PO DAILY 12/05/21 01/27/25 History albuterol sulfate 90 mcg/actuation 2 inh inhalation QID PRN shortness 03/30/22 01/27/25 Rx breath activated powder inhaler of breath #1 ea (ProAir RespiClick) aspirin 81 mg tablet 81 mg PO DAILY 01/27/25 01/27/25 History omeprazole magnesium 20 mg 20 mg PO PRN 01/27/25 01/27/25 History tablet,delayed release (Prilosec OTC) verapamil 120 mg tablet,extended 120 mg PO DAILY 01/27/25 01/27/25 History release Allergies Allergy/AdvReac Type Severity Reaction Status Date / Time hydrocodone (From Vicodin) Allergy Numbness Verified 01/27/25 17:01 Vital Signs Vital Signs - 24 hr 01/27/25 10:39 01/27/25 11:28 01/27/25 12:43 Temperature 98 F Pulse Rate 83 82 83 Respiratory Rate 17 17 14 Blood Pressure 167/79 H 165/74 H 179/78 H Pulse Oximetry 98 97 98 Oxygen Delivery Room Air 01/27/25 15:03 01/27/25 18:04 01/27/25 22:00 Temperature 97.8 F Pulse Rate 83 90 Respiratory Rate 13 18 Blood Pressure 137/72 143/66 H Pulse Oximetry 98 97 Oxygen Delivery Room Air Exam Const: General: cooperative, healthy appearing, comfortable, no acute distress, well developed, awake, Physically active, average body habitus and well nourished Nutritional Appearance: average body habitus and well nourished Orientation/consciousness: oriented to person, oriented to place, oriented to time and patient oriented x3 Limitations: no limitations HENMT: Head: normal to inspection, No palpable skull fracture present, normocephalic, atraumatic and abrasion Eyes: General: appearance normal, both eyes and all related structures Alignment and Position: alignment normal Periorbital: periorbital findings normal Eyelids: eyelids normal Conjunctivae: conjunctivae normal Neck: Neck: normal visual inspection, full ROM and no lymphadenopathy Chest: Chest palpation & inspection: normal inspection of the chest Resp: Effort & Inspection: normal respiratory effort Auscultation: clear to auscultation bilaterally Cardio: Palpation: normal PMI Rate: regular rate Rhythm: regular rhythm Heart sounds: S1 normal heart sound present and S2 normal heart sound present Peripheral pulses: Peripheral pulses 2+ throughout GI: Inspection: normal to inspection Percussion: Yes normal to percussion Auscultation: normal bowel sounds Other: Abdomen is firm and distended. However it is nontender : General: Yes no CVA tenderness Urinary Catheter: Urinary Catheter: patent and draining and urine clear Back/Spine/Pelvis: Back: no CVA tenderness Cervical Spine: cervical ROM normal Skin: General skin exam: normal color Lesions: no lesions Rashes: no rashes Trauma: no lacerations or abrasions Wounds: no wounds Hair: normal Nails: normal Neuro: General: oriented to person, oriented to place, oriented to time and patient oriented x3 Cranial nerves: Yes Equal, round and reactive pupils present and Yes Normal hearing present Cognition (Neuro): normal cognition Speech: normal speech Extrem: General: normal to inspection Right upper extremity: normal to inspection and shoulder/upper arm Left upper extremity: normal to inspection and shoulder/upper arm Right lower extremity: normal to inspection Left lower extremity: normal to inspection Psych: Appearance: grossly normal Mental Status: mental status grossly normal Speech and movement: Normal speech and movement present Affect: normal affect Attitude: cooperative Thought process: Normal thought process present Thought content: Yes Normal thought content present Insight: Good insight present (Psych) Judgement: Good judgement present (Psych) Results Labs Labs: Short CBC 01/27/25 Range/Units 13:53 WBC 11.1 H (4.5-10.0) K/mm3 Hgb 12.4 (12.0-15.0) g/dL Hct 39.7 (37.0-47.0) % Plt Count 237 (150-375) k/mm3 BMP 01/27/25 13:53 Sodium 141 Potassium 3.8 Chloride 108 H Carbon Dioxide 25 BUN 20 H Creatinine 0.69 L Glucose 152 H Calcium 9.2 ECG Interpretation: Test Date: 2024-11-10 16:04:14 Measurements Intervals Scribner Rate: 99 P: 28 MS: 108 QRS: 48 QRSD: 80 T: 35 QT: 372 QTc: 477 Interpretive Statements SINUS RHYTHM WITH SHORT MS INTERVAL WITH OCCASIONAL SUPRAVENTRICULAR PREMATURE COMPLEXES NONSPECIFIC T-WAVE ABNORMALITY- INFERIOR LEADS BASELINE WANDER- I, II, III, V6 BORDERLINE ECG No previous ECG available for comparison Electronically Signed On 11-10-2024 16:08:03 CDT by Venkatesh Ivey D.O. Imaging Abdominal x-ray: Attestation: I personally reviewed this imaging study Radiologist's impression: ITS Impressions Lumbar Spine CT 01/27/25 11:07 IMPRESSION: No fracture lucency L1-L5. Hip/Pelvis X-Ray 01/27/25 11:49 Impression: No acute fracture or malalignment. Chest X-Ray 01/27/25 11:53 Impression: No acute cardiopulmonary abnormality. Pelvis CT 01/27/25 12:33 IMPRESSION: Minimally comminuted mildly displaced left inferior ramus fracture and probable nondisplaced superior ramus fracture. No other fracture seen. Urinary bladder is mildly distended; query if patient requires catheterization. Quality VTE Prophylaxis VTE prophylaxis: mechanical ordered and pharmacologic ordered Assessment and Plan Assessment and plan (1) Fracture of left inferior pubic ramus: Qualifiers: Encounter type: initial encounter Fracture type: closed Qualified Code(s): S32.592A - Other specified fracture of left pubis, initial encounter for closed fracture Code(s): S32.592A - Other specified fracture of left pubis, initial encounter for closed fracture Status: Acute Assessment and Plan: -the patient is currently weight-bearing as tolerated. -PT OT evaluation is greatly appreciated. -pain management -youth career specialist has been consulted for possible rehab. -the patient has made arrangement for her daughter to keep the 4-year-old well she is in the hospital. (2) Essential (primary) hypertension: Code(s): I10 - Essential (primary) hypertension Status: Acute Assessment and Plan: -blood pressure currently 143/66. -continue with verapamil (3) Type 2 diabetes mellitus without complications: Code(s): E11.9 - Type 2 diabetes mellitus without complications Status: Acute Assessment and Plan: -Accu-Cheks AC and HS with sliding scale insulin and hypoglycemic protocol. -continue with diabetic diet -continue with glimepiride (4) Chronic atrial fibrillation: Code(s): I48.20 - Chronic atrial fibrillation, unspecified Status: Acute Assessment and Plan: -continue with verapamil -continue with Coumadin -daily PT INR to keep INR greater than 2. (5) Mixed hyperlipidemia: Code(s): E78.2 - Mixed hyperlipidemia Status: Acute Assessment and Plan: -continue with rosuvastatin (6) Gout, unspecified: Code(s): M10.9 - Gout, unspecified Status: Acute Assessment and Plan: -continue with allopurinol (7) Neuropathy: Code(s): G62.9 - Polyneuropathy, unspecified Status: Acute Assessment and Plan: -continue with duloxetine (8) Restless leg syndrome: Code(s): G25.81 - Restless legs syndrome Status: Acute Assessment and Plan: -continue ropinirole
[2025-01-28] MEDS: HYDROmorphone HCL INJ (*CRX) 1 MG/ML SYR 0.5 MG IV PUSH ×3 (00:48→15:34)
[2025-01-28 05:25] VITALS: BP 150/71; PULSE 83; RESP 18; TEMP 36.6; O2SAT 93
[2025-01-28 05:52] LABS: Hematocrit 39.1 % (37.0-47.0); Hemoglobin 12.2 g/dL (12.0-15.0); Mean Corpuscular HGB Conc 31.2 g/dl (32-36); Mean Corpuscular Hemoglobin 28.8 pg (26-34); Mean Corpuscular Volume 92.4 fl (80-100); Platelet Count Result 242 k/mm3 (150-375); Red Blood Count 4.23 M/mm3 (4.2-5.4); White Blood Count 10.5 K/mm3 (4.5-10.0)
[2025-01-28 06:04] LABS: INR 1.6; Prothrombin Time 18.6 Seconds (11.1-14.7)
[2025-01-28 06:11] LABS: Anion Gap 7 mmol/L (4-12); Blood Urea Nitrogen 15 mg/dL (7-17); Calcium 8.8 mg/dL (8.4-10.2); Carbon Dioxide 23 mmol/L (22-30); Chloride 102 mmol/L (98-107); Estimated CRCL calculation 65 ml/min; Estimated Glomerular Filt Rate > 60; Glucose 168 mg/dL (65-110); Potassium 4.4 mmol/L (3.4-5.0); Sodium 132 mmol/L (137-145)
[2025-01-28 07:47] LABS: Hemoglobin A1C 8.1 % (<5.7)
[2025-01-28] MEDS: traMADol HCL (*CRX) 25 MG TABLET PO ×2 (08:33→20:58)
[2025-01-28] MEDS: ROSUVASTATIN 5 MG TABLET PO (08:34)
[2025-01-28] MEDS: PANTOPRAZOLE 40 MG TABLET PO (08:35)
[2025-01-28] MEDS: ASPIRIN 81 MG ENTERIC TABLET PO (08:35)
[2025-01-28] MEDS: VERAPAMIL HCL 120 MG ER TABLET PO (08:35)
[2025-01-28] MEDS: GLIMEPIRIDE 2 MG TABLET PO (08:36)
[2025-01-28 08:38] VITALS: BP 142/67; PULSE 93; RESP 18; O2SAT 94
--- NOTE | 2025-01-28 09:19 | P.PNIM_ITS ---
Assessment and Plan Assessment and Plan (1) Fracture of left inferior pubic ramus: Qualifiers: Encounter type: initial encounter Fracture type: closed Qualified Code(s): S32.592A - Other specified fracture of left pubis, initial encounter for closed fracture Code(s): S32.592A - Other specified fracture of left pubis, initial encounter for closed fracture Status: Acute Assessment and Plan: -the patient is currently weight-bearing as tolerated. -PT OT evaluation is greatly appreciated. -pain management -assistant child care teacher has been consulted for possible rehab. -the patient has made arrangement for her daughter to keep the 4-year-old well she is in the hospital. (2) Essential (primary) hypertension: Code(s): I10 - Essential (primary) hypertension Status: Acute Assessment and Plan: -blood pressure currently 143/66. -continue with verapamil (3) Type 2 diabetes mellitus without complications: Code(s): E11.9 - Type 2 diabetes mellitus without complications Status: Acute Assessment and Plan: -Accu-Cheks AC and HS with sliding scale insulin and hypoglycemic protocol. -continue with diabetic diet -will stop home glimepiride (4) Chronic atrial fibrillation: Code(s): I48.20 - Chronic atrial fibrillation, unspecified Status: Acute Assessment and Plan: -continue with verapamil -continue with Coumadin -daily PT INR to keep INR greater than 2. (5) Mixed hyperlipidemia: Code(s): E78.2 - Mixed hyperlipidemia Status: Acute Assessment and Plan: -continue with rosuvastatin (6) Gout, unspecified: Code(s): M10.9 - Gout, unspecified Status: Acute Assessment and Plan: -continue with allopurinol (7) Neuropathy: Code(s): G62.9 - Polyneuropathy, unspecified Status: Acute Assessment and Plan: -continue with duloxetine (8) Restless leg syndrome: Code(s): G25.81 - Restless legs syndrome Status: Acute Assessment and Plan: -continue ropinirole Medical Record Review I have reviewed the following patient records and this information was taken into consideration when formulating the assessment and plan.: previous labs and previous clinic visits Time Spent With Patient Time with patient: Greater than 35 minutes Subjective Date/time seen: 01/28/25 09:19 Interval history: THIS IS A 74-YEAR-OLD FEMALE PATIENT who has a history of Periactin will atrial fibrillation, hypertension, TIA, diabetes, and CVAs. The patient stated that she heard her dog vomiting on the bed. She was in her bedroom in the dark and decided to get up. The patient had slipped on the floor but was not sure what she had slipped on. Later on she had found out that she had slipped in the dogs vomit. She denied hitting her head or losing consciousness. The patient was complaining of left hip pain and left back pain. She denies any nausea vomiting or diarrhea. Her white count was noted to be 11.1. Blood sugars are 152, 141, 155. BUN is 20 creatinine 0.69 with a GFR greater than 60. Hip and pelvis x- ray was read as no acute fracture or malalignment. Moderate degenerative changes. Soft tissue unremarkable. Chest x-ray was read as no acute cardiopulmonary abnormality. Pelvis CT was read as a followingMinimally comminuted mildly displaced left inferior ramus fracture and probable nondisplaced superior ramus fracture. No other fracture seen. Urinary bladder is mildly distended; query if patient requires catheterization. A Lord catheter was placed in the emergency room. The patient was given morphine and Zofran in the emergency room. The patient is being admitted to observation status on the date of service of 01/28/2025. Pt is seen and examined. PT/OT ordered. care coordination following for placement. She reports pain is well controlled. no nausea Review of Systems Constitutional: Constitutional: Reports as per HPI and Reports no additional constitutional complaints Eyes: Eyes: Reports as per HPI and Reports no additional eye complaints ENT: Reports system reviewed and no additional complaints, except as documented and Reports Normal hearing present Cardiovascular: Cardiovascular: Reports no additional cardiovascular complaints Respiratory: Respiratory: Reports as per HPI and Reports no additional respiratory complaints Gastrointestinal: Gastrointestinal: Reports as per HPI and Reports no additional gastrointestinal complaints Genitourinary: Genitourinary: Reports no additional female genitourinary complaints Musculoskeletal: Musculoskeletal: Reports no additional musculoskeletal complaints Integumentary/Breasts: Skin/Breast: Reports system reviewed and no additional complaints, except as docu Neurologic: Reports system reviewed and no additional complaints, except as documented and Reports Normal hearing present Psychiatric: Psychiatric: Reports no additional psychiatric complaints and Reports as per HPI Hematologic/Lymphatic: Hematologic/Lymphatic: Reports no additional hematologic/lymphatic complaints Allergic/Immunologic: Allergic/Immunologic: Reports no additional allergic/immunologic complaints Exam Const: General: cooperative, healthy appearing, comfortable, no acute distress, well developed, awake, Physically active, average body habitus and well nourished Nutritional Appearance: average body habitus and well nourished Orientation/consciousness: oriented to person, oriented to place, oriented to time and patient oriented x3 Limitations: no limitations HENMT: Head: normal to inspection, No palpable skull fracture present, normocephalic, atraumatic and abrasion Eyes: General: appearance normal, both eyes and all related structures Alignment and Position: alignment normal Periorbital: periorbital findings normal Eyelids: eyelids normal Conjunctivae: conjunctivae normal Sclera: sclerae normal Pupils: Equal, round and reactive pupils present Neck: Neck: normal visual inspection, full ROM and no lymphadenopathy Chest: Chest palpation & inspection: normal inspection of the chest Resp: Effort & Inspection: normal respiratory effort Auscultation: clear to auscultation bilaterally Cardio: Palpation: normal PMI Rate: regular rate Rhythm: regular rhythm Heart sounds: S1 normal heart sound present and S2 normal heart sound present Peripheral pulses: Peripheral pulses 2+ throughout GI: Inspection: normal to inspection Auscultation: normal bowel sounds Other: Abdomen is firm and distended. However it is nontender : General: Yes no CVA tenderness Urinary Catheter: Urinary Catheter: patent and draining and urine clear Back/Spine/Pelvis: Back: no CVA tenderness Cervical Spine: cervical ROM normal Skin: General skin exam: normal color Lesions: no lesions Rashes: no rashes Trauma: no lacerations or abrasions Wounds: no wounds Hair: normal Nails: normal Neuro: General: oriented to person, oriented to place, oriented to time and patient oriented x3 Cranial nerves: Yes Equal, round and reactive pupils present and Yes Normal hearing present Cognition (Neuro): normal cognition Speech: normal speech Extrem: General: normal to inspection Right upper extremity: normal to inspection and shoulder/upper arm Left upper extremity: normal to inspection and shoulder/upper arm Right lower extremity: normal to inspection Left lower extremity: normal to inspection Psych: Appearance: grossly normal Mental Status: mental status grossly normal Speech and movement: Normal speech and movement present Affect: normal affect Attitude: cooperative Thought process: Normal thought process present Insight: Good insight present (Psych) Judgement: Good judgement present (Psych) Objective Data Vital Signs Vital Signs: Vital Signs - 24 hr 01/27/25 10:39 01/27/25 11:28 01/27/25 12:43 Temperature 98 F Pulse Rate 83 82 83 Respiratory Rate 17 17 14 Blood Pressure 167/79 H 165/74 H 179/78 H Pulse Oximetry 98 97 98 Oxygen Delivery Room Air 01/27/25 15:03 01/27/25 18:04 01/27/25 20:00 Temperature Pulse Rate 83 Respiratory Rate 13 Blood Pressure 137/72 Pulse Oximetry 98 Oxygen Delivery Room Air Room Air 01/27/25 22:00 01/28/25 05:25 01/28/25 08:00 Temperature 97.8 F 98 F Pulse Rate 90 83 Respiratory Rate 18 18 Blood Pressure 143/66 H 150/71 H Pulse Oximetry 97 93 Oxygen Delivery Room Air 01/28/25 08:38 Temperature Pulse Rate 93 Respiratory Rate 18 Blood Pressure 142/67 H Pulse Oximetry 94 Oxygen Delivery Intake/Output Intake/Output: Intake & Output 01/25/25 01/26/25 01/27/25 01/28/25 23:59 23:59 23:59 23:59 Intake Total 360 550 Output Total 1650 Balance 360 -1100 Meds/Results Medications: Active Medications Generic Name Dose Route Start Last Admin Trade Name Freq PRN Reason Stop Dose Admin Acetaminophen 650 mg 01/27/25 19:06 Acetaminophen 325 Mg Tablet PO Q6H PRN Mild Pain (1-3) or Fever Albuterol 2 puff 01/28/25 03:18 Albuterol Sulfate (*Sp) Aerosol 1 Puff INHALATION Q6HRT PRN shortness of breath Allopurinol 300 mg 01/28/25 08:00 01/28/25 08:34 Allopurinol 300 Mg Tablet PO 300 mg DAILY@0800 RACIEL Administration Amitriptyline HCl 25 mg 01/28/25 21:00 Amitriptyline Hcl 25 Mg Tablet PO HS RACIEL Aspirin 81 mg 01/28/25 09:00 01/28/25 08:35 Aspirin 81 Mg Enteric Tablet PO 81 mg QAM RACIEL Administration Dextrose 12.5 gm 01/28/25 03:07 Dextrose 50% 25 Gm/50 Ml Syringe IV PUSH PRN PRN Hypoglycemia Protocol Docusate Sodium 100 mg 01/28/25 03:19 Docusate Sodium 100 Mg Capsule PO Q12H PRN Constipation Duloxetine HCl 20 mg 12/19/25 09:00 Duloxetine Hcl 20 Mg Capsule.Dr PO Q12HR RACIEL Ergocalciferol 2,500 mcg 01/28/25 09:00 Ergocalciferol (Vitamin D2) 1,250 Mcg (50,000 Units) Capsule PO DAILY RACIEL Glimepiride 2 mg 01/28/25 08:00 01/28/25 08:36 Glimepiride 2 Mg Tablet PO 2 mg BIDWM RACIEL Administration Glucagon 1 mg 01/28/25 03:07 Glucagon For Inj 1 Mg Vial IM PRN PRN Hypoglycemia Protocol Glucose 15 gm 01/28/25 03:07 Glucose Oral Gel 15 Gm Of Glucse In 37.5 Gm Tube PO PRN PRN Hypoglycemia Protocol Hydromorphone HCl 0.5 mg 01/28/25 00:29 01/28/25 05:36 Hydromorphone Hcl Inj (*Crx) 1 Mg/Ml Syr IV PUSH 0.5 mg Q3H PRN Administration Pain Rated 7-10 Dextrose 1,000 mls @ 100 mls/hr 01/28/25 03:07 Dextrose 5% 1,000 Ml IVPB PRN PRN Hypoglycemia Protocol Insulin Aspart 2 - 5 units 01/28/25 08:00 Insulin Aspart (*Bkc) 100 Units/Ml SUB-Q TIDWM [facility] Protocol Miscellaneous Information 1 each 01/28/25 00:01 Please Clarify Dose And Frequency For Vitamin D As 2500 Mcg Daily Is Unusual Dosing, Typic XX 02/27/25 00:00 CLARIFY RACIEL Ondansetron HCl 4 mg 01/27/25 19:04 Ondansetron Inj 4 Mg/2 Ml Vial IV PUSH Q6H PRN Nausea And Vomiting Pantoprazole Sodium 40 mg 01/28/25 09:00 01/28/25 08:35 Pantoprazole 40 Mg Tablet PO 40 mg QAM RACIEL Administration Ropinirole HCl 0.5 mg 01/28/25 21:00 Ropinirole Hcl 0.5 Mg Tablet PO HS RACIEL Rosuvastatin Calcium 5 mg 01/28/25 09:00 01/28/25 08:34 Rosuvastatin 5 Mg Tablet PO 5 mg DAILY RACIEL Administration Tramadol HCl 25 mg 01/28/25 03:04 01/28/25 08:33 Tramadol Hcl (*Crx) 25 Mg Tablet PO 25 mg Q4H PRN Administration Pain Rated 4-6 Verapamil HCl 120 mg 01/28/25 08:00 01/28/25 08:35 Verapamil Hcl 120 Mg Er Tablet PO 120 mg DAILY@0800 [facility] Administration Warfarin Sodium 2.5 mg 01/28/25 17:00 Warfarin (*Pbkc) 2.5 Mg Tablet PO DAILY@1700 [facility] Radiology Results: ITS Impressions Lumbar Spine CT 01/27/25 11:07 IMPRESSION: No fracture lucency L1-L5. Hip/Pelvis X-Ray 01/27/25 11:49 Impression: No acute fracture or malalignment. Chest X-Ray 01/27/25 11:53 Impression: No acute cardiopulmonary abnormality. Pelvis CT 01/27/25 12:33 IMPRESSION: Minimally comminuted mildly displaced left inferior ramus fracture and probable nondisplaced superior ramus fracture. No other fracture seen. Urinary bladder is mildly distended; query if patient requires catheterization. Labs Labs: Laboratory Results - last 24 hr 01/27/25 01/27/25 01/27/25 13:53 16:07 22:08 WBC 11.1 H RBC 4.22 Hgb 12.4 Hct 39.7 MCV 94.1 MCH 29.4 MCHC 31.2 L RDW 14.2 Plt Count 237 MPV 10.9 H Immature Gran % (Auto) 0.8 H Neut % (Auto) 76.5 H Lymph % (Auto) 14.3 L Hamilton % (Auto) 7.7 Eos % (Auto) 0.4 Baso % (Auto) 0.3 Lymph # (Auto) 1.59 Hamilton # (Auto) 0.9 H Eos # (Auto) 0.1 Baso # (Auto) 0.0 Abs Immat Gran (auto) 0.09 H Absolute Neuts (auto) 8.5 H Absolute Nucleated RBC 0.000 Nucleated RBC % 0.0 PT INR Sodium 141 Potassium 3.8 Chloride 108 H Carbon Dioxide 25 Anion Gap 8 BUN 20 H Creatinine 0.69 L Estim Creat Clear Calc 71 Estimated GFR > 60 Glucose 152 H POC Capillary Glucose 141 H 155 H Hemoglobin A1c Calcium 9.2 01/28/25 01/28/25 01/28/25 05:40 05:41 08:44 WBC 10.5 H RBC 4.23 Hgb 12.2 Hct 39.1 MCV 92.4 MCH 28.8 MCHC 31.2 L RDW 14.1 Plt Count 242 MPV 10.2 Immature Gran % (Auto) Neut % (Auto) Lymph % (Auto) Hamilton % (Auto) Eos % (Auto) Baso % (Auto) Lymph # (Auto) Hamilton # (Auto) Eos # (Auto) Baso # (Auto) Abs Immat Gran (auto) Absolute Neuts (auto) Absolute Nucleated RBC Nucleated RBC % PT 18.6 H INR 1.6 Sodium 132 L Potassium 4.4 Chloride 102 Carbon Dioxide 23 Anion Gap 7 BUN 15 D Creatinine 0.76 Estim Creat Clear Calc 65 Estimated GFR > 60 Glucose 168 H POC Capillary Glucose 151 H Hemoglobin A1c 8.1 H Calcium 8.8 Quality VTE Prophylaxis VTE prophylaxis: mechanical ordered and pharmacologic ordered
--- NOTE | 2025-01-28 12:14 | PCOTNOTE ---
Attempted OT evaluation. RN reports just giving pt. pain medication and requests to not wake her up at this time. Will continue to follow.
[2025-01-28 14:00] VITALS: BP 142/71; PULSE 72; RESP 20; TEMP 36.9; O2SAT 100
[2025-01-28] MEDS: WARFARIN (*PBKC) 2.5 MG TABLET PO (17:35)
[2025-01-28 20:00] VITALS: BP 141/67; PULSE 99; RESP 22; TEMP 38.2; O2SAT 96
[2025-01-28] MEDS: AMITRIPTYLINE HCL 25 MG TABLET PO (20:58)
[2025-01-28 21:12] LABS: Add Urine Microscopic? YES; Appearance Urine Clear (Clear); Glucose Urine UA 3+ mg/dL (Negative); Leukocyte Esterase Ur Negative LEU/UL (Negative); Need Manual Microscopic Reviewed; Nitrate Urine Negative (Negative); Non Pathogenic Casts 0-2; Specific Grav Ur > 1.045 (1.001-1.035)
[2025-01-28 21:44] LABS: CRP 14.8 mg/dL (<1.0)
[2025-01-28 21:46] LABS: Procalcitonin 0.3 ng/mL
[2025-01-28 21:50] VITALS: TEMP 37.2
[2025-01-28 21:50] LABS: Influenza A QL RT-PCR Negative (Negative); Influenza B QL RT-PCR Negative (Negative); RSV RNA, RT-PCR Negative (Negative); SARS-CoV-2 RNA PCR Negative (Negative)
[2025-01-28] MEDS: SODIUM CHLORIDE 0.9% IV 1,000 ML 999 ML IV CONT (22:10)
--- NOTE | 2025-01-28 22:11 | PM.EVENT ---
Event Note Event Note Event Note: Nursing staff called because the patient spiked a temperature to 100.8. Patient was tachycardic and mildly tachypneic. She met SIRS criteria. Review of prior labs demonstrated abnormal urinalysis earlier in January but no recent UA for this admission. X-ray from admission was negative for acute process. Per nursing report patient had no other symptoms or complaints. Stat labs including CRP procalcitonin lactic acid and blood cultures were obtained. Lactic acid was found to be elevated at 2.7. UA was not concerning for infection but did demonstrated elevated urine specific gravity and trace ketones. Will hold off on starting any antibiotics at this time. Fever could be due to atelectasis with decreased mobility. Will order incentive spirometry. I did order a 30 mL/kilos fluid bolus after reviewing patient's prior echocardiogram from 2021 demonstrating normal systolic function and grade 1 diastolic dysfunction. Radiologic interpretation of chest x-ray is pending but I do not see any acute process given differences in x-ray technique.
[2025-01-29] MEDS: SODIUM CHLORIDE 0.9% IV 1,000 ML 999 ML IV CONT (00:21)
[2025-01-29] MEDS: SODIUM CHLORIDE 0.9% IV 800 ML 999 ML IV CONT (02:41)
[2025-01-29 05:23] LABS: Hematocrit 38.0 % (37.0-47.0); Hemoglobin 11.9 g/dL (12.0-15.0); Mean Corpuscular HGB Conc 31.3 g/dl (32-36); Mean Corpuscular Hemoglobin 29.2 pg (26-34); Mean Corpuscular Volume 93.4 fl (80-100); Platelet Count Result 187 k/mm3 (150-375); Red Blood Count 4.07 M/mm3 (4.2-5.4); White Blood Count 11.2 K/mm3 (4.5-10.0)
[2025-01-29 05:34] LABS: INR 1.3; Prothrombin Time 16.7 Seconds (11.1-14.7)
[2025-01-29 05:35] VITALS: BP 169/80; PULSE 90; RESP 18; TEMP 37; O2SAT 97
[2025-01-29 05:36] LABS: Anion Gap 7 mmol/L (4-12); Blood Urea Nitrogen 11 mg/dL (7-17); Calcium 8.2 mg/dL (8.4-10.2); Carbon Dioxide 22 mmol/L (22-30); Chloride 103 mmol/L (98-107); Estimated CRCL calculation 73 ml/min; Estimated Glomerular Filt Rate > 60; Glucose 161 mg/dL (65-110); Potassium 4.1 mmol/L (3.4-5.0); Sodium 132 mmol/L (137-145)
[2025-01-29] MEDS: ROSUVASTATIN 5 MG TABLET PO (08:40)
[2025-01-29] MEDS: ASPIRIN 81 MG ENTERIC TABLET PO (08:40)
[2025-01-29] MEDS: PANTOPRAZOLE 40 MG TABLET PO (08:40)
[2025-01-29] MEDS: VERAPAMIL HCL 120 MG ER TABLET PO (08:40)
[2025-01-29] MEDS: traMADol HCL (*CRX) 25 MG TABLET PO ×3 (08:42→22:52)
--- NOTE | 2025-01-29 12:01 | P.PNIM_ITS ---
Assessment and Plan Assessment and Plan (1) Fracture of left inferior pubic ramus: Qualifiers: Encounter type: initial encounter Fracture type: closed Qualified Code(s): S32.592A - Other specified fracture of left pubis, initial encounter for closed fracture Code(s): S32.592A - Other specified fracture of left pubis, initial encounter for closed fracture Status: Acute Assessment and Plan: -the patient is currently weight-bearing as tolerated. -PT OT evaluation is greatly appreciated. -pain management -pet care associate has been consulted for possible rehab. -the patient has made arrangement for her daughter to keep the 4-year-old well she is in the hospital. - ortho consult ordered (2) Essential (primary) hypertension: Code(s): I10 - Essential (primary) hypertension Status: Acute Assessment and Plan: -blood pressure currently 143/66. -continue with verapamil (3) Type 2 diabetes mellitus without complications: Code(s): E11.9 - Type 2 diabetes mellitus without complications Status: Acute Assessment and Plan: -Accu-Cheks AC and HS with sliding scale insulin and hypoglycemic protocol. -continue with diabetic diet -will stop home glimepiride (4) Chronic atrial fibrillation: Code(s): I48.20 - Chronic atrial fibrillation, unspecified Status: Acute Assessment and Plan: -continue with verapamil -continue with Coumadin -daily PT INR to keep INR greater than 2. (5) Mixed hyperlipidemia: Code(s): E78.2 - Mixed hyperlipidemia Status: Acute Assessment and Plan: -continue with rosuvastatin (6) Gout, unspecified: Code(s): M10.9 - Gout, unspecified Status: Acute Assessment and Plan: -continue with allopurinol (7) Neuropathy: Code(s): G62.9 - Polyneuropathy, unspecified Status: Acute Assessment and Plan: -continue with duloxetine (8) Restless leg syndrome: Code(s): G25.81 - Restless legs syndrome Status: Acute Assessment and Plan: -continue ropinirole (9) SIRS (systemic inflammatory response syndrome): Code(s): R65.10 - Systemic inflammatory response syndrome (SIRS) of non-infectious origin without acute organ dysfunction Status: Acute Assessment and Plan: temp last night- 100.[address] Yang: Patient was tachycardic and mildly tachypneic. She met SIRS criteria. Review of prior labs demonstrated abnormal urinalysis earlier in January but no recent UA for this admission. X-ray from admission was negative for acute process. Per nursing report patient had no other symptoms or complaints. Stat labs including CRP procalcitonin lactic acid and blood cultures were obtained. Lactic acid was found to be elevated at 2.7. UA was not concerning for infection but did demonstrated elevated urine specific gravity and trace ketones. Will hold off on starting any antibiotics at this time. Fever could be due to atelectasis with decreased mobility. Will order incentive spirometry. I did order a 30 mL/kilos fluid bolus after reviewing patient's prior echocardiogram from 2021 demonstrating normal systolic function and grade 1 diastolic dysfunction. Radiologic interpretation of chest x-ray is pending but I do not see any acute process given differences in x-ray technique. 01/29- no fever, bp stable, labs reviewed. IS pt/ot continue to monitor follow bc Medical Record Review I have reviewed the following patient records and this information was taken into consideration when formulating the assessment and plan.: previous labs, previous hospitalizations and previous clinic visits Time Spent With Patient Time with patient: Greater than 35 minutes Subjective Date/time seen: 01/29/25 12:01 Interval history: THIS IS A 74-YEAR-OLD FEMALE PATIENT who has a history of Periactin will atrial fibrillation, hypertension, TIA, diabetes, and CVAs. The patient stated that she heard her dog vomiting on the bed. She was in her bedroom in the dark and decided to get up. The patient had slipped on the floor but was not sure what she had slipped on. Later on she had found out that she had slipped in the dogs vomit. She denied hitting her head or losing consciousness. The patient was co mplaining of left hip pain and left back pain. She denies any nausea vomiting or diarrhea. Her white count was noted to be 11.1. Blood sugars are 152, 141, 155. BUN is 20 creatinine 0.69 with a GFR greater than 60. Hip and pelvis x- ray was read as no acute fracture or malalignment. Moderate degenerative changes. Soft tissue unremarkable. Chest x-ray was read as no acute cardiopulmonary abnormality. Pelvis CT was read as a followingMinimally comminuted mildly displaced left inferior ramus fracture and probable nondisplaced superior ramus fracture. No other fracture seen. Urinary bladder is mildly distended; query if patient requires catheterization. A Lord catheter was placed in the emergency room. The patient was given morphine and Zofran in the emergency room. The patient is being admitted to observation status on the date of service of 01/28/2025. Pt is seen and examined. PT/OT ordered. care coordination following for placement. She reports pain is well controlled. no nausea 01/29- low grade fever last night. no chills/fever since. pt/ot. care coordination following for d/c needs. Review of Systems Constitutional: Constitutional: Reports as per HPI and Reports no additional constitutional complaints Eyes: Eyes: Reports as per HPI and Reports no additional eye complaints ENT: Reports system reviewed and no additional complaints, except as documented and Reports Normal hearing present Cardiovascular: Cardiovascular: Reports no additional cardiovascular complaints Respiratory: Respiratory: Reports as per HPI and Reports no additional respiratory complaints Gastrointestinal: Gastrointestinal: Reports as per HPI and Reports no additional gastrointestinal complaints Genitourinary: Genitourinary: Reports no additional female genitourinary complaints Musculoskeletal: Musculoskeletal: Reports no additional musculoskeletal complaints Integumentary/Breasts: Skin/Breast: Reports system reviewed and no additional complaints, except as docu Neurologic: Reports system reviewed and no additional complaints, except as documented and Reports Normal hearing present Psychiatric: Psychiatric: Reports no additional psychiatric complaints and Reports as per HPI Hematologic/Lymphatic: Hematologic/Lymphatic: Reports no additional hematologic/lymphatic complaints Allergic/Immunologic: Allergic/Immunologic: Reports no additional allergic/immunologic complaints Exam Const: General: cooperative, healthy appearing, comfortable, no acute distress and well developed Nutritional Appearance: average body habitus and well nourished Orientation/consciousness: oriented to person, oriented to place, oriented to time and patient oriented x3 HENMT: Head: normal to inspection, No palpable skull fracture present and normocephalic Eyes: General: appearance normal, both eyes and all related structures Alignment and Position: alignment normal Periorbital: periorbital findings normal Eyelids: eyelids normal Conjunctivae: conjunctivae normal Sclera: sclerae normal Pupils: Equal, round and reactive pupils present Neck: Neck: normal visual inspection, full ROM and no lymphadenopathy Chest: Chest palpation & inspection: normal inspection of the chest Resp: Effort & Inspection: normal respiratory effort Auscultation: clear to auscultation bilaterally Cardio: Palpation: normal PMI Rate: regular rate Rhythm: regular rhythm Heart sounds: S1 normal heart sound present and S2 normal heart sound present Peripheral pulses: Peripheral pulses 2+ throughout GI: Inspection: normal to inspection Auscultation: normal bowel sounds Other: Abdomen is firm and distended. However it is nontender : General: Yes no CVA tenderness Urinary Catheter: Urinary Catheter: patent and draining and urine clear Back/Spine/Pelvis: Back: no CVA tenderness Cervical Spine: cervical ROM normal Skin: General skin exam: normal color Lesions: no lesions Rashes: no rashes Trauma: no lacerations or abrasions Wounds: no wounds Hair: normal Nails: normal Neuro: General: oriented to person, oriented to place, oriented to time and patient oriented x3 Cranial nerves: Yes Equal, round and reactive pupils present and Yes Normal hearing present Cognition (Neuro): normal cognition Speech: normal speech Extrem: General: normal to inspection Right upper extremity: normal to inspection and shoulder/upper arm Left upper extremity: normal to inspection and shoulder/upper arm Right lower extremity: normal to inspection Left lower extremity: normal to inspection Psych: Appearance: grossly normal Mental Status: mental status grossly normal Speech and movement: Normal speech and movement present Affect: normal affect Attitude: cooperative Thought process: Normal thought process present Insight: Good insight present (Psych) Judgement: Good judgement present (Psych) Objective Data Vital Signs Vital Signs: Vital Signs - 24 hr 01/28/25 13:05 01/28/25 13:21 01/28/25 14:00 Temperature 98.5 F Pulse Rate 72 Respiratory Rate 20 Blood Pressure 142/71 H Pulse Oximetry 100 Oxygen Delivery Room Air Room Air 01/28/25 20:00 01/28/25 21:50 01/29/25 05:35 Temperature 100.8 F H 99 F 98.6 F Pulse Rate 99 90 Respiratory Rate 22 H 18 Blood Pressure 141/67 H 169/80 H Pulse Oximetry 96 97 Oxygen Delivery Intake/Output Intake/Output: Intake & Output 01/26/25 01/27/25 01/28/25 01/29/25 23:59 23:59 23:59 23:59 Intake Total 360 3090 2920 Output Total 1650 1650 Balance 360 1440 1270 Meds/Results Medications: Active Medications Generic Name Dose Route Start Last Admin Trade Name Freq PRN Reason Stop Dose Admin Acetaminophen 650 mg 01/27/25 19:06 Acetaminophen 325 Mg Tablet PO Q6H PRN Mild Pain (1-3) or Fever Albuterol 2 puff 01/28/25 03:18 Albuterol Sulfate (*Sp) Aerosol 1 Puff INHALATION Q6HRT PRN shortness of breath Allopurinol 300 mg 01/28/25 08:00 01/29/25 08:40 Allopurinol 300 Mg Tablet PO 300 mg DAILY@0800 RACIEL Administration Amitriptyline HCl 25 mg 01/28/25 21:00 01/28/25 20:58 Amitriptyline Hcl 25 Mg Tablet PO 25 mg HS RACIEL Administration Aspirin 81 mg 01/28/25 09:00 01/29/25 08:40 Aspirin 81 Mg Enteric Tablet PO 81 mg QAM RACIEL Administration Dextrose 12.5 gm 01/28/25 03:07 Dextrose 50% 25 Gm/50 Ml Syringe IV PUSH PRN PRN Hypoglycemia Protocol Docusate Sodium 100 mg 01/28/25 03:19 Docusate Sodium 100 Mg Capsule PO Q12H PRN Constipation Duloxetine HCl 20 mg 01/28/25 09:00 01/29/25 08:40 Duloxetine Hcl 20 Mg Capsule.Dr PO 20 mg Q12HR RACIEL Administration Ergocalciferol 2,500 mcg 01/28/25 09:00 Ergocalciferol (Vitamin D2) 1,250 Mcg (50,000 Units) Capsule PO DAILY RACIEL Glimepiride 2 mg 01/28/25 08:00 01/28/25 08:36 Glimepiride 2 Mg Tablet PO 2 mg On Hold: 01/28/25 13:53 BIDWM RACIEL Administration Glucagon 1 mg 01/28/25 03:07 Glucagon For Inj 1 Mg Vial IM PRN PRN Hypoglycemia Protocol Glucose 15 gm 01/28/25 03:07 Glucose Oral Gel 15 Gm Of Glucse In 37.5 Gm Tube PO PRN PRN Hypoglycemia Protocol Hydromorphone HCl 0.5 mg 01/28/25 00:29 01/28/25 15:34 Hydromorphone Hcl Inj (*Crx) 1 Mg/Ml Syr IV PUSH 0.5 mg Q3H PRN Administration Pain Rated 7-10 Dextrose 1,000 mls @ 100 mls/hr 01/28/25 03:07 Dextrose 5% 1,000 Ml IVPB PRN PRN Hypoglycemia Protocol Insulin Aspart 2 - 5 units 01/28/25 08:00 01/29/25 08:44 Insulin Aspart (*Bkc) 100 Units/Ml SUB-Q Not Given TIDWM [facility] Protocol Miscellaneous Information 1 each 01/28/25 00:01 Please Clarify Dose And Frequency For Vitamin D As 2500 Mcg Daily Is Unusual Dosing, Typic XX 02/27/25 00:00 CLARIFY [facility] [place] Ondansetron HCl 4 mg 01/27/25 19:04 Ondansetron Inj 4 Mg/2 Ml Vial IV PUSH Q6H PRN Nausea And Vomiting Pantoprazole Sodium 40 mg 01/28/25 09:00 01/29/25 08:40 Pantoprazole 40 Mg Tablet PO 40 mg QAM RACIEL Administration Ropinirole HCl 0.5 mg 01/28/25 21:00 01/28/25 20:58 Ropinirole Hcl 0.5 Mg Tablet PO 0.5 mg HS RACIEL Administration Rosuvastatin Calcium 5 mg 01/28/25 09:00 01/29/25 08:40 Rosuvastatin 5 Mg Tablet PO 5 mg DAILY RACIEL Administration Tramadol HCl 25 mg 01/28/25 03:04 01/29/25 08:42 Tramadol Hcl (*Crx) 25 Mg Tablet PO 25 mg Q4H PRN Administration Pain Rated 4-6 Verapamil HCl 120 mg 01/28/25 08:00 01/29/25 08:40 Verapamil Hcl 120 Mg Er Tablet PO 120 mg DAILY@0800 [facility] Administration Warfarin Sodium 2.5 mg 01/28/25 17:00 01/28/25 17:35 Warfarin (*Pbkc) 2.5 Mg Tablet PO 2.5 mg DAILY@1700 [facility] Administration Radiology Results: ITS Impressions Lumbar Spine CT 01/27/25 11:07 IMPRESSION: No fracture lucency L1-L5. Hip/Pelvis X-Ray 01/27/25 11:49 Impression: No acute fracture or malalignment. Pelvis CT 01/27/25 12:33 IMPRESSION: Minimally comminuted mildly displaced left inferior ramus fracture and probable nondisplaced superior ramus fracture. No other fracture seen. Urinary bladder is mildly distended; query if patient requires catheterization. Abdomen CT 01/28/25 15:47 IMPRESSION: 1. Limited exam of the abdomen only. No acute surgical process seen. At least moderate amount of stool present. 2. Postsurgical changes as above. 3. Subsegmental atelectatic appearing changes in both lung bases new since the previous study. Correlate with follow-up chest imaging. Chest X-Ray 01/29/25 07:47 IMPRESSION: 1. No definite acute cardiopulmonary findings given portable technique. Labs Labs: Laboratory Results - last 24 hr 01/28/25 01/28/25 01/28/25 12:45 17:40 20:54 WBC RBC Hgb Hct MCV MCH MCHC RDW Plt Count MPV PT INR Sodium Potassium Chloride Carbon Dioxide Anion Gap BUN Creatinine Estim Creat Clear Calc Estimated GFR Glucose POC Capillary Glucose 134 H 176 H Lactic Acid Calcium C-Reactive Protein Procalcitonin Urine Color Yellow Urine Appearance Clear Urine pH 6.0 Ur Specific [place] > 1.045 H Urine Protein 1+ H Urine Glucose (UA) 3+ H Urine Ketones Trace H Ur Blood (Man) 2+ H Urine Nitrate Negative Urine Bilirubin Negative Urine Urobilinogen 2.0 H Add Ur Microanalysis Reviewed Leukocyte Esterase Rfl Negative Urine RBC 11-20 H Urine WBC 11-20 H Ur Squamous Epith Cells None seen Urine Bacteria None seen Urine Casts 0-2 Influenza A (RT-PCR) Influenza B (RT-PCR) RSV (RT-PCR) SARS-CoV-2 RNA (RT-PCR) 01/28/25 01/28/25 01/28/25 21:05 21:10 23:34 WBC RBC Hgb Hct MCV MCH MCHC RDW Plt Count MPV PT INR Sodium Potassium Chloride Carbon Dioxide Anion Gap BUN Creatinine Estim Creat Clear Calc Estimated GFR Glucose POC Capillary Glucose 158 H Lactic Acid 2.7 H 1.0 Calcium C-Reactive Protein 14.8 H Procalcitonin 0.3 Urine Color Urine Appearance Urine pH Ur Specific [place] Urine Protein Urine Glucose (UA) Urine Ketones Ur Blood (Man) Urine Nitrate Urine Bilirubin Urine Urobilinogen Add Ur Microanalysis Leukocyte Esterase Rfl Urine RBC Urine WBC Ur Squamous Epith Cells Urine Bacteria Urine Casts Influenza A (RT-PCR) Negative Influenza B (RT-PCR) Negative RSV (RT-PCR) Negative SARS-CoV-2 RNA (RT-PCR) Negative 01/29/25 01/29/25 05:13 07:44 WBC 11.2 H RBC 4.07 L Hgb 11.9 L Hct 38.0 MCV 93.4 MCH 29.2 MCHC 31.3 L RDW 14.1 Plt Count 187 MPV 10.0 PT 16.7 H INR 1.3 Sodium 132 L Potassium 4.1 Chloride 103 Carbon Dioxide 22 Anion Gap 7 BUN 11 Creatinine 0.67 L Estim Creat Clear Calc 73 Estimated GFR > 60 Glucose 161 H POC Capillary Glucose 129 H Lactic Acid Calcium 8.2 L C-Reactive Protein Procalcitonin Urine Color Urine Appearance Urine pH Ur Specific [place] Urine Protein Urine Glucose (UA) Urine Ketones Ur Blood (Man) Urine Nitrate Urine Bilirubin Urine Urobilinogen Add Ur Microanalysis Leukocyte Esterase Rfl Urine RBC Urine WBC Ur Squamous Epith Cells Urine Bacteria Urine Casts Influenza A (RT-PCR) Influenza B (RT-PCR) RSV (RT-PCR) SARS-CoV-2 RNA (RT-PCR) Quality VTE Prophylaxis VTE prophylaxis: mechanical ordered and pharmacologic ordered
--- NOTE | 2025-01-29 13:59 | PCPTNOTE ---
Patient was unavailable in am and refused secondary to pain in pm
[2025-01-29 14:00] VITALS: BP 114/51; PULSE 86; RESP 16; TEMP 37.2; O2SAT 96
[2025-01-29] MEDS: WARFARIN (*PBKC) 2.5 MG TABLET PO (16:28)
[2025-01-29] MEDS: INSULIN ASPART (*BKC) 100 UNITS/ML SUB-Q (16:28)
[2025-01-29 22:00] VITALS: BP 136/60; PULSE 87; RESP 16; TEMP 37.1; O2SAT 94
[2025-01-29] MEDS: AMITRIPTYLINE HCL 25 MG TABLET PO (22:49)
[2025-01-30 05:33] LABS: Hematocrit 39.3 % (37.0-47.0); Hemoglobin 12.5 g/dL (12.0-15.0); Mean Corpuscular HGB Conc 31.8 g/dl (32-36); Mean Corpuscular Hemoglobin 28.9 pg (26-34); Mean Corpuscular Volume 91.0 fl (80-100); Platelet Count Result 214 k/mm3 (150-375); Red Blood Count 4.32 M/mm3 (4.2-5.4); White Blood Count 10.8 K/mm3 (4.5-10.0)
[2025-01-30 05:52] LABS: Anion Gap 8 mmol/L (4-12); Blood Urea Nitrogen 13 mg/dL (7-17); Calcium 8.8 mg/dL (8.4-10.2); Carbon Dioxide 22 mmol/L (22-30); Chloride 102 mmol/L (98-107); Estimated CRCL calculation 64 ml/min; Estimated Glomerular Filt Rate > 60; Glucose 173 mg/dL (65-110); Potassium 3.9 mmol/L (3.4-5.0); Sodium 132 mmol/L (137-145)
[2025-01-30 05:54] LABS: INR 1.3; Prothrombin Time 15.9 Seconds (11.1-14.7)
[2025-01-30 06:00] VITALS: BP 121/53; PULSE 87; RESP 18; TEMP 36.6; O2SAT 100
[2025-01-30] MEDS: ASPIRIN 81 MG ENTERIC TABLET PO (08:35)
[2025-01-30] MEDS: PANTOPRAZOLE 40 MG TABLET PO (08:35)
[2025-01-30] MEDS: ROSUVASTATIN 5 MG TABLET PO (08:35)
[2025-01-30] MEDS: traMADol HCL (*CRX) 25 MG TABLET PO (08:35)
[2025-01-30] MEDS: VERAPAMIL HCL 120 MG ER TABLET PO (08:35)
--- NOTE | 2025-01-30 09:41 | PM.CNOR ---
Assessment and Plan Assessment and plan (1) Fracture of left inferior pubic ramus: Qualifiers: Encounter type: initial encounter Fracture type: closed Qualified Code(s): S32.592A - Other specified fracture of left pubis, initial encounter for closed fracture Code(s): S32.592A - Other specified fracture of left pubis, initial encounter for closed fracture Status: Acute Assessment and Plan: Nondisplaced inferior pubic ramus fracture is stable. She may weight bear as tolerated. Pain control as necessary. Expect improvement each week over the next 4-6 weeks. Plan for [place] [facility] for approximately 2-4 weeks. She may follow-up in the clinic as needed in 4-6 weeks with x-rays. History of Present Illness HPI Consult date: 01/30/25 Chief complaint: Pelvic Fractures Narrative: Patient complains of acute hip pain. Fell from standing height. Admitted through the emergency department for definitive management. No previous hip pain. Comfortable at rest. Review of Systems Review of Systems: Relevant review of systems includes type 2 diabetes mellitus, atrial fibrillation on Coumadin, history of gout on allopurinol, polyneuropathy, restless leg syndrome, acute systemic inflammatory response. All systems reviewed & are unremarkable except as noted in HPI and below PMFSH Past Medical History Medical History (Updated 01/29/25 @ 12:14 by Pau Sauceda APRN) Closed fracture of single pubic ramus of pelvis Mixed hyperlipidemia Restless leg syndrome Paroxysmal atrial fibrillation Body mass index [BMI] 34.0-34.9, adult (07/16/17) Chronic diarrhea Hypertension TIA (transient ischemic attack) Otalgia Neuropathy Cerebrovascular disease, unspecified Gout, unspecified Type 2 diabetes mellitus without complications Surgical History Surgical History (Updated 01/28/25 @ 03:12 by Cathy Delatorre APRN) History of appendectomy History of Hx of cholecystectomy Family History Family History Father Family history of cardiovascular disease Family history of congestive heart failure Grandparent Cerebrovascular accident Sibling Cirrhosis of liver Social History Social History (Updated 01/28/25 @ 03:13 by Cathy Delatorre APRN) Social History: The patient is currently living with her daughter. She has a son and a daughter. She recently adopted it a great niece who is 4 years old. She is retired from [employer].. She is . Code status: Full code Smoking status: Never smoker Alcohol intake: never Substance use: never Lack of Transportation: No Lack of Food: Never True Current Housing: Decline to Answer Concerned About Future Housing: Decline to Answer Difficulty Paying Gas/Electric Bills: Decline to Answer Difficulty Paying for Meds: Decline to Answer Currently Unemployed: Decline to Answer Education: Decline to Answer Difficulty w/ Childcare or Family Care: Decline to Answer Spiritual care concerns: No Meds Home Medications and Allergies Home Medications ?Medication ?Instructions ?Recorded ?Confirmed ?Type glimepiride 4 mg tablet 4 mg PO BID 12/15/18 01/27/25 History warfarin 5 mg tablet (Coumadin) See Rx Instructions .Route .COMPLEX 12/15/18 01/27/25 History ropinirole 0.5 mg tablet 0.5 - 1 mg PO HS 04/08/19 01/27/25 History rosuvastatin 5 mg tablet 5 mg PO DAILY 04/08/19 01/27/25 History allopurinol 300 mg tablet 300 mg PO DAILY 06/10/21 01/27/25 History amitriptyline 25 mg tablet 25 mg PO HS 06/10/21 01/27/25 History duloxetine 20 mg capsule,delayed 20 mg PO BID 06/10/21 01/27/25 History release ergocalciferol (vitamin D2) 1,250 2,500 mcg PO DAILY 12/05/21 01/27/25 History mcg (50,000 unit) capsule prednisone 5 mg tablet 5 mg PO DAILY 12/05/21 01/27/25 History albuterol sulfate 90 mcg/actuation 2 inh inhalation QID PRN shortness 03/30/22 01/27/25 Rx breath activated powder inhaler of breath #1 ea (ProAir RespiClick) aspirin 81 mg tablet 81 mg PO DAILY 01/27/25 01/27/25 History omeprazole magnesium 20 mg 20 mg PO PRN 01/27/25 01/27/25 History tablet,delayed release (Prilosec OTC) verapamil 120 mg tablet,extended 120 mg PO DAILY 01/27/25 01/27/25 History release Allergies Allergy/AdvReac Type Severity Reaction Status Date / Time hydrocodone (From Vicodin) Allergy Numbness Verified 01/27/25 17:01 Vital Signs Vital Signs - 24 hr 01/29/25 14:00 01/29/25 20:00 01/29/25 22:00 Temperature 37.2 C 37.1 C Pulse Rate 86 87 Respiratory Rate 16 16 Blood Pressure 114/51 L 136/60 Pulse Oximetry 96 94 Oxygen Delivery Room Air 01/30/25 06:00 Temperature 36.6 C Pulse Rate 87 Respiratory Rate 18 Blood Pressure 121/53 L Pulse Oximetry 100 Oxygen Delivery Exam Narrative: No lower extremity deformity. Plain x-rays and CT scan reviewed show a nondisplaced inferior pubic ramus fracture. Mild degenerative changes at the hip chronic chondrocalcinosis. Const: General: no acute distress Eyes: General: appearance normal, both eyes and all related structures Resp: Effort & Inspection: normal respiratory effort GI: GI Palp: Yes Soft to palpation and No Guarding due to palpation present (GI) Urinary Catheter: Urinary Catheter: patent and draining and urine clear Skin: General skin exam: no rashes or lesions noted Neuro: Speech: normal speech Other: Wiggles toes well. Capillary refill brisk. Distal light touch sensation intact. Dorsalis pedis pulse palpable. Extrem: Other: No edema. Psych: Mental Status: mental status grossly normal Results Labs 01/30/25 05:20 01/30/25 05:20 Labs: Abnormal lab results 01/29/25 01/29/25 01/29/25 Range/Units 11:54 16:20 20:08 WBC (4.5-10.0) K/mm3 MCHC (32-36) g/dl PT (11.1-14.7) Seconds Sodium (137-145) mmol/L Glucose (65-110) mg/dL POC Capillary Glucose 169 H 215 H 204 H (65-105) mg/dl 01/30/25 01/30/25 Range/Units 05:20 08:31 WBC 10.8 H (4.5-10.0) K/mm3 MCHC 31.8 L (32-36) g/dl PT 15.9 H (11.1-14.7) Seconds Sodium 132 L (137-145) mmol/L Glucose 173 H (65-110) mg/dL POC Capillary Glucose 173 H (65-105) mg/dl H & H 01/27/25 01/28/2525 Range/Units 13:53 05:40 05:13 Hgb 12.4 12.2 11.9 L (12.0-15.0) g/dL Hct 39.7 39.1 38.0 (37.0-47.0) % 01/30/25 Range/Units 05:20 Hgb 12.5 (12.0-15.0) g/dL Hct 39.3 (37.0-47.0) % Coagulation 01/28/25 01/29/25 01/30/25 Range/Units 05:41 05:13 05:20 INR 1.6 1.3 1.3 All other labs normal. Quality VTE Prophylaxis VTE prophylaxis: mechanical ordered
--- NOTE | 2025-01-30 10:33 | P.DS_ITS ---
DS: Admitting Diagnosis Discharge Date 01/30 Admitting Diagnosis fall DS: Discharge Diagnosis Discharge Diagnosis (1) Fracture of left inferior pubic ramus: Qualifiers: Encounter type: initial encounter Fracture type: closed Qualified Code(s): S32.592A - Other specified fracture of left pubis, initial encounter for closed fracture Code(s): S32.592A - Other specified fracture of left pubis, initial encounter for closed fracture Status: Acute (2) Essential (primary) hypertension: Code(s): I10 - Essential (primary) hypertension Status: Acute (3) Type 2 diabetes mellitus without complications: Code(s): E11.9 - Type 2 diabetes mellitus without complications Status: Acute Assessment and Plan: - (4) Chronic atrial fibrillation: Code(s): I48.20 - Chronic atrial fibrillation, unspecified Status: Acute (5) Mixed hyperlipidemia: Code(s): E78.2 - Mixed hyperlipidemia Status: Acute Assessment and Plan: - (6) Gout, unspecified: Code(s): M10.9 - Gout, unspecified Status: Acute (7) Neuropathy: Code(s): G62.9 - Polyneuropathy, unspecified Status: Acute (8) Restless leg syndrome: Code(s): G25.81 - Restless legs syndrome Status: Acute (9) SIRS (systemic inflammatory response syndrome): Code(s): R65.10 - Systemic inflammatory response syndrome (SIRS) of non-infectious origin without acute organ dysfunction Status: Acute DS: Summary Hospital Course Hospital Course: This 74-year-old female with past medical history significant for paroxysmal atrial fibrillation, hypertension, transient ischemic attacks, diabetes mellitus, and cerebrovascular accidents presented to the emergency department after a mechanical fall in her home. The patient reported slipping on her dog's vomit in a dark bedroom, resulting in immediate left hip and left back pain. She denied head trauma or loss of consciousness. Initial evaluation revealed a white blood cell count of 11.1 and blood glucose levels ranging from 141-155. Renal function was normal with BUN 20, creatinine 0.69, and GFR greater than 60. Plain radiographs of the hip and pelvis demonstrated moderate degenerative changes without acute fracture or malalignment; however CT imaging of the pelvis revealed a minimally comminuted, mildly displaced left inferior pubic ramus fracture and probable nondisplaced superior pubic ramus fracture. The patient was admitted to observation status on 01/28/2025 and received morphine and Zofran for pain management. A Olivera catheter was placed due to bladder distention noted on imaging. On hospital day one, the patient developed a fever of 100.8?F and met SIRS criteria with tachypnea and tachycardia, likely related to pain. Blood cultures were obtained and remain pending. Lactic acid was elevated at 2.7, and urinalysis showed elevated specific gravity with trace ketones suggesting dehydration rather than infection. The patient received a 30 mL/kg fluid bolus based on her preserved systolic function demonstrated on prior echocardiogram. Antibiotics were deferred as the fever was attributed to atelectasis from decreased mobility, and incentive spirometry was initiated. Orthopedic surgery was consulted and confirmed a nondisplaced inferior pubic ramus fracture that is stable and does not require surgical intervention. The patient was cleared for weight-bearing as tolerated with pain control using oxycodone, which she has tolerated well previously. She also has ultram as needed. The disposition plan includes transfer to [place] [facility] facility for approximately 2-4 weeks with anticipated gradual improvement over 4-6 weeks and orthopedic follow-up with repeat radiographs as needed. Things to follow up for swing bed at [place]: - follow up on Blood cultures - pt is on coumadin for afib- INR was 1.3x 2 days She is taking 2.5 mg at hs. She will be given 3 mg x 1 dose today prior to discharge with a close f/u and monitoring INR at [place] [facility] - pt has olivera cath due to bladder distention and decreased mobility- will need to d/c it as soon as appropriate. Status at Discharge Functional status at discharge: bed bound Overall status at discharge: patient is progressing back to baseline Time Spent with Patient Time attestation: Total time spent providing and/or coordinating discharge services: Time spent: Greater than 30 minutes Exam Const: General: cooperative, healthy appearing, comfortable, no acute distress, well developed, awake, Physically active, average body habitus and well nourished Nutritional Appearance: average body habitus and well nourished Orientation/consciousness: oriented to person, oriented to place, oriented to time and patient oriented x3 HENMT: Head: normal to inspection Eyes: General: appearance normal, both eyes and all related structures Alignment and Position: alignment normal Periorbital: periorbital findings normal Eyelids: eyelids normal Conjunctivae: conjunctivae normal Sclera: sclerae normal Pupils: Equal, round and reactive pupils present Neck: Neck: normal visual inspection Chest: Chest palpation & inspection: normal inspection of the chest Resp: Effort & Inspection: normal respiratory effort Auscultation: clear to auscultation bilaterally Cardio: Palpation: normal PMI Rate: regular rate Rhythm: regular rhythm Heart sounds: S1 normal heart sound present and S2 normal heart sound present Peripheral pulses: Peripheral pulses 2+ throughout GI: Inspection: normal to inspection Auscultation: normal bowel sounds Other: Abdomen is firm and distended. However it is nontender : General: Yes no CVA tenderness Urinary Catheter: Urinary Catheter: patent and draining and urine clear Back/Spine/Pelvis: Back: no CVA tenderness Cervical Spine: cervical ROM normal Skin: General skin exam: normal color Lesions: no lesions Rashes: no rashes Trauma: no lacerations or abrasions Wounds: no wounds Hair: normal Nails: normal Neuro: General: oriented to person, oriented to place, oriented to time and patient oriented x3 Cranial nerves: Yes Equal, round and reactive pupils present and Yes Normal hearing present Cognition (Neuro): normal cognition Speech: normal speech Extrem: General: normal to inspection Right upper extremity: normal to inspection and shoulder/upper arm Left upper extremity: normal to inspection and shoulder/upper arm Right lower extremity: normal to inspection Left lower extremity: normal to inspection Psych: Appearance: grossly normal Mental Status: mental status grossly normal Speech and movement: Normal speech and movement present Affect: normal affect Attitude: cooperative Thought process: Normal thought process present Insight: Good insight present (Psych) Judgement: Good judgement present (Psych) DS: Data Data Completed and Pending Labs on day of discharge: Labs from last 24 hours 01/30/25 01/30/25 01/29/25 08:31 05:20 20:08 WBC 10.8 H RBC 4.32 Hgb 12.5 Hct 39.3 MCV 91.0 MCH 28.9 MCHC 31.8 L RDW 14.1 Plt Count 214 MPV 10.1 PT 15.9 H INR 1.3 Sodium 132 L Potassium 3.9 Chloride 102 Carbon Dioxide 22 Anion Gap 8 BUN 13 Creatinine 0.78 Estim Creat Clear Calc 64 Estimated GFR > 60 Glucose 173 H POC Capillary Glucose 173 H 204 H Calcium 8.8 01/29/25 01/29/25 16:20 11:54 WBC RBC Hgb Hct MCV MCH MCHC RDW Plt Count MPV PT INR Sodium Potassium Chloride Carbon Dioxide Anion Gap BUN Creatinine Estim Creat Clear Calc Estimated GFR Glucose POC Capillary Glucose 215 H 169 H Calcium Discharge Plan Discharge Attending physician on discharge: Derek Cabrera Consulting providers: Dharmesh Baum Discharging Clinician: Pau Sauceda Patient Disposition: Hospital [facility] Bed Activity: may shower and as tolerated Diet: diabetic Discharge Instructions: ORTHO: Weight bearing as tolerated with walker. Call office for follow up in 4-6 weeks. Patient Instructions: Antibiotic Form, Warfarin (By mouth) Patient Language: Georgian Stand Alone Forms: General Discharge Information Follow-up/Referrals: Raf Fritz MD [Primary Care Provider, Internal Medicine] - 4 Weeks Discharge Medications: New oxycodone 5 mg Tablet 5 mg PO Q4H PRN (Reason: Pain Rated 7-10) Qty: 10 0RF tramadol 50 mg tablet 50 mg PO Q6H PRN (Reason: pain) Qty: 10 0RF Continued amitriptyline 25 mg tablet 25 mg PO HS allopurinol 300 mg tablet 300 mg PO DAILY duloxetine 20 mg capsule,delayed release(DR/EC) 20 mg PO BID prednisone 5 mg tablet 5 mg PO DAILY ergocalciferol (vitamin D2) 1,250 mcg (50,000 unit) capsule 2,500 mcg PO DAILY ProAir RespiClick 90 mcg/actuation aerosol powdr breath activated 2 inh inhalation QID PRN (Reason: shortness of breath) Qty: 1 0RF warfarin [Coumadin] 5 mg tablet See Rx Instructions .ROUTE .COMPLEX Rx Instructions: warfarin 2.5mg hs glimepiride 4 mg tablet 4 mg PO BID verapamil 120 mg tablet extended release 120 mg PO DAILY aspirin 81 mg tablet 81 mg PO DAILY omeprazole magnesium [Prilosec OTC] 20 mg tablet,delayed release (DR/EC) 20 mg PO PRN ropinirole 0.5 mg Tablet 0.5 - 1 mg PO HS rosuvastatin 5 mg Tablet 5 mg PO DAILY Date of admission: 01/27/25 13:48 Primary Care Provider: Raf Fritz Admitting Provider: Bright Dumont Attending physician on admission: Julia,Bright Condition: Stable Quality VTE Prophylaxis VTE prophylaxis: mechanical ordered Hospitalist MIPS Heart Failure (Exclusion) Patient has history of Heart Transplant or Left Ventricular Assistive Device?: No IF YES, STOP HERE Heart Failure (Qualifier) Patient has current or prior documentation of LVEF less than or equal to 40%, or mod/servere depressed LVSF?: No IF NO, STOP HERE
[2025-01-30] MEDS: oxyCODONE HCL (*CRX) 5 MG TAB IR PO (12:07)
[2025-01-30] MEDS: WARFARIN (*PBKC) 3 MG TABLET PO (13:40)
== END 2025-01-30 14:50 | disposition swing bed (61) ==
LOC: ANHED 14:36 → ANH3MED 18:08
PROVIDERS: Internal Medicine; Nurse Practitioner; Admitting Provider Internal Medicine; Emergency Provider Physician Assistant; PCP Internal Medicine; Visit Provider Internal Medicine
DX: S32.592A Other specified fracture of left pubis, initial encounter for closed fracture (principal); R65.10 Systemic inflammatory response syndrome (SIRS) of non-infectious origin without acute organ dysfunction; W18.39XA Other fall on same level, initial encounter; N32.89 Other specified disorders of bladder; I48.20 Chronic atrial fibrillation, unspecified; E11.9 Type 2 diabetes mellitus without complications; I10 Essential (primary) hypertension; I67.9 Cerebrovascular disease, unspecified; E78.2 Mixed hyperlipidemia; G25.81 Restless legs syndrome; G62.9 Polyneuropathy, unspecified; R19.7 Diarrhea, unspecified; M10.9 Gout, unspecified; Z20.822 Contact with and (suspected) exposure to COVID-19; Z79.82 Long term (current) use of aspirin; Z79.01 Long term (current) use of anticoagulants; Z79.84 Long term (current) use of oral hypoglycemic drugs; Z79.52 Long term (current) use of systemic steroids; Z86.73 Personal history of transient ischemic attack (TIA), and cerebral infarction without residual deficits; Z90.49 Acquired absence of other specified parts of digestive tract
CPT/HCPCS: 36415; 71045; 71046; 72131; 72192; 73502; 74160; 80048; 81001; 82948; 83036; 83605; 84145; 85025; 85027; 85610; 86140; 87086; 87637; 96361; 96374; 96375; 96376; 97161; 97166; 99285; A9270; G0378; J1171; J1815; J2270; J2405; J7030; Q9967